=== PATIENT | female | born 1945 | race Caucasian/White ===

== ENCOUNTER 2016-04-06 03:31 | Inpatient (IN) | payer MEDICARE ==
[~2016-04-06] VITALS: Ht 170.2 cm; Wt 69.7 kg
[2016-04-06] VITALS (11 sets, daily range): BP systolic 132–190; BP diastolic 74–106; PULSE 73–101; RESP 16–20; TEMP 97.4–98.2; O2SAT 96–98
[~2016-04-06 03:31] MED LIST: ASPI325T PO; CELE200 PO; COUM5TAB PO; FAMO1TAB36 PO; FEXO180 PO; NEUR600T PO; ROSU20 PO; SYNT112T PO; TAB-TAB PO; TOPR100T15 PO
[2016-04-06] MEDS ORDERED: FAMO20TA2 PO (03:52)
[2016-04-06] MEDS ORDERED: GABA600T PO (03:53)
[2016-04-06] MEDS ORDERED: LEVO112T2 PO (03:53)
[2016-04-06] MEDS ORDERED: COUM6TAB PO (03:54)
[2016-04-06] MEDS ORDERED: COUM5TAB PO (03:54)
[2016-04-06] MEDS ORDERED: METO50TA PO (03:55)
[2016-04-06] MEDS ORDERED: MULTTAB67 PO (03:55)
[2016-04-06] MEDS ORDERED: ACET1CAP18 PO (03:56)
[2016-04-06] MEDS ORDERED: ROSU20 PO (03:56)
[2016-04-06] MEDS ORDERED: CRANCAP2 PO (03:57)
[2016-04-06] MEDS ORDERED: MELO7.5T4 PO (03:57)
[2016-04-06] MEDS ORDERED: CALC1TAB12 PO (03:57)
--- NOTE | 2016-04-06 05:09 | PD ---
HPI Chief Complaint: Abdominal Pain Time Seen by Provider: 04:11 Travel History International Travel<30 days: No Contact w/Intl Traveler<30days: No Traveled to known affect area: No History of Present Illness HPI Patient is a 70-year-old female who presents to emergency room with complaints of abdominal pain. Patient reports that for the past few weeks, she has been having increased abdominal pain after she eats food. Patient reports that she has had overall decreased oral intake for the past few weeks, reports that she has been trying to eat clear foods including soups. Patient reports that pain today was more severe, reports that she is feeling nauseous at this time. Reports increased pain to her upper abdomen. Reports that she has not seen GI in the past, patient has not had EGD or colonoscopy in the past. Patient reports that nothing she eats makes her pain better or worse. Patient denies chest pain or shortness of breath. Patient denies fevers or chills. Patient denies constipation diarrhea. Patient with no recent travels. Patient also reports that she has noticed increased all lymph nodes in her neck for the past few weeks, reports that she did have a CAT scan performed as an outpatient, was concern for possible metastatic disease. Patient does have an appointment with Dr. Alexander in the following week for further evaluation including biopsy of these lymph nodes. Patient with no fevers or chills at this time. 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) Psychiatric: No Reproductive: No Respiratory: No Radiation Therapy: No Sleep Apnea: No Thyroid Disease: Yes Tetanus Vaccination: Unknown Influenza Vaccination: No Menopausal: Yes Past Surgical History Abdominal Surgery: Yes (APPY) Appendectomy: Yes Cardiac Surgery: Yes (CARDIAC ABLATION) Oral Surgery: Yes (TONSILLECTOMY) Pacemaker: No Other Surgery: Yes Family History Family History: Negative Social History Alcohol Use: Yes (RARE) Tobacco Use: No Substance Use: No Allergies-Medications (Allergen,Severity, Reaction): Coded Allergies: Hepatitis B Vaccine (Verified Allergy, Severe, 04/06/16) Penicillin (Unverified Allergy, Severe, SWELLING,HIVES, 04/06/16) Reported Meds & Prescriptions Reported Meds & Active Scripts Active Reported Calcium 500 +D (Calcium Carbonate-Cholecalciferol) 500-400 Mg-Unit Tab 1 Tab PO DAILY Cranberry Urinary Comfort (Vitamins C & E) 1 Cap 1 Cap PO DAILY Meloxicam 7.5 Mg Tab 7.5 Mg PO DAILY Tylenol (Acetaminophen) 325 Mg Cap 500 Mg PO Q6H PRN Crestor (Rosuvastatin Calcium) 20 Mg Tab 20 Mg PO DAILY Multiple Vitamin 1 Tab 1 Tab PO DAILY Metoprolol Tartrate 50 Mg Tab 50 Mg PO DAILY Coumadin (Warfarin) 6 Mg Tab 6 Mg PO EVERY OTHER DAY Coumadin (Warfarin) 5 Mg Tab 5 Mg PO DAILY Levothyroxine (Levothyroxine Sodium) 112 Mcg Tab 112 Mcg PO DAILY Gabapentin 600 Mg Tab 600 Mg PO HS Famotidine 20 Mg Tab 20 Mg PO DAILY Review of Systems General / Constitutional: No: Fever Eyes: No: Visual changes HENT: No: Headaches Cardiovascular: No: Chest Pain or Discomfort Respiratory: No: Shortness of Breath Gastrointestinal: Positive: Nausea, Vomiting, Abdominal Pain Genitourinary: No: Dysuria Musculoskeletal: No: Pain Skin: No Rash Neurologic: No: Weakness Psychiatric: No: Depression Endocrine: No: Polydipsia Hematologic/Lymphatic: No: Easy Bruising Physical Exam Narrative GENERAL: Mild distress SKIN: Warm and dry. HEAD: Atraumatic. Normocephalic. EYES: Pupils equal and round. No scleral icterus. No injection or drainage. ENT: No nasal bleeding or discharge. Mucous membranes pink and moist. NECK: Trachea midline. No JVD. CARDIOVASCULAR: Regular rate and rhythm. No murmur appreciated. RESPIRATORY: No accessory muscle use. Clear to auscultation. Breath sounds equal bilaterally. GASTROINTESTINAL: Abdomen soft, increased tenderness to the upper abdomen with no rebound or guarding on exam. Hepatic and splenic margins not palpable. MUSCULOSKELETAL: No obvious deformities. No clubbing. No cyanosis. No edema. NEUROLOGICAL: Awake and alert. No obvious cranial nerve deficits. Motor grossly within normal limits. Normal speech. PSYCHIATRIC: Appropriate mood and affect; insight and judgment normal. Data Data Last Documented VS Vital Signs Date Time Temp Pulse Resp B/P Pulse Ox O2 Delivery O2 Flow Rate FiO2 04/06/16 05:29 98 Room Air 04/06/16 05:29 77 18 185/85 04/06/16 03:34 97.7 Orders Complete Blood Count With Diff (04/06/16 05:14) Comprehensive Metabolic Panel (04/06/16 05:14) Lipase (04/06/16 05:14) Prothrombin Time / Inr (Pt) (04/06/16 05:14) Act Partial Throm Time (Ptt) (04/06/16 05:14) Urinalysis - C+S If Indicated (04/06/16 05:14) Ct Abd/Pel W Iv Contrast(Rout) (04/06/16 05:14) Iv Access Insert/Monitor (04/06/16 05:14) Ecg Monitoring (04/06/16 05:14) Oximetry (04/06/16 05:14) Morphine Inj (Morphine Inj) (04/06/16 05:15) Sodium Chlor 0.9% 1000 Ml Inj (Ns 1000 M (04/06/16 05:14) Sodium Chloride 0.9% Flush (Ns Flush) (04/06/16 05:15) Chest, Single Ap (04/06/16 05:14) Famotidine Inj (Pepcid Inj) (04/06/16 05:15) Morphine Inj (Morphine Inj) (04/06/16 05:19) Urine Culture (04/06/16 05:20) Iohexol 350 Inj (Omnipaque 350 Inj) (04/06/16 06:22) Labs Laboratory Tests Test 04/06/16 05:20 White Blood Count 7.3 TH/MM3 Red Blood Count 4.52 MIL/MM3 Hemoglobin 13.7 GM/DL Hematocrit 40.5 % Mean Corpuscular Volume 89.4 FL Mean Corpuscular Hemoglobin 30.4 PG Mean Corpuscular Hemoglobin 34.0 % Concent Red Cell Distribution Width 12.6 % Platelet Count 290 TH/MM3 Mean Platelet Volume 8.9 FL Neutrophils (%) (Auto) 68.3 % Lymphocytes (%) (Auto) 20.4 % Monocytes (%) (Auto) 7.7 % Eosinophils (%) (Auto) 2.8 % Basophils (%) (Auto) 0.8 % Neutrophils # (Auto) 5.0 TH/MM3 Lymphocytes # (Auto) 1.5 TH/MM3 Monocytes # (Auto) 0.6 TH/MM3 Eosinophils # (Auto) 0.2 TH/MM3 Basophils # (Auto) 0.1 TH/MM3 CBC Comment DIFF FINAL Differential Comment Prothrombin Time 22.8 SEC Prothromb Time International 2.0 RATIO Ratio Activated Partial 35.2 SEC Thromboplast Time Urine Color YELLOW Urine Turbidity CLEAR Urine pH 5.5 Urine Specific [place] 1.014 Urine Protein TRACE mg/dL Urine Glucose (UA) NEG mg/dL Urine Ketones 10 mg/dL Urine Occult Blood LARGE Urine Nitrite NEG Urine Bilirubin NEG Urine Urobilinogen LESS THAN 2.0 MG/DL Urine Leukocyte Esterase SMALL Urine RBC 21 /hpf Urine WBC 10 /hpf Urine Squamous Epithelial <1 /hpf Cells Urine Bacteria RARE /hpf Urine Mucus FEW /lpf Microscopic Urinalysis Comment CULTURE INDICATED Sodium Level 140 MEQ/L Potassium Level 3.4 MEQ/L Chloride Level 102 MEQ/L Carbon Dioxide Level 29.0 MEQ/L Anion Gap 9 MEQ/L Blood Urea Nitrogen 13 MG/DL Creatinine 0.74 MG/DL Random Glucose 121 MG/DL Calcium Level 9.6 MG/DL Total Bilirubin 0.5 MG/DL Aspartate Amino Transf 33 U/L (AST/SGOT) Alanine Aminotransferase 35 U/L (ALT/SGPT) Alkaline Phosphatase 94 U/L Total Protein 8.8 GM/DL Albumin 4.5 GM/DL Lipase 4287 U/L MDM Medical Decision Making Medical Screen Exam Complete: Yes Emergency Medical Condition: Yes Interpretation(s) Vital Signs Date Time Temp Pulse Resp B/P Pulse Ox O2 Delivery O2 Flow Rate FiO2 04/06/16 04:32 185/102 04/06/16 04:01 190/95 04/06/16 03:50 101 18 154/100 98 Room Air 04/06/16 03:34 97.7 97 16 189/106 98 EKG at 0415: Normal sinus rhythm at 80 bpm, QT/QTC 363/408, no acute ST or T- wave changes Differential Diagnosis Acute cholecystitis, gastritis, gastroenteritis, gastric ulcer, ACS, electrolyte abnormality Narrative Course Patient is a 62-year-old female who presents to emergency room with complaints of abdominal pain for the past few weeks. Patient with pain worse after eating meals. EKG ordered as well as CBC, BMP and x-ray chest to evaluate for possible free air. CT abdomen and pelvis ordered for further evaluation of abdominal pain. Upon presentation to emergency room, IV please, patient given IV fluids as well as IV Pepcid and GI cocktail. All labs and all studies reviewed with patient in detail CT of abdomen and pelvis reviewed patient in detail, copies of her studies were given to her plan to admit for obs Diagnosis Primary Impression: Pancreatitis, acute Qualified Code: K85.80 - Other acute pancreatitis, unspecified complication status Admitting Information Admitting Physician Requests: Lacey Harrington DO Apr 06, 2016 05:09
[2016-04-06] MEDS ORDERED: SODIUM CHLOR 0.9% 1000 ML INJ 1,000 ML IV SCH (05:14)
[2016-04-06] MEDS ORDERED: FAMOTIDINE 20 MG/2 ML VIAL IV PUSH ONE (05:15)
[2016-04-06] MEDS ORDERED: MORPHINE SULFATE 4 MG/ML INJ IV PUSH ONE (05:15)
[2016-04-06] MEDS ORDERED: MORPHINE SULFATE 8 MG/ML INJ ONE (05:19)
[2016-04-06 05:48] LABS: BASOPHIL # 0.1 TH/MM3 (0-0.2); BASOPHIL % 0.8 % (0.0-2.0); EOSINOPHIL # 0.2 TH/MM3 (0-0.4); EOSINOPHIL % 2.8 % (0.0-4.0); HEMATOCRIT 40.5 % (35.0-46.0); HEMO FLAGS DIFF FINAL; LYMPH % 20.4 % (9.0-44.0); LYMPHOCYTE # 1.5 TH/MM3 (1.0-4.8); MEAN CELL VOLUME 89.4 FL (80.0-100.0); MEAN CORPUSCULAR HEMOGLOBIN 30.4 PG (27.0-34.0); MONO % 7.7 % (0.0-8.0); NEUT % 68.3 % (16.0-70.0); PLATELET COUNT 290 TH/MM3 (150-450); RED BLOOD COUNT 4.52 MIL/MM3 (4.00-5.30); RED CELL DISTRIBUTION WIDTH 12.6 % (11.6-17.2); WHITE BLOOD COUNT 7.3 TH/MM3 (4.0-11.0)
[2016-04-06 06:01] LABS: ALT (GPT) 35 U/L (10-53); ANION GAP 9 MEQ/L (5-15); AST (GOT) 33 U/L (15-37); BLOOD UREA NITROGEN 13 MG/DL (7-18); CHLORIDE 102 MEQ/L (98-107); POTASSIUM 3.4 MEQ/L (3.5-5.1); SODIUM (NA) 140 MEQ/L (136-145)
[2016-04-06 06:03] LABS: BACTERIA, URINE RARE /hpf; BLOOD, URINE LARGE (NEG); COMMENT (UR) CULTURE INDICATED; CULTURE IF INDICATED CULTURE INDICATED; GLUCOSE,URINE NEG (NEG); KETONE, URINE 10 mg/dL (NEG); MUCUS URINE FEW /lpf (OCC); NITRITE,URINE NEG (NEG); PH, URINE 5.5 (5.0-8.5); SQUAMOUS EPITHELIAL CELL URINE <1 /hpf (0-5); URINE COLOR YELLOW (YELLW/STRAW)
[2016-04-06 06:04] LABS: ALKALINE PHOSPHATASE 94 U/L (45-117); TOTAL BILIRUBIN ADULT 0.5 MG/DL (0.2-1.0)
[2016-04-06 06:21] LABS: APTT (PATIENT) 35.2 SEC (24.3-30.1); PROTHROMBIN TIME - PATIENT 22.8 SEC (9.8-11.6)
[2016-04-06] MEDS ORDERED: IOHEXOL 350 MG/ML 10 ML VIAL (for RAD DIAG) IV ONE (06:22)
--- NOTE | 2016-04-06 06:33 | RADRPT ---
EXAM DATE/TIME: 04/06/2016 06:01 [facility] COMPARISON: No previous studies available for comparison. INDICATIONS : Abdominal pain. MEDICAL HISTORY : None. SURGICAL HISTORY : None. ENCOUNTER: Initial ACUITY: 1 day PAIN SCORE: 3/10 LOCATION: Bilateral Abdomen FINDINGS: A single view of the chest demonstrates the lungs to be symmetrically aerated without evidence of mas s, infiltrate or effusion. The cardiomediastinal contours are unremarkable. Osseous structures are intact. CONCLUSION: The lungs are clear. Jesus Alberto Madden MD on April 06, 2016 at 6:30 Board Certified Radiologist. This report was verified electronically.
--- NOTE | 2016-04-06 06:44 | RADRPT ---
EXAM DATE/TIME: 04/06/2016 06:20 [facility] COMPARISON: No previous studies available for comparison. INDICATIONS : Diffuse abdominal pain. IV CONTRAST: 97 cc Omnipaque 350 (iohexol) IV ORAL CONTRAST: No oral contrast ingested. RADIATION DOSE: 6.88 CTDIvol (mGy) MEDICAL HISTORY : Cerebrovascular disease. Cardiovascular disease SURGICAL HISTORY : Appendectomy. Tonsillectomy. ENCOUNTER: Initial ACUITY: 1 day PAIN SCALE: 4/10 LOCATION: abdomen TECHNIQUE: Volumetric scanning of the abdomen and pelvis was performed. Using automated exposure control and ad justment of the mA and/or kV according to patient size, radiation dose was kept as low as reasonably achievable to obtain optimal diagnostic quality images. FINDINGS: The examination is abnormal. In the liver, there are numerous varying sized hypodense lesions involv ing all segments; the largest lesion is in the posterior dome measures 2.4 cm. There is an abnormal appearance to the pancreas with a 2.5 cm hypodense lesion with ill-defined margins located in the mid body. There is soft tissue thickening anterior and to the left of the mid and distal abdominal aort a measuring up to 2.3 cm in width suggesting confluent adenopathy. No enlarged nodes in the deep pel vis or inguinal region. Loops of small large bowel are normal in diameter. The kidneys are symmetric in size with persistent lobation. There is a nonobstructing 4 mm stone midpole left kidney. Moderate curvature of th e lumbar spine convex towards the right. Urinary bladder margins are smooth. The inguinal region is unremarkable. The visualized lower lungs are clear. Wide windows for bony detail demonstrate the osseous structure s to be intact. Moderate hypertrophic degenerative changes in the posterior elements of the lower daylni mbar spine.. CONCLUSION: Multiple low density lesions in the liver and a dominant low density lesion in the pancreas are nonsp ecific in appearance. However, there is also prominent soft tissue in the retroperitoneum to the lef t of the aorta suggesting adenopathy. Metastatic malignancy needs to be excluded. The preferable wa y to evaluate this would be with a FDG PET/CT scan to evaluate for metabolically active areas and to help make decisions regarding possible biopsy. Jesus Alberto Madden MD on April 06, 2016 at 6:35 Board Certified Radiologist. This report was verified electronically.
[2016-04-06] MEDS: LEVOTHYROXINE SODIUM 112 MCG TAB PO SCH (09:00)
--- NOTE | 2016-04-06 09:00 | HHI.HP ---
[facility] Sly Lr MD Admission Diagnosis pancreatitis Diagnoses: (1) Pancreatitis, acute Diagnosis: Principal (2) Left cervical lymphadenopathy Diagnosis: Principal (3) history of atrial fibrillation Diagnosis: Secondary (4) Hypokalemia Diagnosis: Secondary Chief Complaint: Epigastric pain Travel History International Travel<30 Days: No Contact w/Intl Traveler <30 Da: No Traveled to Known Affected Are: No History of Present Illness Patient is a very pleasant 70-year-old female presented to the ER complaining of epigastric discomfort started about the day after [place] radiating to the back and occasionally both upper quadrants. This pain is occasionally relieved by Tums associated with some nausea or vomiting. Last evening very severe pain that patient came here to the emergency room. On evaluation noted to have an elevated lipase. CT also showed mesenteric adenopathy - nonspecific. States lost 5 pounds in the past 3 weeks now . her bowel movement is usually "sluggish ". She had a colonoscopy done which was unremarkable in February 2015. She is admitted for further evaluation and management. Patient denies any chronic alcohol use. In addition to above patient also noted about 2 weeks ago left supraclavicular masses. Workup was done as an outpatient with CBC and chest x-ray which was unremarkable. She was empirically treated with antibiotics with no change in lymphadenopathy. She had a CT done then at [facility] (formerly [facility]) which shows left-sided supraclavicular lymphadenopathy without adenopathy elsewhere. Differential diagnosis considers include myeloproliferative disorder versus metastatic disease. She was referred to general surgery as an outpatient and was set up to see Dr. Alexander for evaluation this week as an outpatient Had Mammogram May 2015 - normal. colonoscopy done in [address] Stewart which was reportedly normal Review of Systems Constitutional: DENIES: Diaphoretic episodes, Fatigue, Fever, Weight gain, Weight loss, Chills, Dizziness, Change in appetite, Night Sweats Endocrine: DENIES: Abnorml menstrual pattern, Heat/cold intolerance, Polydipsia , Polyuria, Polyphagia Eyes: DENIES: Blurred vision, Diplopia, Eye inflammation, Eye pain, Vision loss , Photosensitivity, Double Vision Ears, nose, mouth, throat: DENIES: Tinnitus, Hearing loss, Vertigo, Nasal discharge, Oral lesions, Throat pain, Hoarseness, Ear Pain, Running Nose, Epistaxis, Sinus Pain, Toothache, Odynophagia Respiratory: DENIES: Apneas, Cough, Snoring, Wheezing, Hemoptysis, Sputum production, Shortness of breath Cardiovascular: DENIES: Chest pain, Palpitations, Syncope, Dyspnea on Exertion , PND, Lower Extremity Edema, Orthopnea, Claudication Gastrointestinal: COMPLAINS OF: Abdominal pain Genitourinary: DENIES: Abnormal vaginal bleeding, Dysmenorrhea, Dyspareunia, Sexual dysfunction, Urinary frequency, Urinary incontinence, Urgency, Hematuria , Dysuria, Nocturia, Vaginal discharge Musculoskeletal: DENIES: Joint pain, Muscle aches, Stiffness, Joint Swelling, Back pain, Neck pain Integumentary: DENIES: Abnormal pigmentation, Pruritus, Rash, Nail changes, Breast masses, Breast skin changes, Nipple discharge Hematologic/lymphatic: DENIES: Bruising, Lymphadenopathy Immunologic/allergic: DENIES: Eczema, Urticaria Neurologic: DENIES: Abnormal gait, Headache, Localized weakness, Paresthesias, Seizures, Speech Problems, Tremor, Poor Balance Psychiatric: DENIES: Anxiety, Confusion, Mood changes, Depression, Hallucinations, Agitation, Suicidal Ideation, Homicidal Ideation, Delusions Past Family Social History Past Medical History She has history of atrial fibrillation status post cryoablation 2012. She is on metoprolol and Coumadin for this since 2012 Acid peptic disease Chronic heel pain Hypothyroidism Hyper lipidemia Past Surgical History Appendectomy at 10 years old Tonsillectomy at 14 years old He'll surgery with 3 plates in 2002 Sinus surgery in 2011 and cryoablation for atrial fibrillation 2012 Reported Medications Warfarin 5 mg Thursday 6 mg Thursday Metoprolol 50 mg daily Neurontin 600 mg at bedtime for chronic pain Meloxicam at bedtime when necessary Famotidine 20 mg daily Synthroid 112 g daily Crestor 20 mg at bedtime Allergies: Coded Allergies: Hepatitis B Vaccine (Verified Allergy, Severe, 04/06/16) Penicillin (Unverified Allergy, Severe, SWELLING,HIVES, 04/06/16) Physical Exam Vital Signs Vital Signs Date Time Temp Pulse Resp B/P Pulse Ox O2 Delivery O2 Flow Rate FiO2 04/06/16 08:02 84 18 158/84 97 Room Air 04/06/16 05:29 98 Room Air 04/06/16 05:29 77 18 185/85 98 Room Air 04/06/16 04:32 185/102 04/06/16 04:01 190/95 04/06/16 03:50 101 18 154/100 98 Room Air 04/06/16 03:34 97.7 97 16 189/106 98 Physical Exam GENERAL: This is a well-nourished, well-developed patient, in no apparent distress. SKIN: No rashes, ecchymoses or lesions. Cool and dry. HEAD: Atraumatic. Normocephalic. No temporal or scalp tenderness. EYES: Pupils equal round and reactive. Extraocular motions intact. No scleral icterus. No injection or drainage. ENT: Nose without bleeding, purulent drainage or septal hematoma. Throat without erythema, tonsillar hypertrophy or exudate. Uvula midline. Airway patent. NECK: Trachea midline. No JVD or are 3 discrete firm lymph nodes in the left supraclavicular area nontender. I didn't feel any lymphadenopathy in bilateral axillary or bilateral inguinal areas on the right supraclavicular area CARDIOVASCULAR: Regular rate and rhythm without murmurs, gallops, or rubs. RESPIRATORY: Clear to auscultation. Breath sounds equal bilaterally. No wheezes , rales, or rhonchi. GASTROINTESTINAL: Abdomen= benign exam soft, non-tender, nondistended. No hepato -splenomegaly, or palpable masses. No guarding. MUSCULOSKELETAL: Extremities without clubbing, cyanosis, or edema. No joint tenderness, effusion, or edema noted. No calf tenderness. Negative Homans sign bilaterally. NEUROLOGICAL: Awake and alert. Cranial nerves II through XII intact. Motor and sensory grossly within normal limits. Five out of 5 muscle strength in all muscle groups. Normal speech. Laboratory Laboratory Tests Test 04/06/16 05:20 White Blood Count 7.3 Red Blood Count 4.52 Hemoglobin 13.7 Hematocrit 40.5 Mean Corpuscular Volume 89.4 Mean Corpuscular Hemoglobin 30.4 Mean Corpuscular Hemoglobin 34.0 Concent Red Cell Distribution Width 12.6 Platelet Count 290 Mean Platelet Volume 8.9 Neutrophils (%) (Auto) 68.3 Lymphocytes (%) (Auto) 20.4 Monocytes (%) (Auto) 7.7 Eosinophils (%) (Auto) 2.8 Basophils (%) (Auto) 0.8 Neutrophils # (Auto) 5.0 Lymphocytes # (Auto) 1.5 Monocytes # (Auto) 0.6 Eosinophils # (Auto) 0.2 Basophils # (Auto) 0.1 CBC Comment DIFF FINAL Differential Comment Prothrombin Time 22.8 Prothromb Time International 2.0 Ratio Activated Partial 35.2 Thromboplast Time Urine Color YELLOW Urine Turbidity CLEAR Urine pH 5.5 Urine Specific [place] 1.014 Urine Protein TRACE Urine Glucose (UA) NEG Urine Ketones 10 Urine Occult Blood LARGE Urine Nitrite NEG Urine Bilirubin NEG Urine Urobilinogen LESS THAN 2.0 Urine Leukocyte Esterase SMALL Urine RBC 21 Urine WBC 10 Urine Squamous Epithelial <1 Cells Urine Bacteria RARE Urine Mucus FEW Microscopic Urinalysis Comment CULTURE INDICATED Sodium Level 140 Potassium Level 3.4 Chloride Level 102 Carbon Dioxide Level 29.0 Anion Gap 9 Blood Urea Nitrogen 13 Creatinine 0.74 Random Glucose 121 Calcium Level 9.6 Total Bilirubin 0.5 Aspartate Amino Transf 33 (AST/SGOT) Alanine Aminotransferase 35 (ALT/SGPT) Alkaline Phosphatase 94 Total Protein 8.8 Albumin 4.5 Lipase 4287 Date/Time Procedure Status Source Growth 04/06/16 05:20 Urine Culture Received Urine Clean Catch Pending Result Diagram: 04/06/1651904/06/16519 Imaging Last Impressions Chest X-Ray 04/06/16513 Signed Impressions: Service Date/Time: Wednesday, April 06, 2016 06:01 - CONCLUSION: The lungs are clear. Jesus Alberto Madden MD Abdomen/Pelvis CT 04/06/16513 Signed Impressions: Service Date/Time: Wednesday, April 06, 2016 06:20 - CONCLUSION: Multiple low density lesions in the liver and a dominant low density lesion in the pancreas are nonspecific in appearance. However, there is also prominent soft tissue in the retroperitoneum to the left of the aorta suggesting adenopathy. Metastatic malignancy needs to be excluded. The preferable way to evaluate this would be with a FDG PET/CT scan to evaluate for metabolically active areas and to help make decisions regarding possible biopsy. Jesus Alberto Madden MD Assessment and Plan Assessment and Plan 70-year-old female admitted for epigastric pain radiating to the back Acute pancreatitis Imaging study shows low density lesions in the liver and the pancreas which are nonspecific- no biliary duct obstruction Liver function tests are unremarkable Will consult and defer to GI for further evaluation -on proceeding with any further workup - ERCP or MRCP, tumor markers etc Keep patient nothing by mouth continue IV fluids IV Dilaudid when necessary IV for pain Left supraclavicular multiple lymphadenopathies very suspicious for malignancy we will proceed with consulting general surgery as this is the most accessible/least invasive area for biopsy - We'll consult Dr. Alexander since patient was set up to see him tomorrow. Hold Coumadin URinary tract infection start Levaquin ff c and s History of atrial fibrillation status post cryoablation. Continue on metoprolol. Hold coumadin for possible procedure HYpokalemia replace IV and recheck in am History of acid peptic disease. Continue on her PPI- route IV History of hypothyroidism. Continue Synthroid History of hyperlipidemia on statins. History of chronic heel pain. Continue Neurontin 600 mg at bedtime discussed with patient and at bedside Physician Certification 2 Midnight Certification Type: Admission for Inpatient Services Order for Inpatient Services The services are ordered in accordance with Medicare regulations or non- Medicare payer requirements, as applicable. In the case of services not specified as inpatient-only, they are appropriately provided as inpatient services in accordance with the 2-midnight benchmark. Estimated LOS (days): 3 days is the estimated time the patient will need to remain in the hospital, assuming treatment plan goals are met and no additional complications. Post-Hospital Plan: Not yet determined Problem Qualifiers (1) Pancreatitis, acute: Qualified Code: K85.80 - Other acute pancreatitis, unspecified complication status Nirali Tate MD Apr 06, 2016 09:00 Nirali Tate MD Apr 06, 2016 09:00
[2016-04-06] MEDS: POTASSIUM CHLORIDE INJ 10 MEQ in DEXT 5%-NACL 0.9% 1000 ML INJ 1,000 ML IV SCH ×2 (09:27→22:06)
[2016-04-06] MEDS: PANTOPRAZOLE SODIUM 40 MG VIAL IV PUSH SCH (09:27)
[2016-04-06] MEDS: HYDROmorphone HCL PF 1 MG/ML VIAL IV PUSH PRN ×3 (09:28→22:06)
[2016-04-06] MEDS: LEVOFLOXACIN 500 MG PREMIX INJ 100 ML IV SCH (10:21)
[2016-04-06] MEDS: METOPROLOL TARTRATE 50 MG TAB PO SCH (10:21)
[2016-04-06] MEDS: POTASSIUM CHLOR 10 MEQ PREMIX 100 ML IV SCH ×2 (12:22→16:42)
--- NOTE | 2016-04-06 14:48 | EKG ---
Date Performed: 04/06/2016 Time Performed: 04:15:08 PTAGE: 70 years EKG: Sinus rhythm MARKED LEFT AXIS DEVIATION Nonspecific ST and T wave abnormalities ABNORMAL ECG PREVIOUS TRACING : 07/14/2012 03.18 Compared to the previous tracing, nonspecific ST/T wave jacinda nges now noted DOCTOR: Philip Edmondson Interpretating Date/Time 04/06/2016 14:48:27
--- NOTE | 2016-04-06 17:35 | MB ---
cc: REECE AMADOR M.D. DATE OF CONSULTATION: 04/06/2016. REASON FOR CONSULTATION: Left supraclavicular adenopathy. HISTORY OF PRESENT ILLNESS: The patient is a 70-year-old female who developed epigastric discomfort with severe pain. The patient was noted have an elevated lipase and mesenteric adenopathy that was nonspecific. The patient had a colonoscopy in February of 2015 which was unremarkable. She denies any chronic alcohol use. The patient had CT in [place] which demonstrated supraclavicular lymphadenopathy. The differential diagnosis included mild proliferative disorder versus metastatic disease. The patient was set up to see the undersigned this week as an outpatient. Mammogram in May of 2015 was reported as normal. REVIEW OF SYSTEMS: CONSITUTIONAL: The patient denies any problems constitutionally with fatigue, fever, weight loss and dizziness, change in appetite or night sweats. ENDOCRINE: Denies heat and cold intolerance, polydipsia, polyuria. EYES: Denies blurred vision, diplopia, or double vision. EARS, NOSE AND THROAT: Denies hearing loss, throat pain, hoarseness, ear pain or epistaxis. CARDIOVASCULAR: Denies chest pain, palpitations, syncope or dyspnea on exertion. GI: Significant for the abdominal pain. : Negative for urinary frequency, incontinence, urgency or hematuria or dysuria. MUSCULOSKELETAL: Denies joint pain, muscle aches, joint swelling. INTEGUMENTARY: Denies pruritus, rash or skin changes. HEMATOLOGIC: Denies bruising or lymphadenopathy except as indicated above. IMMUNOLOGIC: Denies urticaria. NEUROLOGIC: Denies abnormal gait, headache, weakness, dizziness, seizures or speech problems. PSYCHIATRIC: Denies anxiety, confusion, depression, hallucinations or agitation. FAMILY HISTORY AND SOCIAL HISTORY: The patient has a history of atrial fibrillation with cryoablation in 2012. She is on metoprolol and coumadin for this since 2012. PAST MEDICAL HISTORY: 1. History of acid peptic disease. 2. Hypothyroidism. 3. Hyperlipidemia. PAST SURGICAL HISTORY: 1. Appendectomy age 10. 2. Tonsillectomy age 14. 3. Heel surgery 2002. 4. Sinus surgery 2011. 5. Cryoablation 2012. MEDICATIONS: 1. Coumadin 5 milligrams on Thursday, Thursday, Thursday, ; 6 milligrams Thursday, Thursday, Thursday. 2. Metoprolol 50 milligrams daily. 3. Neurontin 600 milligrams at bedtime for chronic pain. 4. Meloxicam at bedtime PRN. 5. Famotidine 20 milligrams daily. 6. Synthroid 112 micrograms daily. 7. Crestor 20 milligrams at bedtime. ALLERGIES: 1. THE PATIENT HAS ALLERGY TO PENICILLIN WHICH CAUSES HIVES. 2. HEPATITIS B VACCINE. PHYSICAL EXAMINATION: GENERAL: The physical exam reveals a female in no acute distress. VITAL SIGNS: Blood pressure 150/92, pulse 78, respirations 20, temperature 98.2. HEAD, EYES, EARS, NOSE, THROAT: The sclerae are anicteric. Pupils are reactive. Throat is clear. NECK: The neck is supple. Trachea is midline. CHEST: Clear to auscultation. LYMPHATIC: There are three lymph nodes in the left supraclavicular area. There is no adenopathy in the axilla or groin areas or in the right supraclavicular area. ABDOMEN: Abdomen soft and nontender and nondistended. MUSCULOSKELETAL: No edema or joint tenderness. NEUROLOGIC: Awake and alert. Cranial nerves II through XII are grossly intact. Sensory and motor exams are grossly intact. Muscle strength 5/5 throughout. LABORATORY VALUES: WBCs of 7.3, hemoglobin 13.7, platelet count 290,000. BUN and creatinine are 13 and 0.7, potassium is 3.4. Liver function tests are essentially within normal limits. Lipase is elevated at 4287. IMAGING STUDIES: CT scan on April 06 demonstrates multiple low density lesions in the liver and a dominant low density lesion in the pancreas, which is nonspecific. There is also prominent tissue in the retroperitoneum left of the aorta suggesting adenopathy. PET scan was suggested as an outpatient. ASSESSMENT: Acute pancreatitis with question of pancreatic and/or liver lesions. RECOMMENDATIONS/PLAN: Will arrange for operative intervention. I have discussed risks of surgery, including but not limited to: bleeding risk increased due to anticoagulation, infection, seroma formation, and spinal accessory nerve injury. I have discussed remedies, consequences, alternatives and convalescence associated with surgery; she vocalizes understanding and agrees to proceed with surgery. Will need to reverse anticoagulation as INR is 2.0 prior to surgery. Will give vitamin K today. Thank you Dr. Tate for asking me to see this individual. MD JODI Peguero/JCJcarlos /4:36 PM /5:19 PM THANIA
[2016-04-06] MEDS ORDERED: PHYTONADIONE 10 MG/ML VIAL SQ ONE (17:45)
[2016-04-06] MEDS: GABAPENTIN 300 MG CAP PO SCH (21:00)
[2016-04-07] VITALS: BP 137/78; PULSE 90; RESP 18; TEMP 97.8; O2SAT 97
[2016-04-07 04:00] VITALS: BP 164/83; PULSE 88; RESP 18; TEMP 97.6; O2SAT 97
[2016-04-07] MEDS: PANTOPRAZOLE SODIUM 40 MG VIAL IV PUSH SCH (04:04)
[2016-04-07] MEDS: METOPROLOL TARTRATE 50 MG TAB PO SCH (04:04)
[2016-04-07] MEDS: POTASSIUM CHLORIDE INJ 10 MEQ in DEXT 5%-NACL 0.9% 1000 ML INJ 1,000 ML IV SCH ×3 (04:11→21:02)
[2016-04-07] MEDS: ONDANSETRON HCL 4 MG/2 ML VIAL IV PUSH PRN ×3 (06:44→20:53)
[2016-04-07] MEDS: HYDROmorphone HCL PF 1 MG/ML VIAL IV PUSH PRN ×4 (06:45→20:53)
[2016-04-07 07:16] LABS: INTERNATIONAL NORMALIZED RATIO 1.7 RATIO; PROTHROMBIN TIME - PATIENT 18.7 SEC (9.8-11.6)
--- NOTE | 2016-04-07 07:21 | MB ---
cc: LA FUNES M.D. DATE OF CONSULTATION: 04/06/2015 DATE OF : 1945 REASON FOR CONSULTATION Abnormal CT scan, possible pancreatitis or malignancy. Thank you for the consultation. 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 The patient came in complaining of epigastric pain. She had this pain for a few weeks. Apparently she had an cat scratch a few months ago and developed lymph node enlargement in the neck. She was worried about malignancy and is supposed to have a biopsy done by Dr. Alexander. The patient had some nausea and vomiting in the last few days and abdominal pain, came for evaluation. She was found to have elevated lipase and CT scan showed mesenteric adenopathy, questionable malignancy versus pancreatitis. The patient had a colonoscopy about a year ago which was unremarkable and did not have prior endoscopy. Mammogram was done in May 2015 which was normal. REVIEW OF SYSTEMS All 12-point negative except HPI. ALLERGIES 1. HEPATITIS B VACCINE. 2. PENICILLIN. MEDICATIONS Reviewed in the chart. PAST SURGICAL HISTORY 1. Appendectomy. 2. Tonsillectomy. 3. Sinus surgery. PAST MEDICAL HISTORY 1. Hypothyroidism. 2. Hyperlipidemia. 3. Atrial fibrillation. PHYSICAL EXAMINATION GENERAL: Alert, oriented, in no acute distress at this time. VITAL SIGNS: Stable. HEENT: Pupils round and reactive to light. NECK: Supple. The patient has lymph nodes in her neck. CARDIAC: Regular rate and rhythm. ABDOMEN: Soft, nondistended. Mild discomfort in the midepigastric area. EXTREMITIES: No edema, clubbing or cyanosis. NEUROLOGIC: Neurologically intact. PSYCHIATRIC: Psychologically appropriate but stressed out at the CT findings. LABORATORY DATA Normal CBC, white count 7.3, hemoglobin 13.7, platelet 12.6. INR 2.0. Liver function tests are normal. Lipase 4287. IMAGING DATA CT of the abdomen showed multiple low density lesions in the liver, nonspecific appearance of the pancreas. There is also retroperitoneum soft tissue suggesting adenopathy, malignancy to be excluded. ASSESSMENT AND PLAN 1. A 70-year-old lady with pancreatitis. We will manage the patient conservatively. Will keep her n.p.o., treat with pain medication and hydration. 2. The patient has questionable malignancy. We are going to do tumor markers and will ask Dr. Alexander to see her, who was supposed to see for biopsy of the lymph node in her neck. 3. The patient will need PET scan as an outpatient. 4. Will ask oncology to see her. 5. Further plan to follow based on the above. MD JADE Alexander/SHONDA /12:03 AM /7:03 AM
[2016-04-07 08:00] VITALS: BP 139/86; PULSE 71; RESP 16; TEMP 97.8; O2SAT 96
[2016-04-07] MEDS: LEVOTHYROXINE SODIUM 112 MCG TAB PO SCH (08:43)
[2016-04-07] MEDS: SODIUM CHLORIDE 0.9% FLUSH 5 ML FLUSH IVF PRN (08:44)
[2016-04-07] MEDS: LEVOFLOXACIN 500 MG PREMIX INJ 100 ML IV SCH (08:44)
[2016-04-07 12:00] VITALS: BP 143/94; PULSE 79; RESP 16; TEMP 97.2; O2SAT 98
[2016-04-07] MEDS ORDERED: LACTATED RINGER'S 1000 ML INJ 1,000 ML IV ONE (12:00)
[2016-04-07] MEDS ORDERED: PROPOFOL 200 MG/20 ML AMP IV ONE (12:00)
--- NOTE | 2016-04-07 12:14 | HHI.GIFU ---
Subjective Remarks Resting in bed. Mild LUQ discomfort. Going for lymph node biopsy today. ( VelasquezNoelle Kalaterrance NARVAEZ) Objective Vitals I&O Vital Signs Date Time Temp Pulse Resp B/P Pulse Ox O2 Delivery O2 Flow Rate FiO2 04/07/16 08:00 97.8 71 16 139/86 96 04/07/16 04:00 97.6 88 18 164/83 97 04/07/16 00:00 97.8 90 18 137/78 97 04/06/16 20:00 97.7 99 18 164/106 96 04/06/16 15:00 97.4 73 20 162/88 96 I/O 04/06/16 04/06/16 04/06/16 04/07/16 04/07/16 04/07/16 07:00 15:00 23:00 07:00 15:00 23:00 Intake Total 1037 ml 0 ml 0 ml Output Total 400 ml 1100 ml 600 ml Balance 637 ml -1100 ml -600 ml Intake Oral 0 ml 0 ml 0 ml IV Total 1037 ml Output Urine Total 400 ml 1100 ml 600 ml Stool Total 0 ml # Bowel Movements 0 0 Laboratory Laboratory Tests Test 04/07/16 06:02 Prothrombin Time 18.7 Prothromb Time International 1.7 Ratio Lipase 2217 Tumor Marker Alpha Fetoprotein 3.6 Carcinoembryonic Antigen 60.7 CA 19-9 Antigen 2964.5 Date/Time Procedure Status Source Growth 04/06/16 05:20 Urine Culture - Final Complete Urine Clean Catch 10-50,000 CFU/ML MIXED GRAM POSITIVE ... Imaging Last Impressions Chest X-Ray 04/06/16513 Signed Impressions: Service Date/Time: Wednesday, April 06, 2016 06:01 - CONCLUSION: The lungs are clear. Jesus Alberto Madden MD Abdomen/Pelvis CT 04/06/16513 Signed Impressions: Service Date/Time: Wednesday, April 06, 2016 06:20 - CONCLUSION: Multiple low density lesions in the liver and a dominant low density lesion in the pancreas are nonspecific in appearance. However, there is also prominent soft tissue in the retroperitoneum to the left of the aorta suggesting adenopathy. Metastatic malignancy needs to be excluded. The preferable way to evaluate this would be with a FDG PET/CT scan to evaluate for metabolically active areas and to help make decisions regarding possible biopsy. Jesus Alberto Madden MD Physical Exam HEENT: Normocephalic; atraumatic; no jaundice. Throat is clear. NECK: Left supraclavicular lymphadenopathy. CHEST: CTA. CARDIAC: RRR. ABDOMEN: Soft, nondistended, nontender; no hepatosplenomegaly; bowel sounds are present in all four quadrants. EXTREMITIES: No clubbing, cyanosis, or edema. SKIN: Normal; no rash; no jaundice. FINANCIAL SERVICE PROFESSIONAL: No focal deficits; alert and oriented times three. (Noelle Velasquez) Assessment and Plan Plan ASSESSMENT: - Pancreatitis with dominant low density lesion in the pancreas. Abdomen/ Pelvis CT (04/06/16)-------> Multiple low density lesions in the liver and a dominant low density lesion in the pancreas are nonspecific in appearance. However, there is also prominent soft tissue in the retroperitoneum to the left of the aorta suggesting adenopathy. Metastatic malignancy needs to be excluded. The preferable way to evaluate this would be with a FDG PET/CT scan to evaluate for metabolically active areas and to help make decisions regarding possible biopsy. Lipase 4287------> 2217. AFP 3.6, CEA 60.7, Ca19-9 2964.5. Mild LUQ tenderness. Concerning for possible pancreatic malignancy. Will need PET scan and likely EUS as outpatient. Oncology consulted. - Multiple low densities in the liver. AFP 3.6, CEA 60.7 (Had a normal colonoscopy 1 year ago per patient), Ca19-9 2964.5. Pt has supraclavicular adenopathy on the left and is going for a lymph node biopsy today. - Supraclavicular adenopathy. GS following, going for lymph node biopsy today. PLAN: - NPO for procedure today - Monitor labs - Oncology consulted - Supportive care - PET Scan/EUS as outpatient - Further recommendations to follow based on results of above - Pt seen and examined by Dr. Jean and myself and this note is written on his behalf (Noelle Velasquez) Physician Comments Patient was seen and examined Agree with above Continue with current supportive care Monitor labs Probable outpatient endoscopic ultrasound (Juan Jean MD) Noelle Velasquez Apr 07, 2016 12:14 Juan Jean MD Apr 07, 2016 14:46
--- NOTE | 2016-04-07 12:57 | HHI.PR ---
Subjective Remarks discussed about plan no conplains of nausea vomiting or abdominal pain Objective Vitals Vital Signs Date Time Temp Pulse Resp B/P Pulse Ox O2 Delivery O2 Flow Rate FiO2 04/07/16 08:00 97.8 71 16 139/86 96 04/07/16 04:00 97.6 88 18 164/83 97 04/07/16 00:00 97.8 90 18 137/78 97 04/06/16 20:00 97.7 99 18 164/106 96 04/06/16 15:00 97.4 73 20 162/88 96 I/O 04/06/16 04/06/16 04/06/16 04/07/16 04/07/16 04/07/16 07:00 15:00 23:00 07:00 15:00 23:00 Intake Total 1037 ml 0 ml 0 ml Output Total 400 ml 1100 ml 600 ml Balance 637 ml -1100 ml -600 ml Intake Oral 0 ml 0 ml 0 ml IV Total 1037 ml Output Urine Total 400 ml 1100 ml 600 ml Stool Total 0 ml # Bowel Movements 0 0 Result Diagram: 04/06/1651904/06/16519 Imaging Last Impressions Chest X-Ray 04/06/16513 Signed Impressions: Service Date/Time: Wednesday, April 06, 2016 06:01 - CONCLUSION: The lungs are clear. Jesus Alberto Madden MD Abdomen/Pelvis CT 04/06/16513 Signed Impressions: Service Date/Time: Wednesday, April 06, 2016 06:20 - CONCLUSION: Multiple low density lesions in the liver and a dominant low density lesion in the pancreas are nonspecific in appearance. However, there is also prominent soft tissue in the retroperitoneum to the left of the aorta suggesting adenopathy. Metastatic malignancy needs to be excluded. The preferable way to evaluate this would be with a FDG PET/CT scan to evaluate for metabolically active areas and to help make decisions regarding possible biopsy. Jesus Alberto Madden MD Objective Remarks awake and alert, speech clear left supraclavicular adnopathy lungs clear regular rhythm abdomen soft, nontender, good bowel sounds extremities no edema neuro exam non focal A/P Problem List: (1) Pancreatitis, acute ICD Code: K85.90 Status: Acute (2) Left cervical lymphadenopathy ICD Code: R59.0 Status: Acute (3) history of atrial fibrillation Status: Acute (4) Hypokalemia ICD Code: E87.6 Status: Acute Assessment and Plan 70-year-old female admitted for epigastric pain radiating to the back Acute pancreatitis Abdominal lymphadenopathy with liver lesions- worrisome for malignancy elevated tumor markers lipase trending down continue IVF, NPO GI ff Left supraclavicular multiple lymphadenopathies very suspicious for malignancy GS consulted- for biopsy Hold Coumadin URinary tract infection on Levaquin ff c and s History of atrial fibrillation status post cryoablation. Continue on metoprolol. Hold coumadin for possible procedure HYpokalemia IVF with K. recheck in am History of acid peptic disease. Continue on her PPI- route IV History of hypothyroidism. Continue Synthroid History of hyperlipidemia on statins. History of chronic heel pain. Continue Neurontin 600 mg at bedtime d/w with patient and Problem Qualifiers (1) Pancreatitis, acute: Qualified Code: K85.80 - Other acute pancreatitis, unspecified complication status Nirali Tate MD Apr 07, 2016 12:57 Nirali Tate MD Apr 07, 2016 12:57
[2016-04-07 16:00] VITALS: BP 136/87; PULSE 73; RESP 16; TEMP 97.6; O2SAT 98
[2016-04-07] MEDS ORDERED: LIDOCAINE HCL 1% 50 ML VIAL ONE (17:46)
[2016-04-07] MEDS ORDERED: LIDOCAINE HCL 1% 50 ML VIAL INFIL ONE (18:33)
[2016-04-07] MEDS ORDERED: MIDAZOLAM HCL 2 MG/2 ML VIAL ONE (19:38)
[2016-04-07 20:00] VITALS: BP 176/97; PULSE 79; RESP 16; TEMP 97.3; O2SAT 97
--- NOTE | 2016-04-07 20:13 | HHI.PR ---
cc: Jesse Alexander MD Immediate Post Op Note Procedure Date: Apr 07, 2016 Pre Op Diagnosis: Left supraclavicular adenopathy Post Op Diagnosis: Same Surgeon: Jesse Alexander Dressmaker Garment Fitter(s): None Procedure: Left supraclavicular lymph node biopsy x 3 Complications: None Specimen(s) removed: Left supraclavicular lymph nodes to pathology Estimated blood loss: <10 ml Anesthesia: TIVA Drains: None IVF (600 ml) Patient to: Other (Room) Patient Condition: Good Date/Time of Procedure: SEE SURGICAL CARE RECORD Jesse Alexander MD Apr 07, 2016 20:13
[2016-04-07] MEDS: GABAPENTIN 300 MG CAP PO SCH (21:00)
[2016-04-08] VITALS: BP 147/78; PULSE 86; RESP 16; TEMP 98.2; O2SAT 98
[2016-04-08] MEDS: ACETAMINOPHEN/HYDROcodone 325 MG/7.5 MG TAB PO PRN ×3 (02:59→14:12)
[2016-04-08] MEDS: ONDANSETRON HCL 4 MG/2 ML VIAL IV PUSH PRN ×3 (03:01→21:06)
[2016-04-08 04:20] VITALS: BP 134/82; PULSE 83; RESP 18; TEMP 97.7; O2SAT 95
[2016-04-08 07:58] LABS: BICARBONATE 26.9 MEQ/L (21.0-32.0); POTASSIUM 3.2 MEQ/L (3.5-5.1)
[2016-04-08] MEDS: LEVOTHYROXINE SODIUM 112 MCG TAB PO SCH (08:12)
[2016-04-08] MEDS: METOPROLOL TARTRATE 50 MG TAB PO SCH (08:13)
[2016-04-08] MEDS: LEVOFLOXACIN 500 MG PREMIX INJ 100 ML IV SCH (08:14)
[2016-04-08] MEDS: PANTOPRAZOLE SODIUM 40 MG VIAL IV PUSH SCH (08:14)
[2016-04-08] MEDS: POTASSIUM CHLORIDE INJ 10 MEQ in DEXT 5%-NACL 0.9% 1000 ML INJ 1,000 ML IV SCH (08:25)
[2016-04-08] MEDS ORDERED: POTASSIUM CHLOR 10 MEQ PREMIX 100 ML IV SCH (08:30)
[2016-04-08 08:35] VITALS: BP 133/84; PULSE 93; RESP 16; TEMP 97.3; O2SAT 97
--- NOTE | 2016-04-08 08:38 | HHI.PR ---
Subjective Remarks tolerating clears + flatus minimla abdominal pain up and ambulating Objective Vitals Vital Signs Date Time Temp Pulse Resp B/P Pulse Ox O2 Delivery O2 Flow Rate FiO2 04/08/16 04:20 97.7 83 18 134/82 95 04/08/16 00:00 98.2 86 16 147/78 98 04/07/16 20:00 97.3 79 16 176/97 97 04/07/16 16:00 97.6 73 16 136/87 98 04/07/16 12:00 97.2 79 16 143/94 98 I/O 04/07/16 04/07/16 04/07/16 04/08/16 04/08/16 04/08/16 07:00 15:00 23:00 07:00 15:00 23:00 Intake Total 0 ml 240 ml 847 ml Output Total 600 ml 400 ml 600 ml Balance -600 ml -400 ml -600 ml 240 ml 847 ml Intake Oral 0 ml 240 ml IV Total 847 ml Output Urine Total 600 ml 400 ml 600 ml # Bowel Movements 0 0 Result Diagram: 04/06/1651904/08/16605 Imaging Last Impressions Chest X-Ray 04/06/16513 Signed Impressions: Service Date/Time: Wednesday, April 06, 2016 06:01 - CONCLUSION: The lungs are clear. Jesus Alberto Madden MD Abdomen/Pelvis CT 04/06/16513 Signed Impressions: Service Date/Time: Wednesday, April 06, 2016 06:20 - CONCLUSION: Multiple low density lesions in the liver and a dominant low density lesion in the pancreas are nonspecific in appearance. However, there is also prominent soft tissue in the retroperitoneum to the left of the aorta suggesting adenopathy. Metastatic malignancy needs to be excluded. The preferable way to evaluate this would be with a FDG PET/CT scan to evaluate for metabolically active areas and to help make decisions regarding possible biopsy. Jesus Alberto Madden MD Objective Remarks awake and alert, speech clear left supraclavicular biopsy site- no bleedings lungs clear regular rhythm abdomen soft, nontender, good bowel sounds extremities no edema neuro exam non focal Procedures 04/07- biopsy of left supraclavicular lymph node A/P Problem List: (1) Pancreatitis, acute ICD Code: K85.90 Status: Acute (2) Left cervical lymphadenopathy ICD Code: R59.0 Status: Acute (3) history of atrial fibrillation Status: Acute (4) Hypokalemia ICD Code: E87.6 Status: Acute Assessment and Plan 70-year-old female admitted for epigastric pain radiating to the back Acute pancreatitis with pancreatic mass with metastasis + Abdominal lymphadenopathy with liver lesions-+ left supraclavicular Lymphadenopathy elevated tumor markers lipase trending down continue IVF,- clears. advance diet as tolerated will get Medical Oncology involve early to get set up early for OP ff up Left supraclavicular multiple S/P biopsy 04/07 ff pathology report Pyuria- no growth- likely contaminant on Levaquin- will DC History of atrial fibrillation status post cryoablation. Continue on metoprolol. restart coumadin HYpokalemia increase K in IVF. give x 1 po KCL History of acid peptic disease. Continue PPI History of hypothyroidism. Continue Synthroid History of hyperlipidemia on statins. History of chronic heel pain. Continue Neurontin 600 mg at bedtime Problem Qualifiers (1) Pancreatitis, acute: Qualified Code: K85.80 - Other acute pancreatitis, unspecified complication status Nirali Tate MD Apr 08, 2016 08:38 Nirali Tate MD Apr 08, 2016 08:38
[2016-04-08] MEDS ORDERED: POTASSIUM CHLORIDE 10 MEQ CONTROLLED RELEASE TAB PO ONE (08:45)
[2016-04-08] MEDS: WARFARIN SOD 5 MG TAB PO SCH ×2 (09:00→10:56)
--- NOTE | 2016-04-08 10:27 | MP ---
cc: REECE AMADOR M.D. DATE OF SURGERY 04/07/2016 PROCEDURE Biopsy left supraclavicular lymph nodes x 3. PREOPERATIVE DIAGNOSIS Left supraclavicular lymphadenopathy with intraabdominal adenopathy. POSTOPERATIVE DIAGNOSIS Left supraclavicular lymphadenopathy with intraabdominal adenopathy. ANESTHESIA TIVA. SURGEON MD Benjamin ESTIMATED BLOOD LOSS Less than 10 mL. FLUIDS 600 mL crystalloid. COMPLICATIONS None. DRAINS None. SPECIMEN Supraclavicular lymph nodes to pathology. PROCEDURE IN DETAIL The patient was seen in the preop area outside of the operating room and the left side marked by the undersigned and confirmed by the patient. She was taken back to the operating room and placed on the operating table in the supine position. After an adequate level of IV sedation was begun, the left neck was prepped and draped in the field. Time-out was taken confirming the correct patient, site and procedure to be performed. The skin and subcutaneous tissue was infiltrated with local anesthetic and an incision made directly over the masses. Dissection was carried down to two of the lymph nodes which were excised directly on the nodes themselves. The internal jugular vein was identified and pulled medially and kept out of the field of dissection. When these had been removed, a third lymph node was excised as well with care taken to dissected directly around the node and stay away from the surrounding tissues as much as possible. Dissection was carried out with successive clamping and ligation with silk suture as well as electrocautery. The specimens were then passed off the table. The wound was examined and made absolutely hemostatic. When this had been completed, the wound was closed in two layers with interrupted 3-0 Vicryl suture and 5-0 PDS in a running subcuticular fashion. The wound was dressed with Steri-Strips and the patient was taken directly back to her room. Sponge, needle and instrument counts were reported be correct. The patient tolerated the procedure well. MD JODI Peguero/ESTRELLA /8:16 PM /10:22 AM
[2016-04-08 12:00] VITALS: BP 134/86; PULSE 78; RESP 16; TEMP 97.8; O2SAT 98
[2016-04-08] MEDS: POTASSIUM CHLORIDE INJ 30 MEQ in DEXT 5%-NACL 0.9% 1000 ML INJ 1,000 ML IV SCH ×3 (12:38→23:30)
--- NOTE | 2016-04-08 14:20 | HHI.GIFU ---
Subjective Remarks Up in chair. Tolerating clears- pain controlled with norco. States she had her lymph node removal/biopsy last night. (Noelle Velasquez) Objective Vitals I&O Vital Signs Date Time Temp Pulse Resp B/P Pulse Ox O2 Delivery O2 Flow Rate FiO2 04/08/16 12:00 97.8 78 16 134/86 98 04/08/16 08:35 97.3 93 16 133/84 97 04/08/16 04:20 97.7 83 18 134/82 95 04/08/16 00:00 98.2 86 16 147/78 98 04/07/16 20:00 97.3 79 16 176/97 97 04/07/16 16:00 97.6 73 16 136/87 98 I/O 04/07/16 04/07/16 04/07/16 04/08/16 04/08/16 04/08/16 07:00 15:00 23:00 07:00 15:00 23:00 Intake Total 0 ml 240 ml 847 ml Output Total 600 ml 400 ml 600 ml 400 ml Balance -600 ml -400 ml -600 ml -160 ml 847 ml Intake Oral 0 ml 240 ml IV Total 847 ml Output Urine Total 600 ml 400 ml 600 ml 400 ml # Bowel Movements 0 0 Laboratory Laboratory Tests Test 04/08/16 06:06 Sodium Level 140 Potassium Level 3.2 Chloride Level 106 Carbon Dioxide Level 26.9 Anion Gap 7 Blood Urea Nitrogen 6 Creatinine 0.60 Estimat Glomerular Filtration 99 Rate Random Glucose 127 Calcium Level 8.5 Lipase 1586 Date/Time Procedure Status Source Growth 04/06/16 05:20 Urine Culture - Final Complete Urine Clean Catch 10-50,000 CFU/ML MIXED GRAM POSITIVE ... Imaging Last Impressions Chest X-Ray 04/06/16513 Signed Impressions: Service Date/Time: Wednesday, April 06, 2016 06:01 - CONCLUSION: The lungs are clear. Jesus Alberto Madden MD Abdomen/Pelvis CT 04/06/16513 Signed Impressions: Service Date/Time: Wednesday, April 06, 2016 06:20 - CONCLUSION: Multiple low density lesions in the liver and a dominant low density lesion in the pancreas are nonspecific in appearance. However, there is also prominent soft tissue in the retroperitoneum to the left of the aorta suggesting adenopathy. Metastatic malignancy needs to be excluded. The preferable way to evaluate this would be with a FDG PET/CT scan to evaluate for metabolically active areas and to help make decisions regarding possible biopsy. Jesus Alberto Madden MD Physical Exam HEENT: Normocephalic; atraumatic; no jaundice. Throat is clear. NECK: Incision line left supraclavicular area CHEST: CTA. CARDIAC: RRR. ABDOMEN: Soft, nondistended, nontender; no hepatosplenomegaly; bowel sounds are present in all four quadrants. EXTREMITIES: No clubbing, cyanosis, or edema. SKIN: Normal; no rash; no jaundice. SKIVER BOX TOE: No focal deficits; alert and oriented times three. (Noelle Velasquez) Assessment and Plan Plan ASSESSMENT: - Pancreatitis with dominant low density lesion in the pancreas. Abdomen/ Pelvis CT (04/06/16)-------> Multiple low density lesions in the liver and a dominant low density lesion in the pancreas are nonspecific in appearance. However, there is also prominent soft tissue in the retroperitoneum to the left of the aorta suggesting adenopathy. Metastatic malignancy needs to be excluded. The preferable way to evaluate this would be with a FDG PET/CT scan to evaluate for metabolically active areas and to help make decisions regarding possible biopsy. Lipase 4287------> 2217----> 1586. AFP 3.6, CEA 60.7, Ca19-9 2964.5. Mild LUQ tenderness. Concerning for possible pancreatic malignancy. Will need PET scan and likely EUS as outpatient. Oncology consulted- requesting Dr. Umana. - Multiple low densities in the liver. AFP 3.6, CEA 60.7 (Had a normal colonoscopy 1 year ago per patient), Ca19-9 2964.5. Pt has supraclavicular adenopathy on the left, s/p lymph node removal and biopsy. Oncology consulted. - Supraclavicular adenopathy. S/P lymph node removal/biopsy today. Pathology pending. PLAN: - Clear liquids - Lipase in am - Oncology consulted - Supportive care - PET Scan/Likely EUS as outpatient - Further recommendations to follow based on results of above - Pt seen and examined by Dr. Jean and myself and this note is written on his behalf (Noelle Velasquez) Physician Comments Patient seen and examined Agree with above Continue with current supportive care Monitor labs Await pathology from lymph node dissection Consider EUS as outpatient (Juan Jean MD) Noelle Velasquez Apr 08, 2016 14:20 Juan Jean MD Apr 08, 2016 20:39
[2016-04-08 16:00] VITALS: BP 144/85; PULSE 73; RESP 16; TEMP 98.3; O2SAT 97
[2016-04-08] MEDS ORDERED: WARFARIN SOD 5 MG TAB PO SCH (19:30)
[2016-04-08 20:00] VITALS: BP 152/89; PULSE 81; RESP 16; TEMP 98.2; O2SAT 99
--- NOTE | 2016-04-08 20:10 | HHI.PR ---
Subjective Subjective Notes Neck is sore Objective Vitals/I&O Vital Signs Date Time Temp Pulse Resp B/P Pulse Ox O2 Delivery O2 Flow Rate FiO2 04/08/16 16:00 98.3 73 16 144/85 97 04/06/16 09:50 Room Air Labs Laboratory Tests Test 04/08/16 06:06 Sodium Level 140 Potassium Level 3.2 Chloride Level 106 Carbon Dioxide Level 26.9 Anion Gap 7 Blood Urea Nitrogen 6 Creatinine 0.60 Estimat Glomerular Filtration 99 Rate Random Glucose 127 Calcium Level 8.5 Lipase 1586 Date/Time Procedure Status Source Growth 04/06/16 05:20 Urine Culture - Final Complete Urine Clean Catch 10-50,000 CFU/ML MIXED GRAM POSITIVE ... Narrative Exam wound with intact steristrips A/P Assessment and Plan Stable after biopsy left supraclavicular LN biopsy Will sign off; will see as needed Jesse Alexander MD Apr 08, 2016 20:10
[2016-04-08] MEDS ORDERED: PHYTONADIONE 5 MG TAB PO STA (20:46)
[2016-04-08] MEDS: GABAPENTIN 300 MG CAP PO SCH (21:05)
[2016-04-08] MEDS: HYDROmorphone HCL PF 1 MG/ML VIAL IV PUSH PRN (21:06)
--- NOTE | 2016-04-08 21:47 | MB ---
cc: VIDA LOMAX,REECE LADD,ISABELLA Stone MD DATE OF CONSULTATION 04/08/16 REASON FOR CONSULTATION Picture consistent with metastatic pancreatic cancer. PATIENT PROFILE The patient is a 70-year white female. She has been to the same partner for 48 years. She has two children, both sons. She was born in [place], [place]. 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 She does not smoke. Alcohol intake is rare. HISTORY OF PRESENT ILLNESS The patient is a 70-year-old female who was well until January 2016 when she developed left supraclavicular adenopathy. At that time, she had no symptoms. The nodes were initially felt to be benign and then subsequently she developed additional nodes in the neck. She had a CT scan done confirming the presence of adenopathy in the neck. During the past two weeks, she developed upper abdominal pain radiating to the back. She was in the process of being referred for surgical biopsy of the left supraclavicular adenopathy. The pain became so severe that she went to the emergency room. She was admitted to the hospital from the emergency room due to the abdominal pain, tenderness and an elevated lipase of 4287 on 04/06/2016. The patient had imaging studies subsequent to this on 04/06/2016 consisting of a CAT scan of the abdomen and pelvis with IV contrast. She was found to have multiple low-density lesions in the liver and a dominant low-density lesion in the pancreas. There was prominent soft tissue in the retroperitoneum to the left of the aorta suggesting adenopathy. Marker studies were done on 04/07/2016. An alpha-fetoprotein was 3.6, a CEA was 60 and a CA 19-9 was 2964. The patient underwent a biopsy of the left supraclavicular nodes today, 04/08/2016, with results pending. A chest x-ray on 04/06/2016 was unremarkable. The patient's current symptoms are upper abdominal pain radiating to the back and diminished appetite. She requires Lortab and even this does not fully control her pain. PAST SURGICAL HISTORY 1. Appendectomy 2. Tonsillectomy 3. In 2002, she had an ORIF for a fracture of the left heel 4. July 2012 cryoablation for atrial fibrillation. The patient indicates that she has been in sinus rhythm since this time, although continues to take Coumadin. 5. Sinus surgery. PAST MEDICAL HISTORY 1. Atrial fibrillation with cryoablation performed July 2012. 2. 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 3. 2000 subarachnoid hemorrhage. No surgery done and the etiology not determined. 4. Subacute thyroiditis 1998 5. In 1991, the patient received hepatitis B vaccine and developed a bilateral optic neuritis 6. Osteoarthritis. MEDICATIONS Prior to admission 1. Coumadin 5 mg for 4 days and 6 mg for 3 days. 2. Synthroid 0.112 mg a day. 3. Metoprolol 50 b.i.d. 4. Neurontin 60 kg p.o. at bedtime 5. Tylenol in the evening 6. Mobic 7.5 mg a night 7. Multivitamin. 8. Calcium 9. Pepcid. ALLERGIES PENICILLIN FAMILY HISTORY Mother of emphysema and had a history of bladder and colon cancer. Father at age 71 of colon cancer. The patient had a brother who at the age of 39 of colon cancer. REVIEW OF SYSTEMS CONSTITUTIONAL: The patient feels ill with upper abdominal pain and back pain VISION: Decreased vision left eye due to previous retinal artery occlusion. The patient has glasses. HEARING: Fine. CARDIOVASCULAR: No chest pain, palpitations, orthopnea or PND. RESPIRATORY: No fever, night sweats, chills, cough. GI: Upper abdominal pain radiating to the back : No dysuria, frequency, hematuria or vaginal bleeding. MUSCULOSKELETAL: Back pain. NEUROLOGIC: Normal. LABORATORY DATA Lytes, BUN, creatinine and liver function tests are unremarkable except for a minimal elevation of glucose 121. Lipase is presently 1586. As previously mentioned, CA 19-9 is 2964 and CEA is 60. Hemoglobin 13.7, white count 7000, platelets of 290,000. PHYSICAL EXAMINATION GENERAL: A well-appearing female. VITAL SIGNS: Blood pressure 140/85, respiratory rate 16, pulse 70, afebrile 97% saturation. HEENT: Head is normocephalic. Sclerae and conjunctivae are normal. Oropharynx unremarkable. LYMPH NODES: There is evidence of a recent biopsy of the left supraclavicular area and there are small left supraclavicular and lower cervical lymph nodes. BREASTS: Without masses. HEART: Regular rhythm. LUNGS: Clear without rales, wheezes or rhonchi. ABDOMEN: Soft and no hepatosplenomegaly or masses. There is slight epigastric tenderness. EXTREMITIES: No edema. MUSCULOSKELETAL: No bone pain. NEUROLOGIC: No focal weakness. Cognition, affect normal. SKIN: Normal. ASSESSMENT The patient is a 70-year-old female presenting with a 2.5 cm hypodense lesion in the mid body of the pancreas with evidence of metastatic disease to the liver and retroperitoneal adenopathy and supraclavicular adenopathy. Her CEA is 60, CA19-9 is 2964. Given the current presentation and marker studies, the diagnosis is almost certainly pancreatic cancer metastatic to lymph nodes and liver. She has had other problems which are delineated above. She has been on Coumadin for a number of years. She has not had recurrent atrial fibrillation since her cardiac ablation in July of 2012. It would be extremely difficult to give her chemotherapy, especially with a 5-FU based regimen and continue Coumadin. Assuming the biopsy of the lymph nodes is consistent with pancreatic cancer, the following will be done: 1. I have made arrangements for a port which will be placed tomorrow. I have spoken with Dr. Alexander 2. If the pathology is consistent with metastatic pancreatic cancer, I will treat her with folfirinox. 3. Will discontinue Coumadin, due to the interactions with chemotherapy. there has been no evidence of atrial fibrillation dating back to July of 2012. I will give her a single aspirin tablet a day. 4. She will need pain medications on discharge. I have spoken with Dr. Alexander this evening and the port will be placed tomorrow. The patient can be discharged the following day and chemotherapy can be started early next week. On discharge, I would recommend one aspirin tablet a day and adequate amounts of Lortab or Percocet for control of pain. The Coumadin has been discontinued. She will be given a small amount of vitamin K tonight. Her PT and INR will be checked tomorrow in anticipation of placement of the port. MD AI Viera/ /8:52 PM /9:17 PM [facility]ITALCon[facility]
[2016-04-09] VITALS: BP 153/85; PULSE 73; RESP 16; TEMP 97.9; O2SAT 97
[2016-04-09] MEDS: HYDROmorphone HCL PF 1 MG/ML VIAL IV PUSH PRN ×4 (03:48→20:38)
[2016-04-09] MEDS: ONDANSETRON HCL 4 MG/2 ML VIAL IV PUSH PRN ×3 (03:48→20:37)
[2016-04-09 04:07] VITALS: BP 133/88; PULSE 111; RESP 16; TEMP 98; O2SAT 98
[2016-04-09 05:12] LABS: INTERNATIONAL NORMALIZED RATIO 1.1 RATIO; PROTHROMBIN TIME - PATIENT 12.4 SEC (9.8-11.6)
[2016-04-09 08:00] VITALS: BP 118/78; PULSE 95; RESP 16; TEMP 97.8; O2SAT 100
[2016-04-09] MEDS: LEVOTHYROXINE SODIUM 112 MCG TAB PO SCH (08:54)
[2016-04-09] MEDS: PANTOPRAZOLE SODIUM 40 MG VIAL IV PUSH SCH (08:55)
[2016-04-09] MEDS: METOPROLOL TARTRATE 50 MG TAB PO SCH (08:57)
--- NOTE | 2016-04-09 09:32 | PD.ONC.PN ---
Subjective Subjective Remarks pain mostly controlled and has nausea with food Objective Data Date Time Temp Pulse Resp B/P Pulse Ox O2 Delivery O2 Flow Rate FiO2 04/09/16 08:00 97.8 95 16 118/78 100 04/09/16 04:49 16 04/09/16 04:07 98.0 111 16 133/88 98 04/09/16 00:00 97.9 73 16 153/85 97 04/08/16 20:00 98.2 81 16 152/89 99 04/08/16 16:00 98.3 73 16 144/85 97 04/08/16 12:00 97.8 78 16 134/86 98 04/09/16 04/09/16 04/09/16 07:00 15:00 23:00 Intake Total 0 ml Output Total 500 ml Balance -500 ml Result Diagram: 04/06/16 0520 04/08/16 0606 Laboratory Results Laboratory Tests Test 04/09/16 03:51 Prothrombin Time 12.4 SEC Prothromb Time International 1.1 RATIO Ratio Lipase 1201 U/L Administered Medications Medications (Trade) Dose Ordered Sig/Kristie Route PRN Reason Start Time Stop Time Status Last Admin Dose Admin IV Flush (NS Flush) 2 ml UNSCH PRN IVF FLUSH AFTER USING IV ACCESS 04/06/16 05:15 04/07/16 08:44 Pantoprazole Sodium (Protonix Inj) 40 mg Q24H IV PUSH 04/06/16 08:00 04/09/16 08:55 Hydromorphone HCl (Dilaudid Pf Inj) 1 mg Q3HR PRN IV PUSH EPISGASTRIC PAIN 04/06/16 08:30 04/09/16 08:56 Gabapentin (Neurontin) 600 mg HS PO 04/06/16 21:00 04/08/16 21:05 Levothyroxine Sodium (Synthroid) 112 mcg DAILY PO 04/06/16 09:00 04/09/16 08:54 Metoprolol Tartrate (Lopressor) 50 mg DAILY PO 04/06/16 09:00 04/09/16 08:57 Ondansetron HCl (Zofran Inj) 4 mg Q6HR PRN IV PUSH nausea 04/07/16 05:15 04/09/16 08:55 Acetaminophen/ Hydrocodone Bitart 1 tab 1 tab Q4H PRN PO pain 1-5 04/07/16 21:00 04/08/16 14:12 Potassium Chloride/Dextrose/ Sodium Chloride (KCl Inj/D5W-NS 1000 ml Inj) 1,015 ml @ 100 mls/hr Q10H9M IV 04/08/16 11:00 04/08/16 23:30 Objective Remarks GENERAL: Well-nourished, well-developed patient. SKIN: Warm and dry. HEAD: Normocephalic. EYES: No scleral icterus. No injection or drainage. NECK: Supple, trachea midline. No JVD or lymphadenopathy. LYMPHATIC: left supraclavicular adenopathy. CARDIOVASCULAR: Regular rate and rhythm without murmurs. RESPIRATORY: Breath sounds equal bilaterally. No accessory muscle use. GASTROINTESTINAL: minimal epigastric pain EXTREMITIES: No cyanosis, or edema. MUSCULOSKELETAL: Adequate muscle tone. NEUROLOGICAL: No obvious focal deficit. Awake, alert, and oriented x3. PSYCHIATRIC: Appropriate mood and affect; insight and judgment normal. Assessment/Plan Assessment 1: probable pancreatic cancer Port today discharge tomorrow discharge meds: please give zofran 8 mg po every 8 hours prn, lortab 7.5/325 1 -2 po q4 hours prn. dispense at least 70 pills, please. aspirin 325 mg po daily. I will see at the beginning of next week as outpatient and arrange for chemotherapy. Janet Scott who is a nurse navigator will see today and help with discharge planning and insurance authorization for treatment I do not see any need for further test as long as pathology is consistent with diagnosis of pancreatic cancer. Chiki Umana MD Apr 09, 2016 09:32
[2016-04-09] MEDS: POTASSIUM CHLORIDE INJ 30 MEQ in DEXT 5%-NACL 0.9% 1000 ML INJ 1,000 ML IV SCH ×3 (10:11→21:44)
--- NOTE | 2016-04-09 10:30 | HHI.PR ---
Subjective Remarks complains of pain and increase swelling left SC area- no chest pains or shortness of breath Objective Vitals Vital Signs Date Time Temp Pulse Resp B/P Pulse Ox O2 Delivery O2 Flow Rate FiO2 04/09/16 08:00 97.8 95 16 118/78 100 04/09/16 04:49 16 04/09/16 04:07 98.0 111 16 133/88 98 04/09/16 00:00 97.9 73 16 153/85 97 04/08/16 20:00 98.2 81 16 152/89 99 04/08/16 16:00 98.3 73 16 144/85 97 04/08/16 12:00 97.8 78 16 134/86 98 I/O 04/08/16 04/08/16 04/08/16 04/09/16 04/09/16 04/09/16 07:00 15:00 23:00 07:00 15:00 23:00 Intake Total 240 ml 1747 ml 400 ml 0 ml Output Total 400 ml 1200 ml 1200 ml 500 ml Balance -160 ml 547 ml -800 ml -500 ml Intake Oral 240 ml 900 ml 400 ml 0 ml IV Total 847 ml Output Urine Total 400 ml 1200 ml 1200 ml 500 ml # Bowel Movements 0 0 Result Diagram: 04/06/1620 04/08/16605 Imaging Last Impressions Chest X-Ray 04/06/16513 Signed Impressions: Service Date/Time: Wednesday, April 06, 2016 06:01 - CONCLUSION: The lungs are clear. Jesus Alberto Madden MD Abdomen/Pelvis CT 04/06/16513 Signed Impressions: Service Date/Time: Wednesday, April 06, 2016 06:20 - CONCLUSION: Multiple low density lesions in the liver and a dominant low density lesion in the pancreas are nonspecific in appearance. However, there is also prominent soft tissue in the retroperitoneum to the left of the aorta suggesting adenopathy. Metastatic malignancy needs to be excluded. The preferable way to evaluate this would be with a FDG PET/CT scan to evaluate for metabolically active areas and to help make decisions regarding possible biopsy. Jesus Alberto Madden MD Objective Remarks awake and alert, speech clear left supraclavicular area- increase swelling and pain and induration, tender lungs clear regular rhythm abdomen soft, nontender, good bowel sounds extremities no edema neuro exam non focal Procedures 1/9- biopsy of left supraclavicular lymph node A/P Problem List: (1) Pancreatitis, acute ICD Code: K85.90 Status: Acute (2) Left cervical lymphadenopathy ICD Code: R59.0 Status: Acute (3) history of atrial fibrillation Status: Acute (4) Hypokalemia ICD Code: E87.6 Status: Acute Assessment and Plan 70-year-old female admitted for epigastric pain radiating to the back Metastatic supraclavicular multiple lymphadenopathy S/P biopsy 04/07 likely pancreatic primary Swelling and pain Left SC biopsy site- ff pathology report- pending plan [place] port placement bu Dr. Hand.-will check on biopsy site plan chemotherapy Acute pancreatitis with pancreatic mass with metastasis + Abdominal lymphadenopathy with liver lesions-+ left supraclavicular Lymphadenopathy elevated tumor markers continue IVF,- clears. ff lipase will get Medical Oncology involve early to get set up early for OP ff up Pyuria- no growth- likely contaminant. antibiotics DC History of atrial fibrillation status post cryoablation. Continue on metoprolol. coumadin DC. started on ASA HYpokalemia- IVF + KCL recheck electrolytes today History of acid peptic disease. Continue PPI History of hypothyroidism. Continue Synthroid History of hyperlipidemia on statins. History of chronic heel pain. Continue Neurontin 600 mg at bedtime UP and ambulating Problem Qualifiers (1) Pancreatitis, acute: Qualified Code: K85.80 - Other acute pancreatitis, unspecified complication status Nirali Tate MD Apr 09, 2016 10:30
[2016-04-09] MEDS ORDERED: PROPOFOL 200 MG/20 ML AMP IV ONE (10:33)
[2016-04-09 12:00] VITALS: BP 126/75; PULSE 79; RESP 16; TEMP 98.2; O2SAT 99
[2016-04-09 12:37] LABS: BICARBONATE 29.5 MEQ/L (21.0-32.0)
--- NOTE | 2016-04-09 15:55 | HHI.GIFU ---
Subjective Remarks Resting in bed. Going for port placement today. States that Dr. Umana was in, does not think she will need an EUS at this time. Planning on starting chemotherapy once official pathology is back. (Noelle Velasquez) Objective Vitals I&O Vital Signs Date Time Temp Pulse Resp B/P Pulse Ox O2 Delivery O2 Flow Rate FiO2 04/09/16 12:00 98.2 79 16 126/75 99 04/09/16 08:00 97.8 95 16 118/78 100 04/09/16 04:49 16 04/09/16 04:07 98.0 111 16 133/88 98 04/09/16 00:00 97.9 73 16 153/85 97 04/08/16 20:00 98.2 81 16 152/89 99 04/08/16 16:00 98.3 73 16 144/85 97 I/O 04/08/16 04/08/16 04/08/16 04/09/16 04/09/16 04/09/16 07:00 15:00 23:00 07:00 15:00 23:00 Intake Total 240 ml 1747 ml 400 ml 0 ml Output Total 400 ml 1200 ml 1200 ml 500 ml Balance -160 ml 547 ml -800 ml -500 ml Intake Oral 240 ml 900 ml 400 ml 0 ml IV Total 847 ml Output Urine Total 400 ml 1200 ml 1200 ml 500 ml # Bowel Movements 0 0 Laboratory Laboratory Tests Test 04/09/16 04/09/16 03:51 11:53 Prothrombin Time 12.4 Prothromb Time International 1.1 Ratio Lipase 1201 Sodium Level 142 Potassium Level 4.0 Chloride Level 106 Carbon Dioxide Level 29.5 Anion Gap 7 Blood Urea Nitrogen 5 Creatinine 0.65 Estimat Glomerular Filtration 91 Rate Random Glucose 96 Calcium Level 8.7 Date/Time Procedure Status Source Growth 04/06/16 05:20 Urine Culture - Final Complete Urine Clean Catch 10-50,000 CFU/ML MIXED GRAM POSITIVE ... Imaging Last Impressions Chest X-Ray 04/06/16513 Signed Impressions: Service Date/Time: Wednesday, April 06, 2016 06:01 - CONCLUSION: The lungs are clear. Jesus Alberto Madden MD Abdomen/Pelvis CT 04/06/16513 Signed Impressions: Service Date/Time: Wednesday, April 06, 2016 06:20 - CONCLUSION: Multiple low density lesions in the liver and a dominant low density lesion in the pancreas are nonspecific in appearance. However, there is also prominent soft tissue in the retroperitoneum to the left of the aorta suggesting adenopathy. Metastatic malignancy needs to be excluded. The preferable way to evaluate this would be with a FDG PET/CT scan to evaluate for metabolically active areas and to help make decisions regarding possible biopsy. Jesus Alberto Madden MD Physical Exam HEENT: Normocephalic; atraumatic; no jaundice. Throat is clear. NECK: Incision line left supraclavicular area CHEST: CTA. CARDIAC: RRR. ABDOMEN: Soft, nondistended, nontender; no hepatosplenomegaly; bowel sounds are present in all four quadrants. EXTREMITIES: No clubbing, cyanosis, or edema. SKIN: Normal; no rash; no jaundice. CNC TECHNICIAN: No focal deficits; alert and oriented times three. (Noelle Velasquez) Assessment and Plan Plan ASSESSMENT: - Pancreatitis with dominant low density lesion in the pancreas. Abdomen/ Pelvis CT (04/06/16)-------> Multiple low density lesions in the liver and a dominant low density lesion in the pancreas are nonspecific in appearance. However, there is also prominent soft tissue in the retroperitoneum to the left of the aorta suggesting adenopathy. Metastatic malignancy needs to be excluded. The preferable way to evaluate this would be with a FDG PET/CT scan to evaluate for metabolically active areas and to help make decisions regarding possible biopsy. Lipase 4287------> 2217----> 1586--->1201. AFP 3.6, CEA 60.7, Ca19- 9 2964.5. Mild LUQ tenderness. Concerning for possible pancreatic malignancy. Pathology from lymph node pending. S/P evaluation by Dr. Umana , suspects metastatic pancreatic cancer, planning on starting chemotherapy once official diagnosis back, Going to have port placed today. Pt states that Dr. Umana does not feel that an EUS is necessary at this time. - Multiple low densities in the liver. AFP 3.6, CEA 60.7 (Had a normal colonoscopy 1 year ago per patient), Ca19-9 2964.5. Pt has supraclavicular adenopathy on the left, s/p lymph node removal and biopsy. Oncology consulted. - Supraclavicular adenopathy. S/P lymph node removal/biopsy today. Pathology pending. PLAN: - Clear liquids - Going for port placement - Oncology following - Pt reports that Dr. Umana does not feel that EUS is needed at this time. - GI will sign sign off, please reconsult as needed - Pt seen and examined by Dr. Jean and myself and this note is written on his behalf (Noelle Velasquez) Physician Comments Patient seen and examined Agree with above Continue with current supportive care Monitor labs We will sign off (Juan Jean MD) Noelle Velasquez Apr 09, 2016 15:55 Juan Jean MD Apr 09, 2016 20:54
[2016-04-09] MEDS ORDERED: FAMOTIDINE 20 MG/2 ML VIAL ONE (16:32)
[2016-04-09] MEDS ORDERED: LEVOFLOXACIN 500 MG PREMIX INJ 100 ML IV ONE (16:39)
[2016-04-09] MEDS ORDERED: DEXAMETHASONE SOD PHOS 4 MG/ML VIAL ONE (16:40)
[2016-04-09] MEDS ORDERED: MIDAZOLAM HCL 2 MG/2 ML VIAL ONE ×2 (16:40→17:51)
[2016-04-09] MEDS ORDERED: LIDOCAINE 1%/EPINEPHrine 1:100,000 SOLN 20 ML VIAL ONE (17:05)
[2016-04-09] MEDS ORDERED: SODIUM CHLORIDE 0.9% 20 ML VIAL ONE ×2 (17:06→17:57)
[2016-04-09] MEDS ORDERED: HEPARIN SODIUM - IV 10,000 UNITS/10 ML VIAL OTHER ONE (17:06)
--- NOTE | 2016-04-09 17:52 | HHI.PR ---
cc: Jesse Alexander MD Immediate Post Op Note Procedure Date: Apr 09, 2016 Pre Op Diagnosis: Metastatic carcinoma Post Op Diagnosis: Same Surgeon: Jesse Alexander Candy Dipper(s): None Procedure: [id number] placement with intraoperative use of fluoroscopy Incision and drainage seroma left supraclavicular surgical site Findings: Clear Seroma LEFT supraclavicular area; no hematoma Complications: None Specimen(s) removed: None Estimated blood loss: 10 ml Anesthesia: TIVA Drains: None IVF (700 ml) Patient to: PACU Patient Condition: Good Date/Time of Procedure: SEE SURGICAL CARE RECORD Jesse Alexander MD Apr 09, 2016 17:51
[2016-04-09] MEDS ORDERED: HEPARIN SODIUM - IV 10,000 UNITS/10 ML VIAL ONE (17:57)
[2016-04-09] MEDS ORDERED: DO NOT ADM ANY ANTICOAGULANT DRUGS XX PRN (18:15)
--- NOTE | 2016-04-09 18:18 | RADRPT ---
EXAM DATE/TIME: 04/09/2016 17:58 [facility] COMPARISON: CHEST SINGLE AP, April 06, 2016, 6:01. INDICATIONS : Status post infusaport placement. MEDICAL HISTORY : None. SURGICAL HISTORY : None. ENCOUNTER: Initial ACUITY: 1 day PAIN SCORE: Non-responsive. LOCATION: chest FINDINGS: A single frontal expiratory view of the chest was performed. The lungs are symmetrically aerated and clear. No evidence of pneumothorax. Mediastinal structures are in the midline. A right-sided kath catheter with tip in the cavoatrial junction. Linear density in the left upper lobe and right midlung . The cardio-mediastinal contours and bronchopulmonary markings are unremarkable for an expiratory exam . Osseous structures are intact. CONCLUSION: 1. No pneumothorax status post [id number] placement. 2. Linear densities right midlung and left upper lobe likely subsegmental atelectasis. Alfred Marks MD on April 09, 2016 at 18:15 Board Certified Radiologist. This report was verified electronically.
[2016-04-09 20:00] VITALS: BP 146/90; PULSE 94; RESP 16; TEMP 98.1; O2SAT 93
[2016-04-09] MEDS: GABAPENTIN 300 MG CAP PO SCH (20:36)
[2016-04-09] MEDS: SODIUM CHLORIDE 0.9% FLUSH 5 ML FLUSH IVF PRN (20:38)
[2016-04-09 21:55] VITALS: O2SAT 93
[2016-04-10] VITALS: BP 136/76; PULSE 88; RESP 16; TEMP 98.3; O2SAT 95
[2016-04-10] MEDS: ACETAMINOPHEN/HYDROcodone 325 MG/7.5 MG TAB PO PRN ×5 (02:52→12:07)
[2016-04-10 04:00] VITALS: BP 146/89; PULSE 93; RESP 16; TEMP 97.7; O2SAT 98
[2016-04-10 08:00] VITALS: BP 143/79; PULSE 66; RESP 15; TEMP 97.9; O2SAT 100
[2016-04-10] MEDS: LEVOTHYROXINE SODIUM 112 MCG TAB PO SCH (08:05)
[2016-04-10] MEDS: PANTOPRAZOLE SODIUM 40 MG VIAL IV PUSH SCH (08:06)
[2016-04-10] MEDS: METOPROLOL TARTRATE 50 MG TAB PO SCH (08:06)
[2016-04-10 12:00] VITALS: BP 112/87; PULSE 87; RESP 16; TEMP 97.6; O2SAT 97
[2016-04-10 12:56] VITALS: O2SAT 97
--- NOTE | 2016-04-10 13:36 | HHI.PR ---
Subjective Remarks f/u LN biopsy status post port placement yesterday. No complaints today. No nausea or vomiting. Pain is controlled. Left neck swelling is a bit worse but pain is controlled. No fever. Objective Vitals Vital Signs Date Time Temp Pulse Resp B/P Pulse Ox O2 Delivery O2 Flow Rate FiO2 04/10/16 12:56 97 21 04/10/16 12:00 97.6 87 16 112/87 97 04/10/16 08:00 97.9 66 15 143/79 100 04/10/16 04:00 97.7 93 16 146/89 98 04/10/16 00:00 98.3 88 16 136/76 95 04/09/16 21:55 93 21 04/09/16 20:00 98.1 94 16 146/90 93 04/09/16 18:30 98.2 85 14 143/79 95 Room Air 04/09/16 18:15 87 14 144/79 95 Room Air 04/09/16 18:00 86 14 147/82 96 Room Air 04/09/16 17:44 98.3 92 14 149/75 97 Room Air I/O 04/09/16 04/09/16 04/09/16 04/10/16 04/10/16 04/10/16 07:00 15:00 23:00 07:00 15:00 23:00 Intake Total 0 ml 0 ml 1060 ml 686 ml Output Total 500 ml 800 ml 510 ml 400 ml Balance -500 ml -800 ml 550 ml 286 ml Intake Oral 0 ml 0 ml 360 ml 300 ml IV Total 386 ml Other 700 ml Output Urine Total 500 ml 800 ml 500 ml 400 ml Estimated Blood Loss 10 ml # Voids 3 # Bowel Movements 0 0 0 Result Diagram: 04/06/16 0520 04/09/16 1153 Objective Remarks awake and alert, speech clear left supraclavicular area- increase swelling and pain and induration, tender lungs clear regular rhythm abdomen soft, nontender, good bowel sounds extremities no edema neuro exam non focal Procedures 04/07- biopsy of left supraclavicular lymph node Status post port placement on 04/09/16 A/P Problem List: (1) Pancreatitis, acute ICD Code: K85.90 Status: Acute (2) Left cervical lymphadenopathy ICD Code: R59.0 Status: Acute (3) history of atrial fibrillation Status: Acute (4) Hypokalemia ICD Code: E87.6 Status: Acute Assessment and Plan 70-year-old female admitted for epigastric pain radiating to the back Metastatic supraclavicular multiple lymphadenopathy S/P biopsy 04/07 likely pancreatic primary Swelling and pain Left SC biopsy site-pathology pending, cleared by surgery. Plans for chemotherapy in one week. Acute pancreatitis with pancreatic mass with metastasis + Abdominal lymphadenopathy with liver lesions-+ left supraclavicular Lymphadenopathy elevated tumor markers affected by medical oncology. Pyuria- no growth- likely contaminant. antibiotics DC History of atrial fibrillation status post cryoablation. Continue on metoprolol. Restart Coumadin, continue aspirin. HYpokalemia- IVF + KCL History of acid peptic disease. Continue PPI History of hypothyroidism. Continue Synthroid History of hyperlipidemia on statins. History of chronic heel pain. Continue Neurontin 600 mg at bedtime Problem Qualifiers (1) Pancreatitis, acute: Qualified Code: K85.80 - Other acute pancreatitis, unspecified complication status Adebayo Causey MD Apr 10, 2016 13:36
[2016-04-10] MEDS ORDERED: ZOFR8TAB4 SL (13:53)
[2016-04-10] MEDS ORDERED: HYDR-3534 PO (13:53)
--- NOTE | 2016-04-10 15:44 | HHI.DS ---
cc: Sly Lr MD Discharge Summary Admission Date Apr 06, 2016 at 07:48 Discharge Date: Apr 10, 2016 Admitting Diagnosis pancreatitis (1) Pancreatitis, acute ICD Code: K85.90 Diagnosis: Principal (2) Left cervical lymphadenopathy ICD Code: R59.0 Diagnosis: Principal (3) history of atrial fibrillation Diagnosis: Secondary (4) Hypokalemia ICD Code: E87.6 Diagnosis: Secondary Procedures 04/07- biopsy of left supraclavicular lymph node Status post port placement on 04/09/16 Brief History - From Admission Patient is a very pleasant 70-year-old female presented to the ER complaining of epigastric discomfort started about the day after [place] radiating to the back and occasionally both upper quadrants. This pain is occasionally relieved by Tums associated with some nausea or vomiting. Last evening very severe pain that patient came here to the emergency room. On evaluation noted to have an elevated lipase. CT also showed mesenteric adenopathy - nonspecific. States lost 5 pounds in the past 3 weeks now . her bowel movement is usually "sluggish ". She had a colonoscopy done which was unremarkable in February 2015. She is admitted for further evaluation and management. Patient denies any chronic alcohol use. In addition to above patient also noted about 2 weeks ago left supraclavicular masses. Workup was done as an outpatient with CBC and chest x-ray which was unremarkable. She was empirically treated with antibiotics with no change in lymphadenopathy. She had a CT done then at [facility] which shows left-sided supraclavicular lymphadenopathy without adenopathy elsewhere. Differential diagnosis considers include myeloproliferative disorder versus metastatic disease. She was referred to general surgery as an outpatient and was set up to see Dr. Alexander for evaluation this week as an outpatient Had Mammogram May 2015 - normal. colonoscopy done in February [address] Stewart which was reportedly normal CBC/BMP: 04/06/16 0520 04/09/16 1153 Significant Findings Laboratory Tests Test 04/08/16 04/09/16 04/09/16 06:06 03:51 11:53 Potassium Level 3.2 MEQ/L (3.5-5.1) Blood Urea Nitrogen 6 MG/DL (7-18) 5 MG/DL (7-18) Random Glucose 127 MG/DL (74-106) Lipase 1586 U/L 1201 U/L (73-393) (73-393) Prothrombin Time 12.4 SEC (9.8-11.6) Imaging Last Impressions Chest X-Ray 04/09/16 0000 Signed Impressions: Service Date/Time: Saturday, April 09, 2016 17:58 - CONCLUSION: 1. No pneumothorax status post [id number] placement. 2. Linear densities right midlung and left upper lobe likely subsegmental atelectasis. Alfred Marks MD Abdomen/Pelvis CT 04/06/16 0514 Signed Impressions: Service Date/Time: Wednesday, April 06, 2016 06:20 - CONCLUSION: Multiple low density lesions in the liver and a dominant low density lesion in the pancreas are nonspecific in appearance. However, there is also prominent soft tissue in the retroperitoneum to the left of the aorta suggesting adenopathy. Metastatic malignancy needs to be excluded. The preferable way to evaluate this would be with a FDG PET/CT scan to evaluate for metabolically active areas and to help make decisions regarding possible biopsy. Jesus Alberto Madden MD PE at Discharge awake and alert, speech clear left supraclavicular area- increase swelling and pain and induration, tender lungs clear regular rhythm abdomen soft, nontender, good bowel sounds extremities no edema neuro exam non focal Hospital Course This is a 70-year-old female admitted for epigastric pain radiating to the back , patient was found to have acute pancreatitis empyema imaging showed pancreatic mass with metastatic disease including lymphadenopathy. Patient found to have a supraclavicular lymph node, Gen. surgery was consulted and a lymph node biopsy and Mediport placement was done. Hematology/medical oncology was consulted, plan is to start chemotherapy on discharge as outpatient. Patient was discharged 1 day after biopsy. Acute pancreatitis resolved with bowel rest. Patient will follow-up with medical oncology in a few days. Pt Condition on Discharge: Good Discharge Disposition: Discharge Home Discharge Time: > 30 minutes Discharge Instructions DIET: Follow Instructions for: As Tolerated, No Restrictions Activities you can perform: Regular-No Restrictions Follow up Referrals: Oncology - 3-5 Days Surgical - 1 Week New Medications: Hydrocodone-Acetaminophen (Lortab) 7.5-325 Mg Tab 1 TAB PO Q6H PRN PAIN #70 Ref 0 TAB Ondansetron Odt (Zofran Odt) 8 Mg Tab 8 MG SL Q8H PRN NAUSEA OR VOMITING #60 Ref 0 TAB Continued Medications: Calcium Carbonate-Cholecalciferol (Calcium 500 +D) 500-400 Mg-Unit Tab 1 TAB PO DAILY Calcium Supplement Ref 0 TAB Famotidine (Famotidine) 20 Mg Tab 20 MG PO DAILY #60 Ref 0 TAB Gabapentin (Gabapentin) 600 Mg Tab 600 MG PO HS #30 Ref 0 TAB Levothyroxine (Levothyroxine) 112 Mcg Tab 112 MCG PO DAILY Thyroid #30 Ref 0 TAB Meloxicam (Meloxicam) 7.5 Mg Tab 7.5 MG PO DAILY Arthritis Pain Ref 0 TAB Metoprolol Tartrate (Metoprolol Tartrate) 50 Mg Tab 50 MG PO DAILY #30 Ref 0 TAB Multiple Vitamin (Multiple Vitamin) 1 Tab 1 TAB PO DAILY Nutritional Supplement Ref 0 TAB Rosuvastatin (Crestor) 20 Mg Tab 20 MG PO DAILY Cholesterol Management #30 Ref 0 TAB Vitamins C & E (Cranberry Urinary Comfort) 1 Cap 1 CAP PO DAILY Urinary Symptom Managemen Ref 0 CAP Warfarin (Coumadin) 5 Mg Tab 5 MG PO DAILY Blood Clot Prevention #30 Ref 0 TAB Warfarin (Coumadin) 6 Mg Tab 6 MG PO EVERY OTHER DAY Prevent Blood Clot #30 Ref 0 TAB Adebayo Causey MD Apr 10, 2016 15:44 50 MG PO DAILY #30 Ref 0 TAB Multiple Vitamin (Multiple Vitamin) 1 Tab 1 TAB PO DAILY Nutritional Supplement Ref 0 TAB Rosuvastatin (Crestor) 20 Mg Tab 20 MG PO DAILY Cholesterol Management #30 Ref 0 TAB Vitamins C & E (Cranberry Urinary Comfort) 1 Cap 1 CAP PO DAILY Urinary Symptom Managemen Ref 0 CAP Warfarin (Coumadin) 5 Mg Tab 5 MG PO DAILY Blood Clot Prevention #30 Ref 0 TAB Warfarin (Coumadin) 6 Mg Tab 6 MG PO EVERY OTHER DAY Prevent Blood Clot #30 Ref 0 TAB Adebayo Causey MD Apr 10, 2016 15:44
--- NOTE | 2016-04-28 08:02 | MP ---
cc: REECE AMADOR M.D. DATE OF SURGERY: 04/09/2016 PROCEDURE 1. Sfllxq-O-[id number] placement with intraoperative use of fluoroscopy. 2. Removal of seroma left supraclavicular region. PREOPERATIVE DIAGNOSIS 1. Adenocarcinoma of the pancreas with need for IV chemotherapy. 2. Seroma after supraclavicular lymph node biopsy. POSTOPERATIVE DIAGNOSIS 1. Adenocarcinoma of the pancreas with need for IV chemotherapy. 2. Seroma after supraclavicular lymph node biopsy. ANESTHESIA TIVA. SURGEON Benjamin ESTIMATED BLOOD LOSS 10 mL. FLUIDS 700 mL crystalloid. COMPLICATIONS None. DRAINS None. SPECIMEN None. PROCEDURE IN DETAIL The patient was taken to the operating room and placed on the operating table in the supine position. After IV sedation was begun a roll was placed between the shoulder blades. The neck and chest were prepped and draped bilaterally. A timeout was taken confirming the correct patient, site and procedures to be performed. The right subclavian region was infiltrated with local anesthetic. With the patient in Trendelenburg position an 18-gauge needle was passed into the subclavian vein on the first attempt. A guidewire was passed and seen to course into the superior vena cava smoothly. The needle was withdrawn and a port pocket created inferior to the exit site of the wire. The pocket was infiltrated with local anesthetic first and then an incision was made in the skin and the pocket created with electrocautery. When the pocket was large enough, a catheter was brought through a short tunnel from the exit site of the wire to the port pocket. An introducer and sheath were then passed over the wire and seen under fluoroscopy to smoothly course into the superior vena cava. The guidewire and introducer were removed and the catheter passed down the sheath. The sheath was peeled away and the catheter withdrawn so that the tip was just in the distal superior vena cava. The catheter was then trimmed to length, connected to the port and the hub snapped over the port connector site. The port was placed into the pocket and fixed to the chest wall at two points with 2-0 Prolene suture. The port was accessed with a Gr needle and good blood return was achieved. The port was re-flushed with one 5 mL of 100 units per mL heparinized saline. With hemostasis assured in the port and with smooth course to the catheter itself with no kinks, the percutaneous puncture site was closed with interrupted 3-0 Vicryl suture as was the port pocket. The port pocket skin was closed with 5-0 PDS in a running subcuticular fashion. The puncture site and the port pocket incision were dressed with Steri-Strips. Attention was then turned to the seroma. The previously placed sutures were removed and the seroma site was irrigated and aspirated. No bleeding whatsoever was noted at the site. There was no active extravasation of lymph material and at this point the wound was re-closed with 3-0 Vicryl suture and 5-0 PDS in a running subcuticular fashion. The wound was dressed with Steri-Strips. No suture ligation or cautery was accomplished as there was no bleeding and there was no active lymphatic leak. So as not to injure nerves, no further action was taken. The patient was taken back to her room in stable condition. Sponge, needle and instrument counts were reported to be correct. A stat. chest x-ray demonstrated no evidence of pneumothorax. MD JODI Peguero/SHONDA /10:03 PM /7:55 AM
== END 2016-04-10 16:03 | disposition home or self-care (01) | DRG 987 ==
LOC: NEPE 03:31 → NEDA 07:48 → HOCA 10:40
PROVIDERS: ADMIT Hospitalist; ATTEND Hospitalist
PROC: 07B20ZX Excision of Left Neck Lymphatic, Open Approach, Diagnostic (ICD-10-PCS; principal; 2016-04-07 18:09)
PROC: 02HV33Z Insertion of Infusion Device into Superior Vena Cava, Percutaneous Approach (ICD-10-PCS; 2016-04-09)
PROC: 0JH60XZ Insertion of Tunneled Vascular Access Device into Chest Subcutaneous Tissue and Fascia, Open Approach (ICD-10-PCS; 2016-04-09)
PROC: 0H94XZZ Drainage of Neck Skin, External Approach (ICD-10-PCS; 2016-04-09 16:44)
DX: C25.1 Malignant neoplasm of body of pancreas (principal); K85.90 Acute pancreatitis without necrosis or infection, unspecified; C77.0 Secondary and unspecified malignant neoplasm of lymph nodes of head, face and neck; C78.7 Secondary malignant neoplasm of liver and intrahepatic bile duct; I48.91 Unspecified atrial fibrillation; L76.34 Postprocedural seroma of skin and subcutaneous tissue following other procedure; E87.6 Hypokalemia; E03.9 Hypothyroidism, unspecified; E78.5 Hyperlipidemia, unspecified; M79.673 Pain in unspecified foot; G89.29 Other chronic pain; R82.99 Other abnormal findings in urine; M19.90 Unspecified osteoarthritis, unspecified site; R59.0 Localized enlarged lymph nodes; Y84.8 Other medical procedures as the cause of abnormal reaction of the patient, or of later complication, without mention of misadventure at the time of the procedure; Z79.01 Long term (current) use of anticoagulants; Z87.11 Personal history of peptic ulcer disease; Z86.73 Personal history of transient ischemic attack (TIA), and cerebral infarction without residual deficits
CPT/HCPCS: 71010; 74177; 77001; 80048; 80053; 81001; 82105; 82378; 83690; 85025; 85610; 85730; 86301; 87086; 88305; 88307; 88341; 88342; 93005; 96361; 96374; 96375; C1788; C9113; J1100; J1170; J1644; J1956; J2250; J2270; J2405; J3010; J3430; J3480; J7030; J7042; J7120; Q9967

== ENCOUNTER 2016-05-24 06:45 | Inpatient (IN) | payer MEDICARE ==
[2016-05-24] VITALS (11 sets, daily range): BP systolic 122–164; BP diastolic 77–99; PULSE 93–104; RESP 12–20; TEMP 97.8–101.6; O2SAT 95–99
[~2016-05-24] VITALS: Ht 167.6 cm; Wt 71.0 kg
[~2016-05-24 06:45] MED LIST changes: -ASPI325T PO; +CALC1TAB12 PO; -CELE200 PO; +COUM6TAB PO; +CRANCAP2 PO; -FAMO1TAB36 PO; +FAMO20TA2 PO; -FEXO180 PO; +GABA600T PO; +HYDR-3534 PO; +LEVO112T2 PO; +MELO7.5T4 PO; +METO50TA PO; +MULTTAB67 PO; -NEUR600T PO; -SYNT112T PO; -TAB-TAB PO; -TOPR100T15 PO; +ZOFR8TAB4 SL
[2016-05-24] MEDS ORDERED: SODIUM CHLOR 0.9% 1000 ML INJ 1,000 ML IV SCH ×2 (07:14→10:00)
[2016-05-24] MEDS ORDERED: MORPHINE SULFATE 8 MG/ML INJ IV PUSH ONE (07:15)
[2016-05-24] MEDS ORDERED: ONDANSETRON HCL 4 MG/2 ML VIAL IVP ONE (07:15)
--- NOTE | 2016-05-24 07:17 | PD ---
HPI Chief Complaint: Abdominal Pain Time Seen by Provider: 07:14 Travel History International Travel<30 days: No Contact w/Intl Traveler<30days: No Traveled to known affect area: No History of Present Illness HPI Is a 70-year-old female with a recent diagnosis of pancreatic cancer presents emergency department for evaluation of nausea vomiting abdominal pain since last night. Patient states her last chemotherapy dose was 2 days ago and she does sign a few infusions at home after that. Patient states that she's been vomiting green bile since last night and unable tolerate her Zofran or Percocet at home. She is followed by Chiki Umana. Patient denies any fever diarrhea blood in emesis blood in stool. 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) Psychiatric: No Reproductive: No Respiratory: No Radiation Therapy: No Sleep Apnea: No Thyroid Disease: Yes Menopausal: Yes Past Surgical History Abdominal Surgery: Yes (APPY) Appendectomy: Yes Cardiac Surgery: Yes (CARDIAC ABLATION) Oral Surgery: Yes (TONSILLECTOMY) Pacemaker: No Other Surgery: Yes Social History Alcohol Use: Yes (RARE) Tobacco Use: No Substance Use: No Allergies-Medications (Allergen,Severity, Reaction): Coded Allergies: Hepatitis B Vaccine (Verified Allergy, Severe, 05/24/16) Penicillin (Unverified Allergy, Severe, SWELLING,HIVES, 05/24/16) Reported Meds & Prescriptions Reported Meds & Active Scripts Active Zofran Odt (Ondansetron Odt) 8 Mg Tab 8 Mg SL Q8H PRN Reported [Alonzapine] Unknown Dose DIRECTED Emend (Aprepitant) 125 Mg Cap 125 Mg PO DIRECTED Take on day 1. Fluticasone Nasal [place] 50 Mcg/Act Naspr 50 Mcg EACH NARE BID PRN 50 mcg/spray Tussin (Guaifenesin) 100 Mg/5 Ml Syp Unknown Dose PO DIRECTED PRN Imodium A-D (Loperamide HCl) 2 Mg Cap 2 Mg PO Q6HR PRN One capsule after each loose stool. Not to exceed 8 tablets per day. Percocet (Oxycodone-Acetaminophen) 10-325 mg Tab 1-2 Tab PO Q4H PRN Vitamin B12 (Cyanocobalamin) 100 Mcg Tab Unknown Dose PO DAILY Vitamin C (Ascorbic Acid) 1,000 Mg Tab 1,000 Mg PO DAILY Cranberry (Cranberry (Vaccinium Macrocarpon)) 400 Mg Cap Unknown Dose PO DAILY Melatonin 5 Mg Cap 5 Mg PO HS Metoprolol Succinate ER 24 HR (Metoprolol Succinate) 50 Mg Tab 50 Mg PO HS Pantoprazole (Pantoprazole Sodium) 40 Mg Tab 40 Mg PO DAILY Aspirin EC (Aspirin) 325 Mg Tabdr 325 Mg PO DAILY Calcium 500 +D (Calcium Carbonate-Cholecalciferol) 500-400 Mg-Unit Tab 1 Tab PO DAILY Multiple Vitamin 1 Tab 1 Tab PO DAILY Levothyroxine (Levothyroxine Sodium) 112 Mcg Tab 112 Mcg PO DAILY Gabapentin 600 Mg Tab 600 Mg PO HS Review of Systems Except as stated in HPI: all other systems reviewed are Neg Physical Exam Narrative GENERAL: Well-developed well-nourished no apparent distress. SKIN: Warm and dry. HEAD: Atraumatic. Normocephalic. EYES: Pupils equal and round. No scleral icterus. No injection or drainage. ENT: No nasal bleeding or discharge. Mucous membranes pink and moist. NECK: Trachea midline. No JVD. CARDIOVASCULAR: Regular rate and rhythm. No murmur appreciated. RESPIRATORY: No accessory muscle use. Clear to auscultation. Breath sounds equal bilaterally. GASTROINTESTINAL: Abdomen soft, non-tender, moderately distended. Hepatic and splenic margins not palpable. Tympanic to percussion, no peritoneal signs. MUSCULOSKELETAL: No obvious deformities. No clubbing. No cyanosis. No edema. NEUROLOGICAL: Awake and alert. No obvious cranial nerve deficits. Motor grossly within normal limits. Normal speech. PSYCHIATRIC: Appropriate mood and affect; insight and judgment normal. Data Data Last Documented VS Vital Signs Date Time Temp Pulse Resp B/P Pulse Ox O2 Delivery O2 Flow Rate FiO2 05/24/16 09:00 154/84 05/24/16 08:40 14 05/24/16 07:39 93 99 Room Air 05/24/16 06:47 98.0 Orders Complete Blood Count With Diff (05/24/16 07:14) Comprehensive Metabolic Panel (05/24/16 07:14) Lipase (05/24/16 07:14) Lactic Acid (05/24/16 07:14) Prothrombin Time / Inr (Pt) (05/24/16 07:14) Act Partial Throm Time (Ptt) (05/24/16 07:14) Urinalysis - C+S If Indicated (05/24/16 07:14) Iv Access Insert/Monitor (05/24/16 07:14) Ecg Monitoring (05/24/16 07:14) Oximetry (05/24/16 07:14) Ondansetron Inj (Zofran Inj) (05/24/16 07:15) Sodium Chlor 0.9% 1000 Ml Inj (Ns 1000 M (05/24/16 07:14) Sodium Chloride 0.9% Flush (Ns Flush) (05/24/16 07:15) Electrocardiogram (05/24/16 07:14) Morphine Inj (Morphine Inj) (05/24/16 07:15) Ct Abd/Pel W Iv Contrast(Rout) (05/24/16 ) Promethazine Inj (Phenergan Inj) (05/24/16 08:15) Promethazine Supp (Phenergan Supp) (05/24/16 09:00) Iohexol 350 Inj (Omnipaque 350 Inj) (05/24/16 09:14) Urine Culture (05/24/16 08:40) Hydromorphone Pf Inj (Dilaudid Pf Inj) (05/24/16 09:45) Insert Ng Tube (05/24/16 09:58) Lidocaine 2% Jelly (Xylocaine 2% Jelly) (05/24/16 10:00) Potassium Chlor 20 Meq Premix (Kcl 20 Me (05/24/16 10:00) Sodium Chlor 0.9% 1000 Ml Inj (Ns 1000 M (05/24/16 10:00) Admit Order (Ed Use Only) (05/24/16 ) Admit To Inpatient (05/24/16 ) Vital Signs (Adult) Q4H (05/24/16 10:14) Activity Oob With Assistance (05/24/16 10:14) Diet Npo (05/24/16 Lunch) Sodium Chlor 0.9% 1000 Ml Inj (Ns 1000 M (05/24/16 10:14) Sodium Chloride 0.9% Flush (Ns Flush) (05/24/16 10:15) Sodium Chloride 0.9% Flush (Ns Flush) (05/24/16 21:00) Acetaminophen (Tylenol) (05/24/16 10:15) Ondansetron Inj (Zofran Inj) (05/24/16 10:15) Bisacodyl Supp (Dulcolax Supp) (05/24/16 10:15) Magnesium Hydroxide Liq (Milk Of Magnesi (05/24/16 10:15) Basic Metabolic Panel (Bmp) (05/25/16 06:00) Complete Blood Count With Diff (05/25/16 06:00) Resp Oxygen Jered C Titrat 1-4 L (05/24/16 ) Enoxaparin Inj (Lovenox Inj) (05/24/16 10:15) Naloxone Inj (Narcan Inj) (05/24/16 10:15) Inpatient Certification (05/24/16 ) Prochlorperazine Inj (Compazine Inj) (05/24/16 10:15) Labs Laboratory Tests Test 05/24/16 05/24/16 07:20 08:40 White Blood Count 5.0 TH/MM3 Red Blood Count 4.04 MIL/MM3 Hemoglobin 11.9 GM/DL Hematocrit 34.4 % Mean Corpuscular Volume 85.1 FL Mean Corpuscular Hemoglobin 29.4 PG Mean Corpuscular Hemoglobin 34.6 % Concent Red Cell Distribution Width 13.1 % Platelet Count 278 TH/MM3 Mean Platelet Volume 7.4 FL Neutrophils (%) (Auto) 77.5 % Lymphocytes (%) (Auto) 13.1 % Monocytes (%) (Auto) 7.0 % Eosinophils (%) (Auto) 1.9 % Basophils (%) (Auto) 0.5 % Neutrophils # (Auto) 3.8 TH/MM3 Lymphocytes # (Auto) 0.7 TH/MM3 Monocytes # (Auto) 0.3 TH/MM3 Eosinophils # (Auto) 0.1 TH/MM3 Basophils # (Auto) 0.0 TH/MM3 CBC Comment DIFF FINAL Differential Comment Prothrombin Time 11.4 SEC Prothromb Time International 1.0 RATIO Ratio Activated Partial 26.0 SEC Thromboplast Time Sodium Level 138 MEQ/L Potassium Level 3.0 MEQ/L Chloride Level 98 MEQ/L Carbon Dioxide Level 29.3 MEQ/L Anion Gap 11 MEQ/L Blood Urea Nitrogen 12 MG/DL Creatinine 0.63 MG/DL Estimat Glomerular Filtration 94 ML/MIN Rate Random Glucose 118 MG/DL Lactic Acid Level 1.1 mmol/L Calcium Level 9.0 MG/DL Total Bilirubin 0.5 MG/DL Aspartate Amino Transf 63 U/L (AST/SGOT) Alanine Aminotransferase 63 U/L (ALT/SGPT) Alkaline Phosphatase 95 U/L Total Protein 7.7 GM/DL Albumin 3.8 GM/DL Lipase 252 U/L Urine Color LIGHT-YELLOW Urine Turbidity HAZY Urine pH 8.0 Urine Specific [place] 1.009 Urine Protein TRACE mg/dL Urine Glucose (UA) NEG mg/dL Urine Ketones 40 mg/dL Urine Occult Blood NEG Urine Nitrite NEG Urine Bilirubin NEG Urine Urobilinogen LESS THAN 2.0 MG/DL Urine Leukocyte Esterase NEG Urine RBC 6 /hpf Urine WBC LESS THAN 1 /hpf Urine Amorphous Sediment RARE Urine Bacteria MOD /hpf Urine Yeast (Budding) FEW Microscopic Urinalysis Comment CULTURE INDICATED MDM Medical Decision Making Medical Screen Exam Complete: Yes Emergency Medical Condition: Yes Interpretation(s) EKG shows normal sinus rhythm left axis deviation. Normal R-wave progression intervals within normal limits. No concerning ST T changes. This borderline EKG. Differential Diagnosis SBO, electrolyte abnormalities, abdominal pain, pancreatic cancer, biliary obstruction, pancreatitis Narrative Course Patient was roomed emergency department, hypokalemia being replaced IV, patient' s CT scan performed and shows Last 24 hours Impressions Abdomen/Pelvis CT 05/24/16 0000 Signed Impressions: Service Date/Time: Tuesday, May 24, 2016 08:51 - CONCLUSION: 1. Pancreatic mass again identified, measuring larger than on the comparison study.. 2. New gastric distention and diffuse dilatation of the duodenum with apparent transition point in the distal third portion of the duodenum. The transition point is in the region of soft tissue mass extending from the pancreas to the retroperitoneal region. More distally the small bowel is normal diameter. Finding suggest at least partial obstruction of the duodenum. 3. New diffuse intrahepatic and extra hepatic biliary ductal dilatation. No discrete mass is identified in the region of the distal common duct. The pancreatic duct is also now mildly prominent diffusely measuring approximately 4 mm. 4. Small pleural effusions. Hunter Pagan MD NG tube was passed and yielded approximately 800 cc of abdominal contents. Patient was discussed with Dr. Reji Williamson of that the service for admission. Diagnosis Primary Impression: Small bowel obstruction Admitting Information Admitting Physician Requests: Admit Condition: Stable Antony Lew MD May 24, 2016 07:17
[2016-05-24] MEDS: SODIUM CHLORIDE 0.9% FLUSH 5 ML FLUSH IVF PRN ×2 (07:28→09:56)
[2016-05-24] MEDS ORDERED: LOPE7.5C PO (07:47)
[2016-05-24] MEDS ORDERED: PERC10TA27 PO (07:47)
[2016-05-24] MEDS ORDERED: CRAN400C PO (07:47)
[2016-05-24] MEDS ORDERED: PANT40TA3 PO (07:47)
[2016-05-24] MEDS ORDERED: MELA5CAP2 PO (07:47)
[2016-05-24] MEDS ORDERED: VITA100T15 PO (07:47)
[2016-05-24] MEDS ORDERED: [UNRECOGNIZED DRUG - CODE] PO (07:47)
[2016-05-24] MEDS ORDERED: METO50TA11 PO (07:47)
[2016-05-24] MEDS ORDERED: VITA10007 PO (07:47)
[2016-05-24] MEDS ORDERED: ASPI325T33 PO (07:47)
[2016-05-24] MEDS ORDERED: FLUT50SP EACH NARE (07:47)
[2016-05-24 07:50] LABS: AUTOMATED NEUTROPHIL # 3.8 TH/MM3 (1.8-7.7); BASOPHIL % 0.5 % (0.0-2.0); EOSINOPHIL # 0.1 TH/MM3 (0-0.4); EOSINOPHIL % 1.9 % (0.0-4.0); HEMATOCRIT 34.4 % (35.0-46.0); HEMO FLAGS DIFF FINAL; LYMPH % 13.1 % (9.0-44.0); LYMPHOCYTE # 0.7 TH/MM3 (1.0-4.8); MEAN CELL VOLUME 85.1 FL (80.0-100.0); MEAN CORPUSCULAR HEMOGLOBIN 29.4 PG (27.0-34.0); MEAN CORPUSCULAR HGB CONC 34.6 % (32.0-36.0); NEUT % 77.5 % (16.0-70.0); PLATELET COUNT 278 TH/MM3 (150-450); RED BLOOD COUNT 4.04 MIL/MM3 (4.00-5.30); RED CELL DISTRIBUTION WIDTH 13.1 % (11.6-17.2)
[2016-05-24] MEDS ORDERED: [UNRECOGNIZED DRUG - OTHER] (07:50)
[2016-05-24] MEDS ORDERED: [UNRECOGNIZED DRUG - CODE] PO (07:50)
[2016-05-24 07:57] LABS: PROTHROMBIN TIME - PATIENT 11.4 SEC (9.8-11.6)
[2016-05-24 08:07] LABS: ANION GAP 11 MEQ/L (5-15); AST (GOT) 63 U/L (15-37); BICARBONATE 29.3 MEQ/L (21.0-32.0); BLOOD UREA NITROGEN 12 MG/DL (7-18); CHLORIDE 98 MEQ/L (98-107); GLOMERULAR FILTRATION RATE 94 ML/MIN (>89); SODIUM (NA) 138 MEQ/L (136-145)
[2016-05-24 08:10] LABS: ALKALINE PHOSPHATASE 95 U/L (45-117); ALT (GPT) 63 U/L (10-53); TOTAL BILIRUBIN ADULT 0.5 MG/DL (0.2-1.0)
[2016-05-24] MEDS ORDERED: PROMETHAZINE INJ 25 MG/ML VIAL IM ONE (08:15)
[2016-05-24] MEDS ORDERED: PROMETHAZINE HCL 25 MG SUPP RECTAL ONE (09:00)
[2016-05-24] MEDS ORDERED: IOHEXOL 350 MG/ML 10 ML VIAL (for RAD DIAG) IV ONE (09:14)
[2016-05-24 09:30] LABS: BACTERIA, URINE MOD /hpf; BLOOD, URINE NEG (NEG); COMMENT (UR) CULTURE INDICATED; CULTURE IF INDICATED CULTURE INDICATED; GLUCOSE,URINE NEG (NEG); KETONE, URINE 40 mg/dL (NEG); NITRITE,URINE NEG (NEG); URINE COLOR LIGHT-YELLOW (YELLW/STRAW)
[2016-05-24] MEDS ORDERED: HYDROmorphone HCL PF 1 MG/ML VIAL IV PUSH ONE ×2 (09:45→13:00)
--- NOTE | 2016-05-24 09:53 | RADRPT ---
EXAM DATE/TIME: 05/24/2016 08:51 [facility] COMPARISON: CT ABDOMEN & PELVIS W CONTRAST, April 06, 2016, 6:20. INDICATIONS : Abdomen pain, pancreatic cancer. IV CONTRAST: 96 cc Omnipaque 350 (iohexol) IV ORAL CONTRAST: No oral contrast ingested. RADIATION DOSE: 9.96 CTDIvol (mGy) MEDICAL HISTORY : Cardiovascular disease. Gastroesophageal reflux disease. Carcinoma, pancreas. SURGICAL HISTORY : None. ENCOUNTER: Initial ACUITY: 1 day PAIN SCALE: 5/10 LOCATION: abdomen TECHNIQUE: Volumetric scanning of the abdomen and pelvis was performed. Using automated exposure control and ad justment of the mA and/or kV according to patient size, radiation dose was kept as low as reasonably achievable to obtain optimal diagnostic quality images. FINDINGS: LOWER LUNGS: Small bilateral pleural effusions. LIVER: Multiple rounded hypodensities in the liver are grossly unchanged. There is new intrahepatic and extr a hepatic biliary ductal dilatation. Common duct measures 10 mm proximally and 9 mm distally. It kaci ured 4 mm on the prior study. No mass is identified in the region of the distal common duct. SPLEEN: Normal size without lesion. PANCREAS: Hypodense mass is again identified in the pancreatic body. The mass measures 3.5 x 2.7 cm. Retrospect susan measurement of the mass on the prior study demonstrates measurements of 3.1 x 2.2 cm. Contiguous soft tissue density is seen extending from the mass to the area of retroperitoneal left periaortic ly mphadenopathy in the region of the third portion of the duodenum. KIDNEYS: Within normal limits ADRENAL GLANDS: Within normal limits. VASCULAR: There is no aortic aneurysm. BOWEL/MESENTERY: There is moderate distention of the stomach and dilatation of the duodenum diffusely. Duodenum measur es 4 cm in diameter. Transition point is seen in the distal third portion of the duodenum in the quinten on of soft tissue mass extending from the area of the pancreatic mass to the retroperitoneal lymphade nopathy. Small bowel is otherwise decompressed. Colon is normal diameter. Small amount of free fluid is seen in all 4 quadrants of the abdomen. No free air. ABDOMINAL WALL: Within normal limits. RETROPERITONEUM: Enlarged retroperitoneal lymph nodes again seen, particularly in the left para-aortic region at the l evel of the kidneys. The para-aortic component is grossly unchanged. There is contiguous soft tissue density and wall thickening in the region of the third portion of the duodenum now seen. BLADDER: No wall thickening or mass. REPRODUCTIVE: Within normal limits. INGUINAL: There is no lymphadenopathy or hernia. MUSCULOSKELETAL: Prominent degenerative findings in the lower lumbar spine facet joints. CONCLUSION: 1. Pancreatic mass again identified, measuring larger than on the comparison study.. 2. New gastric distention and diffuse dilatation of the duodenum with apparent transition point in th e distal third portion of the duodenum. The transition point is in the region of soft tissue mass ext ending from the pancreas to the retroperitoneal region. More distally the small bowel is normal diame ter. Finding suggest at least partial obstruction of the duodenum. 3. New diffuse intrahepatic and extra hepatic biliary ductal dilatation. No discrete mass is identifi ed in the region of the distal common duct. The pancreatic duct is also now mildly prominent diffusel y measuring approximately 4 mm. 4. Small pleural effusions. Hunter Pagan MD on May 24, 2016 at 9:43 Board Certified Radiologist. This report was verified electronically.
[2016-05-24] MEDS ORDERED: POTASSIUM CHLOR 20 MEQ PREMIX 100 ML IV ONE (10:00)
[2016-05-24] MEDS ORDERED: LIDOCAINE HCL 2% JELLY 5 ML SYRINGE TOPICAL ONE (10:00)
[2016-05-24] MEDS: SODIUM CHLOR 0.9% 1000 ML INJ 1,000 ML IV SCH ×2 (10:14→20:17)
[2016-05-24] MEDS ORDERED: ONDANSETRON HCL 4 MG/2 ML VIAL IVP PRN (10:15)
[2016-05-24] MEDS ORDERED: ACETAMINOPHEN 325 MG TAB PO PRN (10:15)
[2016-05-24] MEDS ORDERED: MAGNESIUM HYDROXIDE SUSP 30 ML CUP PO PRN (10:15)
[2016-05-24] MEDS ORDERED: PROCHLORPERAZINE INJ 10 MG/2 ML VIAL IM PRN (10:15)
[2016-05-24] MEDS ORDERED: NALOXONE HCL 0.4 MG/ML AMP IV PRN (10:15)
[2016-05-24] MEDS ORDERED: ENOXAPARIN SODIUM 40 MG/0.4 ML SYRINGE SQ SCH (10:15)
--- NOTE | 2016-05-24 11:55 | RADRPT ---
EXAM DATE/TIME: 05/24/2016 11:13 [facility] COMPARISON: CHEST EXPIRATION ONLY, April 09, 2016, 17:58. CHEST SINGLE AP, April 06, 2016, 6:01. INDICATIONS : Nasogastric tube placement MEDICAL HISTORY : Cardiovascular disease. Gastroesophageal reflux disease. Carcinoma, pancreas. SURGICAL HISTORY : None. ENCOUNTER: Initial ACUITY: 1 day PAIN SCORE: 7/10 LOCATION: Bilateral abdomen FINDINGS: Single AP view of the chest. Nasogastric tube is in place with the tip at the gastroesophageal juncti on and the side-port in the distal esophagus. Right-sided [id number] remains in place. Left lower lung atelectasis. Lungs otherwise clear. CONCLUSION: Nasogastric tube tip at the gastroesophageal junction. Side port in the distal esophagus. Hunter Pagan MD on May 24, 2016 at 11:52 Board Certified Radiologist. This report was verified electronically.
--- NOTE | 2016-05-24 12:00 | HHI.HP ---
[facility] Sly Lr MD Admission Diagnosis SBO, Abdominal pain. Diagnoses: Chief Complaint: Nausea vomiting abdominal pain. Travel History International Travel<30 Days: No Contact w/Intl Traveler <30 Da: No Traveled to Known Affected Are: No History of Present Illness Ms. Campbell is a pleasant 70-year-old female with a recent diagnosis of pancreatic cancer who presents to the emergency department on 05/24/2016 due to intractable nausea and vomiting as well as abdominal pain that started last night. She underwent therapy 2 days ago and subsequently she went home. Her nausea medication at home did not help which prompted her to seek medical attention today. Patient denies any fever or chills. Denies any chest pain, shortness of breath. Denies any changes in bowel or bladder habits. On arrival pressure 146/84, pulse 104, respirations 16, temperature 90.8F, pulse ox 97% on room air. CT abdomen pelvis showed pancreatic mass which appeared to be larger than the comparison study. CT abdomen pelvis also shows likely partial small bowel obstruction. An NG tube was placed in the emergency department. Review of Systems ROS Limitations: Other (negative except as noted in the history of present illness) Past Family Social History Past Medical History Atrial fibrillation, subdural hematoma, hypothyroidism Past Surgical History Appendectomy, cardiac ablation, tonsillectomy. Reported Medications [Alonzapine] Unknown Dose DIRECTED Emend (Aprepitant) 125 Mg Cap 125 Mg PO DIRECTED Take on day 1. Fluticasone Nasal Diana 50 Mcg/Act Naspr 50 Mcg EACH NARE BID PRN 50 mcg/spray Tussin (Guaifenesin) 100 Mg/5 Ml Syp Unknown Dose PO DIRECTED PRN Imodium A-D (Loperamide HCl) 2 Mg Cap 2 Mg PO Q6HR PRN One capsule after each loose stool. Not to exceed 8 tablets per day. Percocet (Oxycodone-Acetaminophen) 10-325 mg Tab 1-2 Tab PO Q4H PRN Vitamin B12 (Cyanocobalamin) 100 Mcg Tab Unknown Dose PO DAILY Vitamin C (Ascorbic Acid) 1,000 Mg Tab 1,000 Mg PO DAILY Cranberry (Cranberry (Vaccinium Macrocarpon)) 400 Mg Cap Unknown Dose PO DAILY Melatonin 5 Mg Cap 5 Mg PO HS Metoprolol Succinate ER 24 HR (Metoprolol Succinate) 50 Mg Tab 50 Mg PO HS Pantoprazole (Pantoprazole Sodium) 40 Mg Tab 40 Mg PO DAILY Aspirin EC (Aspirin) 325 Mg Tabdr 325 Mg PO DAILY Calcium 500 +D (Calcium Carbonate-Cholecalciferol) 500-400 Mg-Unit Tab 1 Tab PO DAILY Multiple Vitamin 1 Tab 1 Tab PO DAILY Levothyroxine (Levothyroxine Sodium) 112 Mcg Tab 112 Mcg PO DAILY Gabapentin 600 Mg Tab 600 Mg PO HS Allergies: Coded Allergies: Hepatitis B Vaccine (Verified Allergy, Severe, 05/24/16) Penicillin (Unverified Allergy, Severe, SWELLING,HIVES, 05/24/16) Family History Family history significant for colon cancer. Grandfather from esophageal cancer, brother from colon cancer at age 39. No family history of pancreatic cancer. Social History Drinks alcohol socially. Denies using tobacco or illicit drugs. Physical Exam Vital Signs Vital Signs Date Time Temp Pulse Resp B/P Pulse Ox O2 Delivery O2 Flow Rate FiO2 05/24/16 08:40 14 05/24/16 07:39 93 12 164/91 99 Room Air 05/24/16 07:23 97 Room Air 05/24/16 06:47 98.0 104 16 146/84 97 Physical Exam GENERAL: This is a well-nourished, well-developed patient, in no apparent distress. NG tube in place. Speaks in full sentences. SKIN: No rashes, ecchymoses or lesions. Warm and dry. HEAD: Atraumatic. Normocephalic. No temporal or scalp tenderness. EYES: Pupils equal round and reactive. No injection or drainage. ENT: Nose without bleeding, purulent drainage or septal hematoma. Airway patent. NECK: Trachea midline. No lymphadenopathy. Supple, nontender, no meningeal signs. CARDIOVASCULAR: Regular rate and rhythm without murmurs, gallops, or rubs. No JVD. RESPIRATORY: Clear to auscultation. Breath sounds equal bilaterally. No wheezes , rales, or rhonchi. GASTROINTESTINAL: Abdomen soft, non-tender, nondistended. No guarding. MUSCULOSKELETAL: Extremities without clubbing, cyanosis, or edema. NEUROLOGICAL: Awake and alert. Cranial nerves II through XII intact. No focal neurological deficits. Normal speech. Laboratory Laboratory Tests Test 05/24/16 05/24/16 07:20 08:40 White Blood Count 5.0 Red Blood Count 4.04 Hemoglobin 11.9 Hematocrit 34.4 Mean Corpuscular Volume 85.1 Mean Corpuscular Hemoglobin 29.4 Mean Corpuscular Hemoglobin 34.6 Concent Red Cell Distribution Width 13.1 Platelet Count 278 Mean Platelet Volume 7.4 Neutrophils (%) (Auto) 77.5 Lymphocytes (%) (Auto) 13.1 Monocytes (%) (Auto) 7.0 Eosinophils (%) (Auto) 1.9 Basophils (%) (Auto) 0.5 Neutrophils # (Auto) 3.8 Lymphocytes # (Auto) 0.7 Monocytes # (Auto) 0.3 Eosinophils # (Auto) 0.1 Basophils # (Auto) 0.0 CBC Comment DIFF FINAL Differential Comment Prothrombin Time 11.4 Prothromb Time International 1.0 Ratio Activated Partial 26.0 Thromboplast Time Sodium Level 138 Potassium Level 3.0 Chloride Level 98 Carbon Dioxide Level 29.3 Anion Gap 11 Blood Urea Nitrogen 12 Creatinine 0.63 Estimat Glomerular Filtration 94 Rate Random Glucose 118 Lactic Acid Level 1.1 Calcium Level 9.0 Total Bilirubin 0.5 Aspartate Amino Transf 63 (AST/SGOT) Alanine Aminotransferase 63 (ALT/SGPT) Alkaline Phosphatase 95 Total Protein 7.7 Albumin 3.8 Lipase 252 Urine Color LIGHT-YELLOW Urine Turbidity HAZY Urine pH 8.0 Urine Specific [place] 1.009 Urine Protein TRACE Urine Glucose (UA) NEG Urine Ketones 40 Urine Occult Blood NEG Urine Nitrite NEG Urine Bilirubin NEG Urine Urobilinogen LESS THAN 2.0 Urine Leukocyte Esterase NEG Urine RBC 6 Urine WBC LESS THAN 1 Urine Amorphous Sediment RARE Urine Bacteria MOD Urine Yeast (Budding) FEW Microscopic Urinalysis Comment CULTURE INDICATED Date/Time Procedure Status Source Growth 05/24/16 08:40 Urine Culture Received Urine Random Urine Pending Result Diagram: 05/24/16 0720 05/24/16 0720 Imaging Last Impressions Chest X-Ray 05/24/16 0000 Signed Impressions: Service Date/Time: Tuesday, May 24, 2016 11:13 - CONCLUSION: Nasogastric tube tip at the gastroesophageal junction. Side port in the distal esophagus. Hunter Pagan MD Abdomen/Pelvis CT 05/24/16 0000 Signed Impressions: Service Date/Time: Tuesday, May 24, 2016 08:51 - CONCLUSION: 1. Pancreatic mass again identified, measuring larger than on the comparison study.. 2. New gastric distention and diffuse dilatation of the duodenum with apparent transition point in the distal third portion of the duodenum. The transition point is in the region of soft tissue mass extending from the pancreas to the retroperitoneal region. More distally the small bowel is normal diameter. Finding suggest at least partial obstruction of the duodenum. 3. New diffuse intrahepatic and extra hepatic biliary ductal dilatation. No discrete mass is identified in the region of the distal common duct. The pancreatic duct is also now mildly prominent diffusely measuring approximately 4 mm. 4. Small pleural effusions. Hunter Pagan MD Assessment and Plan Problem List: (1) Small bowel obstruction, partial ICD Code: K56.69 Status: Acute (2) Pancreatic cancer ICD Code: C25.9 Status: Acute (3) Hypothyroidism ICD Code: E03.9 Status: Acute (4) history of atrial fibrillation Status: Acute Assessment and Plan Ms. Campbell is a pleasant 70-year-old female with a history of pancreatic cancer undergoing chemotherapy who presents to the emergency department due to intractable nausea and vomiting as well as abdominal pain. Patient denies any chest pain, fever or chills. CT abdomen pelvis in the emergency department shows at least partial small bowel obstruction. Pancreatic mass is also increased compared to previous studies. - Pancreatic cancer - Partial small bowel obstruction - Likely due to pancreatic mass. - NG tube in place, keep it on suction. - Nothing by mouth for now, continue IV fluid. Okay to give some ice chips. - Discussed with oncologist, Dr. Velázquez and will place a consult for Oncology. Patient may need a surgical evaluation. - Dilaudid 0.5mg Q4hrs PRN for pain. - Hypothyroidism - patient takes levothyroxine 112 g daily. If unable to take medications by mouth, we'll initiate levothyroxine 62 g intravenously. - History of atrial fibrillation - status post ablation. We'll continue metoprolol succinate 50 mg by mouth daily at bedtime when able to tolerate PO meds. - Patient used to be on anti-coagulation. However, she has had subdural hematoma. Currently only takes Aspirin 325mg. Will resume when tolerates PO better. - Neuropathic pain - Continue Gabapentin when able to take PO. - GERD - Continue PPI IV for now. When able to tolerate PO, we will switch to PO meds. Full code. Lovenox. Update 10:29PM Ms. Campbell later developed fever of 101.6F. I discussed with Oncologist Dr. Velázquez. We will start patient on Levaquin and Flagyl IV. Patient has had anaphylactic type of reaction to penicillin. We will avoid cephalosporins especially earlier generations. I evaluated patient again around 7PM - patient is doing well. NG tube in place, she is tolerating some ice chips. Friend/ family member at bedside. No further fever. We will continue to observe patient on the medical floor. If there is any worsening of her symptoms, we will keep a low threshold for ICU transfer. Later in the evening, I also discussed at length with psychiatric nurse practitioner surgeon who happens to be a surgical oncologist, Dr. Zavala who will evaluate patient likely on 05/25/2016. Patient may need surgical intervention with regards to partial bowel obstruction. Physician Certification 2 Midnight Certification Type: Admission for Inpatient Services Order for Inpatient Services The services are ordered in accordance with Medicare regulations or non- Medicare payer requirements, as applicable. In the case of services not specified as inpatient-only, they are appropriately provided as inpatient services in accordance with the 2-midnight benchmark. Estimated LOS (days): 3 days is the estimated time the patient will need to remain in the hospital, assuming treatment plan goals are met and no additional complications. Post-Hospital Plan: Home Jeronimo Williamson DO May 24, 2016 11:59
--- NOTE | 2016-05-24 14:31 | EKG ---
Date Performed: 05/24/2016 Time Performed: 07:23:20 PTAGE: 70 years EKG: Sinus rhythm BORDERLINE LEFT AXIS DEVIATION BORDERLINE ECG PREVIOUS TRACING : 04/06/2016 04.15 No significant change from previous tracing noted. DOCTOR: Gene Simms Interpretating Date/Time 05/24/2016 14:30:47
[2016-05-24] MEDS ORDERED: fentaNYL 25 MCG/HR PATCH TD ONE (16:00)
[2016-05-24] MEDS: ONDANSETRON HCL 4 MG/2 ML VIAL IVP SCH ×2 (16:30→21:17)
[2016-05-24] MEDS: HYDROmorphone HCL PF 1 MG/ML VIAL IV PUSH PRN ×2 (17:14→21:17)
--- NOTE | 2016-05-24 17:35 | MB ---
cc: MARIE WILLIAMSON RUBY ANNE E. M.D. DATE OF CONSULTATION: 05/24/2016 REASON FOR CONSULTATION / CHIEF COMPLAINT: Dr. Williamson requested consultation for Mrs. Campbell regarding progression of pancreatic cancer. REFERRING PHYSICIAN: Dr. Marie Williamson. HISTORY OF PRESENT ILLNESS: Mrs. Campbell is a 70-year-old woman well-known patient to Dr. Chiki Umana. She presented with a left supraclavicular adenopathy in January of 2016. She had elevated lipase. Her CA 19-9 was 2064. She had positive clavicular lymph node biopsy that was consistent with metastatic pancreatic cancer. She is receiving palliative chemotherapy with FOLFIRINOX. Her first course was complicated by significant nausea and vomiting. She had some diarrheal symptoms. Her last treatment she reports increased abdominal distension. She did not have any diarrhea except for a good bowel movement the day of presentation. She denies any fevers. She started with nausea and vomiting which prompted her to come into the hospital. She was seen by Dr. Antony Lew. Imaging studies, CT scan of the abdomen and pelvis showed a hyperdense mass noted in the body of the pancreas measuring 3.5 x 2.7 cm. The mass previously measured 3.1 x 2.2 cm. There is a soft tissue density contiguous with retroperitoneal left periaortic lymphadenopathy in the region of the third portion of the duodenum. There is moderate distension of the stomach, dilatation of the duodenum diffusely. The transition point is the distal third portion of duodenum in the region of the soft tissue mass extending from the area of the pancreatic mass to the retroperitoneal adenopathy. Also noted small pleural effusion. An NG tube was placed. She is being decompressed. She has had no more vomiting. Laboratory evaluation shows decrease in potassium. Her renal function is normal but AST and ALT are elevated. Her bilirubin is normal. Lipase is normal. Repeat CA 19-9 was pending for her after her next cycle of chemotherapy. She is not anemic. Other toxicity from the chemotherapy includes peripheral neuropathy which only lasted for 96 hours. She denies any headaches. No vision changes. She denies any lasting neuropathy. She did not have a lot of diarrhea despite the irinotecan part of her chemotherapy. She denies any urinary complaints. She feels better. Her pain is intermittent. She was taking Percocet six tablets per day at least. She has intermittent spastic pain, which is alleviated by Dilaudid on a PRN basis. She is not taking any long-acting pain medication although her pain is quite chronic. She repeatedly asked for a [employer] pump. PAST MEDICAL HISTORY: 1. Atrial fibrillation status post cryoablation now in normal sinus rhythm. 2. 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 3. Subarachnoid hemorrhage. 4. Subacute thyroiditis. 5. Optic neuritis. 6. Osteoarthritis. 7. Metastatic pancreatic cancer. ALLERGIES: PENICILLIN. FAMILY HISTORY: Mother of emphysema. Mother had bladder and colon cancer. Father of colon cancer age 71. A brother of colon cancer age 39. CURRENT MEDICATIONS: 1. Ondansetron 2. Hydromorphone. 3. Tylenol. PHYSICAL EXAMINATION: VITAL SIGNS: Temperature 97.8, heart rate 96, respiratory rate 18, blood pressure 150/85, saturation 99%. GENERAL: Mrs. Campbell is a well-developed, well-nourished woman in no acute distress. NG tube is in place. She has natalie cheeks. She is more comfortable after the NG tube placement. Her oropharynx is clear. NECK: Supple. LUNGS: Lungs are clear anteriorly. CARDIOVASCULAR: Exam reveals normal rate, rhythm. ABDOMEN: Abdomen is distended. Bowel sounds are sparse, occasional bowel sounds present. LOWER EXTREMITIES: No edema. Good pulses. NEUROLOGIC: Exam is nonfocal. LABORATORY DATA: Normal hemoglobin. Potassium 3.0, AST 63, ALT 63. ASSESSMENT AND PLAN: Mrs. Campbell is a 70-year-old woman with multiple medical problems described above. She was recently diagnosed with metastatic pancreatic cancer from left supraclavicular lymph node biopsy. I had a lengthy discussion about the body of the pancreas tumor. She is status post three doses of FOLFIRINOX. She seems to have tolerated the FOLFIRINOX well; However, there is concern for progression despite it. She has a presentation of bowel obstruction. The mass in the pancreas appears larger. The soft tissue adenopathy is obstructing the duodenum. We will check CA 19-9. We discussed the difficulty in interpreting this if it is worse combined with the CT scan findings, the presentation of small bowel obstruction, and elevated CA 19-9 would suggest that she has progressed on FOLFIRINOX her first-line chemotherapy for metastatic pancreatic cancer. I defer to Dr. Umana ultimately for treatment decisions regarding her pancreas cancer. They have discussed previously second line chemotherapy with gemcitabine and Abraxane. This is something that the patient brought up and it has been discussed before. Acutely I plan to treat her conservatively and see if her bowel structure would resolve. She has an nasogastric tube in place. A bowel movements has not occurred. We will continue her p.r.n. pain medication. She may benefit from long-acting pain medicine. Fentanyl 12 mcg is not available and the lowest dose patch is 25 mcg. We will order one patch to see if this alleviates her symptoms of pain. She has been taking Percocet regularly over the past month to manage her pain symptoms. Supportive treatment of TPN can be initiated tomorrow if no significant improvement. GI consultation will be necessary to evaluate the duodenal obstruction. I defer to GI if this site may be amenable to stenting. Her questions were answered to her satisfaction. MD KUSHAL Mcnair/DIANA /3:42 PM /5:17 PM THANIA
[2016-05-24 17:38] LABS: MAGNESIUM 2.4 MG/DL (1.5-2.5)
[2016-05-24] MEDS ORDERED: ceFAZolin 2 GM PREMIX 50 ML IV SCH (17:45)
[2016-05-24] MEDS: metroNIDAZOLE 500 MG INJ 100 ML IV SCH (20:16)
[2016-05-24] MEDS: ENOXAPARIN SODIUM 40 MG/0.4 ML SYRINGE SQ SCH (20:16)
[2016-05-24] MEDS: SODIUM CHLORIDE 0.9% FLUSH 5 ML FLUSH FLUSH SCH (21:00)
[2016-05-24] MEDS: LEVOFLOXACIN 750 MG PREMIX INJ 150 ML IV SCH (21:17)
[2016-05-25] VITALS (7 sets, daily range): BP systolic 114–160; BP diastolic 75–82; PULSE 85–105; RESP 16–18; TEMP 97.9–99.7; O2SAT 95–98
[2016-05-25] MEDS: ONDANSETRON HCL 4 MG/2 ML VIAL IVP SCH ×4 (03:14→19:55)
[2016-05-25] MEDS: HYDROmorphone HCL PF 1 MG/ML VIAL IV PUSH PRN ×5 (03:14→22:28)
[2016-05-25] MEDS: metroNIDAZOLE 500 MG INJ 100 ML IV SCH ×3 (03:14→19:54)
[2016-05-25] MEDS: SODIUM CHLORIDE 0.9% FLUSH 5 ML FLUSH FLUSH SCH ×2 (09:21→21:00)
[2016-05-25] MEDS: SODIUM CHLOR 0.9% 1000 ML INJ 1,000 ML IV SCH ×2 (09:24→19:54)
[2016-05-25 10:38] LABS: AUTOMATED NEUTROPHIL # 3.3 TH/MM3 (1.8-7.7); BASOPHIL % 0.5 % (0.0-2.0); EOSINOPHIL # 0.2 TH/MM3 (0-0.4); EOSINOPHIL % 3.8 % (0.0-4.0); HEMATOCRIT 31.7 % (35.0-46.0); HEMO FLAGS DIFF FINAL; LYMPH % 17.6 % (9.0-44.0); LYMPHOCYTE # 0.8 TH/MM3 (1.0-4.8); MEAN CELL VOLUME 86.4 FL (80.0-100.0); MEAN CORPUSCULAR HEMOGLOBIN 28.4 PG (27.0-34.0); MEAN CORPUSCULAR HGB CONC 32.9 % (32.0-36.0); MONO % 6.4 % (0.0-8.0); NEUT % 71.7 % (16.0-70.0); PLATELET COUNT 247 TH/MM3 (150-450); RED BLOOD COUNT 3.67 MIL/MM3 (4.00-5.30); RED CELL DISTRIBUTION WIDTH 13.3 % (11.6-17.2); WHITE BLOOD COUNT 4.6 TH/MM3 (4.0-11.0)
--- NOTE | 2016-05-25 10:51 | PD.ONC.PN ---
Subjective Subjective Remarks Tmax 99.7 overnight. Pt resting in bed talking with Dr. Lam. She states she has some mid abdominal pain. She is looking forward to having the NGT removed. Objective Data Date Time Temp Pulse Resp B/P Pulse Ox O2 Delivery O2 Flow Rate FiO2 05/25/16 08:00 98.2 86 16 131/82 95 05/25/16 04:00 98.6 88 18 139/77 95 05/25/16 00:12 99.7 101 18 114/76 95 05/24/16 20:26 99.0 05/24/16 20:00 97.8 104 18 122/77 95 05/24/16 16:50 95 21 05/24/16 16:00 101.6 103 20 132/78 98 05/24/16 13:30 97.8 96 18 150/85 99 05/24/16 12:51 102 16 155/84 97 Room Air 05/24/16 12:00 98 15 161/99 97 Room Air 05/24/16 12:00 14 05/25/16 05/25/16 05/25/16 07:00 15:00 23:00 Intake Total 1666 ml Output Total 800 ml Balance 866 ml Result Diagram: 05/25/16 0917 05/24/16 0720 Laboratory Results Laboratory Tests Test 05/24/16 05/24/16 05/25/16 17:30 18:39 09:17 CA 19-9 Antigen 4033.5 U/ML Lactic Acid Level 0.5 mmol/L Procalcitonin LESS THAN 0.05 mg/mL White Blood Count 4.6 TH/MM3 Red Blood Count 3.67 MIL/MM3 Hemoglobin 10.4 GM/DL Hematocrit 31.7 % Mean Corpuscular Volume 86.4 FL Mean Corpuscular Hemoglobin 28.4 PG Mean Corpuscular Hemoglobin 32.9 % Concent Red Cell Distribution Width 13.3 % Platelet Count 247 TH/MM3 Mean Platelet Volume 7.3 FL Neutrophils (%) (Auto) 71.7 % Lymphocytes (%) (Auto) 17.6 % Monocytes (%) (Auto) 6.4 % Eosinophils (%) (Auto) 3.8 % Basophils (%) (Auto) 0.5 % Neutrophils # (Auto) 3.3 TH/MM3 Lymphocytes # (Auto) 0.8 TH/MM3 Monocytes # (Auto) 0.3 TH/MM3 Eosinophils # (Auto) 0.2 TH/MM3 Basophils # (Auto) 0.0 TH/MM3 CBC Comment DIFF FINAL Differential Comment Culture Results Microbiology Date/Time Procedure Status Source Growth 05/24/16 08:40 Urine Culture Worksheet Urine Random Urine Pending 05/24/16 17:30 Aerobic Blood Culture Received Blood Peripheral Pending 05/24/16 17:30 Anaerobic Blood Culture Received Blood Peripheral Pending 05/25/16 09:17 Aerobic Blood Culture Received Blood Peripheral Pending 05/25/16 09:17 Anaerobic Blood Culture Received Blood Peripheral Pending Imaging Studies Last Impressions Chest X-Ray 05/24/16 0000 Signed Impressions: Service Date/Time: Tuesday, May 24, 2016 11:13 - CONCLUSION: Nasogastric tube tip at the gastroesophageal junction. Side port in the distal esophagus. Hunter Pagan MD Abdomen/Pelvis CT 05/24/16 0000 Signed Impressions: Service Date/Time: Tuesday, May 24, 2016 08:51 - CONCLUSION: 1. Pancreatic mass again identified, measuring larger than on the comparison study.. 2. New gastric distention and diffuse dilatation of the duodenum with apparent transition point in the distal third portion of the duodenum. The transition point is in the region of soft tissue mass extending from the pancreas to the retroperitoneal region. More distally the small bowel is normal diameter. Finding suggest at least partial obstruction of the duodenum. 3. New diffuse intrahepatic and extra hepatic biliary ductal dilatation. No discrete mass is identified in the region of the distal common duct. The pancreatic duct is also now mildly prominent diffusely measuring approximately 4 mm. 4. Small pleural effusions. Hunter Pagan MD Administered Medications Medications (Trade) Dose Ordered Sig/Kristie Route PRN Reason Start Time Stop Time Status Last Admin Dose Admin Sodium Chloride (NS 1000 ml Inj) 1,000 ml @ 100 mls/hr Q10H IV 05/24/16 10:14 05/25/16 09:24 IV Flush (NS Flush) 2 ml BID FLUSH 05/24/16 21:00 05/24/16 21:00 Hydromorphone HCl (Dilaudid Pf Inj) 0.5 mg Q4H PRN IV PUSH PAIN SCALE 5 TO 10 05/24/16 13:00 05/25/16 10:31 Ondansetron HCl 4 mg 4 mg Q6H IVP 05/24/16 16:00 05/25/16 15:59 05/25/16 09:18 Levofloxacin/ Dextrose 150 ml @ 100 mls/hr Q24H IV 05/24/16 20:00 05/24/16 21:17 Metronidazole (Flagyl 500 Mg Inj) 100 ml @ 100 mls/hr Q8H IV 05/24/16 20:00 05/25/16 03:14 Enoxaparin Sodium (Lovenox Inj) 40 mg Q24H SQ 05/24/16 20:00 05/24/16 20:16 Objective Remarks GENERAL: Older female, sitting up in bed in no distress. SKIN: Warm and dry. HEAD: Normocephalic. EYES: No scleral icterus. No injection or drainage. NECK: Supple, trachea midline. No JVD or lymphadenopathy. CARDIOVASCULAR: Regular rate and rhythm without murmurs. RESPIRATORY: Breath sounds equal bilaterally. Faint crackles to bilateral bases. GASTROINTESTINAL: Abdomen is mildly tender. NG tube in place to wall suction. EXTREMITIES: No edema. NEUROLOGICAL: No obvious focal deficit. Awake, alert, and oriented x3. Assessment/Plan Problem List: (1) Pancreatic cancer Status: Acute Plan: -- Her last chemotherapy was 05/22/16. -- CA 19-9 has increased to 4033 from 2964 in March. -- This alone is difficult to interpret given the obstruction. Hx/Workup: She presented with a left supraclavicular adenopathy in January of 2016. She had elevated lipase. Her CA 19-9 was 2064. She had positive clavicular lymph node biopsy that was consistent with metastatic pancreatic cancer. She has been receiving palliative intent Folfirinox with her last dose finishing on 05/22/16. She has completed three doses. (2) Small bowel obstruction, partial Status: Acute Plan: -- CT scan on 05/24/16 suggests at least a partial obstruction of the duodenum with diffuse intrahepatic and extra hepatic biliary ductal dilatation. -- Pt given options by Dr. Lam -- Best choice in the interim is to start PPN. -- She will likely get a PEG tube placed to allow for further decompression of the stomach while allowing better comfort of removing the NGT. -- Once she is past her jason period we can discuss doing an anastomoses to bypass the blockage. Assessment 70 y/o female with a history of stage 4 pancreatic cancer admitted with abdominal pain, nausea and a SBO. Plan 1. Start PPN today 2. Await micro results prior to transition to TPN. 3. Difficult to interpret increase in CA 19-9 as this is likely due to SBO. 4. Continue nausea meds, pain medication. 5. Pt to make a decision and discuss with Dr Alexander in the am. Attending Statement The exam, history, and the medical decision-making described in the above note were completed with the assistance of the mid-level provider. I reviewed and agree with the findings presented. I attest that I had a [id number] encounter with the patient on the same day, and personally performed and documented my assessment and findings in the medical record. Pt seen and examined. Had a lengthy discussion with Dr. Lam, plan to place PEG for decompression, wait 10 days after jason and have bypassing palliative surgery. Discussed w/ GI feasibility of duodenal stent, optimistic since compression seems to be external, although they can't tell until they try. If the obstructive lesion is short, a stent could be placed, avoiding PEG tube for decompression and palliative surgery. The case discussed with family and Dr. Jennings. Pt decided to continue to PEG tube by interventional radiology. Wants to think about the duodenal stent, and possibly decide later. Discussed support with abx, pain patch Fentanyl 25mcg tolerating well, wants spasm of abdomen to decrease, try optimizing nausea meds. Cont prn Dilaudid. Dr. Umana to return tomorrow. Flower Giraldo May 25, 2016 10:51 Elsa Velázquez MD May 25, 2016 13:36
[2016-05-25 11:02] LABS: BICARBONATE 27.3 MEQ/L (21.0-32.0)
--- NOTE | 2016-05-25 12:11 | MB ---
cc: CORDELIA MEYER DATE OF CONSULTATION: 05/25/2016 REASON FOR CONSULTATION: Gastric outlet obstruction. REFERRING PHYSICIAN: Dr. Williamson. HISTORY OF PRESENT ILLNESS The patient is a 70-year-old female with history of stage IV pancreatic cancer known to my partner Dr. Alexander. The patient is getting chemotherapy by Dr. Umana and last dose was approximately five days ago. The patient developed rather sudden onset of bilious vomiting in the last 24 hours. The patient underwent evaluation with a CT scan which showed dilated stomach and duodenum up to the fourth portion where it narrows at the area of the patient's known pancreatic malignancy and pancreatic body. The patient is stable and NG tube is placed for decompression. General surgery is asked to evaluate the patient. REVIEW OF SYSTEMS: 12-point review of systems is conducted with the patient and is negative except for the pertinent positives mentioned above in the history of present illness. PAST MEDICAL HISTORY 1. Atrial fibrillation. 2. Subdural hematoma 3. Hypothyroidism. PAST SURGICAL HISTORY: 1. Lymph node biopsy of the left supraclavicular area. 2. Appendectomy. 3. Cardiac ablation. 4. Tonsillectomy. ALLERGIES Hepatitis B vaccine. Penicillin MEDICATIONS: 1. Olanzapine 2. Emend 3. Fluticasone 4. Guaifenesin 5. Imodium A-D 6. Percocet. 7. Levothyroxine 8. Gabapentin 9. Aspirin 325 milligrams 10. Protonix 11. Metoprolol 12. Melatonin. FAMILY HISTORY: Colon cancer. No family history of pancreatic cancer. SOCIAL HISTORY: The patient occasionally uses alcohol. Denies tobacco or illicit drug use. PHYSICAL EXAMINATION: VITAL SIGNS: Temperature 98.3 degrees, heart rate 86, blood pressure 131/82. O2 saturation 95%. GENERAL: The patient is a thin female in no acute distress, does not appear acute or chronically ill. HEAD: Atraumatic, normocephalic. Pupils equal, round and reactive to light. Sclera is anicteric. Moist mucous membranes. NG tube is in place in the nares. NECK: Supple. No JVD. LUNGS: Clear to auscultation bilaterally. HEART: Regular rate and rhythm. ABDOMEN: Soft, nondistended. Nontender to palpation. No organomegaly, no ascites, no rebound tenderness. EXTREMITIES: No clubbing, cyanosis or edema. BACK: No CVA tenderness. NEUROLOGIC: The patient is alert and oriented x 4. Moves all extremities equally. Cranial nerves II-XII grossly intact. LABORATORY VALUES: Hemoglobin 11.9, white blood cell 5.0, INR is 1.0. CA19-[address] scan of the abdomen and pelvis shows gastric outlet obstruction of the fourth portion of duodenum of the patient's pancreatic mass. No other acute findings. 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 The patient has increased CA19-9 of 2964 to 4033. This can be falsely elevated due to the patient's outlet obstruction, however, this is concerning for progression as well as the clinical situation with outlet obstruction. I will defer to Dr. Alexander evaluation tomorrow for final decision, however, I did discuss possible options with the patient at this time. I have answered all of her questions. The options include palliative bypass versus PEG tube. I do not think a stent is feasible but this would potentially be an option if this was feasible per GI. Also discussed pancreatic resection which was not contraindicated in the situation of stage IV cancer. I also discussed Hospice and palliative measures such as palliative G-tube. All questions answered to her satisfaction. I also discussed the options with the patient's at the bedside. Thank you very much for this consultation. Will follow along with Dr. Alexander, who will evaluate the patient tomorrow and delineate any further plan of care for this patient. MD JAMA El/TRISTEN /10:32 AM /11:55 AM
--- NOTE | 2016-05-25 12:36 | HHI.PR ---
Subjective Remarks Follow up for gastric outlet obstruction by pancreatic mass. Ms. Campbell is sitting in her chair. NG tube is draining a lot of fluid. No fever, chills. Objective Vitals Vital Signs Date Time Temp Pulse Resp B/P Pulse Ox O2 Delivery O2 Flow Rate FiO2 05/25/16 08:00 98.2 86 16 131/82 95 05/25/16 04:00 98.6 88 18 139/77 95 05/25/16 00:12 99.7 101 18 114/76 95 05/24/16 20:26 99.0 05/24/16 20:00 97.8 104 18 122/77 95 05/24/16 16:50 95 21 05/24/16 16:00 101.6 103 20 132/78 98 05/24/16 13:30 97.8 96 18 150/85 99 05/24/16 12:51 102 16 155/84 97 Room Air I/O 05/24/16 05/24/16 05/24/16 05/25/16 05/25/16 05/25/16 07:00 15:00 23:00 07:00 15:00 23:00 Intake Total 152 ml 1666 ml Output Total 1550 ml 800 ml Balance 152 ml -1550 ml 866 ml Intake IV Total 152 ml 1666 ml Output Urine Total 500 ml Gastric Drainage Total 1050 ml 800 ml # Voids 3 # Bowel Movements 0 Result Diagram: 05/25/1691605/25/1617 Imaging Last Impressions Chest X-Ray 05/24/16 0000 Signed Impressions: Service Date/Time: Tuesday, May 24, 2016 11:13 - CONCLUSION: Nasogastric tube tip at the gastroesophageal junction. Side port in the distal esophagus. Hunter Pagan MD Abdomen/Pelvis CT 05/24/16 0000 Signed Impressions: Service Date/Time: Tuesday, May 24, 2016 08:51 - CONCLUSION: 1. Pancreatic mass again identified, measuring larger than on the comparison study.. 2. New gastric distention and diffuse dilatation of the duodenum with apparent transition point in the distal third portion of the duodenum. The transition point is in the region of soft tissue mass extending from the pancreas to the retroperitoneal region. More distally the small bowel is normal diameter. Finding suggest at least partial obstruction of the duodenum. 3. New diffuse intrahepatic and extra hepatic biliary ductal dilatation. No discrete mass is identified in the region of the distal common duct. The pancreatic duct is also now mildly prominent diffusely measuring approximately 4 mm. 4. Small pleural effusions. Hunter Pagan MD Objective Remarks GENERAL: Alert, Oriented x 3, NAD, NG tube in place. SKIN: Warm and dry. HEAD: Normocephalic. EYES: No scleral icterus. No injection or drainage. NECK: Supple, trachea midline. No JVD or lymphadenopathy. CARDIOVASCULAR: Regular rate and rhythm without murmurs, gallops, or rubs. RESPIRATORY: Breath sounds equal bilaterally. No accessory muscle use. GASTROINTESTINAL: Abdomen distended, hypoactive bowel sounds. MUSCULOSKELETAL: No cyanosis, or edema. BACK: Nontender without obvious deformity. No CVA tenderness. Procedures None. A/P Problem List: (1) Small bowel obstruction, partial ICD Code: K56.69 Status: Acute (2) Pancreatic cancer ICD Code: C25.9 Status: Acute (3) Hypothyroidism ICD Code: E03.9 Status: Acute (4) history of atrial fibrillation Status: Acute Assessment and Plan Ms. Campbell is a pleasant 70-year-old female with a history of pancreatic cancer undergoing chemotherapy who presents to the emergency department due to intractable nausea and vomiting as well as abdominal pain. Patient denies any chest pain, fever or chills. CT abdomen pelvis in the emergency department shows at least partial small bowel obstruction. Pancreatic mass is also increased compared to previous studies. - Pancreatic cancer Stage IV. - Gastric outlet obstruction due to pancreatic mass. - Continue NG tube. Surgery discussed with patient at length regarding various options. - Dr. Alexander will return on 05/26/2016 and will likely decide next course of action. - Nothing by mouth for now, continue IV fluid. Okay to give some ice chips. - Medical oncology following. Plans to start PPN. - Dilaudid 0.5mg Q4hrs PRN for pain. - Hypothyroidism - patient takes levothyroxine 112 g daily. We will start IV levothyroxine 62microgram Qday. - History of atrial fibrillation - status post ablation. We'll continue metoprolol succinate 50 mg by mouth daily at bedtime when able to tolerate PO meds. - Patient used to be on anti-coagulation. However, she has had subdural hematoma. Currently only takes Aspirin 325mg. Will resume when tolerates PO better. - Neuropathic pain - Continue Gabapentin when able to take PO. - GERD - Continue PPI IV for now. When able to tolerate PO, we will switch to PO meds. Full code. Lovenox. Jeronimo Williamson DO May 25, 2016 12:36
[2016-05-25] MEDS: ENOXAPARIN SODIUM 40 MG/0.4 ML SYRINGE SQ SCH (19:55)
[2016-05-25] MEDS: FAT EMULSION 20% INJ 250 ML (@10 mls/hr) IV SCH (19:55)
[2016-05-25] MEDS: CLINIMIX E 4.25/5 1000 mL- </= 42 mls/hr IV SCH ×3 (19:55)
[2016-05-25] MEDS: LEVOFLOXACIN 750 MG PREMIX INJ 150 ML IV SCH (22:31)
[2016-05-26] VITALS (7 sets, daily range): BP systolic 134–161; BP diastolic 79–92; PULSE 88–100; RESP 18–20; TEMP 97.1–99.5; O2SAT 94–100
[2016-05-26] MEDS: ONDANSETRON HCL 4 MG/2 ML VIAL IVP SCH ×2 (01:24→08:13)
[2016-05-26] MEDS: metroNIDAZOLE 500 MG INJ 100 ML IV SCH ×4 (03:51→20:00)
[2016-05-26] MEDS: HYDROmorphone HCL PF 1 MG/ML VIAL IV PUSH PRN ×2 (03:54→08:14)
[2016-05-26] MEDS: SODIUM CHLOR 0.9% 1000 ML INJ 1,000 ML IV SCH ×3 (06:08→22:14)
[2016-05-26] MEDS: LEVOTHYROXINE SODIUM 100 MCG VIAL IV PUSH SCH (06:08)
[2016-05-26 07:42] LABS: BICARBONATE 24.8 MEQ/L (21.0-32.0); MAGNESIUM 2.1 MG/DL (1.5-2.5)
[2016-05-26 07:47] LABS: POTASSIUM 2.9 MEQ/L (3.5-5.1)
[2016-05-26] MEDS: POTASSIUM CHLOR 20 MEQ PREMIX 100 ML IV SCH ×4 (08:16→15:16)
[2016-05-26] MEDS: SODIUM CHLORIDE 0.9% FLUSH 5 ML FLUSH FLUSH SCH ×2 (08:16→21:00)
[2016-05-26] MEDS ORDERED: HYDROmorphone HCL PF 1 MG/ML VIAL IV PUSH PRN (11:30)
[2016-05-26] MEDS: PROMETHAZINE HCL 12.5 MG SUPP RECTAL ONE ×2 (11:45→11:57)
--- NOTE | 2016-05-26 11:48 | PD.ONC.PN ---
Subjective Subjective Remarks Afebrile overnight. Patient feeling irritable and overwhelmed. She continues to have pain in abdomen. The dilaudid helps but only for about three hours and then the pain returns. She continues to have persistent nausea. Objective Data Date Time Temp Pulse Resp B/P Pulse Ox O2 Delivery O2 Flow Rate FiO2 05/26/16 09:02 96 21 05/26/16 07:49 97.1 88 20 157/82 97 05/26/16 04:00 99.5 100 18 161/82 94 05/26/16 00:00 99.0 99 18 160/79 95 05/25/16 20:00 98.5 85 17 149/80 95 05/25/16 16:00 98.1 105 16 159/75 96 05/25/16 14:50 95 05/25/16 12:00 97.9 94 16 149/80 98 05/26/16 05/26/16 05/26/16 07:00 15:00 23:00 Intake Total 240 ml 1519 ml Output Total 350 ml 700 ml Balance -110 ml 819 ml Result Diagram: 05/25/16 0917 05/26/16 0530 Laboratory Results Laboratory Tests Test 05/26/16 05:30 Sodium Level 139 MEQ/L Potassium Level 2.9 MEQ/L Chloride Level 104 MEQ/L Carbon Dioxide Level 24.8 MEQ/L Anion Gap 10 MEQ/L Blood Urea Nitrogen 15 MG/DL Creatinine 0.41 MG/DL Estimat Glomerular Filtration 154 ML/MIN Rate Random Glucose 109 MG/DL Calcium Level 8.1 MG/DL Magnesium Level 2.1 MG/DL Culture Results Microbiology Date/Time Procedure Status Source Growth 05/24/16 08:40 Urine Culture - Final Complete Urine Random Urine NO GROWTH IN 48 HOURS. 05/24/16 17:30 Aerobic Blood Culture - Preliminary Resulted Blood Peripheral NO GROWTH IN 2 DAYS 05/24/16 17:30 Anaerobic Blood Culture - Preliminary Resulted Blood Peripheral NO GROWTH IN 2 DAYS 05/25/16 09:17 Aerobic Blood Culture - Preliminary Resulted Blood Peripheral NO GROWTH IN 1 DAY 05/25/16 09:17 Anaerobic Blood Culture - Preliminary Resulted Blood Peripheral NO GROWTH IN 1 DAY Administered Medications Medications (Trade) Dose Ordered Sig/Kristie Route PRN Reason Start Time Stop Time Status Last Admin Dose Admin Sodium Chloride (NS 1000 ml Inj) 1,000 ml @ 100 mls/hr Q10H IV 05/24/16 10:14 05/26/16 06:08 IV Flush 2 ml 2 ml BID FLUSH 05/24/16 21:00 05/26/16 08:16 Levofloxacin/ Dextrose 150 ml @ 100 mls/hr Q24H IV 05/24/16 20:00 05/25/16 22:31 Metronidazole (Flagyl 500 Mg Inj) 100 ml @ 100 mls/hr Q8H IV 05/24/16 20:00 05/26/16 03:51 Enoxaparin Sodium (Lovenox Inj) 40 mg Q24H SQ 05/24/16 20:00 05/25/16 19:55 Ondansetron HCl 6 mg 6 mg Q6H IVP 05/25/16 14:00 05/26/16 13:59 05/26/16 08:13 Multivitamins 10 ml/Folic Acid 1 mg/Amino Acids/ Electrolytes/ Dextrose 1,010.2 ml @ 42 mls/hr Q24H IV 05/25/16 20:00 05/25/16 19:55 Fat Emulsion Intravenous 250 ml @ 10 mls/hr Q24H IV 05/25/16 20:00 05/25/16 19:55 Potassium Chloride (KCl 20 Meq Premix Inj) 100 ml @ 50 mls/hr Q2H IV 05/26/16 08:00 05/26/16 11:59 05/26/16 08:16 Levothyroxine Sodium (Synthroid Inj) 62 mcg DAILY@06 IV PUSH 05/26/16 06:00 05/26/16 06:08 Objective Remarks GENERAL: Middle aged female, sitting up in bed in [facility]. SKIN: Warm and dry. HEAD: Normocephalic. NG tube in place with biliary drainage. EYES: No injection or drainage. NECK: Supple, trachea midline. CARDIOVASCULAR: Regular rate and rhythm RESPIRATORY: Breath sounds equal bilaterally. No accessory muscle use. GASTROINTESTINAL: Abdomen soft, + TTP in epigastrium nondistended. EXTREMITIES: No cyanosis. bilateral SCD's in place. MUSCULOSKELETAL: Adequate muscle tone. NEUROLOGICAL: awake and alert, normal speech Assessment/Plan Assessment 70 y/o female with metastatic pancreatic cancer admitted with abdominal pain, nausea and a SBO. Plan 1. continue PPN 2. will increase to Fentanyl 50mcg + dilaudid 0.5mg or 1mg IV q 3 hours for breakthrough. 3. dr. Umana d/w Dr. Alexander and Fina, plan is to d/c PEG tube placement today and attempt stent placement in GI lab. If unable to place stent, or stent is ineffective GS to perform bypass. 4. nausea: she is on scheduled Zofran. will attempt Phenergan suppository, not optimistic that this will work. She will not allow us to access her port and does not want an IM shot, so I have limited optinons. d/w Dr. Lyndsay Estrella,Ashlee FERNANDEZ May 26, 2016 11:48
[2016-05-26] MEDS: fentaNYL 50 MCG/HR PATCH TD SCH (11:56)
[2016-05-26] MEDS ORDERED: LACTATED RINGER'S 1000 ML INJ 2,000 ML IV ONE (12:00)
[2016-05-26] MEDS ORDERED: ONDANSETRON HCL 4 MG/2 ML VIAL IV PUSH ONE (12:00)
[2016-05-26] MEDS ORDERED: PROPOFOL 200 MG/20 ML AMP IV ONE ×2 (12:00→18:00)
[2016-05-26] MEDS ORDERED: SODIUM CHLORID 0.9% 500 ML INJ 500 ML IV ONE (12:00)
--- NOTE | 2016-05-26 12:40 | HHI.PR ---
Subjective Remarks Follow up for gastric outlet obstruction by pancreatic mass. Ms. Campbell continues to have a lot of nausea, vomiting. NG tube continues to drain as well. No flatus or BM. Denies any fever, chills. Objective Vitals Vital Signs Date Time Temp Pulse Resp B/P Pulse Ox O2 Delivery O2 Flow Rate FiO2 05/26/16 09:02 96 21 05/26/16 07:49 97.1 88 20 157/82 97 05/26/16 04:00 99.5 100 18 161/82 94 05/26/16 00:00 99.0 99 18 160/79 95 05/25/16 20:00 98.5 85 17 149/80 95 05/25/16 16:00 98.1 105 16 159/75 96 05/25/16 14:50 95 I/O 05/25/16 05/25/16 05/25/16 05/26/16 05/26/16 05/26/16 07:00 15:00 23:00 07:00 15:00 23:00 Intake Total 2523 ml 240 ml 240 ml 1519 ml Output Total 2100 ml 1150 ml 350 ml 1000 ml Balance 423 ml -910 ml -110 ml 519 ml Intake Oral 240 ml 240 ml 0 ml IV Total 2523 ml 968 ml TPN/PPN 448 ml Lipid 103 ml Output Urine Total 550 ml 350 ml 350 ml 1000 ml Gastric Drainage Total 1550 ml 800 ml # Voids 3 # Bowel Movements 0 Result Diagram: 05/25/16 0917 05/26/16 0530 Imaging Last Impressions Chest X-Ray 05/24/16 0000 Signed Impressions: Service Date/Time: Tuesday, May 24, 2016 11:13 - CONCLUSION: Nasogastric tube tip at the gastroesophageal junction. Side port in the distal esophagus. Hunter Pagan MD Abdomen/Pelvis CT 05/24/16 0000 Signed Impressions: Service Date/Time: Tuesday, May 24, 2016 08:51 - CONCLUSION: 1. Pancreatic mass again identified, measuring larger than on the comparison study.. 2. New gastric distention and diffuse dilatation of the duodenum with apparent transition point in the distal third portion of the duodenum. The transition point is in the region of soft tissue mass extending from the pancreas to the retroperitoneal region. More distally the small bowel is normal diameter. Finding suggest at least partial obstruction of the duodenum. 3. New diffuse intrahepatic and extra hepatic biliary ductal dilatation. No discrete mass is identified in the region of the distal common duct. The pancreatic duct is also now mildly prominent diffusely measuring approximately 4 mm. 4. Small pleural effusions. Hunter Pagan MD Objective Remarks GENERAL: Alert, Oriented x 3, NAD, NG tube in place. SKIN: Warm and dry. HEAD: Normocephalic. EYES: No scleral icterus. No injection or drainage. NECK: Supple, trachea midline. No JVD or lymphadenopathy. CARDIOVASCULAR: Regular rate and rhythm without murmurs, gallops, or rubs. RESPIRATORY: Breath sounds equal bilaterally. No accessory muscle use. GASTROINTESTINAL: Abdomen distended, No appreciable bowel sounds. MUSCULOSKELETAL: No cyanosis, or edema. BACK: Nontender without obvious deformity. No CVA tenderness. Procedures None. A/P Problem List: (1) Small bowel obstruction, partial ICD Code: K56.69 Status: Acute (2) Pancreatic cancer ICD Code: C25.9 Status: Acute (3) Hypothyroidism ICD Code: E03.9 Status: Acute (4) history of atrial fibrillation Status: Acute Assessment and Plan Ms. Campbell is a pleasant 70-year-old female with a history of pancreatic cancer undergoing chemotherapy who presents to the emergency department due to intractable nausea and vomiting as well as abdominal pain. Patient denies any chest pain, fever or chills. CT abdomen pelvis in the emergency department shows at least partial small bowel obstruction. Pancreatic mass is also increased compared to previous studies. - Pancreatic cancer Stage IV. - Gastric outlet obstruction due to pancreatic mass. - Continue NG tube. Surgery discussed with patient at length regarding various options. - Nothing by mouth for now, continue IV fluid. Okay to give some ice chips. - Medical oncology following. Continue PPN. - Dilaudid 0.5 and 1mg Q4hrs PRN, Fentanyl patch - Continue Zofran. Will switch Compazine from IM to IV. - Hypothyroidism - patient takes levothyroxine 112 g daily. Continue IV levothyroxine 62microgram Qday. - History of atrial fibrillation - status post ablation. We'll continue metoprolol succinate 50 mg by mouth daily at bedtime when able to tolerate PO meds. - Patient used to be on anti-coagulation. However, she has had subdural hematoma. Currently only takes Aspirin 325mg. Will resume when tolerates PO better. - Neuropathic pain - Continue Gabapentin when able to take PO. - Mild hypertension - likely due to pain, anxiety. Will monitor. Current BP 157/ 82. - GERD - Continue PPI IV for now. When able to tolerate PO, we will switch to PO meds. Full code. Lovenox. Jeronimo Williamson DO May 26, 2016 12:40 pm
--- NOTE | 2016-05-26 14:15 | PD.CONS ---
HPI History of Present Illness This is a 70 year old female patient with metastatic pancreatic cancer who came to the emergency room with nausea, vomiting, and abdominal pain. She was diagnosed in March 2015 after she was found to have a left supraclavicular adenopathy and a elevated CA-19-9 of 2063. She underwent a biopsy of this lymph node and it revealed poorly differentiated adenocarcinoma consistent with metastatic adenocarcinoma and suggested neoplasm of the pancreaticobiliary or esophageal origin. She is followed by Dr. Umana and has had 3 rounds of FOLFIRINOX. Her last dose was this past Thursday. She reports that she did have some nausea and vomiting after her first dose of chemotherapy. However, this improved with Emend and she was fine with her second dose. She had her third dose on Thursday and reports that shortly after she started having nausea and abdominal distention. She initially thought this was related to her chemotherapy. This gradually got worse and she woke up there is a very distended with more pain in her upper abdomen. She had a small bowel movement and felt better on Thursday. She then woke up around 1 AM on Thursday with severe epigastric pain and nausea and vomiting. She describes the epigastric pain is a constant sharp pain that radiates to her back. She took her pain medicine but did not have any improvement. She did have another bowel movement at that time. She reports that she had a fever 101.4 on Thursday. She has lost about 12 pounds since her first chemotherapy but states that over the past few weeks she has only lost 5 pounds. She came to the emergency room and CT scan of the abdomen and pelvis (05/24/16)-----> 1. Pancreatic mass again identified, measuring larger than on the comparison study. 2. New gastric distention and diffuse dilatation of the duodenum with apparent transition point in the distal third portion of the duodenum. The transition point is in the region of soft tissue mass extending from the pancreas to the retroperitoneal region. More distally the small bowel is normal diameter. Finding suggest at least partial obstruction of the duodenum. 3. New diffuse intrahepatic and extra hepatobiliary ductal dilatation. No discrete mass is identified in the region of the distal common duct. The pancreatic duct is also now mildly prominent diffusely measuring approximately 4 mm. 4. Small pleural effusions. GI has been consulted for further evaluation and treatment. 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 Subarachnoid hemorrhage Subacute thyroiditis Optic neuritis Osteoarthritis Metastatic pancreatic cancer Past Surgical History Appendectomy Cardiac ablation Tonsillectomy Lymph node biopsy (Noelle Velasquez) Coded Allergies: Hepatitis B Vaccine (Verified Allergy, Severe, 05/24/16) Penicillin (Unverified Allergy, Severe, SWELLING,HIVES, 05/24/16) Medications Allergies Coded Allergies Type Severity Reaction Last Updated Verified Hepatitis B Vaccine Allergy Severe 05/24/16 Yes Penicillin Allergy Severe SWELLING,HIVES 05/24/16 No Active Scripts Medications Dose Route/Sig Days Date Category Dose Instructions [Alonzapine] Unknown Dose DIRECTED 05/24/16 Reported Emend (Aprepitant) 125 Mg Cap 125 Mg PO DIRECTED 05/24/16 Reported Take on day 1. Fluticasone Nasal [place] 50 Mcg/Act Naspr 50 Mcg EACH NARE BID PRN 05/24/16 Reported 50 mcg/spray Tussin (Guaifenesin) 100 Mg/5 Ml Syp Unknown Dose PO DIRECTED PRN 05/24/16 Reported Imodium A-D (Loperamide HCl) 2 Mg Cap 2 Mg PO Q6HR PRN 05/24/16 Reported One capsule after each loose stool. Not to exceed 8 tablets per day. Percocet (Oxycodone-Acetaminophen) 10-325 mg Tab 1-2 Tab PO Q4H PRN 05/24/16 Reported Vitamin B12 (Cyanocobalamin) 100 Mcg Tab Unknown Dose PO DAILY 05/24/16 Reported Vitamin C (Ascorbic Acid) 1,000 Mg Tab 1,000 Mg PO DAILY 05/24/16 Reported Cranberry (Cranberry (Vaccinium Macrocarpon)) 400 Mg Cap Unknown Dose PO DAILY 05/24/16 Reported Melatonin 5 Mg Cap 5 Mg PO HS 05/24/16 Reported Metoprolol Succinate ER 24 HR (Metoprolol Succinate) 50 Mg Tab 50 Mg PO HS 05/24/16 Reported Pantoprazole (Pantoprazole Sodium) 40 Mg Tab 40 Mg PO DAILY 05/24/16 Reported Aspirin EC (Aspirin) 325 Mg Tabdr 325 Mg PO DAILY 05/24/16 Reported Zofran Odt (Ondansetron Odt) 8 Mg Tab 8 Mg SL Q8H PRN 04/10/16 Rx Calcium 500 +D (Calcium Carbonate-Cholecalciferol) 500-400 Mg-Unit Tab 1 Tab PO DAILY 04/06/16 Reported Multiple Vitamin 1 Tab 1 Tab PO DAILY 04/06/16 Reported Levothyroxine (Levothyroxine Sodium) 112 Mcg Tab 112 Mcg PO DAILY 04/06/16 Reported Gabapentin 600 Mg Tab 600 Mg PO HS 04/06/16 Reported Family History Grandfather from esophageal cancer, brother from colon cancer at age 39. No family history of pancreatic cancer. Social History Drinks alcohol socially. Denies using tobacco or illicit drugs. (Noelle Velasquez) Review of Systems Constitutional: COMPLAINS OF: Fatigue, Weight loss, Change in appetite Respiratory: DENIES: Cough Cardiovascular: DENIES: Chest pain Gastrointestinal: COMPLAINS OF: Abdominal pain, Nausea, Vomiting, Swelling of Abdomen, DENIES: Black stools, Bloody stools, Constipation, Diarrhea Musculoskeletal: COMPLAINS OF: Back pain Hematologic/lymphatic: DENIES: Bruising Neurologic: DENIES: Headache Psychiatric: DENIES: Confusion (Noelle Velasquez) GI Exam Vitals I&O Vital Signs Date Time Temp Pulse Resp B/P Pulse Ox O2 Delivery O2 Flow Rate FiO2 05/26/16 09:02 96 21 05/26/16 07:49 97.1 88 20 157/82 97 05/26/16 04:00 99.5 100 18 161/82 94 05/26/16 00:00 99.0 99 18 160/79 95 05/25/16 20:00 98.5 85 17 149/80 95 05/25/16 16:00 98.1 105 16 159/75 96 05/25/16 14:50 95 I/O 05/25/16 05/25/16 05/25/16 05/26/16 05/26/16 05/26/16 07:00 15:00 23:00 07:00 15:00 23:00 Intake Total 2523 ml 240 ml 240 ml 1519 ml Output Total 2100 ml 1150 ml 350 ml 1000 ml Balance 423 ml -910 ml -110 ml 519 ml Intake Oral 240 ml 240 ml 0 ml IV Total 2523 ml 968 ml TPN/PPN 448 ml Lipid 103 ml Output Urine Total 550 ml 350 ml 350 ml 1000 ml Gastric Drainage Total 1550 ml 800 ml # Voids 3 # Bowel Movements 0 Imaging Last Impressions Chest X-Ray 05/24/16 0000 Signed Impressions: Service Date/Time: Tuesday, May 24, 2016 11:13 - CONCLUSION: Nasogastric tube tip at the gastroesophageal junction. Side port in the distal esophagus. Hunter Pagan MD Abdomen/Pelvis CT 05/24/16 0000 Signed Impressions: Service Date/Time: Tuesday, May 24, 2016 08:51 - CONCLUSION: 1. Pancreatic mass again identified, measuring larger than on the comparison study.. 2. New gastric distention and diffuse dilatation of the duodenum with apparent transition point in the distal third portion of the duodenum. The transition point is in the region of soft tissue mass extending from the pancreas to the retroperitoneal region. More distally the small bowel is normal diameter. Finding suggest at least partial obstruction of the duodenum. 3. New diffuse intrahepatic and extra hepatic biliary ductal dilatation. No discrete mass is identified in the region of the distal common duct. The pancreatic duct is also now mildly prominent diffusely measuring approximately 4 mm. 4. Small pleural effusions. Hunter Pagan MD Laboratory Test 05/26/16 05:30 Sodium Level 139 MEQ/L Potassium Level 2.9 MEQ/L Chloride Level 104 MEQ/L Carbon Dioxide Level 24.8 MEQ/L Anion Gap 10 MEQ/L Blood Urea Nitrogen 15 MG/DL Creatinine 0.41 MG/DL Estimat Glomerular Filtration 154 ML/MIN Rate Random Glucose 109 MG/DL Calcium Level 8.1 MG/DL Magnesium Level 2.1 MG/DL Date/Time Procedure Status Source Growth 05/25/16 09:17 Aerobic Blood Culture - Preliminary Resulted Blood Peripheral NO GROWTH IN 1 DAY 05/25/16 09:17 Anaerobic Blood Culture - Preliminary Resulted Blood Peripheral NO GROWTH IN 1 DAY 05/24/16 08:40 Urine Culture - Final Complete Urine Random Urine NO GROWTH IN 48 HOURS. Physical Examination HEENT: Normocephalic; atraumatic; no jaundice. CHEST: CTA, diminished basis CARDIAC: RRR ABDOMEN: Soft, mildly distended, mild diffuse tenderness; no hepatosplenomegaly ; bowel sounds are hypoactive. NGT to LIWS with dark green bilious material EXTREMITIES: No clubbing, cyanosis, or edema. SKIN: Normal; no rash; no jaundice. COMPONENT ASSEMBLER SUPERVISOR: No focal deficits; alert and oriented times three. (Noelle Velasquez) Assessment and Plan Plan ASSESSMENT: - Duodenal obstruction, likely external compression from pancreatic mass. Pt with metastatic pancreatic cancer (increased in size) with dilated duodenum and transition point in distal 1/[address] scan of the abdomen and pelvis (05/24/16)-----> 1. Pancreatic mass again identified, measuring larger than on the comparison study. 2. New gastric distention and diffuse dilatation of the duodenum with apparent transition point in the distal third portion of the duodenum. The transition point is in the region of soft tissue mass extending from the pancreas to the retroperitoneal region. More distally the small bowel is normal diameter. Finding suggest at least partial obstruction of the duodenum. 3. New diffuse intrahepatic and extra hepatobiliary ductal dilatation. No discrete mass is identified in the region of the distal common duct. The pancreatic duct is also now mildly prominent diffusely measuring approximately 4 mm. 4. Small pleural effusions. NPO. NGT to LIWS. GS following. Plan is for EGD with possible duodenal stent placement. If unable, will likely need bypass procedure by GS. - Metastatic pancreatic cancer. Dx March 2015. Followed by Dr. Umnaa and has had 3 rounds of FOLFIRINOX. Her last dose was this past Thursday. CT revealed that her mass has increased in size. Per primary. - FEN. TPN. - Anemia. .7. - Hypokalemia per primary PLAN: - Plan for egd with possible duodenal stent placement - Obtain consents - NPO - NGT to LIWS - Monitor labs - GS following - Supportive care - Further recommendations to follow based on results of above - Pt seen and examined by Dr. Jean and myself and this note is written on his behalf (Noelle Velasquez) Physician Comments Patient seen and examined Agree with above Continue with current supportive care Monitor labs EGD with duodenal stent placement risks benefits and alternatives were discussed with both the patient and her and her sons and she is agreeable (Juan Jean MD) Noelle Velasquez May 26, 2016 14:15 Juan Jean MD May 27, 2016 00:02
[2016-05-26] MEDS: ONDANSETRON HCL 4 MG/2 ML VIAL IV PUSH PRN (15:29)
--- NOTE | 2016-05-26 15:44 | HHI.PR ---
Subjective Subjective Notes Getting ready to go to GI lab Does not want NGT tube clamped during transport Objective Vitals/I&O Vital Signs Date Time Temp Pulse Resp B/P Pulse Ox O2 Delivery O2 Flow Rate FiO2 05/26/16 12:00 97.4 88 18 134/92 99 05/26/16 09:02 21 05/24/16 12:51 Room Air Labs Laboratory Tests Test 05/26/16 05:30 Sodium Level 139 Potassium Level 2.9 Chloride Level 104 Carbon Dioxide Level 24.8 Anion Gap 10 Blood Urea Nitrogen 15 Creatinine 0.41 Estimat Glomerular Filtration 154 Rate Random Glucose 109 Calcium Level 8.1 Magnesium Level 2.1 Date/Time Procedure Status Source Growth 05/25/16 09:17 Aerobic Blood Culture - Preliminary Resulted Blood Peripheral NO GROWTH IN 1 DAY 05/25/16 09:17 Anaerobic Blood Culture - Preliminary Resulted Blood Peripheral NO GROWTH IN 1 DAY 05/24/16 08:40 Urine Culture - Final Complete Urine Random Urine NO GROWTH IN 48 HOURS. Cardiovascular: Regular Lungs: Clear Abdomen: Other (soft; tender ) Extremities: No edema Narrative Exam NGT to LIWS A/P Assessment and Plan 70 year old female with stage IV pancreatic cancer with malignant gastric outlet obstruction -GI attempted to place duodenal stent placement today -If unsuccessful ---tentatively plan for OR this week -Further plans to be discussed with patient after procedure today -NPO Attending Note - Dr. Alexander Patient developed free air after EGD and stent placement; taken to OR for repair. The exam, history, and the medical decision-making described in the above note were completed with the assistance of the mid-level provider. I reviewed and agree with the findings presented. I attest that I had a [id number] encounter with the patient on the same day, and personally performed and documented my assessment and findings in the medical record. Abiola Zhong May 26, 2016 15:44 Jesse Alexander MD May 28, 2016 18:20
[2016-05-26] MEDS ORDERED: DO NOT ADM ANY ANTICOAGULANT DRUGS XX PRN (17:58)
[2016-05-26] MEDS ORDERED: POTASSIUM CHLOR 20 MEQ PREMIX 100 ML IV SCH (18:00)
--- NOTE | 2016-05-26 18:17 | RADRPT ---
EXAM DATE/TIME: 05/26/2016 17:29 [facility] COMPARISON: CT ABDOMEN & PELVIS W CONTRAST, May 24, 2016, 8:51. INDICATIONS : Stricture. Stent placement. FLUORO TIME: 5.39 minutes IMAGE COUNT: 1 CONTRAST: Instilled by Ordering Physician MEDICAL HISTORY : Cardiovascular disease. Gastroesophageal reflux disease. Carcinoma, pancreas SURGICAL HISTORY : None. ENCOUNTER: Initial ACUITY: 1 day PAIN SCORE: Non-responsive. LOCATION: abdomen. FINDINGS: A metallic stent is identified in the mid abdomen. Based on recent CT findings the stent appears to b e placed across the transverse portion of the duodenum into the jejunum. CONCLUSION: Intestinal stent placement as described above. Blaine Kowalski MD on May 26, 2016 at 18:12 Board Certified Radiologist. This report was verified electronically.
[2016-05-26] MEDS: LEVOFLOXACIN 750 MG PREMIX INJ 150 ML IV SCH ×2 (19:27→20:00)
[2016-05-26] MEDS ORDERED: FLUCONAZOLE/NACL 400 MG/200 ML IV ONE ×2 (19:30→20:00)
[2016-05-26] MEDS: ENOXAPARIN SODIUM 40 MG/0.4 ML SYRINGE SQ SCH (20:00)
[2016-05-26] MEDS: FAT EMULSION 20% INJ 250 ML (@10 mls/hr) IV SCH (20:00)
[2016-05-26] MEDS: CLINIMIX E 4.25/5 1000 mL- </= 42 mls/hr IV SCH ×3 (20:00)
[2016-05-26 20:10] LABS: BLOOD GAS BASE EXCESS -3.7 mmol/L (-2-2); BLOOD GAS CARBOXYHEMOGLOBIN 1.6 % (0-4); BLOOD GAS HCO3 20 mmol/L (22-26); BLOOD GAS METHEMOGLOBIN 1.4 % (0-2); BLOOD GAS O2 HGB SATURATION 96 % (90-100); BLOOD GAS OXYGEN CONTENT 11.9 Vol % (12.0-20.0); BLOOD GAS PCO2 33 mmHg (38-42); BLOOD GAS PO2 165 mmHg (61-120); BLOOD GAS TOTAL HGB 8.6 G/DL (12.0-16.0); CRITICAL VALUE NO; FIO2 50 %; OXYGEN DEVICE OR; STAT YES; TEMP CORR TO 98.6; VENT SETTINGS OR
[2016-05-26 20:23] LABS: BICARBONATE 22.4 MEQ/L (21.0-32.0); POTASSIUM 3.5 MEQ/L (3.5-5.1)
[2016-05-26 20:42] LABS: CALCIUM-PROTEIN CORRECTED 7.7 MG/DL (8.5-10.1)
[2016-05-26] MEDS ORDERED: PROPOFOL 1000 MG/100 ML INJ 100 ML ONE (21:10)
--- NOTE | 2016-05-26 21:12 | HHI.PR ---
cc: Jesse Alexander MD Immediate Post Op Note Procedure Date: May 26, 2016 Pre Op Diagnosis: Pneumoperitoneum Post Op Diagnosis: Same, secondary to gastric perforation Surgeon: Jesse Alexander Marketing Communications Associate(s): Chris Dee CFA Procedure: Ex laparotomy, oversew gastric perforation lesser curve of stomach Gastrostomy tube placement Jejunostomy feeding tube placement Findings: Gastric perforation lesser curve of stomach Stent intact without evidence perforation Complications: None Specimen(s) removed: Gram stain, C&S abdominal fluid Estimated blood loss: 100 ml Anesthesia: General Drains: AUTUMN IVF (1350 ml) Patient to: PACU Patient Condition: Fair Date/Time of Procedure: SEE SURGICAL CARE RECORD Jesse Alexander MD May 26, 2016 21:12
[2016-05-26] MEDS ORDERED: SODIUM CHLORIDE 23.4% INJ 154 MEQ in DEXTROSE 10% INJ 1,000 ML IV SCH (21:30)
[2016-05-26] MEDS ORDERED: fentaNYL CITRATE 250 MCG/5 ML AMP ONE ×2 (21:30)
[2016-05-26] MEDS ORDERED: *morphine SULFATE 8 MG/ML PERIprocedure ONLY ONE ×2 (21:38→22:39)
[2016-05-26] MEDS ORDERED: *ENALAPRILAT 1.25 MG/ML VIAL PERIprocedural Use ONLY ONE (21:38)
[2016-05-26] MEDS ORDERED: *LABETALOL HCL 100 MG/20 ML VIAL PERIprocedural Use ONLY ONE (21:38)
[2016-05-26] MEDS ORDERED: MORPHINE SULFATE 8 MG/ML INJ IV PUSH ONE ×2 (21:40→22:40)
[2016-05-26] MEDS ORDERED: LABETALOL HCL 100 MG/20 ML VIAL IVP ONE (21:41)
[2016-05-26] MEDS ORDERED: ENALAPRILAT 1.25 MG/ML VIAL IV PUSH ONE (21:55)
[2016-05-26 22:19] LABS: BASOPHIL % 0.4 % (0.0-2.0); EOSINOPHIL % 0.4 % (0.0-4.0); HEMATOCRIT 32.2 % (35.0-46.0); LYMPH % 5.5 % (9.0-44.0); LYMPHOCYTE # 0.3 TH/MM3 (1.0-4.8); MEAN CELL VOLUME 84.9 FL (80.0-100.0); MEAN CORPUSCULAR HEMOGLOBIN 29.1 PG (27.0-34.0); MEAN CORPUSCULAR HGB CONC 34.2 % (32.0-36.0); MONO % 4.3 % (0.0-8.0); NEUT % 89.4 % (16.0-70.0); PLATELET COUNT 219 TH/MM3 (150-450); RED BLOOD COUNT 3.79 MIL/MM3 (4.00-5.30); RED CELL DISTRIBUTION WIDTH 13.2 % (11.6-17.2); WHITE BLOOD COUNT 5.5 TH/MM3 (4.0-11.0)
[2016-05-26 22:26] LABS: HEMO FLAGS AUTO DIFF
[2016-05-26 22:44] LABS: BICARBONATE 23.8 MEQ/L (21.0-32.0)
--- NOTE | 2016-05-26 22:51 | RADRPT ---
EXAM DATE/TIME: 05/26/2016 21:29 [facility] COMPARISON: CHEST SINGLE AP, May 24, 2016, 11:13. INDICATIONS : Post intubation. MEDICAL HISTORY : Cardiovascular disease. Gastroesophageal reflux disease. Carcinoma, pancreas. SURGICAL HISTORY : None. ENCOUNTER: Initial ACUITY: 1 day PAIN SCORE: Non-responsive. LOCATION: Bilateral chest FINDINGS: An endotracheal tube has been inserted and is in good position above the nikunj. Extensive subcutaneous emphysema has developed throughout the base of the neck and chest wall. There is no evidence of pneumothorax. Patchy airspace disease is seen throughout both lungs. There is partial consolidation left lower lobe . Heart and mediastinal structures are stable. CONCLUSION: Status post intubation with endotracheal tube in appropriate position. Acute extensive subcutaneous emphysema. No evidence of pneumothorax. Bilateral airspace disease as described. Blaine Kowalski MD on May 26, 2016 at 22:47 Board Certified Radiologist. This report was verified electronically.
[2016-05-26 23:04] LABS: CALCIUM-PROTEIN CORRECTED 7.6 MG/DL (8.5-10.1)
[2016-05-26 23:08] LABS: BANDS 12 % (0-6); METAMYELOCYTES 2 % (0-1); MYELOCYTES 1 % (0-0); NEUTROPHIL # MANUAL DIFF 4.7 TH/MM3 (1.8-7.7); POLYS (SEG NEUTROPHILS) 70 % (16-70); SCAN/DIFF FINAL DIFF MANUAL; WBC DIFF SAMPLE 100
[2016-05-26 23:09] LABS: PLATELET ESTIMATE SMEAR NORMAL (NORMAL); PLATELET MORPHOLOGY NORMAL (NORMAL)
[2016-05-27] VITALS (13 sets, daily range): BP systolic 120–164; BP diastolic 78–96; PULSE 90–110; RESP 14–22; TEMP 97.5–99.1; O2SAT 98–100
--- NOTE | 2016-05-27 00:05 | PD.PROCEDR ---
GI Procedure REFERRING PHYSICIAN Dr. Williamson PROCEDURE PERFORMED EGD with duodenal stent placement INDICATION FOR PROCEDURE Duodenal obstruction PROCEDURE: The procedure, risks and benefits were discussed with Ms. Campbell and informed consent was obtained. Anesthesia sedated her with Diprivan. She was placed in the left lateral decubitus position. EGD: The Pentax videoscope was introduced through the oropharynx and advanced to the second portion of the duodenum under direct visualization. Retroflexion was performed in the stomach. FINDINGS: The esophagus there was some distal esophageal mucosal erythema from the nausea and vomiting and the NG tube otherwise unremarkable Gastric mucosa was unremarkable within normal limits there was some residual gastric juices and small amount of food The duodenum this was somewhat dilated and there was a point of constriction in the fourth portion of the duodenum I was still able to traverse this once I traversed it I was able to place the wire and then over the wire we were able to advance the duodenal stent and deployed under fluoroscopic guidance positioning was good Following the procedure was noted that the patient's abdomen was distended and we were unable to suction it out an NG tube was placed and still the abdomen was distended and then it was noted that the patient had subcutaneous air in her face and neck suggesting retroperitoneal perforation ESTIMATED BLOOD LOSS: None SPECIMENS REMOVED: None COMPLICATIONS: Perforation case discussed with Dr. Alexander who will take the patient to surgery IMPRESSION: Duodenal obstruction with no obvious invasion of the malignancy status post duodenal stent placement Gastrointestinal perforation PLAN: Patient to go to the OR with Dr. Alexander Patient appears to be stable hemodynamically at this point in time Juan Jean MD May 27, 2016 00:05
[2016-05-27] MEDS: PROPOFOL 1000 MG/100 ML IV SCH ×2 (01:26→06:15)
[2016-05-27] MEDS: HYDROmorphone HCL PF 1 MG/ML VIAL IV PUSH PRN ×3 (01:30→20:52)
[2016-05-27] MEDS: POTASSIUM CHLOR 20 MEQ PREMIX 100 ML IV SCH ×2 (01:45→03:45)
[2016-05-27] MEDS: metroNIDAZOLE 500 MG INJ 100 ML IV SCH ×3 (04:00→20:00)
--- NOTE | 2016-05-27 04:29 | PD.CONS ---
HPI Service Critical Care Medicine Consult Requested By Primary Care Physician Sly Lr MD History of Present Illness 70-year-old female with a recent diagnosis of pancreatic cancer who presented on 05/24/2016 due to intractable nausea and vomiting as well as abdominal pain. CT abdomen pelvis showed partial small bowel obstruction. She underwent duodenal stent placement however procedure was complicated with small perforation. He was taking emergently to operating room by Dr. Alexander for exploratory laparotomy, oversew gastric perforation, Gastrostomy tube placement , and Jejunostomy feeding tube placement. Postoperatively she is transferred to ICU sedated and intubated. Critical care medicine was consulted for ventilatory management. Review of Systems ROS Unable to obtain patient is sedated and intubated Past Family Social History Allergies: Coded Allergies: Hepatitis B Vaccine (Verified Allergy, Severe, 05/24/16) Penicillin (Unverified Allergy, Severe, SWELLING,HIVES, 05/24/16) Past Medical History Atrial fibrillation, subdural hematoma, hypothyroidism Pancreatic cancer Past Surgical History Appendectomy, cardiac ablation, tonsillectomy Reported Medications Reported Meds & Active Scripts Active Zofran Odt (Ondansetron Odt) 8 Mg Tab 8 Mg SL Q8H PRN Reported [Alonzapine] Unknown Dose DIRECTED Emend (Aprepitant) 125 Mg Cap 125 Mg PO DIRECTED Take on day 1. Fluticasone Nasal [place] 50 Mcg/Act Naspr 50 Mcg EACH NARE BID PRN 50 mcg/spray Tussin (Guaifenesin) 100 Mg/5 Ml Syp Unknown Dose PO DIRECTED PRN Imodium A-D (Loperamide HCl) 2 Mg Cap 2 Mg PO Q6HR PRN One capsule after each loose stool. Not to exceed 8 tablets per day. Percocet (Oxycodone-Acetaminophen) 10-325 mg Tab 1-2 Tab PO Q4H PRN Vitamin B12 (Cyanocobalamin) 100 Mcg Tab Unknown Dose PO DAILY Vitamin C (Ascorbic Acid) 1,000 Mg Tab 1,000 Mg PO DAILY Cranberry (Cranberry (Vaccinium Macrocarpon)) 400 Mg Cap Unknown Dose PO DAILY Melatonin 5 Mg Cap 5 Mg PO HS Metoprolol Succinate ER 24 HR (Metoprolol Succinate) 50 Mg Tab 50 Mg PO HS Pantoprazole (Pantoprazole Sodium) 40 Mg Tab 40 Mg PO DAILY Aspirin EC (Aspirin) 325 Mg Tabdr 325 Mg PO DAILY Calcium 500 +D (Calcium Carbonate-Cholecalciferol) 500-400 Mg-Unit Tab 1 Tab PO DAILY Multiple Vitamin 1 Tab 1 Tab PO DAILY Levothyroxine (Levothyroxine Sodium) 112 Mcg Tab 112 Mcg PO DAILY Gabapentin 600 Mg Tab 600 Mg PO HS Active Ordered Medications Current Medications Medications (Trade) Dose Ordered Sig/Kristie Route PRN Reason Start Time Stop Time Status Last Admin Dose Admin Sodium Chloride (NS 1000 ml Inj) 1,000 ml @ 100 mls/hr Q10H IV 05/24/16 10:14 05/26/16 06:08 IV Flush (NS Flush) 2 ml UNSCH PRN FLUSH FLUSH AFTER USING IV ACCESS 05/24/16 10:15 IV Flush (NS Flush) 2 ml BID FLUSH 05/24/16 21:00 05/26/16 21:00 Acetaminophen (Tylenol) 650 mg Q4H PRN PO fever, headache, pain 1-4 05/24/16 10:15 Bisacodyl (Dulcolax Supp) 10 mg DAILY PRN [place] CONSTIPATION 05/24/16 10:15 Magnesium Hydroxide (Milk Of Magnesia Liq) 30 ml Q12H PRN PO CONSTIPATION 05/24/16 10:15 Naloxone HCl 0.4 mg 0.4 mg UNSCH PRN IV SEE LABEL COMMENTS 05/24/16 10:15 Levofloxacin/ Dextrose 150 ml @ 100 mls/hr Q24H IV 05/24/16 20:00 05/26/16 19:27 Metronidazole (Flagyl 500 Mg Inj) 100 ml @ 100 mls/hr Q8H IV 05/24/16 20:00 05/26/16 19:27 Enoxaparin Sodium 40 mg 40 mg Q24H SQ 05/24/16 20:00 Hold 05/25/16 19:55 Multivitamins 10 ml/Folic Acid 1 mg/Amino Acids/ Electrolytes/ Dextrose 1,010.2 ml @ 42 mls/hr Q24H IV 05/25/16 20:00 05/26/16 20:00 Fat Emulsion Intravenous (Liposyn Iii 20% Inj) 250 ml @ 10 mls/hr Q24H IV 05/25/16 20:00 05/26/16 20:00 Levothyroxine Sodium (Synthroid Inj) 62 mcg DAILY@06 IV PUSH 05/26/16 06:00 05/26/16 06:08 Fentanyl (Duragesic 50 Mcg Patch.72 Hr) 1 patch Q3D TD 05/26/16 12:00 05/26/16 11:56 Miscellaneous Information 1 Q3D T-DERMAL 05/29/16 12:00 Hydromorphone HCl (Dilaudid Pf Inj) 0.5 mg Q3HR PRN IV PUSH pain1-5 05/26/16 11:30 Hydromorphone HCl (Dilaudid Pf Inj) 1 mg Q3HR PRN IV PUSH pain6-10 05/26/16 11:30 Prochlorperazine Edisylate (Compazine Inj) 10 mg Q6H PRN IVS NAUSEA OR VOMITING 05/26/16 12:45 Ondansetron HCl (Zofran Inj) 4 mg Q6HR PRN IV PUSH NAUSEA OR VOMITING 05/26/16 15:30 05/26/16 15:29 Miscellaneous Information ALL NURSING DEPARTME... UNSCH PRN XX SEE LABEL COMMENTS 05/26/16 17:58 05/27/16 17:57 Sodium Chloride 154 meq/Dextrose 1,038.5 ml @ 30 mls/hr Q24H IV 05/26/16 21:30 Propofol 100 ml @ 0 mls/hr TITRATE IV 05/26/16 22:00 05/27/16 01:26 Potassium Chloride (KCl 20 Meq Premix Inj) 100 ml @ 50 mls/hr Q2H IV 05/27/16 01:45 05/27/16 05:44 Family History Noncontributory Social History Negative 3 Physical Exam Vital Signs Vital Signs Date Time Temp Pulse Resp B/P Pulse Ox O2 Delivery O2 Flow Rate FiO2 05/27/16 04:21 100 40 05/27/16 00:59 100 40 05/27/16 00:00 97.5 94 14 154/84 100 Arterial Line 05/26/16 23:30 100 45 05/26/16 22:30 92 20 157/96 99 Mechanical Ventilator 45 164/87 05/26/16 22:15 98.5 90 16 155/91 99 154/86 05/26/16 22:00 88 12 156/100 99 159/87 05/26/16 21:45 83 12 161/100 99 167/89 05/26/16 21:30 117 22 174/111 99 Mechanical Ventilator 45 182/98 05/26/16 21:29 100 45 05/26/16 21:15 123 24 174/116 99 Mechanical Ventilator 45 05/26/16 21:05 98.8 92 12 150/98 99 Mechanical Ventilator 45 05/26/16 21:05 45 05/26/16 18:30 107 18 152/89 99 05/26/16 18:15 107 20 159/93 99 05/26/16 18:00 110 20 149/87 98 Simple Mask 6 05/26/16 17:54 98.1 122 12 148/94 94 Simple Mask 6 05/26/16 12:00 97.4 88 18 134/92 99 05/26/16 09:02 96 21 05/26/16 07:49 97.1 88 20 157/82 97 Physical Exam GENERAL: Elderly woman sedated and intubated. SKIN: Warm and dry. HEAD: Normocephalic. EYES: No scleral icterus. No injection or drainage. NECK: Supple, trachea midline. No JVD or lymphadenopathy. CARDIOVASCULAR: Regular rate and rhythm without murmurs, gallops, or rubs. RESPIRATORY: Breath sounds equal bilaterally. No accessory muscle use. GASTROINTESTINAL: Abdomen soft, non-tender, nondistended. MUSCULOSKELETAL: No cyanosis, or edema. BACK: Nontender without obvious deformity. No CVA tenderness. Laboratory Laboratory Tests Test 05/26/16 05/26/16 05/26/16 05/26/16 05:30 19:54 19:58 20:12 Sodium Level 139 135 Potassium Level 2.9 3.5 Chloride Level 104 103 Carbon Dioxide Level 24.8 22.4 Anion Gap 10 10 Blood Urea Nitrogen 15 12 Creatinine 0.41 0.49 Estimat Glomerular Filtration 154 126 Rate Random Glucose 109 209 Calcium Level 8.1 6.9 Magnesium Level 2.1 Protein Corrected Calcium 7.7 Total Protein 5.5 Blood Gas Puncture Site DRAWN IN OR Blood Gas Patient Temperature 98.6 Blood Gas HCO3 20 Blood Gas Base Excess -3.7 Blood Gas Oxygen Saturation 96 Arterial Blood pH 7.41 Arterial Blood Partial 33 Pressure CO2 Arterial Blood Partial 165 Pressure O2 Arterial Blood Oxygen Content 11.9 Arterial Blood 1.6 Carboxyhemoglobin Arterial Blood Methemoglobin 1.4 Blood Gas Hemoglobin 8.6 Oxygen Delivery Device OR Blood Gas Ventilator Setting OR Blood Gas Inspired Oxygen 50 Blood Type B POSITIVE Antibody Screen NEGATIVE Crossmatch Leukocyte-Reduced Red Blood Cells Blood Bank Comment Test 05/26/16 22:08 White Blood Count 5.5 Red Blood Count 3.79 Hemoglobin 11.0 Hematocrit 32.2 Mean Corpuscular Volume 84.9 Mean Corpuscular Hemoglobin 29.1 Mean Corpuscular Hemoglobin 34.2 Concent Red Cell Distribution Width 13.2 Platelet Count 219 Mean Platelet Volume 7.2 Neutrophils (%) (Auto) 89.4 Lymphocytes (%) (Auto) 5.5 Monocytes (%) (Auto) 4.3 Eosinophils (%) (Auto) 0.4 Basophils (%) (Auto) 0.4 Neutrophils # (Auto) 5.0 Lymphocytes # (Auto) 0.3 Monocytes # (Auto) 0.2 Eosinophils # (Auto) 0.0 Basophils # (Auto) 0.0 CBC Comment AUTO DIFF Differential Total Cells 100 Counted Neutrophils % (Manual) 70 Band Neutrophils % 12 Lymphocytes % 8 Monocytes % 7 Neutrophils # (Manual) 4.7 Metamyelocytes 2 Myelocytes 1 Differential Comment FINAL DIFF MANUAL Platelet Estimate NORMAL Platelet Morphology Comment NORMAL Red Cell Morphology Comment NORMAL Sodium Level 133 Potassium Level 3.0 Chloride Level 99 Carbon Dioxide Level 23.8 Anion Gap 10 Blood Urea Nitrogen 10 Creatinine 0.41 Estimat Glomerular Filtration 154 Rate Random Glucose 176 Calcium Level 7.1 Protein Corrected Calcium 7.6 Total Protein 6.2 Date/Time Procedure Status Source Growth 05/26/16 20:47 Gram Stain Received Fluid Peritoneal Fluid Pending 05/26/16 20:47 Body Fluid Culture Received Fluid Peritoneal Fluid Pending 05/26/16 20:47 Fungal Smear Received Fluid Peritoneal Fluid Pending 05/26/16 20:47 Fungal Culture Received Fluid Peritoneal Fluid Pending 05/26/16 20:47 Acid Fast Stain Received Fluid Peritoneal Fluid Pending 05/26/16 20:47 Mycobacterial Culture Received Fluid Peritoneal Fluid Pending 05/25/16 09:17 Aerobic Blood Culture - Preliminary Resulted Blood Peripheral NO GROWTH IN 1 DAY 05/25/16 09:17 Anaerobic Blood Culture - Preliminary Resulted Blood Peripheral NO GROWTH IN 1 DAY 05/24/16 08:40 Urine Culture - Final Complete Urine Random Urine NO GROWTH IN 48 HOURS. Result Diagram: 05/26/16220705/26/162207 Assessment and Plan Assessment and Plan Respiratory failure - Postop - Spontaneous breathing trial in the morning - Attempt wean and extubate - Until then vent bundle Small bowel obstruction - Status post palliative stent placement - Management per GI Gastric perforation - Status post surgical repair - Levaquin and Flagyl - Per Dr. Alexander Atrial fibrillation - Status post ablation - Rate controlled Pancreatic cancer - Patient's oncologist management Hypothyroidism - Synthroid DVT GI prophylaxis - Teds SCDs - Chemical prophylaxis per surgeon - Protonix Critical Care: The total critical care time was 35 minutes. Time to perform other separately billable procedures was not included in the critical care time. Adria Escoto MD May 27, 2016 04:29
[2016-05-27 04:43] LABS: AUTOMATED NEUTROPHIL # 5.9 TH/MM3 (1.8-7.7); BASOPHIL % 0.1 % (0.0-2.0); HEMATOCRIT 30.5 % (35.0-46.0); HEMO FLAGS DIFF FINAL; LYMPH % 7.2 % (9.0-44.0); LYMPHOCYTE # 0.5 TH/MM3 (1.0-4.8); MEAN CELL VOLUME 86.3 FL (80.0-100.0); MEAN CORPUSCULAR HEMOGLOBIN 29.6 PG (27.0-34.0); MEAN CORPUSCULAR HGB CONC 34.3 % (32.0-36.0); MONO % 6.9 % (0.0-8.0); NEUT % 85.8 % (16.0-70.0); PLATELET COUNT 254 TH/MM3 (150-450); RED BLOOD COUNT 3.53 MIL/MM3 (4.00-5.30); RED CELL DISTRIBUTION WIDTH 13.2 % (11.6-17.2); WHITE BLOOD COUNT 6.8 TH/MM3 (4.0-11.0)
[2016-05-27 05:12] LABS: BICARBONATE 25.8 MEQ/L (21.0-32.0); CALCIUM-PROTEIN CORRECTED 7.9 MG/DL (8.5-10.1); POTASSIUM 3.8 MEQ/L (3.5-5.1); TOTAL BILIRUBIN ADULT 0.3 MG/DL (0.2-1.0)
[2016-05-27] MEDS ORDERED: MAGNESIUM SULFATE INJ 4 GM in SODIUM CHLORIDE 0.9% INJ 92 ML IV PRN (05:15)
[2016-05-27] MEDS ORDERED: POTASSIUM CL 40 MEQ/30 ML LIQ UDC PO/TUBE PRN ×2 (05:15)
[2016-05-27] MEDS ORDERED: MAGNESIUM SULFATE INJ 2 GM in SODIUM CHLORIDE 0.9% INJ 96 ML IV PRN (05:15)
[2016-05-27] MEDS ORDERED: POTASSIUM PHOSPHATE MONOBASIC 500 MG TAB PO PRN (05:15)
[2016-05-27] MEDS ORDERED: POTASSIUM PHOSPHATE MONOBASIC 500 MG TAB PO/TUBE PRN (05:15)
[2016-05-27] MEDS ORDERED: SODIUM PHOSPHATE INJ 30 MMOL in SODIUM CHLOR 0.9% 250 ML INJ 240 ML IV PRN (05:15)
[2016-05-27] MEDS ORDERED: POTASSIUM CHLOR 40 MEQ PREMIX 100 ML IV PRN ×2 (05:15)
[2016-05-27] MEDS ORDERED: MAGNESIUM OXIDE 400 MG TAB PO PRN (05:15)
[2016-05-27] MEDS ORDERED: POTASSIUM CHLOR 20 MEQ PREMIX 100 ML IV PRN ×2 (05:15)
[2016-05-27] MEDS ORDERED: POTASSIUM PHOSPHATE INJ 30 MMOL in SODIUM CHLOR 0.9% 250 ML INJ 250 ML IV PRN (05:15)
[2016-05-27] MEDS: LEVOTHYROXINE SODIUM 100 MCG VIAL IV PUSH SCH (05:48)
[2016-05-27] MEDS: SODIUM CHLORIDE 0.9% FLUSH 5 ML FLUSH FLUSH SCH ×2 (09:00→20:01)
[2016-05-27] MEDS ORDERED: REMOVE OLD PATCH TD SCH (09:00)
[2016-05-27] MEDS: SODIUM CHLOR 0.9% 1000 ML INJ 1,000 ML IV SCH ×2 (09:25→18:06)
[2016-05-27] MEDS: PANTOPRAZOLE SODIUM 40 MG VIAL IV PUSH SCH (09:28)
--- NOTE | 2016-05-27 10:19 | HHI.CCPN ---
Subjective Remarks/Hospital Course 05/26: 70-year-old female with a recent diagnosis of pancreatic cancer who presented on 05/24/2016 due to intractable nausea and vomiting as well as abdominal pain. CT abdomen pelvis showed partial small bowel obstruction. She underwent duodenal stent placement however procedure was complicated with perforation of stomach at lesser curvature. He was taken emergently to operating room by Dr. Alexander for exploratory laparotomy, oversew gastric perforation, Gastrostomy tube placement, and Jejunostomy feeding tube placement. Postoperatively she is transferred to ICU sedated and intubated. Critical care medicine was consulted for ventilatory management. 05/27: Remains sedated, arousable, orally intubated on mechanical ventilation. On PPN. Objective Vital Signs Date Time Temp Pulse Resp B/P Pulse Ox O2 Delivery O2 Flow Rate FiO2 05/27/16 08:26 100 40 05/27/16 08:00 98.4 91 14 120/79 05/27/16 07:00 Mechanical Ventilator 05/26/16 18:00 6 Intake and Output 05/26/16 05/26/16 05/27/16 08:00 16:00 00:00 Intake Total 1759 ml 0 ml 2150 ml Output Total 1050 ml 600 ml 2250 ml Balance 709 ml -600 ml -100 ml Result Diagram: 05/27/16 0405 05/27/16 0405 Other Results Laboratory Tests Test 05/26/16 05/26/16 05/26/16 05/26/16 19:54 19:58 20:12 22:08 Sodium Level 135 MEQ/L 133 MEQ/L Potassium Level 3.5 MEQ/L 3.0 MEQ/L Chloride Level 103 MEQ/L 99 MEQ/L Carbon Dioxide Level 22.4 MEQ/L 23.8 MEQ/L Anion Gap 10 MEQ/L 10 MEQ/L Blood Urea Nitrogen 12 MG/DL 10 MG/DL Creatinine 0.49 MG/DL 0.41 MG/DL Estimat Glomerular Filtration 126 ML/MIN 154 ML/MIN Rate Random Glucose 209 MG/DL 176 MG/DL Calcium Level 6.9 MG/DL 7.1 MG/DL Protein Corrected Calcium 7.7 MG/DL 7.6 MG/DL Total Protein 5.5 GM/DL 6.2 GM/DL Blood Gas Puncture Site DRAWN IN OR Blood Gas Patient Temperature 98.6 Blood Gas HCO3 20 mmol/L Blood Gas Base Excess -3.7 mmol/L Blood Gas Oxygen Saturation 96 % Arterial Blood pH 7.41 Arterial Blood Partial 33 mmHg Pressure CO2 Arterial Blood Partial 165 mmHg Pressure O2 Arterial Blood Oxygen Content 11.9 Vol % Arterial Blood 1.6 % Carboxyhemoglobin Arterial Blood Methemoglobin 1.4 % Blood Gas Hemoglobin 8.6 G/DL Oxygen Delivery Device OR Blood Gas Ventilator Setting OR Blood Gas Inspired Oxygen 50 % Blood Type B POSITIVE Antibody Screen NEGATIVE Crossmatch Leukocyte-Reduced Red Blood Cells Blood Bank Comment White Blood Count 5.5 TH/MM3 Red Blood Count 3.79 MIL/MM3 Hemoglobin 11.0 GM/DL Hematocrit 32.2 % Mean Corpuscular Volume 84.9 FL Mean Corpuscular Hemoglobin 29.1 PG Mean Corpuscular Hemoglobin 34.2 % Concent Red Cell Distribution Width 13.2 % Platelet Count 219 TH/MM3 Mean Platelet Volume 7.2 FL Neutrophils (%) (Auto) 89.4 % Lymphocytes (%) (Auto) 5.5 % Monocytes (%) (Auto) 4.3 % Eosinophils (%) (Auto) 0.4 % Basophils (%) (Auto) 0.4 % Neutrophils # (Auto) 5.0 TH/MM3 Lymphocytes # (Auto) 0.3 TH/MM3 Monocytes # (Auto) 0.2 TH/MM3 Eosinophils # (Auto) 0.0 TH/MM3 Basophils # (Auto) 0.0 TH/MM3 CBC Comment AUTO DIFF Differential Total Cells 100 Counted Neutrophils % (Manual) 70 % Band Neutrophils % 12 % Lymphocytes % 8 % Monocytes % 7 % Neutrophils # (Manual) 4.7 TH/MM3 Metamyelocytes 2 % Myelocytes 1 % Differential Comment FINAL DIFF MANUAL Platelet Estimate NORMAL Platelet Morphology Comment NORMAL Red Cell Morphology Comment NORMAL Test 05/27/16 05/27/16 04:05 08:40 White Blood Count 6.8 TH/MM3 Red Blood Count 3.53 MIL/MM3 Hemoglobin 10.5 GM/DL Hematocrit 30.5 % Mean Corpuscular Volume 86.3 FL Mean Corpuscular Hemoglobin 29.6 PG Mean Corpuscular Hemoglobin 34.3 % Concent Red Cell Distribution Width 13.2 % Platelet Count 254 TH/MM3 Mean Platelet Volume 7.6 FL Neutrophils (%) (Auto) 85.8 % Lymphocytes (%) (Auto) 7.2 % Monocytes (%) (Auto) 6.9 % Eosinophils (%) (Auto) 0.0 % Basophils (%) (Auto) 0.1 % Neutrophils # (Auto) 5.9 TH/MM3 Lymphocytes # (Auto) 0.5 TH/MM3 Monocytes # (Auto) 0.5 TH/MM3 Eosinophils # (Auto) 0.0 TH/MM3 Basophils # (Auto) 0.0 TH/MM3 CBC Comment DIFF FINAL Differential Comment Sodium Level 135 MEQ/L Potassium Level 3.8 MEQ/L Chloride Level 102 MEQ/L Carbon Dioxide Level 25.8 MEQ/L Anion Gap 7 MEQ/L Blood Urea Nitrogen 8 MG/DL Creatinine 0.42 MG/DL Estimat Glomerular Filtration 150 ML/MIN Rate Random Glucose 160 MG/DL Calcium Level 7.3 MG/DL Protein Corrected Calcium 7.9 MG/DL Phosphorus Level 2.7 MG/DL 2.7 MG/DL Magnesium Level 2.0 MG/DL Total Bilirubin 0.3 MG/DL Aspartate Amino Transf 44 U/L (AST/SGOT) Alanine Aminotransferase 37 U/L (ALT/SGPT) Alkaline Phosphatase 74 U/L Total Protein 5.9 GM/DL Albumin 2.7 GM/DL Imaging Last 48 hours Impressions GI Procedure 05/26/16 0000 Signed Impressions: Service Date/Time: Thursday, May 26, 2016 17:29 - CONCLUSION: Intestinal stent placement as described above. Blaine Kowalski MD Chest X-Ray 05/26/16 0000 Signed Impressions: Service Date/Time: Thursday, May 26, 2016 21:29 - CONCLUSION: Status post intubation with endotracheal tube in appropriate position. Acute extensive subcutaneous emphysema. No evidence of pneumothorax. Bilateral airspace disease as described. Blaine Kowalski MD Objective Remarks GENERAL: Elderly woman sedated and intubated. SKIN: Warm and dry. HEAD: Normocephalic. EYES: No scleral icterus. No injection or drainage. NECK: Supple, trachea midline. No JVD or lymphadenopathy. CARDIOVASCULAR: Regular rate and rhythm without murmurs, gallops, or rubs. RESPIRATORY: Orally intubated on mechanical ventilation, good air entry bilaterally, scattered rhonchi, no wheezing GASTROINTESTINAL: Abdomen soft, non-tender, nondistended. Dressing over surgical site clean dry and intact MUSCULOSKELETAL: No cyanosis, or edema. Procedures None. A/P Assessment and Plan Respiratory failure - Postop - Spontaneous breathing trial to decide extubation -Vent bundle, bronchodilators as needed Small bowel obstruction - Status post palliative stent placement - Management per GI Gastric perforation - Status post surgical repair - Levaquin and Flagyl - Per Dr. Alexander Atrial fibrillation - Status post ablation - Rate controlled Pancreatic cancer - Patient's oncologist management Hypothyroidism - Synthroid DVT GI prophylaxis - Teds SCDs - Chemical prophylaxis per surgeon - Protonix Critical Care: The total critical care time was 30 minutes. Time to perform other separately billable procedures was not included in the critical care time. Abbe Gupta MD May 27, 2016 10:19
--- NOTE | 2016-05-27 11:22 | HHI.PR ---
Subjective Subjective Notes Intubated/Sedated NADER Raphael at bedside Objective Vitals/I&O Vital Signs Date Time Temp Pulse Resp B/P Pulse Ox O2 Delivery O2 Flow Rate FiO2 05/27/16 08:26 100 40 05/27/16 08:00 98.4 91 14 120/79 05/27/16 07:00 Mechanical Ventilator 05/26/16 18:00 6 Labs Laboratory Tests Test 05/26/16 05/26/16 05/26/16 05/26/16 19:54 19:58 20:12 22:08 Sodium Level 135 133 Potassium Level 3.5 3.0 Chloride Level 103 99 Carbon Dioxide Level 22.4 23.8 Anion Gap 10 10 Blood Urea Nitrogen 12 10 Creatinine 0.49 0.41 Estimat Glomerular Filtration 126 154 Rate Random Glucose 209 176 Calcium Level 6.9 7.1 Protein Corrected Calcium 7.7 7.6 Total Protein 5.5 6.2 Blood Gas Puncture Site DRAWN IN OR Blood Gas Patient Temperature 98.6 Blood Gas HCO3 20 Blood Gas Base Excess -3.7 Blood Gas Oxygen Saturation 96 Arterial Blood pH 7.41 Arterial Blood Partial 33 Pressure CO2 Arterial Blood Partial 165 Pressure O2 Arterial Blood Oxygen Content 11.9 Arterial Blood 1.6 Carboxyhemoglobin Arterial Blood Methemoglobin 1.4 Blood Gas Hemoglobin 8.6 Oxygen Delivery Device OR Blood Gas Ventilator Setting OR Blood Gas Inspired Oxygen 50 Blood Type B POSITIVE Antibody Screen NEGATIVE Crossmatch Leukocyte-Reduced Red Blood Cells Blood Bank Comment White Blood Count 5.5 Red Blood Count 3.79 Hemoglobin 11.0 Hematocrit 32.2 Mean Corpuscular Volume 84.9 Mean Corpuscular Hemoglobin 29.1 Mean Corpuscular Hemoglobin 34.2 Concent Red Cell Distribution Width 13.2 Platelet Count 219 Mean Platelet Volume 7.2 Neutrophils (%) (Auto) 89.4 Lymphocytes (%) (Auto) 5.5 Monocytes (%) (Auto) 4.3 Eosinophils (%) (Auto) 0.4 Basophils (%) (Auto) 0.4 Neutrophils # (Auto) 5.0 Lymphocytes # (Auto) 0.3 Monocytes # (Auto) 0.2 Eosinophils # (Auto) 0.0 Basophils # (Auto) 0.0 CBC Comment AUTO DIFF Differential Total Cells 100 Counted Neutrophils % (Manual) 70 Band Neutrophils % 12 Lymphocytes % 8 Monocytes % 7 Neutrophils # (Manual) 4.7 Metamyelocytes 2 Myelocytes 1 Differential Comment FINAL DIFF MANUAL Platelet Estimate NORMAL Platelet Morphology Comment NORMAL Red Cell Morphology Comment NORMAL Test 05/27/16 05/27/16 04:05 08:40 White Blood Count 6.8 Red Blood Count 3.53 Hemoglobin 10.5 Hematocrit 30.5 Mean Corpuscular Volume 86.3 Mean Corpuscular Hemoglobin 29.6 Mean Corpuscular Hemoglobin 34.3 Concent Red Cell Distribution Width 13.2 Platelet Count 254 Mean Platelet Volume 7.6 Neutrophils (%) (Auto) 85.8 Lymphocytes (%) (Auto) 7.2 Monocytes (%) (Auto) 6.9 Eosinophils (%) (Auto) 0.0 Basophils (%) (Auto) 0.1 Neutrophils # (Auto) 5.9 Lymphocytes # (Auto) 0.5 Monocytes # (Auto) 0.5 Eosinophils # (Auto) 0.0 Basophils # (Auto) 0.0 CBC Comment DIFF FINAL Differential Comment Sodium Level 135 Potassium Level 3.8 Chloride Level 102 Carbon Dioxide Level 25.8 Anion Gap 7 Blood Urea Nitrogen 8 Creatinine 0.42 Estimat Glomerular Filtration 150 Rate Random Glucose 160 Calcium Level 7.3 Protein Corrected Calcium 7.9 Phosphorus Level 2.7 2.7 Magnesium Level 2.0 Total Bilirubin 0.3 Aspartate Amino Transf 44 (AST/SGOT) Alanine Aminotransferase 37 (ALT/SGPT) Alkaline Phosphatase 74 Total Protein 5.9 Albumin 2.7 Date/Time Procedure Status Source Growth 05/26/16 20:47 Gram Stain - Final Resulted Fluid Peritoneal Fluid 05/26/16 20:47 Body Fluid Culture Resulted Fluid Peritoneal Fluid Pending 05/26/16 20:47 Fungal Smear Received Fluid Peritoneal Fluid Pending 05/26/16 20:47 Fungal Culture Received Fluid Peritoneal Fluid Pending 05/26/16 20:47 Acid Fast Stain Received Fluid Peritoneal Fluid Pending 05/26/16 20:47 Mycobacterial Culture Received Fluid Peritoneal Fluid Pending 05/25/16 09:17 Aerobic Blood Culture - Preliminary Resulted Blood Peripheral NO GROWTH IN 2 DAYS 05/25/16 09:17 Anaerobic Blood Culture - Preliminary Resulted Blood Peripheral NO GROWTH IN 2 DAYS 05/24/16 08:40 Urine Culture - Final Complete Urine Random Urine NO GROWTH IN 48 HOURS. Cardiovascular: Regular Lungs: Clear Abdomen: Other (midline incision (stapled) c/d/i; AUTUMN x2 serous drainage; J tube to drainage bag; G tube to LIWS ) Extremities: No edema A/P Assessment and Plan 70 year old female with stage IV pancreatic cancer with malignant gastric outlet obstruction -POD1 Ex laparotomy, oversew gastric perforation lesser curve of stomach; Gastrostomy tube placement; Jejunostomy feeding tube placement -s/p place duodenal stent placement -NPO -CCM following--- wean to extubate -Dr. Umana following and discussed with family code status -NADER Raphael at bedside; also seen with Satish MS3 Attending Note - Dr. Alexander Dressing dry AUTUMN drains with serosanguinous drainage J-tube to gravity; will cap this G-tube to LIWS - keep this to suction to keep stomach decompressed. Discussed situation with Dr. Umana and Dr. Gupta. The exam, history, and the medical decision-making described in the above note were completed with the assistance of the mid-level provider. I reviewed and agree with the findings presented. I attest that I had a [id number] encounter with the patient on the same day, and personally performed and documented my assessment and findings in the medical record. Abiola Zhong May 27, 2016 11:22 Jesse Alexander MD May 28, 2016 18:19
[2016-05-27] MEDS: ONDANSETRON HCL 4 MG/2 ML VIAL IV PUSH PRN ×2 (15:42→22:09)
[2016-05-27] MEDS ORDERED: LABETALOL HCL 100 MG/20 ML VIAL ONE (17:51)
[2016-05-27] MEDS ORDERED: LABETALOL HCL 100 MG/20 ML VIAL IV PRN (18:30)
[2016-05-27] MEDS: FAT EMULSION 20% INJ 250 ML (@10 mls/hr) IV SCH (20:00)
[2016-05-27] MEDS: LEVOFLOXACIN 750 MG PREMIX INJ 150 ML IV SCH (20:01)
[2016-05-27] MEDS: CLINIMIX E 4.25/5 1000 mL- </= 42 mls/hr IV SCH ×3 (20:01)
--- NOTE | 2016-05-27 20:42 | PD.ONC.PN ---
Subjective Subjective Remarks sedated on ventilator Objective Data Date Time Temp Pulse Resp B/P Pulse Ox O2 Delivery O2 Flow Rate FiO2 05/27/16 16:00 99.1 98 16 150/86 100 05/27/16 12:05 99 Nasal Cannula 3 05/27/16 12:00 98.4 110 22 149/78 98 05/27/16 11:56 100 30 05/27/16 08:26 100 40 05/27/16 08:00 98.4 91 14 120/79 100 05/27/16 07:00 Mechanical Ventilator 45 05/27/16 06:00 90 05/27/16 04:21 100 40 05/27/16 04:00 90 05/27/16 04:00 97.5 90 14 144/96 100 05/27/16 00:59 100 40 05/27/16 00:00 97.5 94 14 154/84 100 Arterial Line 05/26/16 23:30 100 45 05/26/16 22:30 92 20 157/96 99 Mechanical Ventilator 45 164/87 05/26/16 22:15 98.5 90 16 155/91 99 154/86 05/26/16 22:00 88 12 156/100 99 159/87 05/26/16 21:45 83 12 161/100 99 167/89 05/26/16 21:30 117 22 174/111 99 Mechanical Ventilator 45 182/98 05/26/16 21:29 100 45 05/26/16 21:15 123 24 174/116 99 Mechanical Ventilator 45 05/26/16 21:05 98.8 92 12 150/98 99 Mechanical Ventilator 45 05/26/16 21:05 45 05/27/16 05/27/16 05/27/16 07:00 15:00 23:00 Intake Total 3046 ml 1556 ml Output Total 1620 ml 875 ml Balance 1426 ml 681 ml Result Diagram: 05/27/16 0405 05/27/16 0405 Laboratory Results Laboratory Tests Test 05/26/16 05/27/16 05/27/16 22:08 04:05 08:40 White Blood Count 5.5 TH/MM3 6.8 TH/MM3 Red Blood Count 3.79 MIL/MM3 3.53 MIL/MM3 Hemoglobin 11.0 GM/DL 10.5 GM/DL Hematocrit 32.2 % 30.5 % Mean Corpuscular Volume 84.9 FL 86.3 FL Mean Corpuscular Hemoglobin 29.1 PG 29.6 PG Mean Corpuscular Hemoglobin 34.2 % 34.3 % Concent Red Cell Distribution Width 13.2 % 13.2 % Platelet Count 219 TH/MM3 254 TH/MM3 Mean Platelet Volume 7.2 FL 7.6 FL Neutrophils (%) (Auto) 89.4 % 85.8 % Lymphocytes (%) (Auto) 5.5 % 7.2 % Monocytes (%) (Auto) 4.3 % 6.9 % Eosinophils (%) (Auto) 0.4 % 0.0 % Basophils (%) (Auto) 0.4 % 0.1 % Neutrophils # (Auto) 5.0 TH/MM3 5.9 TH/MM3 Lymphocytes # (Auto) 0.3 TH/MM3 0.5 TH/MM3 Monocytes # (Auto) 0.2 TH/MM3 0.5 TH/MM3 Eosinophils # (Auto) 0.0 TH/MM3 0.0 TH/MM3 Basophils # (Auto) 0.0 TH/MM3 0.0 TH/MM3 CBC Comment AUTO DIFF DIFF FINAL Differential Total Cells 100 Counted Neutrophils % (Manual) 70 % Band Neutrophils % 12 % Lymphocytes % 8 % Monocytes % 7 % Neutrophils # (Manual) 4.7 TH/MM3 Metamyelocytes 2 % Myelocytes 1 % Differential Comment FINAL DIFF MANUAL Platelet Estimate NORMAL Platelet Morphology Comment NORMAL Red Cell Morphology Comment NORMAL Sodium Level 133 MEQ/L 135 MEQ/L Potassium Level 3.0 MEQ/L 3.8 MEQ/L Chloride Level 99 MEQ/L 102 MEQ/L Carbon Dioxide Level 23.8 MEQ/L 25.8 MEQ/L Anion Gap 10 MEQ/L 7 MEQ/L Blood Urea Nitrogen 10 MG/DL 8 MG/DL Creatinine 0.41 MG/DL 0.42 MG/DL Estimat Glomerular Filtration 154 ML/MIN 150 ML/MIN Rate Random Glucose 176 MG/DL 160 MG/DL Calcium Level 7.1 MG/DL 7.3 MG/DL Protein Corrected Calcium 7.6 MG/DL 7.9 MG/DL Total Protein 6.2 GM/DL 5.9 GM/DL Phosphorus Level 2.7 MG/DL 2.7 MG/DL Magnesium Level 2.0 MG/DL Total Bilirubin 0.3 MG/DL Aspartate Amino Transf 44 U/L (AST/SGOT) Alanine Aminotransferase 37 U/L (ALT/SGPT) Alkaline Phosphatase 74 U/L Albumin 2.7 GM/DL Culture Results Microbiology Date/Time Procedure Status Source Growth 05/25/16 09:17 Aerobic Blood Culture - Preliminary Resulted Blood Peripheral NO GROWTH IN 2 DAYS 05/25/16 09:17 Anaerobic Blood Culture - Preliminary Resulted Blood Peripheral NO GROWTH IN 2 DAYS 05/26/16 20:47 Gram Stain - Final Resulted Fluid Peritoneal Fluid 05/26/16 20:47 Body Fluid Culture - Preliminary Resulted Fluid Peritoneal Fluid NO GROWTH IN 24 HOURS. 05/26/16 20:47 Acid Fast Stain Received Fluid Peritoneal Fluid Pending 05/26/16 20:47 Mycobacterial Culture Received Fluid Peritoneal Fluid Pending 05/26/16 20:47 Fungal Smear - Final Resulted Fluid Peritoneal Fluid NO FUNGAL ELEMENTS SEEN. 05/26/16 20:47 Fungal Culture Resulted Fluid Peritoneal Fluid Pending Administered Medications Medications (Trade) Dose Ordered Sig/Kristie Route PRN Reason Start Time Stop Time Status Last Admin Dose Admin Sodium Chloride (NS 1000 ml Inj) 1,000 ml @ 100 mls/hr Q10H IV 05/24/16 10:14 05/27/16 18:06 IV Flush 2 ml 2 ml BID FLUSH 05/24/16 21:00 05/27/16 20:01 Levofloxacin/ Dextrose 150 ml @ 100 mls/hr Q24H IV 05/24/16 20:00 05/27/16 20:01 Metronidazole (Flagyl 500 Mg Inj) 100 ml @ 100 mls/hr Q8H IV 05/24/16 20:00 05/27/16 20:00 Enoxaparin Sodium 40 mg 40 mg Q24H SQ 05/24/16 20:00 Hold 05/25/16 19:55 Multivitamins 10 ml/Folic Acid 1 mg/Amino Acids/ Electrolytes/ Dextrose 1,010.2 ml @ 42 mls/hr Q24H IV 05/25/16 20:00 05/27/16 20:01 Fat Emulsion Intravenous (Liposyn Iii 20% Inj) 250 ml @ 10 mls/hr Q24H IV 05/25/16 20:00 05/27/16 20:00 Levothyroxine Sodium (Synthroid Inj) 62 mcg DAILY@06 IV PUSH 05/26/16 06:00 05/27/16 05:48 Fentanyl (Duragesic 50 Mcg Patch.72 Hr) 1 patch Q3D TD 05/26/16 12:00 05/26/16 11:56 Hydromorphone HCl (Dilaudid Pf Inj) 0.5 mg Q3HR PRN IV PUSH pain1-5 05/26/16 11:30 05/27/16 15:11 Hydromorphone HCl (Dilaudid Pf Inj) 1 mg Q3HR PRN IV PUSH pain6-10 05/26/16 11:30 05/27/16 09:19 Ondansetron HCl 4 mg 4 mg Q6HR PRN IV PUSH NAUSEA OR VOMITING 05/26/16 15:30 05/27/16 15:42 Propofol (Diprivan 1000 Mg/100ml Inj) 100 ml @ 0 mls/hr TITRATE IV 05/26/16 22:00 05/27/16 06:15 Pantoprazole Sodium (Protonix Inj) 40 mg Q24H IV PUSH 05/27/16 09:00 05/27/16 09:28 Objective Remarks GENERAL: ill and sedated SKIN: Warm and dry. HEAD: Normocephalic. EYES: No scleral icterus. No injection or drainage. NECK: Supple, trachea midline. No JVD or lymphadenopathy. LYMPHATIC: nodes in left supraclavicular area. CARDIOVASCULAR: Regular rate and rhythm without murmurs. RESPIRATORY: Breath sounds decreased at bases. GASTROINTESTINAL: Abdomen mild distention with G tube, J tube and drains. EXTREMITIES: trace edema MUSCULOSKELETAL: Adequate muscle tone. NEUROLOGICAL: No obvious focal deficit. sedated. Assessment/Plan Assessment 1: Spoke with Dr Alexander this am and he is optimistic that patient will recover from acute events and hopefully the stent which remains in place will function allowing her to eat shortly after extubation. I spoke with and communicated this to him. 2: patient was refractory to first line chemotherapy with progressive disease after three treatments. Suspect the chance of a meaningful response to a second line regimen- (Abraxane and Gemcitabine) will be small. I spoke to about code status and he does not want to make any decisions until she is extubated and can participate in the process. 3: Risk of DVT significant. lovenex started. Chiki Hidalgo MD May 27, 2016 20:41
--- NOTE | 2016-05-27 22:27 | HHI.GIFU ---
Subjective Remarks Comfortable in bed no nausea or vomiting still having some pain Objective Vitals I&O Vital Signs Date Time Temp Pulse Resp B/P Pulse Ox O2 Delivery O2 Flow Rate FiO2 05/27/16 21:30 98 Nasal Cannula 2.00 05/27/16 19:00 99 Nasal Cannula 2.00 05/27/16 16:00 99.1 98 16 150/86 100 05/27/16 12:05 99 Nasal Cannula 3 05/27/16 12:00 98.4 110 22 149/78 98 05/27/16 11:56 100 30 05/27/16 08:26 100 40 05/27/16 08:00 98.4 91 14 120/79 100 05/27/16 07:00 Mechanical Ventilator 45 05/27/16 06:00 90 05/27/16 04:21 100 40 05/27/16 04:00 90 05/27/16 04:00 97.5 90 14 144/96 100 05/27/16 00:59 100 40 05/27/16 00:00 97.5 94 14 154/84 100 Arterial Line 05/26/16 23:30 100 45 05/26/16 22:30 92 20 157/96 99 Mechanical Ventilator 45 164/87 I/O 05/26/16 05/26/16 05/26/16 05/27/16 05/27/16 05/27/16 07:00 15:00 23:00 07:00 15:00 23:00 Intake Total 240 ml 1519 ml 2150 ml 3046 ml 1556 ml Output Total 350 ml 1300 ml 2250 ml 1620 ml 875 ml Balance -110 ml 219 ml -100 ml 1426 ml 681 ml Intake Oral 240 ml 0 ml IV Total 968 ml 300 ml 2278 ml 1556 ml TPN/PPN 448 ml 390 ml Lipid 103 ml 378 ml Other 1850 ml Output Urine Total 350 ml 1300 ml 1200 ml 1500 ml 700 ml Stool Total 0 ml Gastric Drainage Total 0 ml Drainage Total 100 ml 120 ml 175 ml Estimated Blood Loss 100 ml Other 850 ml Laboratory Laboratory Tests Test 05/27/16 05/27/16 04:05 08:40 White Blood Count 6.8 Red Blood Count 3.53 Hemoglobin 10.5 Hematocrit 30.5 Mean Corpuscular Volume 86.3 Mean Corpuscular Hemoglobin 29.6 Mean Corpuscular Hemoglobin 34.3 Concent Red Cell Distribution Width 13.2 Platelet Count 254 Mean Platelet Volume 7.6 Neutrophils (%) (Auto) 85.8 Lymphocytes (%) (Auto) 7.2 Monocytes (%) (Auto) 6.9 Eosinophils (%) (Auto) 0.0 Basophils (%) (Auto) 0.1 Neutrophils # (Auto) 5.9 Lymphocytes # (Auto) 0.5 Monocytes # (Auto) 0.5 Eosinophils # (Auto) 0.0 Basophils # (Auto) 0.0 CBC Comment DIFF FINAL Differential Comment Sodium Level 135 Potassium Level 3.8 Chloride Level 102 Carbon Dioxide Level 25.8 Anion Gap 7 Blood Urea Nitrogen 8 Creatinine 0.42 Estimat Glomerular Filtration 150 Rate Random Glucose 160 Calcium Level 7.3 Protein Corrected Calcium 7.9 Phosphorus Level 2.7 2.7 Magnesium Level 2.0 Total Bilirubin 0.3 Aspartate Amino Transf 44 (AST/SGOT) Alanine Aminotransferase 37 (ALT/SGPT) Alkaline Phosphatase 74 Total Protein 5.9 Albumin 2.7 Date/Time Procedure Status Source Growth 05/26/16 20:47 Gram Stain - Final Resulted Fluid Peritoneal Fluid 05/26/16 20:47 Body Fluid Culture - Preliminary Resulted Fluid Peritoneal Fluid NO GROWTH IN 24 HOURS. 05/26/16 20:47 Fungal Smear - Final Resulted Fluid Peritoneal Fluid NO FUNGAL ELEMENTS SEEN. 05/26/16 20:47 Fungal Culture Resulted Fluid Peritoneal Fluid Pending 05/26/16 20:47 Acid Fast Stain Received Fluid Peritoneal Fluid Pending 05/26/16 20:47 Mycobacterial Culture Received Fluid Peritoneal Fluid Pending 05/25/16 09:17 Aerobic Blood Culture - Preliminary Resulted Blood Peripheral NO GROWTH IN 2 DAYS 05/25/16 09:17 Anaerobic Blood Culture - Preliminary Resulted Blood Peripheral NO GROWTH IN 2 DAYS 05/24/16 08:40 Urine Culture - Final Complete Urine Random Urine NO GROWTH IN 48 HOURS. Imaging Last Impressions GI Procedure 05/26/16 0000 Signed Impressions: Service Date/Time: Thursday, May 26, 2016 17:29 - CONCLUSION: Intestinal stent placement as described above. Blaine Kowalski MD Chest X-Ray 05/26/16 0000 Signed Impressions: Service Date/Time: Thursday, May 26, 2016 21:29 - CONCLUSION: Status post intubation with endotracheal tube in appropriate position. Acute extensive subcutaneous emphysema. No evidence of pneumothorax. Bilateral airspace disease as described. Blaine Kowalski MD Abdomen/Pelvis CT 05/24/16 0000 Signed Impressions: Service Date/Time: Tuesday, May 24, 2016 08:51 - CONCLUSION: 1. Pancreatic mass again identified, measuring larger than on the comparison study.. 2. New gastric distention and diffuse dilatation of the duodenum with apparent transition point in the distal third portion of the duodenum. The transition point is in the region of soft tissue mass extending from the pancreas to the retroperitoneal region. More distally the small bowel is normal diameter. Finding suggest at least partial obstruction of the duodenum. 3. New diffuse intrahepatic and extra hepatic biliary ductal dilatation. No discrete mass is identified in the region of the distal common duct. The pancreatic duct is also now mildly prominent diffusely measuring approximately 4 mm. 4. Small pleural effusions. Hunter Pagan MD Physical Exam HEENT: normocephalic; atraumatic; no jaundice. Throat is clear. NECK: Neck is supple still some subcutaneous crepitus CHEST: Chest is clear to auscultation and percussion. CARDIAC: Regular rate and rhythm with no murmur gallop or rubs. ABDOMEN: Soft, nondistended, nontender; no hepatosplenomegaly; bowel sounds are present in all four quadrants. EXTREMITIES: No clubbing, cyanosis, or edema. SKIN: Normal; no rash; no jaundice. 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 Assessment and Plan Plan ASSESSMENT: - Duodenal obstruction, likely external compression from pancreatic mass. Pt with metastatic pancreatic cancer (increased in size) with dilated duodenum and transition point in distal 1/[address] scan of the abdomen and pelvis (05/24/16)-----> 1. Pancreatic mass again identified, measuring larger than on the comparison study. 2. New gastric distention and diffuse dilatation of the duodenum with apparent transition point in the distal third portion of the duodenum. The transition point is in the region of soft tissue mass extending from the pancreas to the retroperitoneal region. More distally the small bowel is normal diameter. Finding suggest at least partial obstruction of the duodenum. 3. New diffuse intrahepatic and extra hepatobiliary ductal dilatation. No discrete mass is identified in the region of the distal common duct. The pancreatic duct is also now mildly prominent diffusely measuring approximately 4 mm. 4. Small pleural effusions. NPO. NGT to LIWS. GS following. Plan is for EGD with possible duodenal stent placement. If unable, will likely need bypass procedure by GS. - Metastatic pancreatic cancer. Dx March 2015. Followed by Dr. Umana and has had 3 rounds of FOLFIRINOX. Her last dose was this past Thursday. CT revealed that her mass has increased in size. Per primary. - FEN. TPN. - Anemia. 10.4/31.7. - Hypokalemia per primary -Gastric perforation PLAN: -Minimal drainage from her G and J-tubes possibly the duodenal stent is working -Further plans as per surgical service - Supportive care -We'll sign off Juan Jean MD May 27, 2016 22:27
[2016-05-28] VITALS (11 sets, daily range): BP systolic 138–159; BP diastolic 75–97; PULSE 90–109; RESP 16–20; TEMP 97.8–98.5; O2SAT 95–100
[2016-05-28] MEDS: HYDROmorphone HCL PF 1 MG/ML VIAL IV PUSH PRN ×6 (01:26→22:05)
[2016-05-28] MEDS: metroNIDAZOLE 500 MG INJ 100 ML IV SCH (03:39)
[2016-05-28] MEDS: SODIUM CHLOR 0.9% 1000 ML INJ 1,000 ML IV SCH ×2 (03:47→17:15)
[2016-05-28 04:49] LABS: AUTOMATED NEUTROPHIL # 5.5 TH/MM3 (1.8-7.7); BASOPHIL % 0.3 % (0.0-2.0); EOSINOPHIL # 0.1 TH/MM3 (0-0.4); EOSINOPHIL % 1.5 % (0.0-4.0); HEMATOCRIT 33.2 % (35.0-46.0); HEMO FLAGS DIFF FINAL; LYMPH % 11.5 % (9.0-44.0); LYMPHOCYTE # 0.8 TH/MM3 (1.0-4.8); MEAN CELL VOLUME 86.2 FL (80.0-100.0); MEAN CORPUSCULAR HEMOGLOBIN 28.3 PG (27.0-34.0); MEAN CORPUSCULAR HGB CONC 32.8 % (32.0-36.0); MONO % 8.3 % (0.0-8.0); NEUT % 78.4 % (16.0-70.0); PLATELET COUNT 232 TH/MM3 (150-450); RED BLOOD COUNT 3.85 MIL/MM3 (4.00-5.30); RED CELL DISTRIBUTION WIDTH 13.1 % (11.6-17.2)
[2016-05-28 05:15] LABS: BICARBONATE 27.2 MEQ/L (21.0-32.0); CALCIUM-PROTEIN CORRECTED 8.2 MG/DL (8.5-10.1); POTASSIUM 3.1 MEQ/L (3.5-5.1); TOTAL BILIRUBIN ADULT 0.2 MG/DL (0.2-1.0)
[2016-05-28] MEDS: LEVOTHYROXINE SODIUM 100 MCG VIAL IV PUSH SCH (06:06)
[2016-05-28] MEDS ORDERED: POTASSIUM CL 40 MEQ/30 ML LIQ UDC PO ONE (07:30)
[2016-05-28] MEDS: SODIUM CHLORIDE 0.9% FLUSH 5 ML FLUSH FLUSH SCH ×2 (07:54→21:00)
[2016-05-28] MEDS: PANTOPRAZOLE SODIUM 40 MG VIAL IV PUSH SCH (07:54)
--- NOTE | 2016-05-28 09:13 | PD.ONC.PN ---
Subjective Subjective Remarks Afebrile overnight. Patient having pain in abdomen, especially with cough. She is requesting breathing treatment for cough. Objective Data Date Time Temp Pulse Resp B/P Pulse Ox O2 Delivery O2 Flow Rate FiO2 05/28/16 08:00 100 Nasal Cannula 2.00 05/28/16 04:00 98.5 96 18 143/77 99 05/28/16 00:00 97.8 98 20 139/83 100 05/27/16 21:30 98 Nasal Cannula 2.00 05/27/16 20:00 98.4 92 21 164/86 100 05/27/16 19:00 99 Nasal Cannula 2.00 05/27/16 16:00 99.1 98 16 150/86 100 05/27/16 12:05 99 Nasal Cannula 3 05/27/16 12:00 98.4 110 22 149/78 98 05/27/16 11:56 100 30 05/28/16 05/28/16 05/28/16 07:00 15:00 23:00 Intake Total 1037 ml Output Total 1610 ml Balance -573 ml Result Diagram: 05/28/16 0405 05/28/16 0405 Laboratory Results Laboratory Tests Test 05/28/16 04:05 White Blood Count 7.0 TH/MM3 Red Blood Count 3.85 MIL/MM3 Hemoglobin 10.9 GM/DL Hematocrit 33.2 % Mean Corpuscular Volume 86.2 FL Mean Corpuscular Hemoglobin 28.3 PG Mean Corpuscular Hemoglobin 32.8 % Concent Red Cell Distribution Width 13.1 % Platelet Count 232 TH/MM3 Mean Platelet Volume 7.5 FL Neutrophils (%) (Auto) 78.4 % Lymphocytes (%) (Auto) 11.5 % Monocytes (%) (Auto) 8.3 % Eosinophils (%) (Auto) 1.5 % Basophils (%) (Auto) 0.3 % Neutrophils # (Auto) 5.5 TH/MM3 Lymphocytes # (Auto) 0.8 TH/MM3 Monocytes # (Auto) 0.6 TH/MM3 Eosinophils # (Auto) 0.1 TH/MM3 Basophils # (Auto) 0.0 TH/MM3 CBC Comment DIFF FINAL Differential Comment Sodium Level 139 MEQ/L Potassium Level 3.1 MEQ/L Chloride Level 103 MEQ/L Carbon Dioxide Level 27.2 MEQ/L Anion Gap 9 MEQ/L Blood Urea Nitrogen 7 MG/DL Creatinine 0.50 MG/DL Estimat Glomerular Filtration 123 ML/MIN Rate Random Glucose 136 MG/DL Calcium Level 7.4 MG/DL Protein Corrected Calcium 8.2 MG/DL Phosphorus Level 1.9 MG/DL Magnesium Level 2.0 MG/DL Total Bilirubin 0.2 MG/DL Aspartate Amino Transf 29 U/L (AST/SGOT) Alanine Aminotransferase 29 U/L (ALT/SGPT) Alkaline Phosphatase 70 U/L Total Protein 5.6 GM/DL Albumin 2.6 GM/DL Culture Results Microbiology Date/Time Procedure Status Source Growth 05/25/16 09:17 Aerobic Blood Culture - Preliminary Resulted Blood Peripheral NO GROWTH IN 2 DAYS 05/25/16 09:17 Anaerobic Blood Culture - Preliminary Resulted Blood Peripheral NO GROWTH IN 2 DAYS 05/26/16 20:47 Gram Stain - Final Resulted Fluid Peritoneal Fluid 05/26/16 20:47 Body Fluid Culture - Preliminary Resulted Fluid Peritoneal Fluid NO GROWTH IN 24 HOURS. 05/26/16 20:47 Acid Fast Stain Received Fluid Peritoneal Fluid Pending 05/26/16 20:47 Mycobacterial Culture Received Fluid Peritoneal Fluid Pending 05/26/16 20:47 Fungal Smear - Final Resulted Fluid Peritoneal Fluid NO FUNGAL ELEMENTS SEEN. 05/26/16 20:47 Fungal Culture Resulted Fluid Peritoneal Fluid Pending Administered Medications Medications (Trade) Dose Ordered Sig/Kristie Route PRN Reason Start Time Stop Time Status Last Admin Dose Admin Sodium Chloride (NS 1000 ml Inj) 1,000 ml @ 100 mls/hr Q10H IV 05/24/16 10:14 05/27/16 18:06 IV Flush 2 ml 2 ml BID FLUSH 05/24/16 21:00 05/28/16 07:54 Levofloxacin/ Dextrose 150 ml @ 100 mls/hr Q24H IV 05/24/16 20:00 05/27/16 20:01 Metronidazole (Flagyl 500 Mg Inj) 100 ml @ 100 mls/hr Q8H IV 05/24/16 20:00 05/28/16 03:39 Enoxaparin Sodium 40 mg 40 mg Q24H SQ 05/24/16 20:00 05/25/16 19:55 Multivitamins 10 ml/Folic Acid 1 mg/Amino Acids/ Electrolytes/ Dextrose 1,010.2 ml @ 42 mls/hr Q24H IV 05/25/16 20:00 05/27/16 20:01 Fat Emulsion Intravenous (Liposyn Iii 20% Inj) 250 ml @ 10 mls/hr Q24H IV 05/25/16 20:00 05/27/16 20:00 Levothyroxine Sodium (Synthroid Inj) 62 mcg DAILY@06 IV PUSH 05/26/16 06:00 05/28/16 06:06 Fentanyl (Duragesic 50 Mcg Patch.72 Hr) 1 patch Q3D TD 05/26/16 12:00 05/26/16 11:56 Hydromorphone HCl (Dilaudid Pf Inj) 0.5 mg Q3HR PRN IV PUSH pain1-5 05/26/16 11:30 05/27/16 15:11 Hydromorphone HCl (Dilaudid Pf Inj) 1 mg Q3HR PRN IV PUSH pain6-10 05/26/16 11:30 05/28/16 08:04 Ondansetron HCl 4 mg 4 mg Q6HR PRN IV PUSH NAUSEA OR VOMITING 05/26/16 15:30 05/27/16 22:09 Propofol 100 ml @ 0 mls/hr TITRATE IV 05/26/16 22:00 05/27/16 06:15 Potassium Chloride (KCl 20 Meq Premix Inj) 100 ml @ 50 mls/hr Q2H PRN IV For Potassium 2.8 - 3.2 mEq/L 05/27/16 05:15 05/28/16 06:16 Pantoprazole Sodium (Protonix Inj) 40 mg Q24H IV PUSH 05/27/16 09:00 05/28/16 07:54 Objective Remarks GENERAL: Weak appearing female, lying supine in bed. SKIN: Warm and dry. HEAD: Normocephalic. EYES: No scleral icterus. No injection or drainage. NECK: Supple, trachea midline. CARDIOVASCULAR: +S1/S2, tachy RESPIRATORY: anterior frey clear, on 2L O2 via NC GASTROINTESTINAL: Abdomen mildly tender around incision sites. G tube to LIWS, J tube clamped. incision sites clean without bleeding. EXTREMITIES: No cyanosis MUSCULOSKELETAL: Adequate muscle tone. NEUROLOGICAL: No obvious focal deficit. Awake, alert, and oriented x3. Assessment/Plan Assessment 70y/o female with pancreatic cancer Plan 1. long family conference held with Dr. Umana, patient, patient's son and another female family member (?sister). Discussed plan for recovering from surgery, and reevaluation in about two weeks. If patient sufficiently recovered from surgery, then in about two weeks would have another discussion about potentially starting treatment with Gemcitabine and Abraxane. This was discussed at length with patient and family. Opportunity to ask questions provided. multiple questions asked and answered pertaining to potential treatment, possibility of adverse outcomes, risk and benefits of various treatments. Discussed code status and encouraged patient and family to have discussions about code status for the future. patient and family were receptive to discussion. 2. will continue Lovenox prophylaxis 3. will defer to surgery for management of G and J tubes, tube feedings Attending Statement The exam, history, and the medical decision-making described in the above note were completed with the assistance of the mid-level provider. I reviewed and agree with the findings presented. I attest that I had a [id number] encounter with the patient on the same day, and personally performed and documented my assessment and findings in the medical record. remarkably better and extubated and conversant. Hopefully will be able to start J tube feedings soon and transition to oral if duodenal stent working. Will defer to Dr. Alexander. Ashlee Estrella May 28, 2016 09:13 Chiki Umana MD May 28, 2016 09:56
[2016-05-28] MEDS: RESP: ALBUTEROL 2.5 MG/IPRATROPIUM 0.5 MG NEB (SCH) NEB ×3 (10:00→21:21)
[2016-05-28] MEDS: FLUCONAZOLE 200 MG PREMIX BAG 100 ML IV SCH (11:47)
[2016-05-28] MEDS ORDERED: POTASSIUM CL 40 MEQ/30 ML LIQ UDC PO SCH (12:00)
--- NOTE | 2016-05-28 13:13 | HHI.PR ---
Subjective Subjective Notes Sitting up in bed Having trouble coughing due to abdominal pain Requesting breathing treatment Objective Vitals/I&O Vital Signs Date Time Temp Pulse Resp B/P Pulse Ox O2 Delivery O2 Flow Rate FiO2 05/28/16 10:00 100 Nasal Cannula 2.00 05/28/16 04:00 98.5 96 18 143/77 05/27/16 11:56 30 Labs Laboratory Tests Test 05/28/16 04:05 White Blood Count 7.0 Red Blood Count 3.85 Hemoglobin 10.9 Hematocrit 33.2 Mean Corpuscular Volume 86.2 Mean Corpuscular Hemoglobin 28.3 Mean Corpuscular Hemoglobin 32.8 Concent Red Cell Distribution Width 13.1 Platelet Count 232 Mean Platelet Volume 7.5 Neutrophils (%) (Auto) 78.4 Lymphocytes (%) (Auto) 11.5 Monocytes (%) (Auto) 8.3 Eosinophils (%) (Auto) 1.5 Basophils (%) (Auto) 0.3 Neutrophils # (Auto) 5.5 Lymphocytes # (Auto) 0.8 Monocytes # (Auto) 0.6 Eosinophils # (Auto) 0.1 Basophils # (Auto) 0.0 CBC Comment DIFF FINAL Differential Comment Sodium Level 139 Potassium Level 3.1 Chloride Level 103 Carbon Dioxide Level 27.2 Anion Gap 9 Blood Urea Nitrogen 7 Creatinine 0.50 Estimat Glomerular Filtration 123 Rate Random Glucose 136 Calcium Level 7.4 Protein Corrected Calcium 8.2 Phosphorus Level 1.9 Magnesium Level 2.0 Total Bilirubin 0.2 Aspartate Amino Transf 29 (AST/SGOT) Alanine Aminotransferase 29 (ALT/SGPT) Alkaline Phosphatase 70 Total Protein 5.6 Albumin 2.6 Date/Time Procedure Status Source Growth 05/26/16 20:47 Gram Stain - Final Resulted Fluid Peritoneal Fluid 05/26/16 20:47 Body Fluid Culture - Preliminary Resulted Maricruz Albicans 05/26/16 20:47 Fungal Smear - Final Resulted Fluid Peritoneal Fluid NO FUNGAL ELEMENTS SEEN. 05/26/16 20:47 Fungal Culture Resulted Fluid Peritoneal Fluid Pending 05/26/16 20:47 Acid Fast Stain - Final Resulted Fluid Peritoneal Fluid NO ACID FAST BACILLI SEEN 05/26/16 20:47 Mycobacterial Culture Resulted Fluid Peritoneal Fluid Pending 05/25/16 09:17 Aerobic Blood Culture - Preliminary Resulted Blood Peripheral NO GROWTH IN 3 DAYS 05/25/16 09:17 Anaerobic Blood Culture - Preliminary Resulted Blood Peripheral NO GROWTH IN 3 DAYS 05/24/16 08:40 Urine Culture - Final Complete Urine Random Urine NO GROWTH IN 48 HOURS. Cardiovascular: Regular Lungs: Clear Abdomen: Other (midline incision--nik (C/D/I); J tube capped; G tube to LIWS; AUTUMN x2 with SS drainage ) Extremities: Other (generalized edema) Narrative Exam Subq air around neck and face greatly improved from yesterday A/P Assessment and Plan 70 year old female with stage IV pancreatic cancer with malignant gastric outlet obstruction -POD2 Ex laparotomy, oversew gastric perforation lesser curve of stomach; Gastrostomy tube placement; Jejunostomy feeding tube placement -s/p place duodenal stent placement -Start trickle feed in J tube -Replace K -DuoNebs ordered -[facility] following -Dr. Umana following and discussed with family code status -RN Sita Attending Note - Dr. Alexander Incision clean and dry; nik intact AUTUMN drains left output > right output; both serosanguinous Start trickle feeds today via j-tube Keep G-tube to LIWS until POD #3 Supplement K+ Likely transfer to floor tomorrow if uneventful night. The exam, history, and the medical decision-making described in the above note were completed with the assistance of the mid-level provider. I reviewed and agree with the findings presented. I attest that I had a [id number] encounter with the patient on the same day, and personally performed and documented my assessment and findings in the medical record. Abiola Zhong May 28, 2016 13:13 Jesse Alexander MD May 28, 2016 18:16
--- NOTE | 2016-05-28 13:13 | HHI.CCPN ---
Subjective Remarks/Hospital Course 05/26: 70-year-old female with a recent diagnosis of pancreatic cancer who presented on 05/24/2016 due to intractable nausea and vomiting as well as abdominal pain. CT abdomen pelvis showed partial small bowel obstruction. She underwent duodenal stent placement however procedure was complicated with perforation of stomach at lesser curvature. He was taken emergently to operating room by Dr. Alexander for exploratory laparotomy, oversew gastric perforation, Gastrostomy tube placement, and Jejunostomy feeding tube placement. Postoperatively she is transferred to ICU sedated and intubated. Critical care medicine was consulted for ventilatory management. 05/27: Remains sedated, arousable, orally intubated on mechanical ventilation. On PPN. 05/28: Extubated yesterday. Tolerating well on nasal cannula. Complaining of abdominal pain. Objective Vital Signs Date Time Temp Pulse Resp B/P Pulse Ox O2 Delivery O2 Flow Rate FiO2 05/28/16 10:00 100 Nasal Cannula 2.00 05/28/16 04:00 98.5 96 18 143/77 05/27/16 11:56 30 Intake and Output 05/27/16 05/27/16 05/28/16 08:00 16:00 00:00 Intake Total 3046 ml 1556 ml 1380 ml Output Total 1620 ml 875 ml 670 ml Balance 1426 ml 681 ml 710 ml Result Diagram: 05/28/16 0405 05/28/16 0405 Imaging Last 48 hours Impressions GI Procedure 05/26/16 0000 Signed Impressions: Service Date/Time: Thursday, May 26, 2016 17:29 - CONCLUSION: Intestinal stent placement as described above. Blaine Kowalski MD Chest X-Ray 05/26/16 0000 Signed Impressions: Service Date/Time: Thursday, May 26, 2016 21:29 - CONCLUSION: Status post intubation with endotracheal tube in appropriate position. Acute extensive subcutaneous emphysema. No evidence of pneumothorax. Bilateral airspace disease as described. Blaine Kowalski MD Objective Remarks GENERAL: Elderly woman sitting up in bed in minimal distress from abdominal discomfort. SKIN: Warm and dry. HEAD: Normocephalic. EYES: No scleral icterus. No injection or drainage. NECK: Supple, trachea midline. No JVD or lymphadenopathy. CARDIOVASCULAR: Regular rate and rhythm without murmurs, gallops, or rubs. RESPIRATORY: Air entry decreased bilaterally at bases, scattered rhonchi, no wheezing GASTROINTESTINAL: Abdomen soft, non-tender, nondistended. Dressing over surgical site clean dry and intact. G-tube/J-tube in place. MUSCULOSKELETAL: No cyanosis, or edema. Procedures None. A/P Assessment and Plan Respiratory failure - Postop - Extubated on 05/27, on nasal cannula tolerating well., bronchodilators as needed Small bowel obstruction - Status post palliative stent placement - Management per GI. Gastric perforation - Status post surgical repair with G-tube/J-tube placement. - Levaquin and Flagyl - Start J-tube feeds if okay with Dr. Alexander and wean off PPN Atrial fibrillation - Status post ablation - Rate controlled Pancreatic cancer - Patient's oncologist management Hypothyroidism - Synthroid DVT GI prophylaxis - Teds SCDs - Chemical prophylaxis per surgeon - Protonix Patient will be transferred to hospitalist service for further medical management. Transfer out of ICU and okay with Dr. Alexander. Further recommendations per oncology/ GI. Abbe Gupta MD May 28, 2016 13:13
[2016-05-28] MEDS: ACETAMINOPHEN 1000 MG/100 ML VIAL IV SCH ×2 (14:29→19:41)
[2016-05-28] MEDS: oxyCODONE HCL ORAL CONC 20 MG/ML SYRINGE PO PRN (14:36)
[2016-05-28] MEDS: ENOXAPARIN SODIUM 40 MG/0.4 ML SYRINGE SQ SCH (20:00)
[2016-05-28] MEDS: FAT EMULSION 20% INJ 250 ML (@10 mls/hr) IV SCH (20:34)
[2016-05-28] MEDS: CLINIMIX E 4.25/5 1000 mL- </= 42 mls/hr IV SCH ×3 (20:35)
[2016-05-29] VITALS (11 sets, daily range): BP systolic 103–146; BP diastolic 56–92; PULSE 92–104; RESP 14–26; TEMP 98.2–99.2; O2SAT 95–99
[2016-05-29] MEDS: HYDROmorphone HCL PF 1 MG/ML VIAL IV PUSH PRN ×5 (01:15→22:41)
[2016-05-29] MEDS: ACETAMINOPHEN 1000 MG/100 ML VIAL IV SCH ×4 (01:27→18:23)
[2016-05-29] MEDS: RESP: ALBUTEROL 2.5 MG/IPRATROPIUM 0.5 MG NEB (SCH) NEB ×4 (03:31→22:44)
[2016-05-29 04:52] LABS: AUTOMATED NEUTROPHIL # 4.3 TH/MM3 (1.8-7.7); BASOPHIL % 0.4 % (0.0-2.0); EOSINOPHIL # 0.2 TH/MM3 (0-0.4); HEMATOCRIT 29.1 % (35.0-46.0); HEMO FLAGS DIFF FINAL; LYMPH % 11.3 % (9.0-44.0); LYMPHOCYTE # 0.6 TH/MM3 (1.0-4.8); MEAN CELL VOLUME 85.5 FL (80.0-100.0); MEAN CORPUSCULAR HGB CONC 33.9 % (32.0-36.0); MONO % 9.7 % (0.0-8.0); NEUT % 75.6 % (16.0-70.0); PLATELET COUNT 228 TH/MM3 (150-450); RED CELL DISTRIBUTION WIDTH 13.2 % (11.6-17.2); WHITE BLOOD COUNT 5.7 TH/MM3 (4.0-11.0)
[2016-05-29 05:14] LABS: ALKALINE PHOSPHATASE 63 U/L (45-117); ALT (GPT) 25 U/L (10-53); ANION GAP 8 MEQ/L (5-15); AST (GOT) 22 U/L (15-37); BICARBONATE 26.8 MEQ/L (21.0-32.0); BLOOD UREA NITROGEN 10 MG/DL (7-18); CHLORIDE 105 MEQ/L (98-107); GLOMERULAR FILTRATION RATE 154 ML/MIN (>89); MAGNESIUM 2.1 MG/DL (1.5-2.5); POTASSIUM 3.5 MEQ/L (3.5-5.1); SODIUM (NA) 140 MEQ/L (136-145); TOTAL BILIRUBIN ADULT 0.2 MG/DL (0.2-1.0)
[2016-05-29] MEDS: LEVOTHYROXINE SODIUM 100 MCG VIAL IV PUSH SCH (06:00)
[2016-05-29] MEDS: SODIUM CHLORIDE 0.9% FLUSH 5 ML FLUSH FLUSH SCH ×2 (09:38→21:16)
[2016-05-29] MEDS: PANTOPRAZOLE SODIUM 40 MG VIAL IV PUSH SCH (09:38)
[2016-05-29] MEDS: REMOVE OLD PATCH T-DERMAL SCH (12:00)
[2016-05-29] MEDS: FLUCONAZOLE 200 MG PREMIX BAG 100 ML IV SCH (12:35)
[2016-05-29] MEDS: fentaNYL 50 MCG/HR PATCH TD SCH (12:35)
--- NOTE | 2016-05-29 12:43 | HHI.PR ---
Subjective Remarks Follow-up small bowel obstruction/gastric perforation 05/29/16-patient seen and examined, no significant abdominal pain. Currently nothing by mouth and on tube feed. Afebrile Objective Vitals Vital Signs Date Time Temp Pulse Resp B/P Pulse Ox O2 Delivery O2 Flow Rate FiO2 05/29/16 09:40 96 21 05/29/16 06:00 104 05/29/16 04:00 98.6 92 14 124/75 97 05/29/16 04:00 92 05/29/16 02:00 98 05/29/16 00:00 96 05/29/16 00:00 98.5 96 16 103/56 99 05/28/16 22:00 104 05/28/16 21:18 97 05/28/16 20:00 91 05/28/16 20:00 98.5 91 18 138/75 99 05/28/16 19:00 Nasal Cannula 2.00 05/28/16 18:00 90 05/28/16 16:00 97.9 98 18 140/97 99 05/28/16 16:00 98 05/28/16 14:00 109 I/O 05/28/16 05/28/16 05/28/16 05/29/16 05/29/16 05/29/16 07:00 15:00 23:00 07:00 15:00 23:00 Intake Total 1037 ml 926 ml 1011 ml 929 ml Output Total 1610 ml 700 ml 1030 ml 530 ml Balance -573 ml 226 ml -19 ml 399 ml IV Total 653 ml 567 ml 584 ml 494 ml TPN/PPN 311 ml 290 ml 344 ml 352 ml Lipid 73 ml 69 ml 83 ml 83 ml Output Urine Total 1350 ml 600 ml 900 ml 450 ml Stool Total 0 ml Gastric Drainage Total 0 ml 25 ml 0 ml 0 ml Drainage Total 260 ml 75 ml 130 ml 80 ml # Bowel Movements 0 0 0 Result Diagram: 05/29/16 0347 05/29/16 0347 Imaging Last Impressions GI Procedure 05/26/16 0000 Signed Impressions: Service Date/Time: Thursday, May 26, 2016 17:29 - CONCLUSION: Intestinal stent placement as described above. Blaine Kowalski MD Chest X-Ray 05/26/16 0000 Signed Impressions: Service Date/Time: Thursday, May 26, 2016 21:29 - CONCLUSION: Status post intubation with endotracheal tube in appropriate position. Acute extensive subcutaneous emphysema. No evidence of pneumothorax. Bilateral airspace disease as described. Blaine Kowalski MD Abdomen/Pelvis CT 05/24/16 0000 Signed Impressions: Service Date/Time: Tuesday, May 24, 2016 08:51 - CONCLUSION: 1. Pancreatic mass again identified, measuring larger than on the comparison study.. 2. New gastric distention and diffuse dilatation of the duodenum with apparent transition point in the distal third portion of the duodenum. The transition point is in the region of soft tissue mass extending from the pancreas to the retroperitoneal region. More distally the small bowel is normal diameter. Finding suggest at least partial obstruction of the duodenum. 3. New diffuse intrahepatic and extra hepatic biliary ductal dilatation. No discrete mass is identified in the region of the distal common duct. The pancreatic duct is also now mildly prominent diffusely measuring approximately 4 mm. 4. Small pleural effusions. Hunter Pagan MD Objective Remarks GENERAL: NAD SKIN: Warm and dry. HEAD: Normocephalic. EYES: No scleral icterus. No injection or drainage. NECK: Supple, trachea midline. No JVD or lymphadenopathy. CARDIOVASCULAR: Regular rate and rhythm without murmurs, gallops, or rubs. RESPIRATORY: Breath sounds equal bilaterally. No accessory muscle use. GASTROINTESTINAL: Abdomen soft, non-tender, nondistended. MUSCULOSKELETAL: No cyanosis, or edema. BACK: Nontender without obvious deformity. No CVA tenderness. Procedures None. A/P Problem List: (1) Small bowel obstruction, partial ICD Code: K56.69 Status: Acute (2) Pancreatic cancer ICD Code: C25.9 Status: Acute (3) Hypothyroidism ICD Code: E03.9 Status: Acute (4) history of atrial fibrillation Status: Acute Assessment and Plan 70-year-old female with Respiratory failure: Extubated febrile 20 11/16/16. Stable and continue bronchodilator when necessary Small bowel obstruction - Status post palliative stent placement - Management per GI. Gastric perforation - Status post surgical repair with G-tube/J-tube placement. - Continue with Levaquin and Flagyl - On J-tube feeding Atrial fibrillation - Status post ablation - Rate controlled Pancreatic cancer - Patient's oncologist management - When medically stable may consider treatment with Gemcitabine and Abraxane Hypothyroidism - Synthroid DVT GI prophylaxis - Teds SCDs - Lovenox - Protonix Transfer to 7 Alfred Oh MD May 29, 2016 12:43
[2016-05-29] MEDS: SODIUM CHLOR 0.9% 1000 ML INJ 1,000 ML IV SCH (13:15)
--- NOTE | 2016-05-29 16:25 | HHI.PR ---
Subjective Subjective Notes Resting in bed Feels very rested after a good night's rest Breathing better Got out of bed to the chair and did some marching in place yesterday Objective Vitals/I&O Vital Signs Date Time Temp Pulse Resp B/P Pulse Ox O2 Delivery O2 Flow Rate FiO2 05/29/16 09:40 96 21 05/29/16 08:00 102 05/29/16 08:00 Nasal Cannula 2.00 05/29/16 08:00 98.2 26 146/87 Labs Laboratory Tests Test 05/28/16 05/29/16 21:55 03:47 Potassium Level 3.3 3.5 White Blood Count 5.7 Red Blood Count 3.40 Hemoglobin 9.9 Hematocrit 29.1 Mean Corpuscular Volume 85.5 Mean Corpuscular Hemoglobin 29.0 Mean Corpuscular Hemoglobin 33.9 Concent Red Cell Distribution Width 13.2 Platelet Count 228 Mean Platelet Volume 7.7 Neutrophils (%) (Auto) 75.6 Lymphocytes (%) (Auto) 11.3 Monocytes (%) (Auto) 9.7 Eosinophils (%) (Auto) 3.0 Basophils (%) (Auto) 0.4 Neutrophils # (Auto) 4.3 Lymphocytes # (Auto) 0.6 Monocytes # (Auto) 0.6 Eosinophils # (Auto) 0.2 Basophils # (Auto) 0.0 CBC Comment DIFF FINAL Differential Comment Sodium Level 140 Chloride Level 105 Carbon Dioxide Level 26.8 Anion Gap 8 Blood Urea Nitrogen 10 Creatinine 0.41 Estimat Glomerular Filtration 154 Rate Random Glucose 129 Calcium Level 7.5 Phosphorus Level 2.4 Magnesium Level 2.1 Total Bilirubin 0.2 Aspartate Amino Transf 22 (AST/SGOT) Alanine Aminotransferase 25 (ALT/SGPT) Alkaline Phosphatase 63 Total Protein 5.2 Albumin 2.3 Date/Time Procedure Status Source Growth 05/26/16 20:47 Gram Stain - Final Complete Fluid Peritoneal Fluid 05/26/16 20:47 Body Fluid Culture - Final Complete Maricruz Albicans 05/26/16 20:47 Fungal Smear - Final Resulted Fluid Peritoneal Fluid NO FUNGAL ELEMENTS SEEN. 05/26/16 20:47 Fungal Culture Resulted Fluid Peritoneal Fluid Pending 05/26/16 20:47 Acid Fast Stain - Final Resulted Fluid Peritoneal Fluid NO ACID FAST BACILLI SEEN 05/26/16 20:47 Mycobacterial Culture Resulted Fluid Peritoneal Fluid Pending 2/26/17 09:17 Aerobic Blood Culture - Preliminary Resulted Blood Peripheral NO GROWTH IN 4 DAYS 05/25/16 09:17 Anaerobic Blood Culture - Preliminary Resulted Blood Peripheral NO GROWTH IN 4 DAYS 05/24/16 17:30 Aerobic Blood Culture - Final Complete Blood Peripheral NO GROWTH IN 5 DAYS 05/24/16 17:30 Anaerobic Blood Culture - Final Complete Blood Peripheral NO GROWTH IN 5 DAYS Cardiovascular: Regular Lungs: Clear Abdomen: Other (midline incision c/d/i; stapled; J tube with TF; G tube to LIWS ; AUTUMN x2 with SS drainage ) Narrative Exam Subq air essential gone A/P Assessment and Plan 70 year old female with stage IV pancreatic cancer with malignant gastric outlet obstruction -POD3 Ex laparotomy, oversew gastric perforation lesser curve of stomach; Gastrostomy tube placement; Jejunostomy feeding tube placement -s/p place duodenal stent placement -Increase TF to 30 cc/hr at lunch and 50 cc/hr this evening -Flush J tube with NS 30 ml Q8 -Continue DuoNebs -DC Villagomez -Dr. Umana following and discussed with family code status -NADER Cintron at bedside -Transfer to the floor Attending Note - Dr. Alexander Not tolerating TF at increased rate; back down to 20 ml/hr for tonight Incision clean and dry; nik intact Stable AUTUMN drains still with high serosanguinous output. The exam, history, and the medical decision-making described in the above note were completed with the assistance of the mid-level provider. I reviewed and agree with the findings presented. I attest that I had a [id number] encounter with the patient on the same day, and personally performed and documented my assessment and findings in the medical record. Abiola Zhong May 29, 2016 16:25 Jesse Alexander MD May 31, 2016 20:22
[2016-05-29] MEDS: BISACODYL 10 MG SUPP PR PRN (21:15)
[2016-05-29] MEDS: ENOXAPARIN SODIUM 40 MG/0.4 ML SYRINGE SQ SCH (21:15)
[2016-05-29] MEDS: CLINIMIX E 4.25/5 1000 mL- </= 42 mls/hr IV SCH ×3 (21:15)
[2016-05-29] MEDS: FAT EMULSION 20% INJ 250 ML (@10 mls/hr) IV SCH (21:24)
[2016-05-30] VITALS (7 sets, daily range): BP systolic 116–137; BP diastolic 70–80; PULSE 90–124; RESP 17–20; TEMP 97.2–98.9; O2SAT 94–98
[2016-05-30] MEDS: ACETAMINOPHEN 1000 MG/100 ML VIAL IV SCH ×4 (01:33→18:10)
[2016-05-30] MEDS: HYDROmorphone HCL PF 1 MG/ML VIAL IV PUSH PRN ×2 (03:31→10:57)
[2016-05-30] MEDS: RESP: ALBUTEROL 2.5 MG/IPRATROPIUM 0.5 MG NEB (SCH) NEB ×5 (04:00→21:32)
[2016-05-30] MEDS: LEVOTHYROXINE SODIUM 100 MCG VIAL IV PUSH SCH (06:15)
[2016-05-30] MEDS: PANTOPRAZOLE SODIUM 40 MG VIAL IV PUSH SCH (08:02)
[2016-05-30] MEDS: SODIUM CHLORIDE 0.9% FLUSH 5 ML FLUSH FLUSH SCH ×2 (08:02→21:59)
[2016-05-30] MEDS: SODIUM CHLOR 0.9% 1000 ML INJ 1,000 ML IV SCH (08:02)
--- NOTE | 2016-05-30 08:49 | HHI.PR ---
Subjective Remarks Follow-up small bowel obstruction/gastric perforation 05/29/16-patient seen and examined, no significant abdominal pain. Currently nothing by mouth and on tube feed. Afebrile 05/30/16-patient seen and examined, stable and afebrile. Reports pain around drain sites otherwise unremarkable. Tolerating tube feed. Objective Vitals Vital Signs Date Time Temp Pulse Resp B/P Pulse Ox O2 Delivery O2 Flow Rate FiO2 05/30/16 06:46 17 05/30/16 04:00 98.2 90 20 134/80 98 05/30/16 00:00 98.4 92 20 130/80 97 05/29/16 21:15 Room Air 05/29/16 20:00 98.9 103 20 137/79 95 05/29/16 17:03 16 05/29/16 16:33 Room Air 05/29/16 16:00 92 05/29/16 16:00 99.2 102 20 122/63 96 05/29/16 14:00 102 05/29/16 12:00 98.2 102 22 126/92 97 05/29/16 12:00 102 05/29/16 10:00 102 05/29/16 09:40 96 21 I/O 05/29/16 05/29/16 05/29/16 05/30/16 05/30/16 05/30/16 07:00 15:00 23:00 07:00 15:00 23:00 Intake Total 929 ml 695 ml 850 ml 828 ml Output Total 530 ml 590 ml 180 ml 800 ml Balance 399 ml 105 ml 670 ml 28 ml Intake Oral 0 ml IV Total 494 ml 400 ml 426 ml 138 ml Tube Feeding 129 ml 272 ml TPN/PPN 352 ml 220 ml 227 ml 332 ml Lipid 83 ml 75 ml 68 ml 86 ml Output Urine Total 450 ml 400 ml 650 ml Gastric Drainage Total 0 ml 0 ml Drainage Total 80 ml 190 ml 180 ml 150 ml # Bowel Movements 0 Result Diagram: 05/29/16 0347 05/29/16346 Objective Remarks GENERAL: NAD SKIN: Warm and dry. HEAD: Normocephalic. EYES: No scleral icterus. No injection or drainage. NECK: Supple, trachea midline. No JVD or lymphadenopathy. CARDIOVASCULAR: Regular rate and rhythm without murmurs, gallops, or rubs. RESPIRATORY: Breath sounds equal bilaterally. No accessory muscle use. GASTROINTESTINAL: Abdomen soft, non-tender, nondistended. MUSCULOSKELETAL: No cyanosis, or edema. BACK: Nontender without obvious deformity. No CVA tenderness. Procedures None. A/P Problem List: (1) Small bowel obstruction, partial ICD Code: K56.69 Status: Acute (2) Pancreatic cancer ICD Code: C25.9 Status: Acute (3) Hypothyroidism ICD Code: E03.9 Status: Acute (4) history of atrial fibrillation Status: Acute Assessment and Plan 70-year-old female with Respiratory failure: Extubated febrile 11/16/16. Stable and continue bronchodilator when necessary Small bowel obstruction - Status post palliative stent placement - Management per GI. Gastric perforation - Status post surgical repair with G-tube/J-tube placement. - Continue with Levaquin and Flagyl - On J-tube feeding and increase rate accordingly Atrial fibrillation - Status post ablation - Rate controlled Pancreatic cancer - Patient's oncologist management - When medically stable may consider treatment with Gemcitabine and Abraxane Hypothyroidism - Synthroid DVT GI prophylaxis - Teds SCDs - Lovenox - Protonix PT to treat and antonioal Alfred Villarreal MD May 30, 2016 08:49
[2016-05-30] MEDS: FLUCONAZOLE 200 MG PREMIX BAG 100 ML IV SCH (10:57)
--- NOTE | 2016-05-30 11:20 | HHI.PR ---
Subjective Subjective Notes Up to chair c/o shortness of breath but thinks its just from moving from bed to chair Otherwise had a good night's rest Objective Vitals/I&O Vital Signs Date Time Temp Pulse Resp B/P Pulse Ox O2 Delivery O2 Flow Rate FiO2 05/30/16 09:22 96 05/30/16 08:00 Room Air 2.00 21 05/30/16 08:00 97.2 101 17 135/74 Labs Date/Time Procedure Status Source Growth 05/26/16 20:47 Gram Stain - Final Complete Fluid Peritoneal Fluid 05/26/16 20:47 Body Fluid Culture - Final Complete Maricruz Albicans 05/26/16 20:47 Fungal Smear - Final Resulted Fluid Peritoneal Fluid NO FUNGAL ELEMENTS SEEN. 05/26/16 20:47 Fungal Culture Resulted Fluid Peritoneal Fluid Pending 05/26/16 20:47 Acid Fast Stain - Final Resulted Fluid Peritoneal Fluid NO ACID FAST BACILLI SEEN 05/26/16 20:47 Mycobacterial Culture Resulted Fluid Peritoneal Fluid Pending Cardiovascular: Regular Lungs: Clear Abdomen: Other (midline incision (stapled) c/d/i; G tube to bill bag; J tube with TF; AUTUMN x2 with SS drainage ) Extremities: No edema A/P Assessment and Plan 70 year old female with stage IV pancreatic cancer with malignant gastric outlet obstruction -POD4 Ex laparotomy, oversew gastric perforation lesser curve of stomach; Gastrostomy tube placement; Jejunostomy feeding tube placement -s/p place duodenal stent placement -Increase TF to 40 at lunchtime and advance to a goal of 50 cc/hr as Mrs. Campbell can tolerate -Flush J tube with NS 30 ml Q8 -Continue DuoNebs -Dr. Umana following and discussed with family code status -NADER Zhao at bedside Attending Note - Dr. Alexander Discussion with family at bedside Wound clean and dry; nik intact Tolerating TF at 30ml/hr today AUTUMN drain outputs decreasing Cap G-tube trials; start sips clears since stent in place Discussed with Dr. Jean; he recommends low residue diet/full liquids with stent in place to avoid obstruction, when diet is advanced. The exam, history, and the medical decision-making described in the above note were completed with the assistance of the mid-level provider. I reviewed and agree with the findings presented. I attest that I had a [id number] encounter with the patient on the same day, and personally performed and documented my assessment and findings in the medical record. Abiola Zhong May 30, 2016 11:20 Jesse Alexander MD May 31, 2016 20:28
[2016-05-30] MEDS: oxyCODONE HCL ORAL CONC 20 MG/ML SYRINGE PO PRN ×2 (16:28→22:21)
[2016-05-30] MEDS: ONDANSETRON HCL 4 MG/2 ML VIAL IV PUSH PRN ×2 (16:28→22:21)
--- NOTE | 2016-05-30 20:13 | PD.ONC.PN ---
Subjective Subjective Remarks tolerating J tube feeding Objective Data Date Time Temp Pulse Resp B/P Pulse Ox O2 Delivery O2 Flow Rate FiO2 05/30/16 18:40 17 05/30/16 17:28 17 05/30/16 16:00 98.9 108 17 137/70 97 05/30/16 12:00 98.1 97 17 127/70 95 05/30/16 11:27 17 05/30/16 09:22 96 05/30/16 08:00 Room Air 2.00 21 05/30/16 08:00 97.2 101 17 135/74 97 05/30/16 04:00 98.2 90 20 134/80 98 05/30/16 00:00 98.4 92 20 130/80 97 05/29/16 21:15 Room Air 05/30/16 05/30/16 05/30/16 07:00 15:00 23:00 Intake Total 828 ml 1171 ml Output Total 800 ml 1030 ml Balance 28 ml 141 ml Result Diagram: 05/29/16 0347 05/29/16 034 Administered Medications Medications (Trade) Dose Ordered Sig/Kristie Route PRN Reason Start Time Stop Time Status Last Admin Dose Admin Sodium Chloride (NS 1000 ml Inj) 1,000 ml @ 50 mls/hr Q20H IV 05/24/16 10:14 05/30/16 08:02 IV Flush (NS Flush) 2 ml BID FLUSH 05/24/16 21:00 05/30/16 08:02 Bisacodyl (Dulcolax Supp) 10 mg DAILY PRN [place] CONSTIPATION 05/24/16 10:15 05/29/16 21:15 Enoxaparin Sodium 40 mg 40 mg Q24H SQ 05/24/16 20:00 05/29/16 21:15 Multivitamins 10 ml/Folic Acid 1 mg/Amino Acids/ Electrolytes/ Dextrose 1,010.2 ml @ 42 mls/hr Q24H IV 05/25/16 20:00 05/29/16 21:15 Fat Emulsion Intravenous (Liposyn Iii 20% Inj) 250 ml @ 10 mls/hr Q24H IV 05/25/16 20:00 05/29/16 21:24 Levothyroxine Sodium (Synthroid Inj) 62 mcg DAILY@06 IV PUSH 05/26/16 06:00 05/30/16 06:15 Fentanyl (Duragesic 50 Mcg Patch.72 Hr) 1 patch Q3D TD 05/26/16 12:00 05/29/16 12:35 Miscellaneous Information 1 Q3D T-DERMAL 05/29/16 12:00 05/29/16 12:00 Hydromorphone HCl (Dilaudid Pf Inj) 0.5 mg Q3HR PRN IV PUSH pain1-5 05/26/16 11:30 05/27/16 15:11 Hydromorphone HCl (Dilaudid Pf Inj) 1 mg Q3HR PRN IV PUSH pain6-10 05/26/16 11:30 05/30/16 10:57 Ondansetron HCl (Zofran Inj) 4 mg Q6HR PRN IV PUSH NAUSEA OR VOMITING 05/26/16 15:30 05/30/16 16:28 Pantoprazole Sodium 40 mg 40 mg Q24H IV PUSH 05/27/16 09:00 05/30/16 08:02 Fluconazole/ Sodium Chloride (Diflucan 200 Mg Premix Bag) 100 ml @ 100 mls/hr Q24H IV 05/28/16 11:15 06/07/16 11:15 05/30/16 10:57 Oxycodone HCl (Roxicodone Intensol Liq) 5 mg Q3H PRN PO PAIN SCALE 1 TO 7 05/28/16 12:00 05/30/16 16:28 Acetaminophen (Ofirmev Inj) 1,000 mg Q6H IV 05/28/16 13:00 05/31/16 07:01 05/30/16 18:10 Objective Remarks GENERAL: comfortable. not acutely ill SKIN: Warm and dry. HEAD: Normocephalic. EYES: No scleral icterus. No injection or drainage. NECK: Supple, trachea midline. No JVD or lymphadenopathy. LYMPHATIC: No adenopathy. CARDIOVASCULAR: Regular rate and rhythm without murmurs. RESPIRATORY: Breath sounds equal bilaterally. No accessory muscle use. GASTROINTESTINAL: Abdomen soft, minimal distention EXTREMITIES: No cyanosis, or edema. MUSCULOSKELETAL: Adequate muscle tone. NEUROLOGICAL: No obvious focal deficit. Awake, alert, and oriented x3. PSYCHIATRIC: Appropriate mood and affect; insight and judgment normal. Assessment/Plan Assessment 1: progressing nicely and hopefully will be able to try PO liquids in future after she demonstrates she can tolerate J tube feedings. IV sites are tender and if further IVs are needed would not hesitate to use port. Situation again discussed with patient and family and no decisions regarding therapy will be made for several weeks. blood counts are not a problem in spite of recent chemotherapy and should be checked again in several days. Nothing further to add and will see next week if still in hospital. Chiki Umana MD May 30, 2016 20:12
[2016-05-30] MEDS: ENOXAPARIN SODIUM 40 MG/0.4 ML SYRINGE SQ SCH (21:58)
[2016-05-30] MEDS: FAT EMULSION 20% INJ 250 ML (@10 mls/hr) IV SCH (21:58)
[2016-05-30] MEDS: CLINIMIX E 4.25/5 1000 mL- </= 42 mls/hr IV SCH ×3 (21:59)
[2016-05-31] VITALS: BP 111/66; PULSE 109; RESP 20; TEMP 98.9; O2SAT 96
[2016-05-31] MEDS: ACETAMINOPHEN 1000 MG/100 ML VIAL IV SCH ×2 (00:53→05:51)
[2016-05-31] MEDS: oxyCODONE HCL ORAL CONC 20 MG/ML SYRINGE PO PRN ×4 (02:07→23:47)
[2016-05-31] MEDS: RESP: ALBUTEROL 2.5 MG/IPRATROPIUM 0.5 MG NEB (SCH) NEB ×4 (03:35→20:54)
[2016-05-31] MEDS: SODIUM CHLOR 0.9% 1000 ML INJ 1,000 ML IV SCH (05:51)
[2016-05-31] MEDS: ONDANSETRON HCL 4 MG/2 ML VIAL IV PUSH PRN ×3 (06:01→21:53)
[2016-05-31] MEDS: LEVOTHYROXINE SODIUM 100 MCG VIAL IV PUSH SCH (06:20)
[2016-05-31 08:00] VITALS: BP 119/61; PULSE 99; RESP 17; TEMP 97.9; O2SAT 95
[2016-05-31] MEDS: SODIUM CHLORIDE 0.9% FLUSH 5 ML FLUSH FLUSH SCH ×2 (09:33→20:35)
[2016-05-31] MEDS: HYDROmorphone HCL PF 1 MG/ML VIAL IV PUSH PRN ×4 (09:33→21:52)
[2016-05-31] MEDS: PANTOPRAZOLE SODIUM 40 MG VIAL IV PUSH SCH (09:33)
--- NOTE | 2016-05-31 10:03 | HHI.PR ---
Subjective Subjective Notes Sitting up in bed, slowly taking in some jello. Had 2 BMs. Had G tube to drainage, not much came out. Had one episode of tachycardia to 124, now in upper 90s. multiple family members visiting. Objective Vitals/I&O Vital Signs Date Time Temp Pulse Resp B/P Pulse Ox O2 Delivery O2 Flow Rate FiO2 05/31/16 08:00 97.9 99 17 119/61 95 05/30/16 08:00 Room Air 2.00 21 Labs Date/Time Procedure Status Source Growth 05/26/16 20:47 Gram Stain - Final Complete Fluid Peritoneal Fluid 05/26/16 20:47 Body Fluid Culture - Final Complete Maricruz Albicans 05/26/16 20:47 Fungal Smear - Final Resulted Fluid Peritoneal Fluid NO FUNGAL ELEMENTS SEEN. 05/26/16 20:47 Fungal Culture Resulted Fluid Peritoneal Fluid Pending 05/26/16 20:47 Acid Fast Stain - Final Resulted Fluid Peritoneal Fluid NO ACID FAST BACILLI SEEN 05/26/16 20:47 Mycobacterial Culture Resulted Fluid Peritoneal Fluid Pending Cardiovascular: Regular Lungs: Clear Abdomen: Non-distended, Non-tender, Other (incision clean and dry, no drainage , no erythema. Drain and G and J tube sites clean and with minimal to no drainage. Drains pink tinged serous fluid.) Extremities: No edema, Perfused, SCD's on A/P Assessment and Plan POD 5 ex lap repair gastric perforation, G and J tubes. H/O stage 4 pancreatic cancer, duodenal stent. Monitor heart rate, return to normal meds Po when she is ready. She declines increase in diet. TF at 50. Bms liquid. On jevity. No changes today. Dneny Johnson MD May 31, 2016 10:03
--- NOTE | 2016-05-31 10:28 | HHI.PR ---
Subjective Remarks Follow-up small bowel obstruction/gastric perforation 05/29/16-patient seen and examined, no significant abdominal pain. Currently nothing by mouth and on tube feed. Afebrile 05/30/16-patient seen and examined, stable and afebrile. Reports pain around drain sites otherwise unremarkable. Tolerating tube feed. 05/31/16-patient seen and examined, had two BMs; currently on Clear liquid which she is tolerating. NO chest pain and afebrile Objective Vitals Vital Signs Date Time Temp Pulse Resp B/P Pulse Ox O2 Delivery O2 Flow Rate FiO2 05/31/16 08:00 97.9 99 17 119/61 95 05/31/16 07:54 16 05/31/16 00:00 98.9 109 20 111/66 96 05/30/16 20:00 98.9 124 20 116/77 94 05/30/16 18:40 17 05/30/16 16:00 98.9 108 17 137/70 97 05/30/16 12:00 98.1 97 17 127/70 95 05/30/16 11:27 17 I/O 05/30/16 05/30/16 05/30/16 05/31/16 05/31/16 05/31/16 07:00 15:00 23:00 07:00 15:00 23:00 Intake Total 828 ml 1171 ml 928 ml 922 ml Output Total 800 ml 1030 ml 1127 ml 835 ml 362 ml Balance 28 ml 141 ml -199 ml 87 ml -362 ml Intake Oral 0 ml 100 ml 0 ml 0 ml IV Total 138 ml 444 ml 492 ml 482 ml Tube Feeding 272 ml 246 ml TPN/PPN 332 ml 285 ml 351 ml 356 ml Lipid 86 ml 96 ml 85 ml 84 ml Output Urine Total 650 ml 700 ml 650 ml 750 ml Gastric Drainage Total 150 ml 367 ml 362 ml Drainage Total 150 ml 180 ml 110 ml 85 ml # Bowel Movements 1 1 Result Diagram: 05/29/16 0347 05/29/16346 Objective Remarks GENERAL: NAD SKIN: Warm and dry. HEAD: Normocephalic. EYES: No scleral icterus. No injection or drainage. NECK: Supple, trachea midline. No JVD or lymphadenopathy. CARDIOVASCULAR: Regular rate and rhythm without murmurs, gallops, or rubs. RESPIRATORY: Breath sounds equal bilaterally. No accessory muscle use. GASTROINTESTINAL: Abdomen soft, non-tender, nondistended. MUSCULOSKELETAL: No cyanosis, or edema. BACK: Nontender without obvious deformity. No CVA tenderness. Procedures None. A/P Problem List: (1) Small bowel obstruction, partial ICD Code: K56.69 Status: Acute (2) Pancreatic cancer ICD Code: C25.9 Status: Acute (3) Hypothyroidism ICD Code: E03.9 Status: Acute (4) history of atrial fibrillation Status: Acute Assessment and Plan 70-year-old female with Respiratory failure: Extubated febrile 20 11/16/16. Stable and continue bronchodilator when necessary Small bowel obstruction - Status post palliative stent placement - Management per GI. Gastric perforation - Status post surgical repair with G-tube/J-tube placement. - Continue with Levaquin and Flagyl - On J-tube feeding @50cc/hr + clear liquid Atrial fibrillation - Status post ablation - Rate controlled Pancreatic cancer - Patient's oncologist management - When medically stable may consider treatment with Gemcitabine and Abraxane Hypothyroidism - Synthroid DVT GI prophylaxis - Teds SCDs - Lovenox - Protonix PT to treat and antonioal Alfred Villarreal MD May 31, 2016 10:28
[2016-05-31 10:46] VITALS: O2SAT 98
[2016-05-31 12:00] VITALS: BP 127/69; PULSE 98; RESP 17; TEMP 98.4; O2SAT 98
[2016-05-31] MEDS: FLUCONAZOLE 200 MG PREMIX BAG 100 ML IV SCH (12:13)
[2016-05-31] MEDS: SODIUM CHLORIDE 0.9% FLUSH 5 ML FLUSH FLUSH PRN ×3 (12:15→18:28)
[2016-05-31 16:00] VITALS: BP 136/72; PULSE 102; RESP 18; TEMP 100; O2SAT 96
[2016-05-31 20:00] VITALS: BP 127/77; PULSE 113; RESP 20; TEMP 99.5; O2SAT 95
[2016-05-31] MEDS: ENOXAPARIN SODIUM 40 MG/0.4 ML SYRINGE SQ SCH (20:35)
[2016-05-31] MEDS: FAT EMULSION 20% INJ 250 ML (@10 mls/hr) IV SCH (20:36)
[2016-05-31] MEDS: CLINIMIX E 4.25/5 1000 mL- </= 42 mls/hr IV SCH ×3 (20:36)
[2016-06-01] VITALS: BP 120/80; PULSE 125; RESP 20; TEMP 99.4; O2SAT 94
[2016-06-01] MEDS: PROCHLORPERAZINE INJ 10 MG/2 ML VIAL IVS PRN (02:39)
[2016-06-01] MEDS: oxyCODONE HCL ORAL CONC 20 MG/ML SYRINGE PO PRN ×6 (02:40→21:32)
[2016-06-01] MEDS: SODIUM CHLOR 0.9% 1000 ML INJ 1,000 ML IV SCH ×2 (02:40→21:15)
[2016-06-01] MEDS: RESP: ALBUTEROL 2.5 MG/IPRATROPIUM 0.5 MG NEB (SCH) NEB (04:00)
[2016-06-01] MEDS: LEVOTHYROXINE SODIUM 100 MCG VIAL IV PUSH SCH (06:17)
[2016-06-01 07:26] LABS: AUTOMATED NEUTROPHIL # 4.4 TH/MM3 (1.8-7.7); BASOPHIL % 0.5 % (0.0-2.0); EOSINOPHIL # 0.1 TH/MM3 (0-0.4); EOSINOPHIL % 2.3 % (0.0-4.0); HEMATOCRIT 28.6 % (35.0-46.0); HEMO FLAGS DIFF FINAL; LYMPHOCYTE # 0.9 TH/MM3 (1.0-4.8); MEAN CELL VOLUME 86.8 FL (80.0-100.0); MEAN CORPUSCULAR HEMOGLOBIN 28.5 PG (27.0-34.0); MEAN CORPUSCULAR HGB CONC 32.8 % (32.0-36.0); MONO % 11.8 % (0.0-8.0); NEUT % 70.4 % (16.0-70.0); PLATELET COUNT 281 TH/MM3 (150-450); RED CELL DISTRIBUTION WIDTH 13.8 % (11.6-17.2); WHITE BLOOD COUNT 6.2 TH/MM3 (4.0-11.0)
[2016-06-01 07:47] LABS: POTASSIUM 3.2 MEQ/L (3.5-5.1)
[2016-06-01 08:00] VITALS: BP 130/72; PULSE 100; RESP 17; TEMP 98.6; O2SAT 97
[2016-06-01] MEDS: ONDANSETRON HCL 4 MG/2 ML VIAL IV PUSH PRN ×3 (08:34→22:36)
[2016-06-01] MEDS: SODIUM CHLORIDE 0.9% FLUSH 5 ML FLUSH FLUSH SCH ×2 (08:35→20:53)
[2016-06-01] MEDS: PANTOPRAZOLE SODIUM 40 MG VIAL IV PUSH SCH (08:35)
[2016-06-01] MEDS: HYDROmorphone HCL PF 1 MG/ML VIAL IV PUSH PRN (08:45)
[2016-06-01] MEDS: SODIUM CHLORIDE 0.9% FLUSH 5 ML FLUSH FLUSH PRN (08:46)
[2016-06-01 08:52] VITALS: PULSE 98
--- NOTE | 2016-06-01 09:43 | HHI.PR ---
Subjective Remarks Follow-up small bowel obstruction/gastric perforation 05/29/16-patient seen and examined, no significant abdominal pain. Currently nothing by mouth and on tube feed. Afebrile 05/30/16-patient seen and examined, stable and afebrile. Reports pain around drain sites otherwise unremarkable. Tolerating tube feed. 05/31/16-patient seen and examined, had two BMs; currently on Clear liquid which she is tolerating. NO chest pain and afebrile 06/01/16-patient seen and examined, complains of inadequate pain control. Reports increase drain outputs. Currently afebrile. States she was up and ambulated yesterday. Objective Vitals Vital Signs Date Time Temp Pulse Resp B/P Pulse Ox O2 Delivery O2 Flow Rate FiO2 06/01/16 08:52 98 06/01/16 08:00 98.6 100 17 130/72 97 06/01/16 00:00 99.4 125 20 120/80 94 05/31/16 20:00 99.5 113 20 127/77 95 05/31/16 16:00 100.0 102 18 136/72 96 05/31/16 14:53 18 05/31/16 13:13 16 05/31/16 12:00 98.4 98 17 127/69 98 05/31/16 10:46 98 21 I/O 05/31/16 05/31/16 05/31/16 06/01/16 06/01/16 06/01/16 07:00 15:00 23:00 07:00 15:00 23:00 Intake Total 922 ml 1284 ml 399 ml 0 ml Output Total 835 ml 687 ml 120 ml 575 ml Balance 87 ml 597 ml 279 ml -575 ml Intake Oral 0 ml 240 ml 0 ml 0 ml IV Total 482 ml 547 ml 176 ml TPN/PPN 356 ml 400 ml 180 ml Lipid 84 ml 97 ml 43 ml Output Urine Total 750 ml 400 ml Gastric Drainage Total 462 ml Drainage Total 85 ml 225 ml 120 ml 175 ml # Voids 1 # Bowel Movements 1 Result Diagram: 06/01/16 0647 06/01/16 0647 Objective Remarks GENERAL: NAD SKIN: Warm and dry. HEAD: Normocephalic. EYES: No scleral icterus. No injection or drainage. NECK: Supple, trachea midline. No JVD or lymphadenopathy. CARDIOVASCULAR: Regular rate and rhythm without murmurs, gallops, or rubs. RESPIRATORY: Breath sounds equal bilaterally. No accessory muscle use. GASTROINTESTINAL: Abdomen soft, non-tender, nondistended. MUSCULOSKELETAL: No cyanosis, or edema. BACK: Nontender without obvious deformity. No CVA tenderness. Procedures None. A/P Problem List: (1) Small bowel obstruction, partial ICD Code: K56.69 Status: Acute (2) Pancreatic cancer ICD Code: C25.9 Status: Acute (3) Hypothyroidism ICD Code: E03.9 Status: Acute (4) history of atrial fibrillation Status: Acute Assessment and Plan 70-year-old female with Respiratory failure: Extubated febrile 11/16/16. Stable and continue bronchodilator when necessary Small bowel obstruction - Status post palliative stent placement - Management per GI. -Adjust pain medication accordingly Gastric perforation - Status post surgical repair with G-tube/J-tube placement. - s/p Levaquin and Flagyl tx - On J-tube feeding @45cc/hr + clear liquid -On Low ISS with FSBG monitoring for Glycemic control Atrial fibrillation - Status post ablation - Rate controlled Pancreatic cancer - Patient's oncologist management - When medically stable may consider treatment with Gemcitabine and Abraxane Hypothyroidism - Synthroid DVT GI prophylaxis - Teds SCDs - Lovenox - Protonix PT to treat and antonioal Alfred Villarreal MD Jun 01, 2016 09:43
[2016-06-01] MEDS ORDERED: GLUCAGON 1 MG/ML VIAL OTHER PRN (09:45)
[2016-06-01] MEDS ORDERED: POTASSIUM CHLORIDE 25 MEQ EFFERVESCENT TAB PO ONE (09:45)
[2016-06-01] MEDS ORDERED: DEXTROSE 50% IN WATER 50 ML VIAL(D50) IV PUSH PRN (09:45)
[2016-06-01] MEDS ORDERED: POTASSIUM CHLOR 40 MEQ PREMIX 100 ML IV ONE (10:00)
[2016-06-01] MEDS ORDERED: METOPROLOL TARTRATE 50 MG TAB PO ONE (10:00)
--- NOTE | 2016-06-01 10:01 | HHI.PR ---
Subjective Subjective Notes nauseated and bloated. does not want to take any po. bowels are very loose. mild pain, drained 400 out of G tube Objective Vitals/I&O Vital Signs Date Time Temp Pulse Resp B/P Pulse Ox O2 Delivery O2 Flow Rate FiO2 06/01/16 08:52 98 06/01/16 08:00 98.6 17 130/72 97 05/31/16 10:46 21 05/30/16 08:00 Room Air 2.00 Labs Laboratory Tests Test 06/01/16 06:47 White Blood Count 6.2 Red Blood Count 3.30 Hemoglobin 9.4 Hematocrit 28.6 Mean Corpuscular Volume 86.8 Mean Corpuscular Hemoglobin 28.5 Mean Corpuscular Hemoglobin 32.8 Concent Red Cell Distribution Width 13.8 Platelet Count 281 Mean Platelet Volume 8.0 Neutrophils (%) (Auto) 70.4 Lymphocytes (%) (Auto) 15.0 Monocytes (%) (Auto) 11.8 Eosinophils (%) (Auto) 2.3 Basophils (%) (Auto) 0.5 Neutrophils # (Auto) 4.4 Lymphocytes # (Auto) 0.9 Monocytes # (Auto) 0.7 Eosinophils # (Auto) 0.1 Basophils # (Auto) 0.0 CBC Comment DIFF FINAL Differential Comment Sodium Level 140 Potassium Level 3.2 Chloride Level 99 Carbon Dioxide Level 31.0 Anion Gap 10 Blood Urea Nitrogen 12 Creatinine 0.46 Estimat Glomerular Filtration 135 Rate Random Glucose 133 Calcium Level 7.6 Cardiovascular: Regular Lungs: Clear Abdomen: Post-op tenderness, BS normal Narrative Exam j tube, G tube, and jps intact - clear yellow fluid. Wound Wound : Wound Location: Abdomen Appearance: Clean & Dry A/P Assessment and Plan s/p exp lap continue TF for now add gas x per pt request wants to resume her metoprolol. pharmacy says it can go down feeding tube Mathew Quigley MD Jun 01, 2016 10:01
[2016-06-01] MEDS: INSULIN ASPART SUPPLEMENTAL SCALE SQ SCH ×3 (11:00→21:00)
[2016-06-01] MEDS: FLUCONAZOLE 200 MG PREMIX BAG 100 ML IV SCH (11:15)
[2016-06-01] MEDS: SIMETHICONE SUSP DROPS 40 MG/0.6 ML 30 ML BTL PO PRN ×2 (11:29→18:45)
[2016-06-01 12:00] VITALS: BP 139/67; PULSE 97; RESP 17; TEMP 96.3; O2SAT 97
[2016-06-01] MEDS: REMOVE OLD PATCH T-DERMAL SCH (12:00)
[2016-06-01] MEDS: fentaNYL 50 MCG/HR PATCH TD SCH (12:00)
[2016-06-01 16:00] VITALS: BP 106/55; PULSE 96; RESP 17; TEMP 98; O2SAT 96
[2016-06-01 18:59] LABS: BICARBONATE 28.7 MEQ/L (21.0-32.0); POTASSIUM 4.3 MEQ/L (3.5-5.1)
[2016-06-01 20:00] VITALS: BP 103/56; PULSE 102; RESP 20; TEMP 98; O2SAT 97
[2016-06-01] MEDS: FAT EMULSION 20% INJ 250 ML (@10 mls/hr) IV SCH (20:52)
[2016-06-01] MEDS: CLINIMIX E 4.25/5 1000 mL- </= 42 mls/hr IV SCH ×3 (20:52)
[2016-06-01] MEDS: ENOXAPARIN SODIUM 40 MG/0.4 ML SYRINGE SQ SCH (21:32)
--- NOTE | 2016-06-01 21:32 | MP ---
cc: REECE AMADOR M.D.,[facility] GIBSON DATE OF SURGERY 05/26/2016 PROCEDURE 1. Exploratory laparotomy with over sew of gastric perforation on the lesser curve of the stomach. 2. Gastrostomy tube placement. 3. Jejunostomy feeding tube placement. FINDINGS A gastric perforation lesser curve of stomach, stent intact across tumor with no perforation. SPECIMEN Gram stain C&S of abdominal fluid. ESTIMATED BLOOD LOSS 100 ml. FLUIDS 1350 ml crystalloid COMPLICATIONS None. DRAINS AUTUMN times two. PROCEDURE IN DETAIL The patient was taken to the operating room and placed on the operating table in the supine position. After adequate level of general endotracheal anesthesia was achieved, the abdomen was prepped and draped in the usual fashion. Time-out was taken confirming the correct patient, site and procedure to be performed. Incision was made in the umbilicus and carried through the fascia sharply. Air was expelled and bloody fluid was encountered. This was cultured and at this point the bloody fluid was aspirated. Careful examination of the abdomen revealed some retroperitoneal bubbles. The duodenum was then mobilized with a Dania maneuver. The stent was palpated and it did not appear that there was any perforation in the duodenum. Careful examination of the stomach revealed a small perforation in the lesser curve of the stomach. At this point it was felt that the patient was best served by over sew of the gastric perforation, placement of a gastrostomy tube and placement of a jejunostomy feeding tube. The stomach was oversewn with 3-0 silk sutures in a longitudinal fashion. Multiple sutures were placed to secure the repair. Following this, a 24-Slovak Malecot tube was brought up and a small gastrotomy was made in the fundus. Two concentric pursestring sutures were placed around this with 2-0 chromic and 2-0 silk suture. The Malecot catheter was placed into the stomach and both sutures cinched down. The gastrostomy tube was brought out via separate stab incision in the left upper quadrant and the stomach was fixed to the peritoneum at five separate points with 3-0 silk suture. The gastrostomy tube was fixed to the skin with 2-0 silk suture. Attention was then turned to the feeding tube and a red rubber feeding tube was placed approximately 40 cm distal to the ligament of Treitz. A small jejunotomy was made and the feeding tube was placed after cutting additional holes. The tube was secured with a 3-0 chromic suture and a Whipple tunnel created with 3-0 silk suture ligature. The jejunostomy feeding tube was brought out via separate stab incision in the right midabdomen and the jejunum fixed to the anterior abdominal wall at two points with 3-0 silk suture so as to prevent torsion. The jejunostomy feeding tube was fixed to the skin with a silk suture and two Uriah-Ramirez drains were then placed with the first in the right upper quadrant near the first portion of the duodenum, and the second placed at the ligament of Treitz coursing up to the stomach near where the perforation had occurred. Both of these were fixed to the skin with 3-0 nylon suture. The abdomen was irrigated and then closed with #1 PDS suture in a running fashion. The skin was closed with nik. The patient was left intubated and taken back to the recovery room hemodynamically stable. She remained intubated due to crepitus in the neck and swelling in the face that was present prior to the surgical procedure. The patient was felt to best be served by remaining intubated to protect her airway. MD JODI Peguero/KK /8:52 PM /9:25 PM MTDD
[2016-06-02] MEDS: HYDROmorphone HCL PF 1 MG/ML VIAL IV PUSH PRN ×2 (00:36→16:27)
[2016-06-02 02:30] VITALS: BP 110/64; PULSE 106; RESP 18; TEMP 99; O2SAT 96
[2016-06-02] MEDS: oxyCODONE HCL ORAL CONC 20 MG/ML SYRINGE PO PRN ×7 (03:06→22:28)
[2016-06-02] MEDS: SIMETHICONE SUSP DROPS 40 MG/0.6 ML 30 ML BTL PO PRN ×2 (03:07→10:51)
[2016-06-02] MEDS: INSULIN ASPART SUPPLEMENTAL SCALE SQ SCH ×4 (06:17→20:14)
[2016-06-02] MEDS: LEVOTHYROXINE SODIUM 100 MCG VIAL IV PUSH SCH (06:23)
[2016-06-02 08:00] VITALS: BP 104/64; PULSE 106; RESP 14; TEMP 97.3; O2SAT 95
[2016-06-02] MEDS: SODIUM CHLORIDE 0.9% FLUSH 5 ML FLUSH FLUSH SCH ×2 (08:45→19:51)
[2016-06-02] MEDS: PANTOPRAZOLE SODIUM 40 MG VIAL IV PUSH SCH (08:45)
[2016-06-02] MEDS: ONDANSETRON HCL 4 MG/2 ML VIAL IV PUSH PRN ×2 (08:47→15:23)
--- NOTE | 2016-06-02 11:11 | HHI.PR ---
Subjective Remarks in no acute distress. however is complaining of abdominal pain. no emesis or fever. d/w the RN. Objective Vitals Vital Signs Date Time Temp Pulse Resp B/P Pulse Ox O2 Delivery O2 Flow Rate FiO2 06/02/16 09:51 20 06/02/16 08:00 97.3 106 14 104/64 95 06/02/16 02:30 99.0 106 18 110/64 96 06/01/16 20:00 98.0 102 20 103/56 97 06/01/16 16:00 98.0 96 17 106/55 96 06/01/16 13:22 16 06/01/16 12:00 96.3 97 17 139/67 97 I/O 06/01/16 06/01/16 06/01/16 06/02/16 06/02/16 06/02/16 07:00 15:00 23:00 07:00 15:00 23:00 Intake Total 0 ml 1336 ml 0 ml 1584 ml Output Total 575 ml 385 ml 250 ml 60 ml Balance -575 ml 951 ml 0 ml 1334 ml -60 ml Intake Oral 0 ml 0 ml 0 ml 0 ml Oral Supplement 368 ml IV Total 530 ml 777 ml TPN/PPN 354 ml 652 ml Lipid 84 ml 155 ml Output Urine Total 400 ml 200 ml Gastric Drainage Total 25 ml 100 ml Drainage Total 175 ml 160 ml 150 ml 60 ml # Voids 1 1 # Bowel Movements 0 Result Diagram: 06/01/16 0647 06/01/16 1700 Imaging Last Impressions GI Procedure 05/26/16 0000 Signed Impressions: Service Date/Time: Thursday, May 26, 2016 17:29 - CONCLUSION: Intestinal stent placement as described above. Blaine Kowalski MD Chest X-Ray 05/26/16 0000 Signed Impressions: Service Date/Time: Thursday, May 26, 2016 21:29 - CONCLUSION: Status post intubation with endotracheal tube in appropriate position. Acute extensive subcutaneous emphysema. No evidence of pneumothorax. Bilateral airspace disease as described. Blaine Kowalski MD Abdomen/Pelvis CT 05/24/16 0000 Signed Impressions: Service Date/Time: Tuesday, May 24, 2016 08:51 - CONCLUSION: 1. Pancreatic mass again identified, measuring larger than on the comparison study.. 2. New gastric distention and diffuse dilatation of the duodenum with apparent transition point in the distal third portion of the duodenum. The transition point is in the region of soft tissue mass extending from the pancreas to the retroperitoneal region. More distally the small bowel is normal diameter. Finding suggest at least partial obstruction of the duodenum. 3. New diffuse intrahepatic and extra hepatic biliary ductal dilatation. No discrete mass is identified in the region of the distal common duct. The pancreatic duct is also now mildly prominent diffusely measuring approximately 4 mm. 4. Small pleural effusions. Hunter Pagan MD Objective Remarks GENERAL: This is a well-nourished, well-developed patient, in no apparent distress. CARDIOVASCULAR: Regular rate and regular rhythm without murmurs, gallops, or rubs. RESPIRATORY: Clear to auscultation. Breath sounds equal bilaterally. No wheezes , rales, or rhonchi. GASTROINTESTINAL: Abdomen soft, non-tender, site of surgery is clean. MUSCULOSKELETAL: Extremities without clubbing, cyanosis, or edema. NEURO: Alert & Oriented x4 to person, place, time, situation. Moves all ext x4 Procedures None. Medications and IVs Current Medications Ondansetron HCl 4 mg 4 mg ONCE ONCE IVP Last administered on 05/24/16 07:28; Start 05/24/16 at 07:15; Stop 05/24/16 at 07:18; Status DC Sodium Chloride (NS 1000 ml Inj) 1,000 ml @ 1,000 mls/hr Q1H IV Last administered on 05/24/16 07:28; Start 05/24/16 at 07:14; Stop 05/24/16 at 08:13 ; Status DC IV Flush (NS Flush) 2 ml UNSCH PRN IVF FLUSH AFTER USING IV ACCESS Last administered on 05/24/16 09:56; Start 05/24/16 at 07:15; Stop 05/24/16 at 17:43 ; Status DC Morphine Sulfate (Morphine Inj) 5 mg ONCE ONCE IV PUSH Last administered on 07:28; Start 05/24/16 at 07:15; Stop 05/24/16 at 07:18; Status DC Promethazine HCl (Phenergan Inj) 25 mg ONCE ONCE IM ; Start 05/24/16 at 08:15; Stop 05/24/16 at 08:57; Status DC Promethazine HCl (Phenergan Supp) 25 mg ONCE ONCE RECTAL Last administered on 05/24/16 09:25; Start 05/24/16 at 09:00; Stop 05/24/16 at 09:01; Status DC Iohexol (Omnipaque 350 Inj) 96 ml STK-MED ONCE IV Last administered on 09:14; Start 05/24/16 at 09:14; Stop 05/24/16 at 09:15; Status DC Hydromorphone HCl (Dilaudid Pf Inj) 0.5 mg ONCE ONCE IV PUSH Last administered on 05/24/16 09:56; Start 05/24/16 at 09:45; Stop 05/24/16 at 09:46 ; Status DC Lidocaine HCl 5 ml 5 ml ONCE ONCE TOPICAL Last administered on 05/24/16 10:32 ; Start 05/24/16 at 10:00; Stop 05/24/16 at 10:20; Status DC Potassium Chloride 100 ml @ 50 mls/hr ONCE ONCE IV Last administered on 11:31; Start 05/24/16 at 10:00; Stop 05/24/16 at 11:59; Status DC Sodium Chloride 1,000 ml @ 100 mls/hr Q10H IV Last administered on 05/24/16 11:31; Start 05/24/16 at 10:00; Stop 05/24/16 at 17:44; Status DC Sodium Chloride (NS 1000 ml Inj) 1,000 ml @ 50 mls/hr Q20H IV Last administered on 06/01/16 21:15; Start 05/24/16 at 10:14 IV Flush (NS Flush) 2 ml UNSCH PRN FLUSH FLUSH AFTER USING IV ACCESS Last administered on 06/01/16 08:46; Start 05/24/16 at 10:15 IV Flush (NS Flush) 2 ml BID FLUSH Last administered on 06/01/16 08:35; Start 05/24/16 at 21:00 Acetaminophen (Tylenol) 650 mg Q4H PRN PO fever, headache, pain 1-4; Start at 10:15; Stop 05/28/16 at 11:13; Status DC Ondansetron HCl (Zofran Inj) 4 mg Q6H PRN IVP NAUSEA OR VOMITING; Start at 10:15; Stop 05/24/16 at 15:39; Status DC Bisacodyl (Dulcolax Supp) 10 mg DAILY PRN ID CONSTIPATION Last administered on 05/29/16 21:15; Start 05/24/16 at 10:15 Magnesium Hydroxide (Milk Of Magnesia Liq) 30 ml Q12H PRN PO CONSTIPATION; Start 05/24/16 at 10:15 Enoxaparin Sodium (Lovenox Inj) 40 mg Q24H SQ ; Start 05/24/16 at 10:15; Stop at 20:02; Status DC Naloxone HCl (Narcan Inj) 0.4 mg UNSCH PRN IV SEE LABEL COMMENTS; Start at 10:15 Prochlorperazine Edisylate (Compazine Inj) 10 mg Q6H PRN IM NAUSEA OR VOMITING ; Start 05/24/16 at 10:15; Stop 05/26/16 at 12:33; Status DC Hydromorphone HCl (Dilaudid Pf Inj) 1 mg ONCE ONCE IV PUSH Last administered on 05/24/16 13:02; Start 05/24/16 at 13:00; Stop 05/24/16 at 13:01; Status DC Hydromorphone HCl (Dilaudid Pf Inj) 0.5 mg Q4H PRN IV PUSH PAIN SCALE 5 TO 10 Last administered on 05/26/16 08:14; Start 05/24/16 at 13:00; Stop 05/26/16 at 11:34; Status DC Ondansetron HCl (Zofran Inj) 4 mg Q6H IVP Last administered on 05/25/16 09:18 ; Start 05/24/16 at 16:00; Stop 05/25/16 at 13:37; Status DC Fentanyl (Duragesic 25 Mcg Patch.72 Hr) 1 patch ONCE ONCE TD Last administered on 05/24/16 16:31; Start 05/24/16 at 16:00; Stop 05/24/16 at 16:01 ; Status DC Miscellaneous Information 1 1 Q3D TD ; Start 05/27/16 at 09:00; Stop 05/27/16 at 09:00; Status DC Cefazolin Sodium/ Dextrose 50 ml @ 100 mls/hr Q8H IV ; Start 05/24/16 at 17:45 ; Stop 05/24/16 at 18:28; Status DC Levofloxacin/ Dextrose 150 ml @ 100 mls/hr Q24H IV Last administered on 20:01; Start 05/24/16 at 20:00; Stop 05/28/16 at 11:13; Status DC Metronidazole (Flagyl 500 Mg Inj) 100 ml @ 100 mls/hr Q8H IV Last administered on 05/28/16 03:39; Start 05/24/16 at 20:00; Stop 05/28/16 at 11:14; Status DC Enoxaparin Sodium (Lovenox Inj) 40 mg Q24H SQ Last administered on 06/01/16 21: 32; Start 05/24/16 at 20:00 Ondansetron HCl 6 mg 6 mg Q6H IVP Last administered on 05/26/16 08:13; Start 05/25/16 at 14:00; Stop 05/26/16 at 13:59; Status DC Multivitamins 10 ml/Folic Acid 1 mg/Amino Acids/ Electrolytes/ Dextrose 1,010.2 ml @ 42 mls/hr Q24H IV Last administered on 06/01/16 20:52; Start 05/25/16 at 20:00 Fat Emulsion Intravenous 250 ml @ 10 mls/hr Q24H IV Last administered on 20:52; Start 05/25/16 at 20:00 Potassium Chloride (KCl 20 Meq Premix Inj) 100 ml @ 50 mls/hr Q2H IV Last administered on 05/26/16 11:57; Start 05/26/16 at 08:00; Stop 05/26/16 at 11:59 ; Status DC Levothyroxine Sodium 62 mcg 62 mcg DAILY@06 IV PUSH Last administered on 06:23; Start 05/26/16 at 06:00 Potassium Chloride 100 ml @ 50 mls/hr Q2H IV Last administered on 05/26/16 15 :16; Start 05/26/16 at 12:00; Stop 05/26/16 at 15:59; Status DC Potassium Chloride (KCl 20 Meq Premix Inj) 100 ml @ 50 mls/hr Q2H IV ; Start at 18:00; Stop 05/26/16 at 21:59; Status DC Fentanyl (Duragesic 50 Mcg Patch.72 Hr) 1 patch Q3D TD Last administered on 12:00; Start 05/26/16 at 12:00 Miscellaneous Information 1 Q3D T-DERMAL Last administered on 06/01/16 12:00; Start 05/29/16 at 12:00 Hydromorphone HCl (Dilaudid Pf Inj) 0.5 mg Q3HR PRN IV PUSH pain1-5 Last administered on 05/27/16 15:11; Start 05/26/16 at 11:30 Hydromorphone HCl (Dilaudid Pf Inj) 1 mg Q3HR PRN IV PUSH pain6-10 Last administered on 06/02/16 00:36; Start 05/26/16 at 11:30 Promethazine HCl (Phenergan Supp) 12.5 mg ONCE ONCE RECTAL ; Start 05/26/16 at 11:45; Stop 05/26/16 at 11:48; Status DC Prochlorperazine Edisylate (Compazine Inj) 10 mg Q6H PRN IVS NAUSEA OR VOMITING Last administered on 06/01/16 02:39; Start 05/26/16 at 12:45 Ondansetron HCl (Zofran Inj) 4 mg Q6HR PRN IV PUSH NAUSEA OR VOMITING Last administered on 06/02/16 08:47; Start 05/26/16 at 15:30 Miscellaneous Information ALL NURSING DEPARTME... UNSCH PRN XX SEE LABEL COMMENTS; Start 05/26/16 at 17:58; Stop 05/27/16 at 17:57; Status DC Fluconazole/ Sodium Chloride 200 ml @ 100 mls/hr NOW ONCE IV ; Start 05/26/16 at 20:00; Stop 05/26/16 at 21:59; Status DC Fluconazole/ Sodium Chloride 200 ml @ 100 mls/hr NOW ONCE IV Last administered on 05/26/16 19:44; Start 05/26/16 at 19:30; Stop 05/26/16 at 21:29 ; Status Cancel Sodium Chloride 154 meq/Dextrose 1,038.5 ml @ 30 mls/hr Q24H IV ; Start at 21:30; Stop 05/27/16 at 08:39; Status DC Propofol (Diprivan 1000 Mg/100ml Inj) 100 ml @ As Directed STK-MED ONCE .ROUTE ; Start 05/26/16 at 21:10; Stop 05/26/16 at 21:11; Status DC Fentanyl Citrate (fentaNYL INJ) 250 mcg STK-MED ONCE .ROUTE ; Start 05/26/16 at 21:30; Stop 05/26/16 at 21:31; Status DC Fentanyl Citrate (fentaNYL INJ) 250 mcg STK-MED ONCE .ROUTE ; Start 05/26/16 at 21:30; Stop 05/26/16 at 21:31; Status DC Morphine Sulfate (*morphine INJ PERIprocedure ONLY) 8 mg STK-MED ONCE .ROUTE ; Start 05/26/16 at 21:38; Stop 05/26/16 at 21:39; Status DC Enalaprilat (*VASOTEC INJ PERIprocedural Use ONLY) 1.25 mg STK-MED ONCE .ROUTE ; Start 05/26/16 at 21:38; Stop 05/26/16 at 21:39; Status DC Labetalol HCl 100 mg 100 mg STK-MED ONCE .ROUTE ; Start 05/26/16 at 21:38; Stop 05/26/16 at 21:39; Status DC Propofol (Diprivan 1000 Mg/100ml Inj) 100 ml @ 0 mls/hr TITRATE IV Last administered on 05/27/16 06:15; Start 05/26/16 at 22:00; Stop 05/30/16 at 16:32 ; Status DC Morphine Sulfate (*morphine INJ PERIprocedure ONLY) 8 mg STK-MED ONCE .ROUTE ; Start 05/26/16 at 22:39; Stop 05/26/16 at 22:40; Status DC Morphine Sulfate (Morphine Inj) 8 mg STK-MED ONCE IV PUSH Last administered on 05/26/16 21:40; Start 05/26/16 at 21:40; Stop 05/27/16 at 01:31; Status DC Labetalol HCl (Trandate Inj) 100 mg STK-MED ONCE IVP Last administered on 21:41; Start 05/26/16 at 21:41; Stop 05/27/16 at 01:31; Status DC Enalaprilat (Vasotec Inj) 1.25 mg STK-MED ONCE IV PUSH Last administered on 21:55; Start 05/26/16 at 21:55; Stop 05/27/16 at 01:31; Status DC Morphine Sulfate 8 mg 8 mg STK-MED ONCE IV PUSH Last administered on 05/26/16 22:40; Start 05/26/16 at 22:40; Stop 05/27/16 at 01:31; Status DC Potassium Chloride 100 ml @ 50 mls/hr Q2H IV Last administered on 05/27/16 03 :45; Start 05/27/16 at 01:45; Stop 05/27/16 at 05:44; Status DC Potassium Chloride 100 ml @ 50 mls/hr Q2H PRN IV For Potassium 2.8 - 3.2 mEq/L ; Start 05/27/16 at 05:15; Stop 05/30/16 at 10:19; Status DC Potassium Chloride (KCl 20 Meq Premix Inj) 100 ml @ 50 mls/hr Q2H PRN IV For Potassium 2.8 - 3.2 mEq/L Last administered on 05/28/16 06:16; Start 05/27/16 at 05:15; Stop 05/30/16 at 10:19; Status DC Potassium Chloride 40 meq 40 meq UNSCH PRN PO/TUBE For Potassium 3.3 - 3.5 mEq/ L; Start 05/27/16 at 05:15; Stop 05/30/16 at 10:19; Status DC Potassium Chloride 100 ml @ 25 mls/hr UNSCH PRN IV For Potassium 3.3 - 3.5 mEq /L; Start 05/27/16 at 05:15; Stop 05/30/16 at 10:19; Status DC Potassium Chloride 100 ml @ 50 mls/hr Q2H PRN IV For Potassium 3.3 - 3.5 mEq/L ; Start 05/27/16 at 05:15; Stop 05/30/16 at 10:19; Status DC Magnesium Sulfate/ Sodium Chloride (Magnesium Sulfate Inj/NS Inj) 100 ml @ 50 mls/hr UNSCH PRN IV For Magnesium 0.9 - 1.1 mg/dL; Start 05/27/16 at 05:15; Stop 05/30/16 at 10:19; Status DC Magnesium Oxide 800 mg 800 mg UNSCH PRN PO For Magnesium 1.2 - 1.6 mg/dL; Start 05/27/16 at 05:15; Stop 05/30/16 at 10:19; Status DC Magnesium Sulfate/ Sodium Chloride (Magnesium Sulfate Inj/NS Inj) 100 ml @ 50 mls/hr UNSCH PRN IV For Magnesium 1.2 - 1.6 mg/dL; Start 05/27/16 at 05:15; Stop 05/30/16 at 10:19; Status DC Potassium Phosphate 2000 mg 2,000 mg Q4H PRN PO For Phosphorus < 2.5 mg/dL; Start 05/27/16 at 05:15; Stop 05/30/16 at 10:19; Status DC Sodium Phosphate/ Sodium Chloride (Sodium Phosphate Inj/NS 250 ml Inj) 250 ml @ 42 mls/hr UNSCH PRN IV For Phosphorus < 2.5 mg/dL; Start 05/27/16 at 05:15; Stop 05/30/16 at 10:19; Status DC Potassium Chloride (KCl 40 Meq/30 ml Liq) 40 meq UNSCH PRN PO/TUBE SEE LABEL COMMENTS; Start 05/27/16 at 05:15; Stop 05/30/16 at 10:19; Status DC Potassium Phosphate 2000 mg 2,000 mg UNSCH PRN PO/TUBE SEE LABEL COMMENTS; Start 05/27/16 at 05:15; Stop 05/30/16 at 10:19; Status DC Potassium Phosphate/Sodium Chloride (Potassium Phosphate Inj/NS 250 ml Inj) 260 ml @ 42 mls/hr UNSCH PRN IV SEE LABEL COMMENTS; Start 05/27/16 at 05:15; Stop 05/30/16 at 10:19; Status DC Pantoprazole Sodium (Protonix Inj) 40 mg Q24H IV PUSH Last administered on t 08:45; Start 05/27/16 at 09:00 Propofol (Diprivan 200 Mg/20 ml Inj) 200 mg STK-MED ONCE IV ; Start 05/26/16 at 12:00; Stop 05/27/16 at 09:06; Status DC Ondansetron HCl 4 mg 4 mg STK-MED ONCE IV PUSH ; Start 05/26/16 at 12:00; Stop 05/27/16 at 09:06; Status DC Lactated Ringer's 2,000 ml @ As Directed STK-MED ONCE IV ; Start 05/26/16 at 12 :00; Stop 05/27/16 at 09:06; Status DC Sodium Chloride (NS 500 ml Inj) 500 ml @ As Directed STK-MED ONCE IV ; Start at 12:00; Stop 05/27/16 at 09:06; Status DC Propofol (Diprivan 200 Mg/20 ml Inj) 200 mg STK-MED ONCE IV ; Start 05/26/16 at 18:00; Stop 05/27/16 at 16:53; Status DC Labetalol HCl (Trandate Inj) 100 mg STK-MED ONCE .ROUTE Last administered on 18:05; Start 05/27/16 at 17:51; Stop 05/27/16 at 17:52; Status DC Labetalol HCl (Trandate Inj) 20 mg Q2H PRN IV SBP > 160 MMHG; Start 05/27/16 at 18:30 Potassium Chloride (KCl 40 Meq/30 ml Liq) 40 meq NOW ONCE PO Last administered on 05/28/16 07:54; Start 05/28/16 at 07:30; Stop 05/28/16 at 07:31; Status DC Potassium Chloride (KCl 40 Meq/30 ml Liq) 40 meq DAILY@12 PO Last administered on 05/28/16 11:32; Start 05/28/16 at 12:00; Stop 05/28/16 at 12:01; Status DC Albuterol/ Ipratropium 1 ampule 1 ampule Q6HR NEB NEB Last administered on 05/29 17:25; Start 05/28/16 at 10:00; Stop 06/01/16 at 09:38; Status DC Fluconazole/ Sodium Chloride (Diflucan 200 Mg Premix Bag) 100 ml @ 100 mls/hr Q24H IV Last administered on 06/01/16 11:15; Start 05/28/16 at 11:15; Stop 06/07 at 11:15 Oxycodone HCl (Roxicodone Intensol Liq) 5 mg Q3H PRN PO PAIN SCALE 1 TO 7 Last administered on 06/01/16 06:39; Start 05/28/16 at 12:00; Stop 06/01/16 at 09:40; Status DC Acetaminophen (Ofirmev Inj) 1,000 mg Q6H IV Last administered on 05/31/16 05:51 ; Start 05/28/16 at 13:00; Stop 05/31/16 at 07:01; Status DC Oxycodone HCl (Roxicodone Intensol Liq) 5 mg Q2H PRN PO PAIN SCALE 1 TO 7 Last administered on 06/02/16 08:45; Start 06/01/16 at 11:00 Dextrose (D50w (Vial) Inj) 25 ml UNSCH PRN IV PUSH HYPOGLYCEMIA-SEE COMMENTS; Start 06/01/16 at 09:45 Glucagon (Glucagon Inj) 1 mg UNSCH PRN OTHER HYPOGLYCEMIA-SEE COMMENTS; Start 06/01/16 at 09:45 Insulin Aspart (NovoLOG SUPPLEMENTAL SCALE) 1 ACHS SLIDING SCALE SQ ; Start 06/01/16 at 11:00 Potassium Bicarb/ Potassium Chloride (K-Lyte Cl Eff) 50 meq ONCE ONCE PO Last administered on 06/01/16 09:45; Start 06/01/16 at 09:45; Stop 06/01/16 at 09: 49; Status DC Simethicone (Simethicone Liq (Drops)) 40 mg QID PRN PO CRAMPS Last administered on 06/02/16 03:07; Start 06/01/16 at 10:00 Metoprolol Tartrate 50 mg 50 mg ONCE ONCE PO Last administered on 06/01/16 10: 00; Start 06/01/16 at 10:00; Stop 06/01/16 at 10:01; Status DC Potassium Chloride (KCl 40 Meq Premix Inj) 100 ml @ 25 mls/hr BOLUS ONCE IV Last administered on 06/01/16 10:00; Start 06/01/16 at 10:00; Stop 06/01/16 at 13: 59; Status DC A/P Assessment and Plan A/P Respiratory failure: Extubated febrile 11/16/16. Stable and continue bronchodilator when necessary Small bowel obstruction - Status post palliative stent placement - Management per GI. -Adjust pain medication accordingly Gastric perforation - Status post surgical repair with G-tube/J-tube placement. - s/p Levaquin and Flagyl tx - On J-tube feeding + clear liquid -continue pain control -management per surgery -On Low ISS with FSBG monitoring for Glycemic control Atrial fibrillation - Status post ablation - Rate controlled Pancreatic cancer - Patient's oncologist management - When medically stable may consider treatment with Gemcitabine and Abraxane Hypothyroidism - Synthroid DVT GI prophylaxis - Teds SCDs - Lovenox - Protonix PT to treat and Jennifer Sanchez MD Jun 02, 2016 11:11
[2016-06-02] MEDS: FLUCONAZOLE 200 MG PREMIX BAG 100 ML IV SCH (11:43)
[2016-06-02 12:00] VITALS: BP 132/63; PULSE 105; RESP 17; TEMP 97.4; O2SAT 98
[2016-06-02] MEDS: BISACODYL 10 MG SUPP PR PRN (13:44)
[2016-06-02] MEDS: METOPROLOL TARTRATE 25 MG TAB PEG SCH (15:17)
[2016-06-02 16:00] VITALS: BP 142/71; PULSE 101; RESP 15; TEMP 98.3; O2SAT 97
[2016-06-02] MEDS: SODIUM CHLOR 0.9% 1000 ML INJ 1,000 ML IV SCH (16:31)
--- NOTE | 2016-06-02 16:40 | HHI.PR ---
Subjective Subjective Notes Ambulating in room with sister Objective Vitals/I&O Vital Signs Date Time Temp Pulse Resp B/P Pulse Ox O2 Delivery O2 Flow Rate FiO2 06/02/16 12:00 97.4 105 17 132/63 98 05/31/16 10:46 21 05/30/16 08:00 Room Air 2.00 Labs Laboratory Tests Test 06/01/16 17:00 Sodium Level 139 Potassium Level 4.3 Chloride Level 102 Carbon Dioxide Level 28.7 Anion Gap 8 Blood Urea Nitrogen 12 Creatinine 0.40 Estimat Glomerular Filtration 159 Rate Random Glucose 124 Calcium Level 7.6 Cardiovascular: Regular Lungs: Clear Abdomen: Other (midline incision; G and J tube without complications ; AUTUMN x2 with SS drainage) Extremities: No edema A/P Assessment and Plan 70 year old female with stage IV pancreatic cancer with malignant obstruction 4th portion of duodenum -POD7 Ex laparotomy, oversew gastric perforation lesser curve of stomach; Gastrostomy tube placement; Jejunostomy feeding tube placement -s/p duodenal stent placement -TF at 45; increase to 50 cc/hr as tolerated -Flush J tube with NS 30 ml Q8 -Continue DuoNebs -Dr. Umana following and discussed with family code status Attending Note - Dr. Alexander Abdomen soft; nik intact AUTUMN outputs serous; >70ml/shift Wean PPN and lipids Probable d/c home on J-tube feeding The exam, history, and the medical decision-making described in the above note were completed with the assistance of the mid-level provider. I reviewed and agree with the findings presented. I attest that I had a [id number] encounter with the patient on the same day, and personally performed and documented my assessment and findings in the medical record. Abiola Zhong Jun 02, 2016 16:40 Jesse Alexander MD Jun 02, 2016 18:45
[2016-06-02] MEDS: FAT EMULSION 20% INJ 250 ML (@10 mls/hr) IV SCH (19:49)
[2016-06-02] MEDS: ENOXAPARIN SODIUM 40 MG/0.4 ML SYRINGE SQ SCH (19:50)
[2016-06-02] MEDS: CLINIMIX E 4.25/5 1000 mL- </= 42 mls/hr IV SCH ×3 (19:50)
[2016-06-02 20:00] VITALS: BP 125/60; PULSE 107; RESP 21; TEMP 99.4; O2SAT 94
[2016-06-03] VITALS: BP 107/61; PULSE 78; RESP 20; TEMP 97.3; O2SAT 97
[2016-06-03] MEDS: HYDROmorphone HCL PF 1 MG/ML VIAL IV PUSH PRN ×4 (02:59→23:12)
[2016-06-03] MEDS: ONDANSETRON HCL 4 MG/2 ML VIAL IV PUSH PRN ×4 (02:59→23:12)
[2016-06-03] MEDS: SODIUM CHLORIDE 0.9% FLUSH 5 ML FLUSH FLUSH PRN (02:59)
[2016-06-03 04:00] VITALS: BP 126/69; PULSE 110; RESP 20; TEMP 96.8; O2SAT 96
[2016-06-03] MEDS: oxyCODONE HCL ORAL CONC 20 MG/ML SYRINGE PO PRN ×5 (05:31→20:58)
[2016-06-03] MEDS: LEVOTHYROXINE SODIUM 100 MCG VIAL IV PUSH SCH (05:31)
[2016-06-03] MEDS: INSULIN ASPART SUPPLEMENTAL SCALE SQ SCH ×4 (06:34→21:00)
[2016-06-03 08:00] VITALS: BP 125/68; PULSE 100; RESP 19; TEMP 98.8; O2SAT 97
[2016-06-03] MEDS: SODIUM CHLORIDE 0.9% FLUSH 5 ML FLUSH FLUSH SCH ×2 (08:17→20:58)
[2016-06-03] MEDS: PANTOPRAZOLE SODIUM 40 MG VIAL IV PUSH SCH (08:17)
[2016-06-03] MEDS: METOPROLOL TARTRATE 25 MG TAB PEG SCH (08:19)
--- NOTE | 2016-06-03 10:27 | HHI.PR ---
Subjective Subjective Notes Kept G tube open all night; no nausea Tolerating TF at 45 ml/hr Objective Vitals/I&O Vital Signs Date Time Temp Pulse Resp B/P Pulse Ox O2 Delivery O2 Flow Rate FiO2 06/03/16 09:16 18 06/03/16 08:00 98.8 100 125/68 97 05/31/16 10:46 21 05/30/16 08:00 Room Air 2.00 Lungs: Clear Abdomen: Other (Mildly distended) A/P Assessment and Plan 70 year old female with stage IV pancreatic cancer with malignant obstruction 4th portion of duodenum -POD8 Ex laparotomy, oversew gastric perforation lesser curve of stomach; Gastrostomy tube placement; Jejunostomy feeding tube placement -s/p duodenal stent placement -TF at 45; increase to 50 cc/hr as tolerated -Flush J tube with NS 30 ml Q8 -Discontinue TPN when present supply exhausted Jesse Alexander MD Jun 03, 2016 10:27
--- NOTE | 2016-06-03 10:58 | HHI.PR ---
Subjective Remarks in no acute distress. pain is better controlled today. afebrile. no other new complaints. Objective Vitals Vital Signs Date Time Temp Pulse Resp B/P Pulse Ox O2 Delivery O2 Flow Rate FiO2 06/03/16 09:16 18 06/03/16 08:00 98.8 100 19 125/68 97 06/03/16 04:00 96.8 110 20 126/69 96 06/03/16 00:00 97.3 78 20 107/61 97 06/02/16 20:00 99.4 107 21 125/60 94 06/02/16 16:57 20 06/02/16 16:00 98.3 101 15 142/71 97 06/02/16 12:00 97.4 105 17 132/63 98 I/O 06/02/16 06/02/16 06/02/16 06/03/16 06/03/16 06/03/16 07:00 15:00 23:00 07:00 15:00 23:00 Intake Total 1584 ml 796 ml 1433 ml 1526 ml Output Total 250 ml 280 ml 1190 ml 2350 ml Balance 1334 ml 516 ml 243 ml -824 ml Intake Oral 0 ml 0 ml 240 ml 240 ml IV Total 777 ml 415 ml 422 ml 358 ml Tube Feeding 324 ml 557 ml TPN/PPN 652 ml 308 ml 361 ml 300 ml Lipid 155 ml 73 ml 86 ml 71 ml Output Urine Total 800 ml 1800 ml Gastric Drainage Total 100 ml 100 ml 250 ml 350 ml Drainage Total 150 ml 180 ml 140 ml 200 ml Bladder Scan Volume Amount 10 ml # Voids 1 2 # Bowel Movements 0 1 0 Result Diagram: 06/01/16 0647 06/01/16 1700 Imaging Last Impressions GI Procedure 05/26/16 0000 Signed Impressions: Service Date/Time: Thursday, May 26, 2016 17:29 - CONCLUSION: Intestinal stent placement as described above. Blaine Kowalski MD Chest X-Ray 05/26/16 0000 Signed Impressions: Service Date/Time: Thursday, May 26, 2016 21:29 - CONCLUSION: Status post intubation with endotracheal tube in appropriate position. Acute extensive subcutaneous emphysema. No evidence of pneumothorax. Bilateral airspace disease as described. Blaine Kowalski MD Abdomen/Pelvis CT 05/24/16 0000 Signed Impressions: Service Date/Time: Tuesday, May 24, 2016 08:51 - CONCLUSION: 1. Pancreatic mass again identified, measuring larger than on the comparison study.. 2. New gastric distention and diffuse dilatation of the duodenum with apparent transition point in the distal third portion of the duodenum. The transition point is in the region of soft tissue mass extending from the pancreas to the retroperitoneal region. More distally the small bowel is normal diameter. Finding suggest at least partial obstruction of the duodenum. 3. New diffuse intrahepatic and extra hepatic biliary ductal dilatation. No discrete mass is identified in the region of the distal common duct. The pancreatic duct is also now mildly prominent diffusely measuring approximately 4 mm. 4. Small pleural effusions. Hunter Pagan MD Objective Remarks GENERAL: This is a well-nourished, well-developed patient, in no apparent distress. CARDIOVASCULAR: Regular rate and regular rhythm without murmurs, gallops, or rubs. RESPIRATORY: Clear to auscultation. Breath sounds equal bilaterally. No wheezes , rales, or rhonchi. GASTROINTESTINAL: Abdomen soft, non-tender, site of surgery is clean. MUSCULOSKELETAL: Extremities without clubbing, cyanosis, or edema. NEURO: Alert & Oriented x4 to person, place, time, situation. Moves all ext x4 Procedures None. Medications and IVs Current Medications Ondansetron HCl 4 mg 4 mg ONCE ONCE IVP Last administered on 05/24/16 07:28; Start 05/24/16 at 07:15; Stop 05/24/16 at 07:18; Status DC Sodium Chloride (NS 1000 ml Inj) 1,000 ml @ 1,000 mls/hr Q1H IV Last administered on 05/24/16 07:28; Start 05/24/16 at 07:14; Stop 05/24/16 at 08:13 ; Status DC IV Flush (NS Flush) 2 ml UNSCH PRN IVF FLUSH AFTER USING IV ACCESS Last administered on 05/24/16 09:56; Start 05/24/16 at 07:15; Stop 05/24/16 at 17:43 ; Status DC Morphine Sulfate (Morphine Inj) 5 mg ONCE ONCE IV PUSH Last administered on 07:28; Start 05/24/16 at 07:15; Stop 05/24/16 at 07:18; Status DC Promethazine HCl (Phenergan Inj) 25 mg ONCE ONCE IM ; Start 05/24/16 at 08:15; Stop 05/24/16 at 08:57; Status DC Promethazine HCl (Phenergan Supp) 25 mg ONCE ONCE RECTAL Last administered on 05/24/16 09:25; Start 05/24/16 at 09:00; Stop 05/24/16 at 09:01; Status DC Iohexol (Omnipaque 350 Inj) 96 ml STK-MED ONCE IV Last administered on 09:14; Start 05/24/16 at 09:14; Stop 05/24/16 at 09:15; Status DC Hydromorphone HCl (Dilaudid Pf Inj) 0.5 mg ONCE ONCE IV PUSH Last administered on 05/24/16 09:56; Start 05/24/16 at 09:45; Stop 05/24/16 at 09:46 ; Status DC Lidocaine HCl 5 ml 5 ml ONCE ONCE TOPICAL Last administered on 05/24/16 10:32 ; Start 05/24/16 at 10:00; Stop 05/24/16 at 10:20; Status DC Potassium Chloride 100 ml @ 50 mls/hr ONCE ONCE IV Last administered on 11:31; Start 05/24/16 at 10:00; Stop 05/24/16 at 11:59; Status DC Sodium Chloride 1,000 ml @ 100 mls/hr Q10H IV Last administered on 05/24/16 11:31; Start 05/24/16 at 10:00; Stop 05/24/16 at 17:44; Status DC Sodium Chloride (NS 1000 ml Inj) 1,000 ml @ 50 mls/hr Q20H IV Last administered on 06/02/16 16:31; Start 05/24/16 at 10:14 IV Flush (NS Flush) 2 ml UNSCH PRN FLUSH FLUSH AFTER USING IV ACCESS Last administered on 06/03/16 02:59; Start 05/24/16 at 10:15 IV Flush (NS Flush) 2 ml BID FLUSH Last administered on 06/01/16 08:35; Start 05/24/16 at 21:00 Acetaminophen (Tylenol) 650 mg Q4H PRN PO fever, headache, pain 1-4; Start at 10:15; Stop 05/28/16 at 11:13; Status DC Ondansetron HCl (Zofran Inj) 4 mg Q6H PRN IVP NAUSEA OR VOMITING; Start at 10:15; Stop 05/24/16 at 15:39; Status DC Bisacodyl (Dulcolax Supp) 10 mg DAILY PRN [place] CONSTIPATION Last administered on 06/02/16 13:44; Start 05/24/16 at 10:15 Magnesium Hydroxide (Milk Of Magnesia Liq) 30 ml Q12H PRN PO CONSTIPATION; Start 05/24/16 at 10:15 Enoxaparin Sodium (Lovenox Inj) 40 mg Q24H SQ ; Start 05/24/16 at 10:15; Stop at 20:02; Status DC Naloxone HCl (Narcan Inj) 0.4 mg UNSCH PRN IV SEE LABEL COMMENTS; Start at 10:15 Prochlorperazine Edisylate (Compazine Inj) 10 mg Q6H PRN IM NAUSEA OR VOMITING ; Start 05/24/16 at 10:15; Stop 05/26/16 at 12:33; Status DC Hydromorphone HCl (Dilaudid Pf Inj) 1 mg ONCE ONCE IV PUSH Last administered on 05/24/16 13:02; Start 05/24/16 at 13:00; Stop 05/24/16 at 13:01; Status DC Hydromorphone HCl (Dilaudid Pf Inj) 0.5 mg Q4H PRN IV PUSH PAIN SCALE 5 TO 10 Last administered on 05/26/16 08:14; Start 05/24/16 at 13:00; Stop 05/26/16 at 11:34; Status DC Ondansetron HCl (Zofran Inj) 4 mg Q6H IVP Last administered on 05/25/16 09:18 ; Start 05/24/16 at 16:00; Stop 05/25/16 at 13:37; Status DC Fentanyl (Duragesic 25 Mcg Patch.72 Hr) 1 patch ONCE ONCE TD Last administered on 05/24/16 16:31; Start 05/24/16 at 16:00; Stop 05/24/16 at 16:01 ; Status DC Miscellaneous Information 1 1 Q3D TD ; Start 05/27/16 at 09:00; Stop 05/27/16 at 09:00; Status DC Cefazolin Sodium/ Dextrose 50 ml @ 100 mls/hr Q8H IV ; Start 05/24/16 at 17:45 ; Stop 05/24/16 at 18:28; Status DC Levofloxacin/ Dextrose 150 ml @ 100 mls/hr Q24H IV Last administered on 20:01; Start 05/24/16 at 20:00; Stop 05/28/16 at 11:13; Status DC Metronidazole (Flagyl 500 Mg Inj) 100 ml @ 100 mls/hr Q8H IV Last administered on 05/28/16 03:39; Start 05/24/16 at 20:00; Stop 05/28/16 at 11:14; Status DC Enoxaparin Sodium (Lovenox Inj) 40 mg Q24H SQ Last administered on 06/02/16 19: 50; Start 05/24/16 at 20:00 Ondansetron HCl 6 mg 6 mg Q6H IVP Last administered on 05/26/16 08:13; Start 05/25/16 at 14:00; Stop 05/26/16 at 13:59; Status DC Multivitamins 10 ml/Folic Acid 1 mg/Amino Acids/ Electrolytes/ Dextrose 1,010.2 ml @ 42 mls/hr Q24H IV Last administered on 06/02/16 19:50; Start 05/25/16 at 20:00; Stop 06/03/16 at 10:20; Status DC Fat Emulsion Intravenous 250 ml @ 10 mls/hr Q24H IV Last administered on 19:49; Start 05/25/16 at 20:00; Stop 06/03/16 at 10:21; Status DC Potassium Chloride (KCl 20 Meq Premix Inj) 100 ml @ 50 mls/hr Q2H IV Last administered on 05/26/16 11:57; Start 05/26/16 at 08:00; Stop 05/26/16 at 11:59 ; Status DC Levothyroxine Sodium 62 mcg 62 mcg DAILY@06 IV PUSH Last administered on 05:31; Start 05/26/16 at 06:00 Potassium Chloride 100 ml @ 50 mls/hr Q2H IV Last administered on 05/26/16 15 :16; Start 05/26/16 at 12:00; Stop 05/26/16 at 15:59; Status DC Potassium Chloride (KCl 20 Meq Premix Inj) 100 ml @ 50 mls/hr Q2H IV ; Start at 18:00; Stop 05/26/16 at 21:59; Status DC Fentanyl (Duragesic 50 Mcg Patch.72 Hr) 1 patch Q3D TD Last administered on 12:00; Start 05/26/16 at 12:00 Miscellaneous Information 1 Q3D T-DERMAL Last administered on 06/01/16 12:00; Start 05/29/16 at 12:00 Hydromorphone HCl (Dilaudid Pf Inj) 0.5 mg Q3HR PRN IV PUSH pain1-5 Last administered on 05/27/16 15:11; Start 05/26/16 at 11:30; Stop 06/02/16 at 11:16 ; Status DC Hydromorphone HCl (Dilaudid Pf Inj) 1 mg Q3HR PRN IV PUSH pain6-10 Last administered on 06/03/16 02:59; Start 05/26/16 at 11:30 Promethazine HCl (Phenergan Supp) 12.5 mg ONCE ONCE RECTAL ; Start 05/26/16 at 11:45; Stop 05/26/16 at 11:48; Status DC Prochlorperazine Edisylate (Compazine Inj) 10 mg Q6H PRN IVS NAUSEA OR VOMITING Last administered on 06/01/16 02:39; Start 05/26/16 at 12:45 Ondansetron HCl (Zofran Inj) 4 mg Q6HR PRN IV PUSH NAUSEA OR VOMITING Last administered on 06/03/16 02:59; Start 05/26/16 at 15:30 Miscellaneous Information ALL NURSING DEPARTME... UNSCH PRN XX SEE LABEL COMMENTS; Start 05/26/16 at 17:58; Stop 05/27/16 at 17:57; Status DC Fluconazole/ Sodium Chloride 200 ml @ 100 mls/hr NOW ONCE IV ; Start 05/26/16 at 20:00; Stop 05/26/16 at 21:59; Status DC Fluconazole/ Sodium Chloride 200 ml @ 100 mls/hr NOW ONCE IV Last administered on 05/26/16 19:44; Start 05/26/16 at 19:30; Stop 05/26/16 at 21:29 ; Status Cancel Sodium Chloride 154 meq/Dextrose 1,038.5 ml @ 30 mls/hr Q24H IV ; Start at 21:30; Stop 05/27/16 at 08:39; Status DC Propofol (Diprivan 1000 Mg/100ml Inj) 100 ml @ As Directed STK-MED ONCE .ROUTE ; Start 05/26/16 at 21:10; Stop 05/26/16 at 21:11; Status DC Fentanyl Citrate (fentaNYL INJ) 250 mcg STK-MED ONCE .ROUTE ; Start 05/26/16 at 21:30; Stop 05/26/16 at 21:31; Status DC Fentanyl Citrate (fentaNYL INJ) 250 mcg STK-MED ONCE .ROUTE ; Start 05/26/16 at 21:30; Stop 05/26/16 at 21:31; Status DC Morphine Sulfate (*morphine INJ PERIprocedure ONLY) 8 mg STK-MED ONCE .ROUTE ; Start 05/26/16 at 21:38; Stop 05/26/16 at 21:39; Status DC Enalaprilat (*VASOTEC INJ PERIprocedural Use ONLY) 1.25 mg STK-MED ONCE .ROUTE ; Start 05/26/16 at 21:38; Stop 05/26/16 at 21:39; Status DC Labetalol HCl 100 mg 100 mg STK-MED ONCE .ROUTE ; Start 05/26/16 at 21:38; Stop 05/26/16 at 21:39; Status DC Propofol (Diprivan 1000 Mg/100ml Inj) 100 ml @ 0 mls/hr TITRATE IV Last administered on 05/27/16 06:15; Start 05/26/16 at 22:00; Stop 05/30/16 at 16:32 ; Status DC Morphine Sulfate (*morphine INJ PERIprocedure ONLY) 8 mg STK-MED ONCE .ROUTE ; Start 05/26/16 at 22:39; Stop 05/26/16 at 22:40; Status DC Morphine Sulfate (Morphine Inj) 8 mg STK-MED ONCE IV PUSH Last administered on 05/26/16 21:40; Start 05/26/16 at 21:40; Stop 05/27/16 at 01:31; Status DC Labetalol HCl (Trandate Inj) 100 mg STK-MED ONCE IVP Last administered on 21:41; Start 05/26/16 at 21:41; Stop 05/27/16 at 01:31; Status DC Enalaprilat (Vasotec Inj) 1.25 mg STK-MED ONCE IV PUSH Last administered on 21:55; Start 05/26/16 at 21:55; Stop 05/27/16 at 01:31; Status DC Morphine Sulfate 8 mg 8 mg STK-MED ONCE IV PUSH Last administered on 05/26/16 22:40; Start 05/26/16 at 22:40; Stop 05/27/16 at 01:31; Status DC Potassium Chloride 100 ml @ 50 mls/hr Q2H IV Last administered on 05/27/16 03 :45; Start 05/27/16 at 01:45; Stop 05/27/16 at 05:44; Status DC Potassium Chloride 100 ml @ 50 mls/hr Q2H PRN IV For Potassium 2.8 - 3.2 mEq/L ; Start 05/27/16 at 05:15; Stop 05/30/16 at 10:19; Status DC Potassium Chloride (KCl 20 Meq Premix Inj) 100 ml @ 50 mls/hr Q2H PRN IV For Potassium 2.8 - 3.2 mEq/L Last administered on 05/28/16 06:16; Start 05/27/16 at 05:15; Stop 05/30/16 at 10:19; Status DC Potassium Chloride 40 meq 40 meq UNSCH PRN PO/TUBE For Potassium 3.3 - 3.5 mEq/ L; Start 05/27/16 at 05:15; Stop 05/30/16 at 10:19; Status DC Potassium Chloride 100 ml @ 25 mls/hr UNSCH PRN IV For Potassium 3.3 - 3.5 mEq /L; Start 05/27/16 at 05:15; Stop 05/30/16 at 10:19; Status DC Potassium Chloride 100 ml @ 50 mls/hr Q2H PRN IV For Potassium 3.3 - 3.5 mEq/L ; Start 05/27/16 at 05:15; Stop 05/30/16 at 10:19; Status DC Magnesium Sulfate/ Sodium Chloride (Magnesium Sulfate Inj/NS Inj) 100 ml @ 50 mls/hr UNSCH PRN IV For Magnesium 0.9 - 1.1 mg/dL; Start 05/27/16 at 05:15; Stop 05/30/16 at 10:19; Status DC Magnesium Oxide 800 mg 800 mg UNSCH PRN PO For Magnesium 1.2 - 1.6 mg/dL; Start 05/27/16 at 05:15; Stop 05/30/16 at 10:19; Status DC Magnesium Sulfate/ Sodium Chloride (Magnesium Sulfate Inj/NS Inj) 100 ml @ 50 mls/hr UNSCH PRN IV For Magnesium 1.2 - 1.6 mg/dL; Start 05/27/16 at 05:15; Stop 05/30/16 at 10:19; Status DC Potassium Phosphate 2000 mg 2,000 mg Q4H PRN PO For Phosphorus < 2.5 mg/dL; Start 05/27/16 at 05:15; Stop 05/30/16 at 10:19; Status DC Sodium Phosphate/ Sodium Chloride (Sodium Phosphate Inj/NS 250 ml Inj) 250 ml @ 42 mls/hr UNSCH PRN IV For Phosphorus < 2.5 mg/dL; Start 05/27/16 at 05:15; Stop 05/30/16 at 10:19; Status DC Potassium Chloride (KCl 40 Meq/30 ml Liq) 40 meq UNSCH PRN PO/TUBE SEE LABEL COMMENTS; Start 05/27/16 at 05:15; Stop 05/30/16 at 10:19; Status DC Potassium Phosphate 2000 mg 2,000 mg UNSCH PRN PO/TUBE SEE LABEL COMMENTS; Start 05/27/16 at 05:15; Stop 05/30/16 at 10:19; Status DC Potassium Phosphate/Sodium Chloride (Potassium Phosphate Inj/NS 250 ml Inj) 260 ml @ 42 mls/hr UNSCH PRN IV SEE LABEL COMMENTS; Start 05/27/16 at 05:15; Stop 05/30/16 at 10:19; Status DC Pantoprazole Sodium (Protonix Inj) 40 mg Q24H IV PUSH Last administered on t 08:17; Start 05/27/16 at 09:00 Propofol (Diprivan 200 Mg/20 ml Inj) 200 mg STK-MED ONCE IV ; Start 05/26/16 at 12:00; Stop 05/27/16 at 09:06; Status DC Ondansetron HCl 4 mg 4 mg STK-MED ONCE IV PUSH ; Start 05/26/16 at 12:00; Stop 05/27/16 at 09:06; Status DC Lactated Ringer's 2,000 ml @ As Directed STK-MED ONCE IV ; Start 05/26/16 at 12 :00; Stop 05/27/16 at 09:06; Status DC Sodium Chloride (NS 500 ml Inj) 500 ml @ As Directed STK-MED ONCE IV ; Start at 12:00; Stop 05/27/16 at 09:06; Status DC Propofol (Diprivan 200 Mg/20 ml Inj) 200 mg STK-MED ONCE IV ; Start 05/26/16 at 18:00; Stop 05/27/16 at 16:53; Status DC Labetalol HCl (Trandate Inj) 100 mg STK-MED ONCE .ROUTE Last administered on 18:05; Start 05/27/16 at 17:51; Stop 05/27/16 at 17:52; Status DC Labetalol HCl (Trandate Inj) 20 mg Q2H PRN IV SBP > 160 MMHG; Start 05/27/16 at 18:30 Potassium Chloride (KCl 40 Meq/30 ml Liq) 40 meq NOW ONCE PO Last administered on 05/28/16 07:54; Start 05/28/16 at 07:30; Stop 05/28/16 at 07:31; Status DC Potassium Chloride (KCl 40 Meq/30 ml Liq) 40 meq DAILY@12 PO Last administered on 05/28/16 11:32; Start 05/28/16 at 12:00; Stop 05/28/16 at 12:01; Status DC Albuterol/ Ipratropium 1 ampule 1 ampule Q6HR NEB NEB Last administered on 05/29 17:25; Start 05/28/16 at 10:00; Stop 06/01/16 at 09:38; Status DC Fluconazole/ Sodium Chloride (Diflucan 200 Mg Premix Bag) 100 ml @ 100 mls/hr Q24H IV Last administered on 06/02/16 11:43; Start 05/28/16 at 11:15; Stop 06/07 at 11:15 Oxycodone HCl (Roxicodone Intensol Liq) 5 mg Q3H PRN PO PAIN SCALE 1 TO 7 Last administered on 06/01/16 06:39; Start 05/28/16 at 12:00; Stop 06/01/16 at 09:40; Status DC Acetaminophen (Ofirmev Inj) 1,000 mg Q6H IV Last administered on 05/31/16 05:51 ; Start 05/28/16 at 13:00; Stop 05/31/16 at 07:01; Status DC Oxycodone HCl (Roxicodone Intensol Liq) 5 mg Q2H PRN PO PAIN SCALE 1 TO 7 Last administered on 06/02/16 11:08; Start 06/01/16 at 11:00; Stop 06/02/16 at 11:16; Status DC Dextrose (D50w (Vial) Inj) 25 ml UNSCH PRN IV PUSH HYPOGLYCEMIA-SEE COMMENTS; Start 06/01/16 at 09:45 Glucagon (Glucagon Inj) 1 mg UNSCH PRN OTHER HYPOGLYCEMIA-SEE COMMENTS; Start 06/01/16 at 09:45 Insulin Aspart (NovoLOG SUPPLEMENTAL SCALE) 1 ACHS SLIDING SCALE SQ ; Start 06/01/16 at 11:00 Potassium Bicarb/ Potassium Chloride (K-Lyte Cl Eff) 50 meq ONCE ONCE PO Last administered on 06/01/16 09:45; Start 06/01/16 at 09:45; Stop 06/01/16 at 09: 49; Status DC Simethicone (Simethicone Liq (Drops)) 40 mg QID PRN PO CRAMPS Last administered on 06/02/16 10:51; Start 06/01/16 at 10:00 Metoprolol Tartrate 50 mg 50 mg ONCE ONCE PO Last administered on 06/01/16 10: 00; Start 06/01/16 at 10:00; Stop 06/01/16 at 10:01; Status DC Potassium Chloride (KCl 40 Meq Premix Inj) 100 ml @ 25 mls/hr BOLUS ONCE IV Last administered on 06/01/16 10:00; Start 06/01/16 at 10:00; Stop 06/01/16 at 13: 59; Status DC Oxycodone HCl (Roxicodone Intensol Liq) 7.5 mg Q2H PRN PO PAIN 1-7 Last administered on 06/03/16 08:16; Start 06/02/16 at 11:00 Metoprolol Tartrate (Lopressor) 12.5 mg DAILY PEG Last administered on 08:19; Start 06/02/16 at 15:00 A/P Assessment and Plan A/P Respiratory failure: Extubated febrile 11/16/16. Stable and continue bronchodilator when necessary Small bowel obstruction - Status post palliative stent placement - Management per GI. -Adjust pain medication accordingly Gastric perforation - Status post surgical repair with G-tube/J-tube placement. - s/p Levaquin and Flagyl tx - On full liquid -continue pain control -management per surgery -On Low ISS with FSBG monitoring for Glycemic control Atrial fibrillation - Status post ablation - Rate controlled -resumed BB Pancreatic cancer - Patient's oncologist management - When medically stable may consider treatment with Gemcitabine and Abraxane Hypothyroidism - Synthroid DVT GI prophylaxis - Teds SCDs - Lovenox - Protonix PT to treat and Jennifer Sanchez MD Jun 03, 2016 10:58
[2016-06-03] MEDS: FLUCONAZOLE 200 MG PREMIX BAG 100 ML IV SCH (11:20)
[2016-06-03] MEDS: SODIUM CHLOR 0.9% 1000 ML INJ 1,000 ML IV SCH (11:22)
[2016-06-03 12:00] VITALS: BP 123/66; PULSE 104; RESP 18; TEMP 98.4; O2SAT 97
[2016-06-03] MEDS: SIMETHICONE SUSP DROPS 40 MG/0.6 ML 30 ML BTL PO PRN (15:15)
[2016-06-03 16:00] VITALS: BP 126/69; PULSE 98; RESP 19; TEMP 99.6; O2SAT 97
[2016-06-03 20:00] VITALS: BP 119/66; PULSE 99; RESP 16; TEMP 99.5; O2SAT 97
[2016-06-03] MEDS: ENOXAPARIN SODIUM 40 MG/0.4 ML SYRINGE SQ SCH (20:58)
[2016-06-04] VITALS: BP 112/54; PULSE 100; RESP 18; TEMP 98.5; O2SAT 94
[2016-06-04] MEDS: oxyCODONE HCL ORAL CONC 20 MG/ML SYRINGE PO PRN ×2 (02:38→06:12)
[2016-06-04] MEDS: SIMETHICONE SUSP DROPS 40 MG/0.6 ML 30 ML BTL PO PRN ×3 (02:38→21:46)
[2016-06-04] MEDS: LEVOTHYROXINE SODIUM 100 MCG VIAL IV PUSH SCH (06:12)
[2016-06-04] MEDS: ONDANSETRON HCL 4 MG/2 ML VIAL IV PUSH PRN ×2 (06:12→20:23)
[2016-06-04] MEDS: INSULIN ASPART SUPPLEMENTAL SCALE SQ SCH ×4 (06:24→21:00)
[2016-06-04 07:01] LABS: AUTOMATED NEUTROPHIL # 4.5 TH/MM3 (1.8-7.7); BASOPHIL % 0.6 % (0.0-2.0); EOSINOPHIL # 0.1 TH/MM3 (0-0.4); EOSINOPHIL % 2.3 % (0.0-4.0); HEMATOCRIT 25.7 % (35.0-46.0); HEMO FLAGS DIFF FINAL; LYMPH % 13.3 % (9.0-44.0); LYMPHOCYTE # 0.9 TH/MM3 (1.0-4.8); MEAN CELL VOLUME 85.6 FL (80.0-100.0); MEAN CORPUSCULAR HEMOGLOBIN 28.7 PG (27.0-34.0); MEAN CORPUSCULAR HGB CONC 33.5 % (32.0-36.0); MONO % 13.6 % (0.0-8.0); NEUT % 70.2 % (16.0-70.0); PLATELET COUNT 266 TH/MM3 (150-450); RED CELL DISTRIBUTION WIDTH 13.9 % (11.6-17.2); WHITE BLOOD COUNT 6.4 TH/MM3 (4.0-11.0)
[2016-06-04 07:11] LABS: BICARBONATE 30.6 MEQ/L (21.0-32.0); POTASSIUM 3.6 MEQ/L (3.5-5.1)
[2016-06-04 08:00] VITALS: BP 106/61; PULSE 106; RESP 19; TEMP 98; O2SAT 97
[2016-06-04] MEDS ORDERED: oxyCODONE HCL ORAL CONC 20 MG/ML SYRINGE GT PRN (08:30)
[2016-06-04] MEDS ORDERED: POTASSIUM CL 40 MEQ/30 ML LIQ UDC PO ONE (09:00)
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
[2016-06-04] MEDS: HYDROmorphone HCL PF 1 MG/ML VIAL IV PUSH PRN (10:24)
[2016-06-04] MEDS: SODIUM CHLOR 0.9% 1000 ML INJ 1,000 ML IV SCH (10:28)
[2016-06-04] MEDS: PANTOPRAZOLE SODIUM 40 MG VIAL IV PUSH SCH (10:29)
[2016-06-04] MEDS: METOPROLOL TARTRATE 25 MG TAB PEG SCH (10:30)
[2016-06-04] MEDS: SODIUM CHLORIDE 0.9% FLUSH 5 ML FLUSH FLUSH SCH ×2 (10:31→20:27)
--- NOTE | 2016-06-04 10:45 | HHI.PR ---
Subjective Remarks in no acute distress. pain is fairly controlled. no nausea or vomiting. afebrile. Objective Vitals Vital Signs Date Time Temp Pulse Resp B/P Pulse Ox O2 Delivery O2 Flow Rate FiO2 06/04/16 08:00 98.0 106 19 106/61 97 06/04/16 00:00 98.5 100 18 112/54 94 06/03/16 20:00 99.5 99 16 119/66 97 06/03/16 16:31 20 06/03/16 16:00 99.6 98 19 126/69 97 06/03/16 12:00 98.4 104 18 123/66 97 I/O 06/03/16 06/03/16 06/03/16 06/04/16 06/04/16 06/04/16 07:00 15:00 23:00 07:00 15:00 23:00 Intake Total 1526 ml 1719 ml 1314 ml 1307 ml Output Total 2350 ml 1085 ml 1010 ml 1260 ml Balance -824 ml 634 ml 304 ml 47 ml Intake Oral 240 ml 300 ml 240 ml 420 ml IV Total 358 ml 440 ml 376 ml 461 ml Tube Feeding 557 ml 569 ml 353 ml 426 ml TPN/PPN 300 ml 332 ml 271 ml Lipid 71 ml 78 ml 74 ml Output Urine Total 1800 ml 500 ml 850 ml 650 ml Gastric Drainage Total 350 ml 400 ml 450 ml Drainage Total 200 ml 185 ml 160 ml 160 ml # Bowel Movements 0 0 0 0 Result Diagram: 06/04/16 0611 06/04/16 0611 Imaging Last Impressions Lower Extremity Ultrasound 06/04/16 0000 Signed Impressions: Service Date/Time: Saturday, June 04, 2016 08:13 - CONCLUSION: 1. DVT left common femoral vein. 2. No DVT right lower extremity. Reynaldo Hernandez MD GI Procedure 05/26/16 0000 Signed Impressions: Service Date/Time: Thursday, May 26, 2016 17:29 - CONCLUSION: Intestinal stent placement as described above. Blaine Kowalski MD Chest X-Ray 05/26/16 0000 Signed Impressions: Service Date/Time: Thursday, May 26, 2016 21:29 - CONCLUSION: Status post intubation with endotracheal tube in appropriate position. Acute extensive subcutaneous emphysema. No evidence of pneumothorax. Bilateral airspace disease as described. Blaine Kowalski MD Abdomen/Pelvis CT 05/24/16 0000 Signed Impressions: Service Date/Time: Tuesday, May 24, 2016 08:51 - CONCLUSION: 1. Pancreatic mass again identified, measuring larger than on the comparison study.. 2. New gastric distention and diffuse dilatation of the duodenum with apparent transition point in the distal third portion of the duodenum. The transition point is in the region of soft tissue mass extending from the pancreas to the retroperitoneal region. More distally the small bowel is normal diameter. Finding suggest at least partial obstruction of the duodenum. 3. New diffuse intrahepatic and extra hepatic biliary ductal dilatation. No discrete mass is identified in the region of the distal common duct. The pancreatic duct is also now mildly prominent diffusely measuring approximately 4 mm. 4. Small pleural effusions. Hunter Pagan MD Objective Remarks GENERAL: This is a well-nourished, well-developed patient, in no apparent distress. CARDIOVASCULAR: Regular rate and regular rhythm without murmurs, gallops, or rubs. RESPIRATORY: Clear to auscultation. Breath sounds equal bilaterally. No wheezes , rales, or rhonchi. GASTROINTESTINAL: Abdomen soft, non-tender, site of surgery is clean. MUSCULOSKELETAL: Extremities without clubbing, cyanosis, or edema. NEURO: Alert & Oriented x4 to person, place, time, situation. Moves all ext x4 Procedures None. Medications and IVs Current Medications Ondansetron HCl 4 mg 4 mg ONCE ONCE IVP Last administered on 05/24/16 07:28; Start 05/24/16 at 07:15; Stop 05/24/16 at 07:18; Status DC Sodium Chloride (NS 1000 ml Inj) 1,000 ml @ 1,000 mls/hr Q1H IV Last administered on 05/24/16 07:28; Start 05/24/16 at 07:14; Stop 05/24/16 at 08:13 ; Status DC IV Flush (NS Flush) 2 ml UNSCH PRN IVF FLUSH AFTER USING IV ACCESS Last administered on 05/24/16 09:56; Start 05/24/16 at 07:15; Stop 05/24/16 at 17:43 ; Status DC Morphine Sulfate (Morphine Inj) 5 mg ONCE ONCE IV PUSH Last administered on 07:28; Start 05/24/16 at 07:15; Stop 05/24/16 at 07:18; Status DC Promethazine HCl (Phenergan Inj) 25 mg ONCE ONCE IM ; Start 05/24/16 at 08:15; Stop 05/24/16 at 08:57; Status DC Promethazine HCl (Phenergan Supp) 25 mg ONCE ONCE RECTAL Last administered on 05/24/16 09:25; Start 05/24/16 at 09:00; Stop 05/24/16 at 09:01; Status DC Iohexol (Omnipaque 350 Inj) 96 ml STK-MED ONCE IV Last administered on 09:14; Start 05/24/16 at 09:14; Stop 05/24/16 at 09:15; Status DC Hydromorphone HCl (Dilaudid Pf Inj) 0.5 mg ONCE ONCE IV PUSH Last administered on 05/24/16 09:56; Start 05/24/16 at 09:45; Stop 05/24/16 at 09:46 ; Status DC Lidocaine HCl 5 ml 5 ml ONCE ONCE TOPICAL Last administered on 05/24/16 10:32 ; Start 05/24/16 at 10:00; Stop 05/24/16 at 10:20; Status DC Potassium Chloride 100 ml @ 50 mls/hr ONCE ONCE IV Last administered on 11:31; Start 05/24/16 at 10:00; Stop 05/24/16 at 11:59; Status DC Sodium Chloride 1,000 ml @ 100 mls/hr Q10H IV Last administered on 05/24/16 11:31; Start 05/24/16 at 10:00; Stop 05/24/16 at 17:44; Status DC Sodium Chloride (NS 1000 ml Inj) 1,000 ml @ 50 mls/hr Q20H IV Last administered on 06/04/16 10:28; Start 05/24/16 at 10:14 IV Flush (NS Flush) 2 ml UNSCH PRN FLUSH FLUSH AFTER USING IV ACCESS Last administered on 06/03/16 02:59; Start 05/24/16 at 10:15 IV Flush (NS Flush) 2 ml BID FLUSH Last administered on 06/04/16 10:31; Start 05/24/16 at 21:00 Acetaminophen (Tylenol) 650 mg Q4H PRN PO fever, headache, pain 1-4; Start at 10:15; Stop 05/28/16 at 11:13; Status DC Ondansetron HCl (Zofran Inj) 4 mg Q6H PRN IVP NAUSEA OR VOMITING; Start at 10:15; Stop 05/24/16 at 15:39; Status DC Bisacodyl (Dulcolax Supp) 10 mg DAILY PRN [place] CONSTIPATION Last administered on 06/02/16 13:44; Start 05/24/16 at 10:15 Magnesium Hydroxide (Milk Of Magnesia Liq) 30 ml Q12H PRN PO CONSTIPATION; Start 05/24/16 at 10:15 Enoxaparin Sodium (Lovenox Inj) 40 mg Q24H SQ ; Start 05/24/16 at 10:15; Stop at 20:02; Status DC Naloxone HCl (Narcan Inj) 0.4 mg UNSCH PRN IV SEE LABEL COMMENTS; Start at 10:15 Prochlorperazine Edisylate (Compazine Inj) 10 mg Q6H PRN IM NAUSEA OR VOMITING ; Start 05/24/16 at 10:15; Stop 05/26/16 at 12:33; Status DC Hydromorphone HCl (Dilaudid Pf Inj) 1 mg ONCE ONCE IV PUSH Last administered on 05/24/16 13:02; Start 05/24/16 at 13:00; Stop 05/24/16 at 13:01; Status DC Hydromorphone HCl (Dilaudid Pf Inj) 0.5 mg Q4H PRN IV PUSH PAIN SCALE 5 TO 10 Last administered on 05/26/16 08:14; Start 05/24/16 at 13:00; Stop 05/26/16 at 11:34; Status DC Ondansetron HCl (Zofran Inj) 4 mg Q6H IVP Last administered on 05/25/16 09:18 ; Start 05/24/16 at 16:00; Stop 05/25/16 at 13:37; Status DC Fentanyl (Duragesic 25 Mcg Patch.72 Hr) 1 patch ONCE ONCE TD Last administered on 05/24/16 16:31; Start 05/24/16 at 16:00; Stop 05/24/16 at 16:01 ; Status DC Miscellaneous Information 1 1 Q3D TD ; Start 05/27/16 at 09:00; Stop 05/27/16 at 09:00; Status DC Cefazolin Sodium/ Dextrose 50 ml @ 100 mls/hr Q8H IV ; Start 05/24/16 at 17:45 ; Stop 05/24/16 at 18:28; Status DC Levofloxacin/ Dextrose 150 ml @ 100 mls/hr Q24H IV Last administered on 20:01; Start 05/24/16 at 20:00; Stop 05/28/16 at 11:13; Status DC Metronidazole (Flagyl 500 Mg Inj) 100 ml @ 100 mls/hr Q8H IV Last administered on 05/28/16 03:39; Start 05/24/16 at 20:00; Stop 05/28/16 at 11:14; Status DC Enoxaparin Sodium (Lovenox Inj) 40 mg Q24H SQ Last administered on 06/03/16 20: 58; Start 05/24/16 at 20:00; Stop 06/04/16 at 10:06; Status DC Ondansetron HCl 6 mg 6 mg Q6H IVP Last administered on 05/26/16 08:13; Start 05/25/16 at 14:00; Stop 05/26/16 at 13:59; Status DC Multivitamins 10 ml/Folic Acid 1 mg/Amino Acids/ Electrolytes/ Dextrose 1,010.2 ml @ 42 mls/hr Q24H IV Last administered on 06/02/16 19:50; Start 05/25/16 at 20:00; Stop 06/03/16 at 10:20; Status DC Fat Emulsion Intravenous 250 ml @ 10 mls/hr Q24H IV Last administered on 19:49; Start 05/25/16 at 20:00; Stop 06/03/16 at 10:21; Status DC Potassium Chloride (KCl 20 Meq Premix Inj) 100 ml @ 50 mls/hr Q2H IV Last administered on 05/26/16 11:57; Start 05/26/16 at 08:00; Stop 05/26/16 at 11:59 ; Status DC Levothyroxine Sodium 62 mcg 62 mcg DAILY@06 IV PUSH Last administered on 06:12; Start 05/26/16 at 06:00 Potassium Chloride 100 ml @ 50 mls/hr Q2H IV Last administered on 05/26/16 15 :16; Start 05/26/16 at 12:00; Stop 05/26/16 at 15:59; Status DC Potassium Chloride (KCl 20 Meq Premix Inj) 100 ml @ 50 mls/hr Q2H IV ; Start at 18:00; Stop 05/26/16 at 21:59; Status DC Fentanyl (Duragesic 50 Mcg Patch.72 Hr) 1 patch Q3D TD Last administered on 12:00; Start 05/26/16 at 12:00; Stop 06/04/16 at 08:37; Status DC Miscellaneous Information 1 Q3D T-DERMAL Last administered on 06/01/16 12:00; Start 05/29/16 at 12:00; Stop 06/04/16 at 08:37; Status DC Hydromorphone HCl (Dilaudid Pf Inj) 0.5 mg Q3HR PRN IV PUSH pain1-5 Last administered on 05/27/16 15:11; Start 05/26/16 at 11:30; Stop 06/02/16 at 11:16 ; Status DC Hydromorphone HCl (Dilaudid Pf Inj) 1 mg Q3HR PRN IV PUSH pain6-10 Last administered on 06/04/16 10:24; Start 05/26/16 at 11:30 Promethazine HCl (Phenergan Supp) 12.5 mg ONCE ONCE RECTAL ; Start 05/26/16 at 11:45; Stop 05/26/16 at 11:48; Status DC Prochlorperazine Edisylate (Compazine Inj) 10 mg Q6H PRN IVS NAUSEA OR VOMITING Last administered on 06/01/16 02:39; Start 05/26/16 at 12:45 Ondansetron HCl (Zofran Inj) 4 mg Q6HR PRN IV PUSH NAUSEA OR VOMITING Last administered on 06/04/16 06:12; Start 05/26/16 at 15:30 Miscellaneous Information ALL NURSING DEPARTME... UNSCH PRN XX SEE LABEL COMMENTS; Start 05/26/16 at 17:58; Stop 05/27/16 at 17:57; Status DC Fluconazole/ Sodium Chloride 200 ml @ 100 mls/hr NOW ONCE IV ; Start 05/26/16 at 20:00; Stop 05/26/16 at 21:59; Status DC Fluconazole/ Sodium Chloride 200 ml @ 100 mls/hr NOW ONCE IV Last administered on 05/26/16t 19:44; Start 05/26/16 at 19:30; Stop 05/26/16 at 21:29 ; Status Cancel Sodium Chloride 154 meq/Dextrose 1,038.5 ml @ 30 mls/hr Q24H IV ; Start at 21:30; Stop 05/27/16 at 08:39; Status DC Propofol (Diprivan 1000 Mg/100ml Inj) 100 ml @ As Directed STK-MED ONCE .ROUTE ; Start 05/26/16 at 21:10; Stop 05/26/16 at 21:11; Status DC Fentanyl Citrate (fentaNYL INJ) 250 mcg STK-MED ONCE .ROUTE ; Start 05/26/16 at 21:30; Stop 05/26/16 at 21:31; Status DC Fentanyl Citrate (fentaNYL INJ) 250 mcg STK-MED ONCE .ROUTE ; Start 05/26/16 at 21:30; Stop 05/26/16 at 21:31; Status DC Morphine Sulfate (*morphine INJ PERIprocedure ONLY) 8 mg STK-MED ONCE .ROUTE ; Start 05/26/16 at 21:38; Stop 05/26/16 at 21:39; Status DC Enalaprilat (*VASOTEC INJ PERIprocedural Use ONLY) 1.25 mg STK-MED ONCE .ROUTE ; Start 05/26/16 at 21:38; Stop 05/26/16 at 21:39; Status DC Labetalol HCl 100 mg 100 mg STK-MED ONCE .ROUTE ; Start 05/26/16 at 21:38; Stop 05/26/16 at 21:39; Status DC Propofol (Diprivan 1000 Mg/100ml Inj) 100 ml @ 0 mls/hr TITRATE IV Last administered on 05/27/16t 06:15; Start 05/26/16 at 22:00; Stop 05/30/16 at 16:32 ; Status DC Morphine Sulfate (*morphine INJ PERIprocedure ONLY) 8 mg STK-MED ONCE .ROUTE ; Start 05/26/16 at 22:39; Stop 05/26/16 at 22:40; Status DC Morphine Sulfate (Morphine Inj) 8 mg STK-MED ONCE IV PUSH Last administered on 05/26/16 21:40; Start 05/26/16 at 21:40; Stop 05/27/16 at 01:31; Status DC Labetalol HCl (Trandate Inj) 100 mg STK-MED ONCE IVP Last administered on 21:41; Start 05/26/16 at 21:41; Stop 05/27/16 at 01:31; Status DC Enalaprilat (Vasotec Inj) 1.25 mg STK-MED ONCE IV PUSH Last administered on 21:55; Start 05/26/16 at 21:55; Stop 05/27/16 at 01:31; Status DC Morphine Sulfate 8 mg 8 mg STK-MED ONCE IV PUSH Last administered on 05/26/16 22:40; Start 05/26/16 at 22:40; Stop 05/27/16 at 01:31; Status DC Potassium Chloride 100 ml @ 50 mls/hr Q2H IV Last administered on 05/27/16 03 :45; Start 05/27/16 at 01:45; Stop 05/27/16 at 05:44; Status DC Potassium Chloride 100 ml @ 50 mls/hr Q2H PRN IV For Potassium 2.8 - 3.2 mEq/L ; Start 05/27/16 at 05:15; Stop 05/30/16 at 10:19; Status DC Potassium Chloride (KCl 20 Meq Premix Inj) 100 ml @ 50 mls/hr Q2H PRN IV For Potassium 2.8 - 3.2 mEq/L Last administered on 05/28/16 06:16; Start 05/27/16 at 05:15; Stop 05/30/16 at 10:19; Status DC Potassium Chloride 40 meq 40 meq UNSCH PRN PO/TUBE For Potassium 3.3 - 3.5 mEq/ L; Start 05/27/16 at 05:15; Stop 05/30/16 at 10:19; Status DC Potassium Chloride 100 ml @ 25 mls/hr UNSCH PRN IV For Potassium 3.3 - 3.5 mEq /L; Start 05/27/16 at 05:15; Stop 05/30/16 at 10:19; Status DC Potassium Chloride 100 ml @ 50 mls/hr Q2H PRN IV For Potassium 3.3 - 3.5 mEq/L ; Start 05/27/16 at 05:15; Stop 05/30/16 at 10:19; Status DC Magnesium Sulfate/ Sodium Chloride (Magnesium Sulfate Inj/NS Inj) 100 ml @ 50 mls/hr UNSCH PRN IV For Magnesium 0.9 - 1.1 mg/dL; Start 05/27/16 at 05:15; Stop 05/30/16 at 10:19; Status DC Magnesium Oxide 800 mg 800 mg UNSCH PRN PO For Magnesium 1.2 - 1.6 mg/dL; Start 05/27/16 at 05:15; Stop 05/30/16 at 10:19; Status DC Magnesium Sulfate/ Sodium Chloride (Magnesium Sulfate Inj/NS Inj) 100 ml @ 50 mls/hr UNSCH PRN IV For Magnesium 1.2 - 1.6 mg/dL; Start 05/27/16 at 05:15; Stop 05/30/16 at 10:19; Status DC Potassium Phosphate 2000 mg 2,000 mg Q4H PRN PO For Phosphorus < 2.5 mg/dL; Start 05/27/16 at 05:15; Stop 05/30/16 at 10:19; Status DC Sodium Phosphate/ Sodium Chloride (Sodium Phosphate Inj/NS 250 ml Inj) 250 ml @ 42 mls/hr UNSCH PRN IV For Phosphorus < 2.5 mg/dL; Start 05/27/16 at 05:15; Stop 05/30/16 at 10:19; Status DC Potassium Chloride (KCl 40 Meq/30 ml Liq) 40 meq UNSCH PRN PO/TUBE SEE LABEL COMMENTS; Start 05/27/16 at 05:15; Stop 05/30/16 at 10:19; Status DC Potassium Phosphate 2000 mg 2,000 mg UNSCH PRN PO/TUBE SEE LABEL COMMENTS; Start 05/27/16 at 05:15; Stop 05/30/16 at 10:19; Status DC Potassium Phosphate/Sodium Chloride (Potassium Phosphate Inj/NS 250 ml Inj) 260 ml @ 42 mls/hr UNSCH PRN IV SEE LABEL COMMENTS; Start 05/27/16 at 05:15; Stop 05/30/16 at 10:19; Status DC Pantoprazole Sodium (Protonix Inj) 40 mg Q24H IV PUSH Last administered on 10:29; Start 05/27/16 at 09:00 Propofol (Diprivan 200 Mg/20 ml Inj) 200 mg STK-MED ONCE IV ; Start 05/26/16 at 12:00; Stop 05/27/16 at 09:06; Status DC Ondansetron HCl 4 mg 4 mg STK-MED ONCE IV PUSH ; Start 05/26/16 at 12:00; Stop 05/27/16 at 09:06; Status DC Lactated Ringer's 2,000 ml @ As Directed STK-MED ONCE IV ; Start 05/26/16 at 12 :00; Stop 05/27/16 at 09:06; Status DC Sodium Chloride (NS 500 ml Inj) 500 ml @ As Directed STK-MED ONCE IV ; Start at 12:00; Stop 05/27/16 at 09:06; Status DC Propofol (Diprivan 200 Mg/20 ml Inj) 200 mg STK-MED ONCE IV ; Start 05/26/16 at 18:00; Stop 05/27/16 at 16:53; Status DC Labetalol HCl (Trandate Inj) 100 mg STK-MED ONCE .ROUTE Last administered on 18:05; Start 05/27/16 at 17:51; Stop 05/27/16 at 17:52; Status DC Labetalol HCl (Trandate Inj) 20 mg Q2H PRN IV SBP > 160 MMHG; Start 05/27/16 at 18:30 Potassium Chloride (KCl 40 Meq/30 ml Liq) 40 meq NOW ONCE PO Last administered on 05/28/16 07:54; Start 05/28/16 at 07:30; Stop 05/28/16 at 07:31; Status DC Potassium Chloride (KCl 40 Meq/30 ml Liq) 40 meq DAILY@12 PO Last administered on 05/28/16 11:32; Start 05/28/16 at 12:00; Stop 05/28/16 at 12:01; Status DC Albuterol/ Ipratropium 1 ampule 1 ampule Q6HR NEB NEB Last administered on 05/29 17:25; Start 05/28/16 at 10:00; Stop 06/01/16 at 09:38; Status DC Fluconazole/ Sodium Chloride (Diflucan 200 Mg Premix Bag) 100 ml @ 100 mls/hr Q24H IV Last administered on 06/03/16 11:20; Start 05/28/16 at 11:15; Stop 06/07 at 11:15 Oxycodone HCl (Roxicodone Intensol Liq) 5 mg Q3H PRN PO PAIN SCALE 1 TO 7 Last administered on 06/01/16 06:39; Start 05/28/16 at 12:00; Stop 06/01/16 at 09:40; Status DC Acetaminophen (Ofirmev Inj) 1,000 mg Q6H IV Last administered on 05/31/16 05:51 ; Start 05/28/16 at 13:00; Stop 05/31/16 at 07:01; Status DC Oxycodone HCl (Roxicodone Intensol Liq) 5 mg Q2H PRN PO PAIN SCALE 1 TO 7 Last administered on 06/02/16 11:08; Start 06/01/16 at 11:00; Stop 06/02/16 at 11:16; Status DC Dextrose (D50w (Vial) Inj) 25 ml UNSCH PRN IV PUSH HYPOGLYCEMIA-SEE COMMENTS; Start 06/01/16 at 09:45 Glucagon (Glucagon Inj) 1 mg UNSCH PRN OTHER HYPOGLYCEMIA-SEE COMMENTS; Start 06/01/16 at 09:45 Insulin Aspart (NovoLOG SUPPLEMENTAL SCALE) 1 ACHS SLIDING SCALE SQ ; Start 06/01/16 at 11:00 Potassium Bicarb/ Potassium Chloride (K-Lyte Cl Eff) 50 meq ONCE ONCE PO Last administered on 06/01/16 09:45; Start 06/01/16 at 09:45; Stop 06/01/16 at 09: 49; Status DC Simethicone (Simethicone Liq (Drops)) 40 mg QID PRN PO CRAMPS Last administered on 06/04/16 02:38; Start 06/01/16 at 10:00 Metoprolol Tartrate 50 mg 50 mg ONCE ONCE PO Last administered on 06/01/16 10: 00; Start 06/01/16 at 10:00; Stop 06/01/16 at 10:01; Status DC Potassium Chloride (KCl 40 Meq Premix Inj) 100 ml @ 25 mls/hr BOLUS ONCE IV Last administered on 06/01/16 10:00; Start 06/01/16 at 10:00; Stop 06/01/16 at 13: 59; Status DC Oxycodone HCl (Roxicodone Intensol Liq) 7.5 mg Q2H PRN PO PAIN 1-7 Last administered on 06/04/16 06:12; Start 06/02/16 at 11:00; Stop 06/04/16 at 08:37; Status DC Metoprolol Tartrate (Lopressor) 12.5 mg DAILY PEG Last administered on 10:30; Start 06/02/16 at 15:00 Potassium Chloride (KCl 40 Meq/30 ml Liq) 40 meq ONCE ONCE PO Last administered on 06/04/16 10:28; Start 06/04/16 at 09:00; Stop 06/04/16 at 09:01; Status DC Oxycodone HCl (Roxicodone Intensol Liq) 10 mg Q3HR PRN PO PAIN 1-7; Start at 11:00; Stop 06/04/16 at 11:00; Status DC Fentanyl (Duragesic 75 Mcg Patch.72 Hr) 1 patch Q3D TD ; Start 06/04/16 at 11:00 Miscellaneous Information 1 Q3D T-DERMAL ; Start 06/04/16 at 11:00 Oxycodone HCl (Roxicodone Intensol Liq) 15 mg Q3H PRN GT PAIN SCALE 8 TO 10; Start 06/04/16 at 08:30; Stop 06/04/16 at 08:42; Status DC Oxycodone HCl (Roxicodone Intensol Liq) 10 mg Q3H PRN JT PAIN 1-7; Start at 11:00 Oxycodone HCl (Roxicodone Intensol Liq) 15 mg Q3H PRN JT PAIN SCALE 8 TO 10; Start 06/04/16 at 11:30 Enoxaparin Sodium (Lovenox Inj) 70 mg Q12H SQ ; Start 06/04/16 at 11:00 A/P Assessment and Plan A/P Respiratory failure: Extubated febrile 11/16/16. Stable and continue bronchodilator when necessary Small bowel obstruction - Status post palliative stent placement - Management per GI. -Adjust pain medication accordingly Gastric perforation - Status post surgical repair with G-tube/J-tube placement. - s/p Levaquin and Flagyl tx - On full liquid -continue pain control -management per surgery DVT - left lower extremity; started on therapeutic dose of Lovenox- Atrial fibrillation - Status post ablation - Rate controlled -resumed BB Pancreatic cancer - per Oncology - When medically stable may consider treatment with Gemcitabine and Abraxane Hypothyroidism - Synthroid GI prophylaxis - Protonix PT to treat and Jennifer Sanchez MD Jun 04, 2016 10:45
[2016-06-04] MEDS ORDERED: fentaNYL 75 MCG/HR PATCH TD SCH (11:00)
[2016-06-04] MEDS: REMOVE OLD PATCH T-DERMAL SCH (11:00)
[2016-06-04] MEDS ORDERED: oxyCODONE HCL ORAL CONC 20 MG/ML SYRINGE PO PRN (11:00)
[2016-06-04] MEDS: ENOXAPARIN SODIUM 80 MG/0.8 ML SYRINGE SQ SCH ×2 (11:27→21:29)
[2016-06-04] MEDS: FLUCONAZOLE 200 MG PREMIX BAG 100 ML IV SCH (11:36)
[2016-06-04 12:00] VITALS: BP 107/65; PULSE 98; RESP 16; TEMP 98.3; O2SAT 96
[2016-06-04] MEDS: oxyCODONE HCL ORAL CONC 20 MG/ML SYRINGE JT PRN ×3 (12:29→21:29)
[2016-06-04 16:00] VITALS: BP 114/72; PULSE 99; RESP 19; TEMP 98.6; O2SAT 96
--- NOTE | 2016-06-04 16:30 | HHI.PR ---
Subjective Subjective Notes Mrs. Mendoza seen around 7am today Sitting on the side of the bed Concerned about possibility of DVT in LEFT leg Objective Vitals/I&O Vital Signs Date Time Temp Pulse Resp B/P Pulse Ox O2 Delivery O2 Flow Rate FiO2 06/04/16 12:00 98.3 98 16 107/65 96 05/31/16 10:46 21 Labs Laboratory Tests Test 06/04/16 06:11 White Blood Count 6.4 Red Blood Count 3.00 Hemoglobin 8.6 Hematocrit 25.7 Mean Corpuscular Volume 85.6 Mean Corpuscular Hemoglobin 28.7 Mean Corpuscular Hemoglobin 33.5 Concent Red Cell Distribution Width 13.9 Platelet Count 266 Mean Platelet Volume 8.2 Neutrophils (%) (Auto) 70.2 Lymphocytes (%) (Auto) 13.3 Monocytes (%) (Auto) 13.6 Eosinophils (%) (Auto) 2.3 Basophils (%) (Auto) 0.6 Neutrophils # (Auto) 4.5 Lymphocytes # (Auto) 0.9 Monocytes # (Auto) 0.9 Eosinophils # (Auto) 0.1 Basophils # (Auto) 0.0 CBC Comment DIFF FINAL Differential Comment Sodium Level 136 Potassium Level 3.6 Chloride Level 98 Carbon Dioxide Level 30.6 Anion Gap 7 Blood Urea Nitrogen 11 Creatinine 0.47 Estimat Glomerular Filtration 132 Rate Random Glucose 131 Calcium Level 7.7 Cardiovascular: Regular Lungs: Clear Abdomen: Other (midline incision; G and J tube without complications; AUTUMN x1 ) Extremities: Other (LEFT leg swelling at knee ) A/P Assessment and Plan 70 year old female with stage IV pancreatic cancer with malignant gastric outlet obstruction -POD9 Ex laparotomy, oversew gastric perforation lesser curve of stomach; Gastrostomy tube placement; Jejunostomy feeding tube placement -s/p place duodenal stent placement -TF at 45; increase to 60 cc/hr as tolerated -Flush J tube with NS 30 ml Q8 -Flush G tube Q8 -Start therapeutic Lovenox today for DVT in LEFT leg -Continue Angélica -Dr. Umana following and discussed with family code status Attending Note - Dr. Alexander Drains intact with serosanguinous drainage Incision clean and dry with nik intact I attest that I had a [id number] encounter with the patient on the same day, and personally performed and documented my assessment and findings in the medical record. The following services were provided during this hospital visit: Chart data review, vital sign assessments/reviewing monitor data Review of consultations notes if present. Medication orders/review and/or management Ordering and/or reviewing lab tests Ordering and/or interpreting/reviewing x-rays and/or diagnostic studies Care of the patient and discussion of the patient with the care team Documentation time To help prompt me to consider important information that might be impacting today's encounter and assessment, information from prior notes written by myself or my colleagues may have been "brought forward/copy and pasted" into today's note. The exam, history, and the medical decision-making described in the above note were completed with the assistance of the mid-level provider. I reviewed and agree with the findings presented. Abiola Zhong Jun 04, 2016 16:30 Jesse Alexander MD Jun 16, 2016 21:01
[2016-06-04 20:00] VITALS: BP 113/57; PULSE 100; RESP 16; TEMP 98.5; O2SAT 96
[2016-06-04] MEDS: BISACODYL 10 MG SUPP PR PRN (20:23)
--- NOTE | 2016-06-04 21:33 | PD.ONC.PN ---
Subjective Subjective Remarks abdominal pain not well controlled and using frequent prn doses of narcotics. mild left leg swelling. Objective Data Date Time Temp Pulse Resp B/P Pulse Ox O2 Delivery O2 Flow Rate FiO2 06/04/16 16:00 98.6 99 19 114/72 96 06/04/16 12:00 98.3 98 16 107/65 96 06/04/16 08:00 98.0 106 19 106/61 97 06/04/16 00:00 98.5 100 18 112/54 94 06/04/16 06/04/16 06/04/16 07:00 15:00 23:00 Intake Total 1307 ml 500 ml 944 ml Output Total 1260 ml 750 ml 310 ml Balance 47 ml -250 ml 634 ml Result Diagram: 06/04/1661006/04/16610 Laboratory Results Laboratory Tests Test 06/04/16 06:11 White Blood Count 6.4 TH/MM3 Red Blood Count 3.00 MIL/MM3 Hemoglobin 8.6 GM/DL Hematocrit 25.7 % Mean Corpuscular Volume 85.6 FL Mean Corpuscular Hemoglobin 28.7 PG Mean Corpuscular Hemoglobin 33.5 % Concent Red Cell Distribution Width 13.9 % Platelet Count 266 TH/MM3 Mean Platelet Volume 8.2 FL Neutrophils (%) (Auto) 70.2 % Lymphocytes (%) (Auto) 13.3 % Monocytes (%) (Auto) 13.6 % Eosinophils (%) (Auto) 2.3 % Basophils (%) (Auto) 0.6 % Neutrophils # (Auto) 4.5 TH/MM3 Lymphocytes # (Auto) 0.9 TH/MM3 Monocytes # (Auto) 0.9 TH/MM3 Eosinophils # (Auto) 0.1 TH/MM3 Basophils # (Auto) 0.0 TH/MM3 CBC Comment DIFF FINAL Differential Comment Sodium Level 136 MEQ/L Potassium Level 3.6 MEQ/L Chloride Level 98 MEQ/L Carbon Dioxide Level 30.6 MEQ/L Anion Gap 7 MEQ/L Blood Urea Nitrogen 11 MG/DL Creatinine 0.47 MG/DL Estimat Glomerular Filtration 132 ML/MIN Rate Random Glucose 131 MG/DL Calcium Level 7.7 MG/DL Imaging Studies Last 24 hours Impressions Lower Extremity Ultrasound 06/04/16 0000 Signed Impressions: Service Date/Time: Saturday, June 04, 2016 08:13 - CONCLUSION: 1. DVT left common femoral vein. 2. No DVT right lower extremity. Reynaldo Hernandez MD Administered Medications Medications (Trade) Dose Ordered Sig/Kristie Route PRN Reason Start Time Stop Time Status Last Admin Dose Admin Sodium Chloride (NS 1000 ml Inj) 1,000 ml @ 50 mls/hr Q20H IV 05/24/16 10:14 06/04/16 10:28 IV Flush (NS Flush) 2 ml UNSCH PRN FLUSH FLUSH AFTER USING IV ACCESS 05/24/16 10:15 06/03/16 02:59 IV Flush (NS Flush) 2 ml BID FLUSH 05/24/16 21:00 06/04/16 10:31 Bisacodyl (Dulcolax Supp) 10 mg DAILY PRN [place] CONSTIPATION 05/24/16 10:15 06/04/16 20:23 Levothyroxine Sodium (Synthroid Inj) 62 mcg DAILY@06 IV PUSH 05/26/16 06:00 06/04/16 06:12 Hydromorphone HCl (Dilaudid Pf Inj) 1 mg Q3HR PRN IV PUSH pain6-10 05/26/16 11:30 06/04/16 10:24 Prochlorperazine Edisylate (Compazine Inj) 10 mg Q6H PRN IVS NAUSEA OR VOMITING 05/26/16 12:45 06/01/16 02:39 Ondansetron HCl (Zofran Inj) 4 mg Q6HR PRN IV PUSH NAUSEA OR VOMITING 05/26/16 15:30 06/04/16 20:23 Pantoprazole Sodium 40 mg 40 mg Q24H IV PUSH 05/27/16 09:00 06/04/16 10:29 Fluconazole/ Sodium Chloride (Diflucan 200 Mg Premix Bag) 100 ml @ 100 mls/hr Q24H IV 05/28/16 11:15 06/07/16 11:15 06/04/16 11:36 Simethicone (Simethicone Liq (Drops)) 40 mg QID PRN PO CRAMPS 06/01/16 10:00 06/04/16 11:35 Metoprolol Tartrate (Lopressor) 12.5 mg DAILY PEG 06/02/16 15:00 06/04/16 10:30 Fentanyl (Duragesic 75 Mcg Patch.72 Hr) 1 patch Q3D TD 06/04/16 11:00 06/04/16 10:44 Miscellaneous Information 1 Q3D T-DERMAL 06/04/16 11:00 06/04/16 11:00 Oxycodone HCl (Roxicodone Intensol Liq) 15 mg Q3H PRN JT PAIN SCALE 8 TO 10 06/04/16 11:30 06/04/16 15:55 Enoxaparin Sodium (Lovenox Inj) 70 mg Q12H SQ 06/04/16 11:00 06/04/16 11:27 Objective Remarks GENERAL: tired SKIN: Warm and dry. HEAD: Normocephalic. EYES: No scleral icterus. No injection or drainage. NECK: Supple, trachea midline. No JVD or lymphadenopathy. LYMPHATIC: No adenopathy. CARDIOVASCULAR: Regular rate and rhythm without murmurs. RESPIRATORY: Breath sounds equal bilaterally. No accessory muscle use. GASTROINTESTINAL: Abdomen soft, mild distention. has G tube and J tube ( feedings at 50 cc/hour) EXTREMITIES: +1 edema left leg MUSCULOSKELETAL: Adequate muscle tone. NEUROLOGICAL: No obvious focal deficit. Awake, alert, and oriented x3. PSYCHIATRIC: Appropriate mood and affect; insight and judgment normal. Assessment/Plan Assessment 1: abd pain still a problem. have increased duragesic and oxycodone 2: DVT- lovenex started and would recommend continuing Lovenox as PO intake not reliable. On discharge one can give 1.5 mg/kg sub cut daily 3: I am not sure she will come to further chemotherapy if problems continue to mount. Chiki Umana MD Jun 04, 2016 21:33
[2016-06-05] VITALS: BP 108/61; PULSE 102; RESP 16; TEMP 99.1; O2SAT 96
[2016-06-05] MEDS: ONDANSETRON HCL 4 MG/2 ML VIAL IV PUSH PRN ×3 (02:12→18:37)
[2016-06-05] MEDS: oxyCODONE HCL ORAL CONC 20 MG/ML SYRINGE JT PRN ×6 (02:13→18:37)
[2016-06-05] MEDS: LEVOTHYROXINE SODIUM 100 MCG VIAL IV PUSH SCH (05:38)
[2016-06-05] MEDS: SODIUM CHLOR 0.9% 1000 ML INJ 1,000 ML IV SCH ×2 (05:38→22:00)
[2016-06-05] MEDS: INSULIN ASPART SUPPLEMENTAL SCALE SQ SCH ×4 (05:42→21:00)
[2016-06-05 08:00] VITALS: BP 116/59; PULSE 99; RESP 20; TEMP 99.2; O2SAT 95
[2016-06-05] MEDS: SODIUM CHLORIDE 0.9% FLUSH 5 ML FLUSH FLUSH SCH ×2 (09:00→21:00)
[2016-06-05] MEDS: PANTOPRAZOLE SODIUM 40 MG VIAL IV PUSH SCH (09:15)
[2016-06-05] MEDS: METOPROLOL TARTRATE 25 MG TAB PEG SCH (09:15)
[2016-06-05] MEDS: ENOXAPARIN SODIUM 80 MG/0.8 ML SYRINGE SQ SCH ×2 (11:30→22:16)
[2016-06-05] MEDS: FLUCONAZOLE 200 MG PREMIX BAG 100 ML IV SCH (11:31)
--- NOTE | 2016-06-05 11:43 | HHI.PR ---
Subjective Remarks in no acute distress. abdominal pain is better today. had some nausea earlier but no emesis. Objective Vitals Vital Signs Date Time Temp Pulse Resp B/P Pulse Ox O2 Delivery O2 Flow Rate FiO2 06/05/16 08:00 99.2 99 20 116/59 95 06/05/16 00:00 99.1 102 16 108/61 96 06/04/16 20:00 98.5 100 16 113/57 96 06/04/16 16:00 98.6 99 19 114/72 96 06/04/16 12:00 98.3 98 16 107/65 96 I/O 06/04/16 06/04/16 06/04/16 06/05/16 06/05/16 06/05/16 07:00 15:00 23:00 07:00 15:00 23:00 Intake Total 1307 ml 500 ml 944 ml 1683 ml 120 ml Output Total 1260 ml 750 ml 310 ml 340 ml Balance 47 ml -250 ml 634 ml 1343 ml 120 ml Intake Oral 420 ml 500 ml 240 ml 120 ml IV Total 461 ml 482 ml 703 ml Tube Feeding 426 ml 462 ml 740 ml Output Urine Total 650 ml 750 ml Gastric Drainage Total 450 ml Drainage Total 160 ml 310 ml 340 ml # Voids 2 # Bowel Movements 0 0 0 Result Diagram: 06/04/16 0611 06/04/16 0611 Imaging Last Impressions Lower Extremity Ultrasound 06/04/16 0000 Signed Impressions: Service Date/Time: Saturday, June 04, 2016 08:13 - CONCLUSION: 1. DVT left common femoral vein. 2. No DVT right lower extremity. Reynaldo Hernandez MD GI Procedure 05/26/16 0000 Signed Impressions: Service Date/Time: Thursday, May 26, 2016 17:29 - CONCLUSION: Intestinal stent placement as described above. Blaine Kowalski MD Chest X-Ray 05/26/16 0000 Signed Impressions: Service Date/Time: Thursday, May 26, 2016 21:29 - CONCLUSION: Status post intubation with endotracheal tube in appropriate position. Acute extensive subcutaneous emphysema. No evidence of pneumothorax. Bilateral airspace disease as described. Blaine Kowalski MD Abdomen/Pelvis CT 05/24/16 0000 Signed Impressions: Service Date/Time: Tuesday, May 24, 2016 08:51 - CONCLUSION: 1. Pancreatic mass again identified, measuring larger than on the comparison study.. 2. New gastric distention and diffuse dilatation of the duodenum with apparent transition point in the distal third portion of the duodenum. The transition point is in the region of soft tissue mass extending from the pancreas to the retroperitoneal region. More distally the small bowel is normal diameter. Finding suggest at least partial obstruction of the duodenum. 3. New diffuse intrahepatic and extra hepatic biliary ductal dilatation. No discrete mass is identified in the region of the distal common duct. The pancreatic duct is also now mildly prominent diffusely measuring approximately 4 mm. 4. Small pleural effusions. Hunter Pagan MD Objective Remarks GENERAL: This is a well-nourished, well-developed patient, in no apparent distress. CARDIOVASCULAR: Regular rate and regular rhythm without murmurs, gallops, or rubs. RESPIRATORY: Clear to auscultation. Breath sounds equal bilaterally. No wheezes , rales, or rhonchi. GASTROINTESTINAL: Abdomen soft, non-tender, site of surgery is clean. MUSCULOSKELETAL: Extremities without clubbing, cyanosis, or edema. NEURO: Alert & Oriented x4 to person, place, time, situation. Moves all ext x4 Procedures None. Medications and IVs Current Medications Ondansetron HCl 4 mg 4 mg ONCE ONCE IVP Last administered on 05/24/16 07:28; Start 05/24/16 at 07:15; Stop 05/24/16 at 07:18; Status DC Sodium Chloride (NS 1000 ml Inj) 1,000 ml @ 1,000 mls/hr Q1H IV Last administered on 05/24/16 07:28; Start 05/24/16 at 07:14; Stop 05/24/16 at 08:13 ; Status DC IV Flush (NS Flush) 2 ml UNSCH PRN IVF FLUSH AFTER USING IV ACCESS Last administered on 05/24/16 09:56; Start 05/24/16 at 07:15; Stop 05/24/16 at 17:43 ; Status DC Morphine Sulfate (Morphine Inj) 5 mg ONCE ONCE IV PUSH Last administered on 07:28; Start 05/24/16 at 07:15; Stop 05/24/16 at 07:18; Status DC Promethazine HCl (Phenergan Inj) 25 mg ONCE ONCE IM ; Start 05/24/16 at 08:15; Stop 05/24/16 at 08:57; Status DC Promethazine HCl (Phenergan Supp) 25 mg ONCE ONCE RECTAL Last administered on 05/24/16 09:25; Start 05/24/16 at 09:00; Stop 05/24/16 at 09:01; Status DC Iohexol (Omnipaque 350 Inj) 96 ml STK-MED ONCE IV Last administered on 09:14; Start 05/24/16 at 09:14; Stop 05/24/16 at 09:15; Status DC Hydromorphone HCl (Dilaudid Pf Inj) 0.5 mg ONCE ONCE IV PUSH Last administered on 05/24/16 09:56; Start 05/24/16 at 09:45; Stop 05/24/16 at 09:46 ; Status DC Lidocaine HCl 5 ml 5 ml ONCE ONCE TOPICAL Last administered on 05/24/16 10:32 ; Start 05/24/16 at 10:00; Stop 05/24/16 at 10:20; Status DC Potassium Chloride 100 ml @ 50 mls/hr ONCE ONCE IV Last administered on 11:31; Start 05/24/16 at 10:00; Stop 05/24/16 at 11:59; Status DC Sodium Chloride 1,000 ml @ 100 mls/hr Q10H IV Last administered on 05/24/16 11:31; Start 05/24/16 at 10:00; Stop 05/24/16 at 17:44; Status DC Sodium Chloride (NS 1000 ml Inj) 1,000 ml @ 50 mls/hr Q20H IV Last administered on 06/05/16 05:38; Start 05/24/16 at 10:14 IV Flush (NS Flush) 2 ml UNSCH PRN FLUSH FLUSH AFTER USING IV ACCESS Last administered on 06/03/16 02:59; Start 05/24/16 at 10:15 IV Flush (NS Flush) 2 ml BID FLUSH Last administered on 06/05/16 09:00; Start 05/24/16 at 21:00 Acetaminophen (Tylenol) 650 mg Q4H PRN PO fever, headache, pain 1-4; Start at 10:15; Stop 05/28/16 at 11:13; Status DC Ondansetron HCl (Zofran Inj) 4 mg Q6H PRN IVP NAUSEA OR VOMITING; Start at 10:15; Stop 05/24/16 at 15:39; Status DC Bisacodyl (Dulcolax Supp) 10 mg DAILY PRN [place] CONSTIPATION Last administered on 06/04/16 20:23; Start 05/24/16 at 10:15 Magnesium Hydroxide (Milk Of Magnesia Liq) 30 ml Q12H PRN PO CONSTIPATION; Start 05/24/16 at 10:15 Enoxaparin Sodium (Lovenox Inj) 40 mg Q24H SQ ; Start 05/24/16 at 10:15; Stop at 20:02; Status DC Naloxone HCl (Narcan Inj) 0.4 mg UNSCH PRN IV SEE LABEL COMMENTS; Start at 10:15 Prochlorperazine Edisylate (Compazine Inj) 10 mg Q6H PRN IM NAUSEA OR VOMITING ; Start 05/24/16 at 10:15; Stop 05/26/16 at 12:33; Status DC Hydromorphone HCl (Dilaudid Pf Inj) 1 mg ONCE ONCE IV PUSH Last administered on 05/24/16 13:02; Start 05/24/16 at 13:00; Stop 05/24/16 at 13:01; Status DC Hydromorphone HCl (Dilaudid Pf Inj) 0.5 mg Q4H PRN IV PUSH PAIN SCALE 5 TO 10 Last administered on 05/26/16 08:14; Start 05/24/16 at 13:00; Stop 05/26/16 at 11:34; Status DC Ondansetron HCl (Zofran Inj) 4 mg Q6H IVP Last administered on 05/25/16 09:18 ; Start 05/24/16 at 16:00; Stop 05/25/16 at 13:37; Status DC Fentanyl (Duragesic 25 Mcg Patch.72 Hr) 1 patch ONCE ONCE TD Last administered on 05/24/16 16:31; Start 05/24/16 at 16:00; Stop 05/24/16 at 16:01 ; Status DC Miscellaneous Information 1 1 Q3D TD ; Start 05/27/16 at 09:00; Stop 05/27/16 at 09:00; Status DC Cefazolin Sodium/ Dextrose 50 ml @ 100 mls/hr Q8H IV ; Start 05/24/16 at 17:45 ; Stop 05/24/16 at 18:28; Status DC Levofloxacin/ Dextrose 150 ml @ 100 mls/hr Q24H IV Last administered on 20:01; Start 05/24/16 at 20:00; Stop 05/28/16 at 11:13; Status DC Metronidazole (Flagyl 500 Mg Inj) 100 ml @ 100 mls/hr Q8H IV Last administered on 05/28/16 03:39; Start 05/24/16 at 20:00; Stop 05/28/16 at 11:14; Status DC Enoxaparin Sodium (Lovenox Inj) 40 mg Q24H SQ Last administered on 06/03/16 20: 58; Start 05/24/16 at 20:00; Stop 06/04/16 at 10:06; Status DC Ondansetron HCl 6 mg 6 mg Q6H IVP Last administered on 05/26/16 08:13; Start 05/25/16 at 14:00; Stop 05/26/16 at 13:59; Status DC Multivitamins 10 ml/Folic Acid 1 mg/Amino Acids/ Electrolytes/ Dextrose 1,010.2 ml @ 42 mls/hr Q24H IV Last administered on 06/02/16 19:50; Start 05/25/16 at 20:00; Stop 06/03/16 at 10:20; Status DC Fat Emulsion Intravenous 250 ml @ 10 mls/hr Q24H IV Last administered on 19:49; Start 05/25/16 at 20:00; Stop 06/03/16 at 10:21; Status DC Potassium Chloride (KCl 20 Meq Premix Inj) 100 ml @ 50 mls/hr Q2H IV Last administered on 05/26/16 11:57; Start 05/26/16 at 08:00; Stop 05/26/16 at 11:59 ; Status DC Levothyroxine Sodium 62 mcg 62 mcg DAILY@06 IV PUSH Last administered on 05:38; Start 05/26/16 at 06:00 Potassium Chloride 100 ml @ 50 mls/hr Q2H IV Last administered on 05/26/16 15 :16; Start 05/26/16 at 12:00; Stop 05/26/16 at 15:59; Status DC Potassium Chloride (KCl 20 Meq Premix Inj) 100 ml @ 50 mls/hr Q2H IV ; Start at 18:00; Stop 05/26/16 at 21:59; Status DC Fentanyl (Duragesic 50 Mcg Patch.72 Hr) 1 patch Q3D TD Last administered on 12:00; Start 05/26/16 at 12:00; Stop 06/04/16 at 08:37; Status DC Miscellaneous Information 1 Q3D T-DERMAL Last administered on 06/01/16 12:00; Start 05/29/16 at 12:00; Stop 06/04/16 at 08:37; Status DC Hydromorphone HCl (Dilaudid Pf Inj) 0.5 mg Q3HR PRN IV PUSH pain1-5 Last administered on 05/27/16 15:11; Start 05/26/16 at 11:30; Stop 06/02/16 at 11:16 ; Status DC Hydromorphone HCl (Dilaudid Pf Inj) 1 mg Q3HR PRN IV PUSH pain6-10 Last administered on 06/04/16 10:24; Start 05/26/16 at 11:30 Promethazine HCl (Phenergan Supp) 12.5 mg ONCE ONCE RECTAL ; Start 05/26/16 at 11:45; Stop 05/26/16 at 11:48; Status DC Prochlorperazine Edisylate (Compazine Inj) 10 mg Q6H PRN IVS NAUSEA OR VOMITING Last administered on 06/01/16 02:39; Start 05/26/16 at 12:45 Ondansetron HCl (Zofran Inj) 4 mg Q6HR PRN IV PUSH NAUSEA OR VOMITING Last administered on 06/05/16 11:26; Start 05/26/16 at 15:30 Miscellaneous Information ALL NURSING DEPARTME... UNSCH PRN XX SEE LABEL COMMENTS; Start 05/26/16 at 17:58; Stop 05/27/16 at 17:57; Status DC Fluconazole/ Sodium Chloride 200 ml @ 100 mls/hr NOW ONCE IV ; Start 05/26/16 at 20:00; Stop 05/26/16 at 21:59; Status DC Fluconazole/ Sodium Chloride 200 ml @ 100 mls/hr NOW ONCE IV Last administered on 05/26/16t 19:44; Start 05/26/16 at 19:30; Stop 05/26/16 at 21:29 ; Status Cancel Sodium Chloride 154 meq/Dextrose 1,038.5 ml @ 30 mls/hr Q24H IV ; Start at 21:30; Stop 05/27/16 at 08:39; Status DC Propofol (Diprivan 1000 Mg/100ml Inj) 100 ml @ As Directed STK-MED ONCE .ROUTE ; Start 05/26/16 at 21:10; Stop 05/26/16 at 21:11; Status DC Fentanyl Citrate (fentaNYL INJ) 250 mcg STK-MED ONCE .ROUTE ; Start 05/26/16 at 21:30; Stop 05/26/16 at 21:31; Status DC Fentanyl Citrate (fentaNYL INJ) 250 mcg STK-MED ONCE .ROUTE ; Start 05/26/16 at 21:30; Stop 05/26/16 at 21:31; Status DC Morphine Sulfate (*morphine INJ PERIprocedure ONLY) 8 mg STK-MED ONCE .ROUTE ; Start 05/26/16 at 21:38; Stop 05/26/16 at 21:39; Status DC Enalaprilat (*VASOTEC INJ PERIprocedural Use ONLY) 1.25 mg STK-MED ONCE .ROUTE ; Start 05/26/16 at 21:38; Stop 05/26/16 at 21:39; Status DC Labetalol HCl 100 mg 100 mg STK-MED ONCE .ROUTE ; Start 05/26/16 at 21:38; Stop 05/26/16 at 21:39; Status DC Propofol (Diprivan 1000 Mg/100ml Inj) 100 ml @ 0 mls/hr TITRATE IV Last administered on 05/27/16t 06:15; Start 05/26/16 at 22:00; Stop 05/30/16 at 16:32 ; Status DC Morphine Sulfate (*morphine INJ PERIprocedure ONLY) 8 mg STK-MED ONCE .ROUTE ; Start 05/26/16 at 22:39; Stop 05/26/16 at 22:40; Status DC Morphine Sulfate (Morphine Inj) 8 mg STK-MED ONCE IV PUSH Last administered on 05/26/16 21:40; Start 05/26/16 at 21:40; Stop 05/27/16 at 01:31; Status DC Labetalol HCl (Trandate Inj) 100 mg STK-MED ONCE IVP Last administered on 21:41; Start 05/26/16 at 21:41; Stop 05/27/16 at 01:31; Status DC Enalaprilat (Vasotec Inj) 1.25 mg STK-MED ONCE IV PUSH Last administered on 21:55; Start 05/26/16 at 21:55; Stop 05/27/16 at 01:31; Status DC Morphine Sulfate 8 mg 8 mg STK-MED ONCE IV PUSH Last administered on 05/26/16 22:40; Start 05/26/16 at 22:40; Stop 05/27/16 at 01:31; Status DC Potassium Chloride 100 ml @ 50 mls/hr Q2H IV Last administered on 05/27/16 03 :45; Start 05/27/16 at 01:45; Stop 05/27/16 at 05:44; Status DC Potassium Chloride 100 ml @ 50 mls/hr Q2H PRN IV For Potassium 2.8 - 3.2 mEq/L ; Start 05/27/16 at 05:15; Stop 05/30/16 at 10:19; Status DC Potassium Chloride (KCl 20 Meq Premix Inj) 100 ml @ 50 mls/hr Q2H PRN IV For Potassium 2.8 - 3.2 mEq/L Last administered on 05/28/16 06:16; Start 05/27/16 at 05:15; Stop 05/30/16 at 10:19; Status DC Potassium Chloride 40 meq 40 meq UNSCH PRN PO/TUBE For Potassium 3.3 - 3.5 mEq/ L; Start 05/27/16 at 05:15; Stop 05/30/16 at 10:19; Status DC Potassium Chloride 100 ml @ 25 mls/hr UNSCH PRN IV For Potassium 3.3 - 3.5 mEq /L; Start 05/27/16 at 05:15; Stop 05/30/16 at 10:19; Status DC Potassium Chloride 100 ml @ 50 mls/hr Q2H PRN IV For Potassium 3.3 - 3.5 mEq/L ; Start 05/27/16 at 05:15; Stop 05/30/16 at 10:19; Status DC Magnesium Sulfate/ Sodium Chloride (Magnesium Sulfate Inj/NS Inj) 100 ml @ 50 mls/hr UNSCH PRN IV For Magnesium 0.9 - 1.1 mg/dL; Start 05/27/16 at 05:15; Stop 05/30/16 at 10:19; Status DC Magnesium Oxide 800 mg 800 mg UNSCH PRN PO For Magnesium 1.2 - 1.6 mg/dL; Start 05/27/16 at 05:15; Stop 05/30/16 at 10:19; Status DC Magnesium Sulfate/ Sodium Chloride (Magnesium Sulfate Inj/NS Inj) 100 ml @ 50 mls/hr UNSCH PRN IV For Magnesium 1.2 - 1.6 mg/dL; Start 05/27/16 at 05:15; Stop 05/30/16 at 10:19; Status DC Potassium Phosphate 2000 mg 2,000 mg Q4H PRN PO For Phosphorus < 2.5 mg/dL; Start 05/27/16 at 05:15; Stop 05/30/16 at 10:19; Status DC Sodium Phosphate/ Sodium Chloride (Sodium Phosphate Inj/NS 250 ml Inj) 250 ml @ 42 mls/hr UNSCH PRN IV For Phosphorus < 2.5 mg/dL; Start 05/27/16 at 05:15; Stop 05/30/16 at 10:19; Status DC Potassium Chloride (KCl 40 Meq/30 ml Liq) 40 meq UNSCH PRN PO/TUBE SEE LABEL COMMENTS; Start 05/27/16 at 05:15; Stop 05/30/16 at 10:19; Status DC Potassium Phosphate 2000 mg 2,000 mg UNSCH PRN PO/TUBE SEE LABEL COMMENTS; Start 05/27/16 at 05:15; Stop 05/30/16 at 10:19; Status DC Potassium Phosphate/Sodium Chloride (Potassium Phosphate Inj/NS 250 ml Inj) 260 ml @ 42 mls/hr UNSCH PRN IV SEE LABEL COMMENTS; Start 05/27/16 at 05:15; Stop 05/30/16 at 10:19; Status DC Pantoprazole Sodium (Protonix Inj) 40 mg Q24H IV PUSH Last administered on t 09:15; Start 05/27/16 at 09:00 Propofol (Diprivan 200 Mg/20 ml Inj) 200 mg STK-MED ONCE IV ; Start 05/26/16 at 12:00; Stop 05/27/16 at 09:06; Status DC Ondansetron HCl 4 mg 4 mg STK-MED ONCE IV PUSH ; Start 05/26/16 at 12:00; Stop 05/27/16 at 09:06; Status DC Lactated Ringer's 2,000 ml @ As Directed STK-MED ONCE IV ; Start 05/26/16 at 12 :00; Stop 05/27/16 at 09:06; Status DC Sodium Chloride (NS 500 ml Inj) 500 ml @ As Directed STK-MED ONCE IV ; Start at 12:00; Stop 05/27/16 at 09:06; Status DC Propofol (Diprivan 200 Mg/20 ml Inj) 200 mg STK-MED ONCE IV ; Start 05/26/16 at 18:00; Stop 05/27/16 at 16:53; Status DC Labetalol HCl (Trandate Inj) 100 mg STK-MED ONCE .ROUTE Last administered on 18:05; Start 05/27/16 at 17:51; Stop 05/27/16 at 17:52; Status DC Labetalol HCl (Trandate Inj) 20 mg Q2H PRN IV SBP > 160 MMHG; Start 05/27/16 at 18:30 Potassium Chloride (KCl 40 Meq/30 ml Liq) 40 meq NOW ONCE PO Last administered on 05/28/16 07:54; Start 05/28/16 at 07:30; Stop 05/28/16 at 07:31; Status DC Potassium Chloride (KCl 40 Meq/30 ml Liq) 40 meq DAILY@12 PO Last administered on 05/28/16 11:32; Start 05/28/16 at 12:00; Stop 05/28/16 at 12:01; Status DC Albuterol/ Ipratropium 1 ampule 1 ampule Q6HR NEB NEB Last administered on 05/29 17:25; Start 05/28/16 at 10:00; Stop 06/01/16 at 09:38; Status DC Fluconazole/ Sodium Chloride (Diflucan 200 Mg Premix Bag) 100 ml @ 100 mls/hr Q24H IV Last administered on 06/05/16 11:31; Start 05/28/16 at 11:15; Stop 06/07 at 11:15 Oxycodone HCl (Roxicodone Intensol Liq) 5 mg Q3H PRN PO PAIN SCALE 1 TO 7 Last administered on 06/01/16 06:39; Start 05/28/16 at 12:00; Stop 06/01/16 at 09:40; Status DC Acetaminophen (Ofirmev Inj) 1,000 mg Q6H IV Last administered on 05/31/16 05:51 ; Start 05/28/16 at 13:00; Stop 05/31/16 at 07:01; Status DC Oxycodone HCl (Roxicodone Intensol Liq) 5 mg Q2H PRN PO PAIN SCALE 1 TO 7 Last administered on 06/02/16 11:08; Start 06/01/16 at 11:00; Stop 06/02/16 at 11:16; Status DC Dextrose (D50w (Vial) Inj) 25 ml UNSCH PRN IV PUSH HYPOGLYCEMIA-SEE COMMENTS; Start 06/01/16 at 09:45 Glucagon (Glucagon Inj) 1 mg UNSCH PRN OTHER HYPOGLYCEMIA-SEE COMMENTS; Start 06/01/16 at 09:45 Insulin Aspart (NovoLOG SUPPLEMENTAL SCALE) 1 ACHS SLIDING SCALE SQ ; Start 06/01/16 at 11:00 Potassium Bicarb/ Potassium Chloride (K-Lyte Cl Eff) 50 meq ONCE ONCE PO Last administered on 06/01/16 09:45; Start 06/01/16 at 09:45; Stop 06/01/16 at 09: 49; Status DC Simethicone (Simethicone Liq (Drops)) 40 mg QID PRN PO CRAMPS Last administered on 06/04/16 21:46; Start 06/01/16 at 10:00 Metoprolol Tartrate 50 mg 50 mg ONCE ONCE PO Last administered on 06/01/16 10: 00; Start 06/01/16 at 10:00; Stop 06/01/16 at 10:01; Status DC Potassium Chloride (KCl 40 Meq Premix Inj) 100 ml @ 25 mls/hr BOLUS ONCE IV Last administered on 06/01/16 10:00; Start 06/01/16 at 10:00; Stop 06/01/16 at 13: 59; Status DC Oxycodone HCl (Roxicodone Intensol Liq) 7.5 mg Q2H PRN PO PAIN 1-7 Last administered on 06/04/16 06:12; Start 06/02/16 at 11:00; Stop 06/04/16 at 08:37; Status DC Metoprolol Tartrate (Lopressor) 12.5 mg DAILY PEG Last administered on 09:15; Start 06/02/16 at 15:00 Potassium Chloride (KCl 40 Meq/30 ml Liq) 40 meq ONCE ONCE PO Last administered on 06/04/16 10:28; Start 06/04/16 at 09:00; Stop 06/04/16 at 09:01; Status DC Oxycodone HCl (Roxicodone Intensol Liq) 10 mg Q3HR PRN PO PAIN 1-7; Start at 11:00; Stop 06/04/16 at 11:00; Status DC Fentanyl (Duragesic 75 Mcg Patch.72 Hr) 1 patch Q3D TD Last administered on 10:44; Start 06/04/16 at 11:00 Miscellaneous Information 1 Q3D T-DERMAL Last administered on 06/04/16 11:00; Start 06/04/16 at 11:00 Oxycodone HCl (Roxicodone Intensol Liq) 15 mg Q3H PRN GT PAIN SCALE 8 TO 10; Start 06/04/16 at 08:30; Stop 06/04/16 at 08:42; Status DC Oxycodone HCl (Roxicodone Intensol Liq) 10 mg Q3H PRN JT PAIN 1-7 Last administered on 06/05/16 09:14; Start 06/04/16 at 11:00 Oxycodone HCl (Roxicodone Intensol Liq) 15 mg Q3H PRN JT PAIN SCALE 8 TO 10 Last administered on 06/05/16 05:46; Start 06/04/16 at 11:30 Enoxaparin Sodium (Lovenox Inj) 70 mg Q12H SQ Last administered on 06/05/16 11: 30; Start 06/04/16 at 11:00 A/P Assessment and Plan A/P Respiratory failure: Extubated febrile 20 08/. Stable and continue bronchodilator when necessary Small bowel obstruction - Status post palliative stent placement - Management per GI. -Adjust pain medication accordingly Gastric perforation - Status post surgical repair with G-tube/J-tube placement. - s/p Levaquin and Flagyl tx - diet per surgery -continue pain control -management per surgery DVT - left lower extremity; started on therapeutic dose of Lovenox- Atrial fibrillation - Status post ablation - Rate controlled -resumed BB Pancreatic cancer - per Oncology Hypothyroidism - Synthroid GI prophylaxis - Protonix PT to treat and Jennifer Sanchez MD Jun 05, 2016 11:42
[2016-06-05 12:00] VITALS: BP 115/59; PULSE 98; RESP 19; TEMP 99.7; O2SAT 96
--- NOTE | 2016-06-05 12:00 | HHI.PR ---
Subjective Subjective Notes Resting in bed Asking if Hospice can come talk to her; does not think her is ready to have the conversation Son at bedside agrees they need to have family meeting and thinks Palliative Care would be a good idea Objective Vitals/I&O Vital Signs Date Time Temp Pulse Resp B/P Pulse Ox O2 Delivery O2 Flow Rate FiO2 06/05/16 08:00 99.2 99 20 116/59 95 Cardiovascular: Regular Lungs: Clear Abdomen: Other (midline incision; G-tube clamped; J-tube with tube feeding; AUTUMN 1) Extremities: Other (left knee edema) A/P Assessment and Plan 70 year old female with stage IV pancreatic cancer with malignant gastric outlet obstruction -POD10 Ex laparotomy, oversew gastric perforation lesser curve of stomach; Gastrostomy tube placement; Jejunostomy feeding tube placement -s/p place duodenal stent placement -TF at 55; increase to 60 cc/hr as tolerated -Flush J tube with NS 30 ml Q8 -Flush G tube Q8 -On therapeutic Lovenox for DVT in LEFT leg -Dr. Umana following and discussed with family code status -Consult palliative care to establish goals of treatment and for family meeting ; patient inquiring about Hospice Attending Note - Dr. Benjamin Holley intact Tolerating TF at 55mlhr Keeping G-tube to gravity for comfort The exam, history, and the medical decision-making described in the above note were completed with the assistance of the mid-level provider. I reviewed and agree with the findings presented. I attest that I had a [id number] encounter with the patient on the same day, and personally performed and documented my assessment and findings in the medical record. Abiola Zhong Jun 05, 2016 11:59 Jesse Alexander MD Jun 05, 2016 17:12
[2016-06-05] MEDS ORDERED: KANGAROO JOEY P1 MIS (12:07)
--- NOTE | 2016-06-05 12:12 | HHI.FF ---
Face to Face Verification Diagnosis: (1) Pancreatic cancer Physical Therapy Order: Evaluate and Treat, Improve ambulation, Strength and gait training Instructions: No restrictions Home Health Nursing Order: Wound care and dressing changes Instructions: midline incision ---open to air Prior AUTUMN site---LEFT---place heavy drainage pad to site daily and PRN Tube feeding--Jevity 1.5 at 60 ml/hr (goal) Flush G and J tubes at each RN visit please Lovenox injections I have seen patient Winnie Campbell on 06/05/16. My clinical findings support the need for the requested home health care services because: Limited ability to care for self I certify that my clinical findings support that this patient is homebound because: Post-op weakness Unsteady gait/balance Abiola Zhong Jun 05, 2016 12:12
--- NOTE | 2016-06-05 14:52 | PD.CONS ---
Consult Service Palliative Care Consult Requested By Trevin NARVAEZ . Primary Care Physician Sly rL MD . Reason for Consultation a. To assist with evaluation and management of symptoms including: Pain b. To assist medical decision maker(s) with: better understanding of current medical conditions; weighing benefits/burdens of medical treatment options; making medical treatment decisions. . HPI History of Present Illness This 70-year-old female, with a past history of atrial fibrillation, hypothyroidism, chronic sinusitis, and ulcer disease, was diagnosed with metastatic pancreatic cancer 2 months ago. The patient had noticed some left supraclavicular adenopathy in January 2016, and had undergone some tests without specific results. She began developing abdominal pain and had lost a few pounds, and she presented to the emergency department on 04/06/16 where her serum lipase was 4287, and a CT scan revealed mesenteric adenopathy, multiple low density lesions in the liver, and one lesion in the pancreas. At that time , AFP was 3.6, CEA was 60, and CA 19-9 was 2964. An open lymph node biopsy was undertaken and the patient was sent home. Pathology revealed adenocarcinoma consistent with pancreatic origin, and a follow-up the patient was begun on FOLIRINOX chemotherapy. Her first session on 04/22/16 resulted in some fairly severe nausea/vomiting side effects, but she tolerated the second session better. Her third dose of FOLFOX was tolerated moderately well, but it was noted during that visit that the palpable supraclavicular adenopathy had not been improving. The patient was on Percocet 10 at home, and the pain was becoming more difficult to control. The patient then presented to the emergency department on 05/24/16 because of abdominal fullness and worsening pain, and some vomiting. Her pain was across the abdomen and in the lower back constant, not positional, not relieved by vomiting. In the emergency department, findings included: * Moderate pain, alert * Temp 98.0, pulse 93, respirations 14, blood pressure 154/84, oxygen saturation 99% on room air * White count 5.0, hemoglobin 11.9 * Sodium 138, creatinine 0.63, albumin 3.8 * AST 63, ALT 63, bilirubin 0.5 * CT abdomen/pelvis revealed the pancreatic mass to be larger, and a new finding of partial bowel obstruction due to another enlarging mass. An NG tube was placed, and the patient was admitted to the hospital. IV fluids and pain medicine was provided. On 05/26/16, the patient underwent EGD, and a stent was placed in the obstructed bowel. Pneumoperitoneum resulted, and the patient was taken to the operating room where a gastric perforation was repaired , and both G- and J-tubes as well as 2 drains were placed. The patient was able to be EXTUBATED by the following day. The patient had pain intermittently , was begun on a transdermal fentanyl patch which was just increased again, and has received oxycodone via her J-tube. She developed left leg swelling, and an ultrasound on 06/04/16 revealed acute DVT involving the left common femoral vein. She is on Lovenox. Dr. Umana, her oncologist, had earlier entertained the possibility of second line chemotherapy, but these multiple complications now seemed to be making that eventuality less certain. Palliative Care was consulted to assist with symptom management, and to enter into discussions with patient and family regarding her illness, the prognosis, and the various treatment options going forward. . Function/Cognitive Trajectory The patient has been declining for a few months. She was exercising very regularly up until the fall of 2015 when she began losing energy and strength. By the time of her cancer diagnosis, she had lost several pounds, and was weaker. She lost additional weight following the severe vomiting reaction to the first session of chemotherapy, but she says her weight has actually increased now because of the ascites. She has continued to be ambulatory, although she is weaker now and she has stopped driving a car. . Review of Systems Constitutional: COMPLAINS OF: Weight loss, DENIES: Fever Endocrine: DENIES: Polyuria Eyes: DENIES: Eye inflammation Ears, nose, mouth, throat: DENIES: Epistaxis Respiratory: DENIES: Cough, Shortness of breath Cardiovascular: DENIES: Syncope, Dyspnea on Exertion Gastrointestinal: COMPLAINS OF: Abdominal pain, DENIES: Bloody stools, Constipation, Diarrhea, Vomiting blood Genitourinary: DENIES: Hematuria Musculoskeletal: COMPLAINS OF: Back pain Integumentary: DENIES: Rash Hematologic/Lymphatics: DENIES: Bruising Immunologic/Allergic: DENIES: Urticaria Neurologic: DENIES: Headache, Localized weakness, Seizures Psychiatric: DENIES: Hallucinations, Agitation Past Family Social History Coded Allergies: Hepatitis B Vaccine (Verified Allergy, Severe, 2/25/17) Penicillin (Unverified Allergy, Severe, SWELLING,HIVES, 05/24/16) Past Medical History * Stage IV pancreatic cancer, worsening in spite of FOLFOX first-line chemotherapy * Malignant bowel obstruction * Gastric perforation and surgical repair * DVT, acute, left common femoral vein * Atrial fibrillation * 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 Past Surgical History * Appendectomy age 10 * Cardiac ablation for atrial fibrillation, 2012 * Age 14 Tonsillectomy * Lymph node biopsy March 2016 * [id number] 04/09/16 * Sinus surgery 2011 * Gastric perforation, G-tube, J-tube 05/26/16 . Reported Medications Zofran Odt (Ondansetron Odt) 8 Mg Tab 8 Mg SL Q8H PRN [Alonzapine] Unknown Dose DIRECTED Emend (Aprepitant) 125 Mg Cap 125 Mg PO DIRECTED Take on day 1. Fluticasone Nasal [place] 50 Mcg/Act Naspr 50 Mcg EACH NARE BID PRN 50 mcg/spray Tussin (Guaifenesin) 100 Mg/5 Ml Syp Unknown Dose PO DIRECTED PRN Imodium A-D (Loperamide HCl) 2 Mg Cap 2 Mg PO Q6HR PRN One capsule after each loose stool. Not to exceed 8 tablets per day. Percocet (Oxycodone-Acetaminophen) 10-325 mg Tab 1-2 Tab PO Q4H PRN Vitamin B12 (Cyanocobalamin) 100 Mcg Tab Unknown Dose PO DAILY Vitamin C (Ascorbic Acid) 1,000 Mg Tab 1,000 Mg PO DAILY Cranberry (Cranberry (Vaccinium Macrocarpon)) 400 Mg Cap Unknown Dose PO DAILY Melatonin 5 Mg Cap 5 Mg PO HS Metoprolol Succinate ER 24 HR (Metoprolol Succinate) 50 Mg Tab 50 Mg PO HS Pantoprazole (Pantoprazole Sodium) 40 Mg Tab 40 Mg PO DAILY Aspirin EC (Aspirin) 325 Mg Tabdr 325 Mg PO DAILY Calcium 500 +D (Calcium Carbonate-Cholecalciferol) 500-400 Mg-Unit Tab 1 Tab PO DAILY Multiple Vitamin 1 Tab 1 Tab PO DAILY Levothyroxine (Levothyroxine Sodium) 112 Mcg Tab 112 Mcg PO DAILY Gabapentin 600 Mg Tab 600 Mg PO HS . Current Medications Medications (Trade) Dose Ordered Sig/Kristie Route Start Time Stop Time Status Last Admin (NS 1000 ml Inj) 1,000 ml @ 50 mls/hr Q20H IV 05/24/16 10:14 06/05/16 05:38 (NS Flush) 2 ml UNSCH PRN FLUSH 05/24/16 10:15 06/03/16 02:59 (NS Flush) 2 ml BID FLUSH 05/24/16 21:00 06/05/16 09:00 (Dulcolax Supp) 10 mg DAILY PRN GA 05/24/16 10:15 06/04/16 20:23 (Milk Of Magnesia Liq) 30 ml Q12H PRN PO 05/24/16 10:15 (Narcan Inj) 0.4 mg UNSCH PRN IV 05/24/16 10:15 (Synthroid Inj) 62 mcg DAILY@06 IV PUSH 05/26/16 06:00 06/05/16 05:38 (Dilaudid Pf Inj) 1 mg Q3HR PRN IV PUSH 05/26/16 11:30 06/04/16 10:24 (Compazine Inj) 10 mg Q6H PRN IVS 05/26/16 12:45 06/01/16 02:39 (Zofran Inj) 4 mg Q6HR PRN IV PUSH 05/26/16 15:30 06/05/16 11:26 (Protonix Inj) 40 mg Q24H IV PUSH 05/27/16 09:00 06/05/16 09:15 Labetalol HCl 20 mg 20 mg Q2H PRN IV 05/27/16 18:30 (Diflucan 200 Mg Premix Bag) 100 ml @ 100 mls/hr Q24H IV 05/28/16 11:15 06/07/16 11:15 06/05/16 11:31 (D50w (Vial) Inj) 25 ml UNSCH PRN IV PUSH 06/01/16 09:45 (Glucagon Inj) 1 mg UNSCH PRN OTHER 06/01/16 09:45 (Simethicone Liq (Drops)) 40 mg QID PRN PO 06/01/16 10:00 06/04/16 21:46 (Lopressor) 12.5 mg DAILY PEG 06/02/16 15:00 06/05/16 09:15 (Duragesic 75 Mcg Patch.72 Hr) 1 patch Q3D TD 06/04/16 11:00 06/04/16 10:44 Miscellaneous Information 1 Q3D T-DERMAL 06/04/16 11:00 06/04/16 11:00 (Roxicodone Intensol Liq) 10 mg Q3H PRN JT 06/04/16 11:00 06/05/16 09:14 (Roxicodone Intensol Liq) 15 mg Q3H PRN JT 06/04/16 11:30 06/05/16 12:47 (Lovenox Inj) 70 mg Q12H SQ 06/04/16 11:00 06/05/16 11:30 Family History Grandfather from esophageal cancer, brother from colon cancer at age 39. No family history of pancreatic cancer. Patient's mother of COPD and had bladder cancer. Patient's father at age 71 of colon cancer. . Substance Use Tobacco: None. Alcohol: Rare. Prescription med abuse: None. Illicits: None. . Psychosocial History The patient was born and raised in [place], [place]. 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 She worked here at [employer] in the orthopedic area for many years. She has been for more than 48 years, and they have 2 sons, one living here in [place] (Jesus Alberto, a elementary school principal), and one living in [place] (Ney, retired [employer]). . Spiritual/Cultural Factors The patient has a Presbyterian background, was in the [employer]ism [employer], but returned to [employer] associations later. She is not affiliated with any particular taoism or clergy now, and she does not desire data storage specialist visits at this time. . Living Will: Completed, but not made available Health Care Surrogate: Completed, but not made available Durable Power of Acupuncturist: Completed, but not made available Health Care Surrogate(s): Patient's is her healthcare surrogate . Today's verbally stated goals: The patient does not want additional chemotherapy, and she wants to transition to comfort care as she hopefully is able to return home in the upcoming days. . Family/friends goals: The patient's and their son Ney support her in her choices. . Ethical and Legal Issues There are no ethical issues that would impact her care or decision-making at this time. The patient has capacity for decision making at this time. When she loses that capacity in the upcoming weeks, her will be the proxy decision maker. . Physical Exam Vital Signs Date Time Temp Pulse Resp B/P Pulse Ox O2 Delivery O2 Flow Rate FiO2 06/05/16 12:00 99.7 98 19 115/59 96 06/05/16 08:00 99.2 99 20 116/59 95 06/05/16 00:00 99.1 102 16 108/61 96 06/04/16 20:00 98.5 100 16 113/57 96 06/04/16 16:00 98.6 99 19 114/72 96 06/04/16 06/05/16 19:00 07:00 Intake Total 1444 ml 1683 ml Output Total 1060 ml 340 ml Balance 384 ml 1343 ml Intake Oral 500 ml 240 ml IV Total 482 ml 703 ml Tube Feeding 462 ml 740 ml Output Urine Total 750 ml Drainage Total 310 ml 340 ml # Voids 2 # Bowel Movements 0 0 Exam CONSTITUTIONAL/GENERAL: This is an adequately nourished patient, in no apparent distress. TUBES/LINES/DRAINS: Right chest port accessed, G-tube, J-tube, right abdominal drain to a vacuum bottle SKIN: No jaundice, rashes, or lesions. Ecchymoses on upper extremities. No wounds seen anteriorly. Skin temperature appropriate. Not diaphoretic. HEAD: Atraumatic. Normocephalic. EYES: Pupils equal and round and reactive. Extraocular motions intact. No scleral icterus. No injection or drainage. Fundi not examined. ENT: Hearing grossly normal. Nose without bleeding or purulent drainage. Throat without visible erythema, exudates, masses, or lesions. NECK: Trachea midline. Supple, nontender. No palpable thyroid enlargement or nodularity. CARDIOVASCULAR: Regular rate and rhythm without murmurs, gallops, or rubs. No JVD. Peripheral pulses symmetric. RESPIRATORY/CHEST: Symmetric, unlabored respirations. Clear to auscultation. Breath sounds equal bilaterally. No wheezes, rales, or rhonchi. GASTROINTESTINAL: Abdomen soft, non-tender, but moderately distended and mildly tender. No hepato-splenomegaly, or palpable masses. No guarding. Bowel sounds present. GENITOURINARY: Without palpable bladder distension. MUSCULOSKELETAL: Extremities without clubbing or cyanosis. There is mild generalized edema involving the left leg. No joint tenderness or effusion noted. No calf tenderness. No mottling or clubbing. LYMPHATICS: No palpable cervical or supraclavicular adenopathy. NEUROLOGICAL: Awake and alert. Motor and sensory grossly within normal limits. Follows commands. Cognitively sharp. Moves all extremities. PSYCHIATRIC: No obvious anxiety/depression. no apparent hallucinations or other psychotic thought process. . Diagnostic Tests Laboratory Laboratory Tests Test 06/03/16 06/04/16 10:21 06:11 Albumin 2.1 GM/DL (3.4-5.0) Prealbumin 15 MG/DL (20-40) White Blood Count 6.4 TH/MM3 (4.0-11.0) Red Blood Count 3.00 MIL/MM3 (4.00-5.30) Hemoglobin 8.6 GM/DL (11.6-15.3) Hematocrit 25.7 % (35.0-46.0) Mean Corpuscular Volume 85.6 FL (80.0-100.0) Mean Corpuscular Hemoglobin 28.7 PG (27.0-34.0) Mean Corpuscular Hemoglobin 33.5 % Concent (32.0-36.0) Red Cell Distribution Width 13.9 % (11.6-17.2) Platelet Count 266 TH/MM3 (150-450) Mean Platelet Volume 8.2 FL (7.0-11.0) Neutrophils (%) (Auto) 70.2 % (16.0-70.0) Lymphocytes (%) (Auto) 13.3 % (9.0-44.0) Monocytes (%) (Auto) 13.6 % (0.0-8.0) Eosinophils (%) (Auto) 2.3 % (0.0-4.0) Basophils (%) (Auto) 0.6 % (0.0-2.0) Neutrophils # (Auto) 4.5 TH/MM3 (1.8-7.7) Lymphocytes # (Auto) 0.9 TH/MM3 (1.0-4.8) Monocytes # (Auto) 0.9 TH/MM3 (0-0.9) Eosinophils # (Auto) 0.1 TH/MM3 (0-0.4) Basophils # (Auto) 0.0 TH/MM3 (0-0.2) CBC Comment DIFF FINAL Differential Comment Sodium Level 136 MEQ/L (136-145) Potassium Level 3.6 MEQ/L (3.5-5.1) Chloride Level 98 MEQ/L (98-107) Carbon Dioxide Level 30.6 MEQ/L (21.0-32.0) Anion Gap 7 MEQ/L (5-15) Blood Urea Nitrogen 11 MG/DL (7-18) Creatinine 0.47 MG/DL (0.50-1.00) Estimat Glomerular Filtration 132 ML/MIN Rate (>89) Random Glucose 131 MG/DL (74-106) Calcium Level 7.7 MG/DL (8.5-10.1) Result Diagram: 06/04/16 0611 06/04/16 0611 Imaging Last Impressions Lower Extremity Ultrasound 06/04/16 0000 Signed Impressions: Service Date/Time: Saturday, June 04, 2016 08:13 - CONCLUSION: 1. DVT left common femoral vein. 2. No DVT right lower extremity. Reynaldo Hernandez MD GI Procedure 05/26/16 0000 Signed Impressions: Service Date/Time: Thursday, May 26, 2016 17:29 - CONCLUSION: Intestinal stent placement as described above. Blaine Kowalski MD Chest X-Ray 05/26/16 0000 Signed Impressions: Service Date/Time: Thursday, May 26, 2016 21:29 - CONCLUSION: Status post intubation with endotracheal tube in appropriate position. Acute extensive subcutaneous emphysema. No evidence of pneumothorax. Bilateral airspace disease as described. Blaine Kowalski MD Abdomen/Pelvis CT 05/24/16 0000 Signed Impressions: Service Date/Time: Tuesday, May 24, 2016 08:51 - CONCLUSION: 1. Pancreatic mass again identified, measuring larger than on the comparison study.. 2. New gastric distention and diffuse dilatation of the duodenum with apparent transition point in the distal third portion of the duodenum. The transition point is in the region of soft tissue mass extending from the pancreas to the retroperitoneal region. More distally the small bowel is normal diameter. Finding suggest at least partial obstruction of the duodenum. 3. New diffuse intrahepatic and extra hepatic biliary ductal dilatation. No discrete mass is identified in the region of the distal common duct. The pancreatic duct is also now mildly prominent diffusely measuring approximately 4 mm. 4. Small pleural effusions. Hunter Pagan MD Procedures EGD, bowel stent placement 05/26/16 Surgery: Gastric perforation, G-tube, J-tube 05/26/16 EXTUBATION 05/27/16 . Patient/Family Conference Present at Family Conference: Patient's Rubin, and patient's son Ney . Family Conference Time (mins): 51 Family Conference Location: Bedside Issues Discussed: * Palliative care role, purpose, approach * Hospice care role, purpose, approach * Additional medical, psychosocial, and spiritual history * Patients general health, functional status, and cognitive changes in the months leading up to the current hospitalization * Patient/family understanding of the current medical problems * Patient/family understanding of prognosis * Patients goals of care as best understood from advance directives and/or conversations and/or values * Current medical treatment options and benefits/burdens of those options * Likely scenarios comparing ongoing aggressive care with a transition to comfort measures only * Questions answered to the best of my ability * Palliative care contact information provided The patient is considering a change in CODE STATUS but will remain FULL CODE for now. She does want to transition to comfort oriented care, and requests a meeting with hospice tomorrow and her can be here again. She hopes to have hospice help when she returns home... Assessment and Plan Disease Oriented Problem List: (1) stage IV pancreatic cancer, progressive in spite of FOLFOX first-line chemotherapy (2) gastric perforation and surgical repair (3) malignant bowel obstruction, s/p surg, J-tube, G-tube (4) DVT, acute, left common femoral vein (5) history of ulcer disease (6) left retinal artery occlusion attributed to atrial fibrillation complications (7) hyperlipidemia (8) atrial fibrillation history (9) osteoarthritis (10) subarachnoid hemorrhage 2000, treated nonsurgically (11) left leg neuropathic pain (12) hypothyroidism (13) chronic sinusitis Symptom Scale: (1) pain 0-10 Scale: 7 (underlying neuropathic pain, now pain related to her recent surgery and her malignancy tumor burden) Pertinent Non-Medical Issues Psychosocial: , retired [employer], 2 sons. Spiritual: Spiritual Judaism Anabaptist without particular taoism or clergy affiliation. Legal: The patient has capacity for decision making at this time. When she loses that capacity in the upcoming weeks, her will be the proxy decision maker. Ethical issues impacting care: None. . Important Contacts Rubin, home: [phone], cell: [phone] Patient's cell phone [phone] Son Jesus Alberto: [phone] Son Ney: [phone] . Prognosis The patient is terminal due to her malignancy and other complications. She likely has weeks to live. . Code Status: Full Code Plan * FULL CODE for now, but the patient is actively considering transitioning to DNR status * DECISION-MAKING: The patient has capacity for decision making at this time. When she loses that capacity in the upcoming weeks, her will be the proxy decision maker. * GOALS: The patient is giving serious thought now to transitioning to DNR status, but wants to maintain full CODE STATUS for now, anticipating the arrival of the granddaughters in the upcoming days. She definitely does not want to undergo additional chemotherapy, saying that quality of life is now more important for her, and she is requesting hospice consultation so that hospice help will be available when she returns home from the hospital in the upcoming days. * Hospice consult placed. * SYMPTOMS: Pain: She reports her pain is a level 7 and she would prefer that it only be about a level 2. Her fentanyl patch was increased to 75 g yesterday , but she has continued to use at least 45 mg of breakthrough oxycodone daily - - I will increase the fentanyl to 100 g. * She has grandchildren coming into town this weekend, and she is hoping to be able to transition home with hospice help soon. * Palliative Care will continue to follow the patient during this hospitalization. . Time Spent Total Floor Time (mins): 98 Face to Face Time (mins): 62 >50% Counseling/Coord of Care: Yes (d/w Dr. Umana) Thank you for the opportunity to participate in the care of Ms. Campbell. Attestation To help prompt me to consider important information that might be impacting today's encounter and assessment, information from prior notes written by myself or my colleagues may have been "brought forward" into today's note. My signature on this note, however, is an attestation that I personally performed the exam, history, and/or decision-making noted today, and, unless otherwise indicated, the interactions with patient, family, and staff as well as the review of records all occurred today. I also attest that the listed assessment and stated plan reflect my best clinical judgment today based on the combination of historical information, prior notes, and today's exam/ interactions. When time spent is documented, it refers only to time spent today by the signer, or if indicated, combined time spent today by collaborating physician/nurse practitioner. Gricel Santamaria MD Jun 05, 2016 14:52
[2016-06-05 16:00] VITALS: BP 109/61; PULSE 95; RESP 20; TEMP 98.2; O2SAT 100
[2016-06-05] MEDS ORDERED: fentaNYL 100 MCG/HR PATCH TD SCH (17:00)
[2016-06-05 20:00] VITALS: BP 110/56; PULSE 110; RESP 20; TEMP 99; O2SAT 98
[2016-06-05] MEDS: SODIUM CHLORIDE 0.9% SCH (22:00)
[2016-06-05] MEDS: PROCHLORPERAZINE INJ 10 MG/2 ML VIAL IVS PRN (22:15)
[2016-06-06] VITALS: BP 124/66; PULSE 99; RESP 20; TEMP 98.7; O2SAT 96
[2016-06-06] MEDS ORDERED: SODIUM CHLORIDE 0.9% 50 ML BAG OTHER SCH
[2016-06-06] MEDS: oxyCODONE HCL ORAL CONC 20 MG/ML SYRINGE JT PRN ×6 (02:57→21:49)
[2016-06-06] MEDS: SODIUM CHLORIDE 0.9% SCH ×3 (06:00→21:06)
[2016-06-06] MEDS: LEVOTHYROXINE SODIUM 100 MCG VIAL IV PUSH SCH (06:14)
[2016-06-06] MEDS: INSULIN ASPART SUPPLEMENTAL SCALE SQ SCH ×4 (06:14→21:00)
[2016-06-06 06:50] LABS: AUTOMATED NEUTROPHIL # 5.4 TH/MM3 (1.8-7.7); BASOPHIL # 0.1 TH/MM3 (0-0.2); BASOPHIL % 0.8 % (0.0-2.0); EOSINOPHIL # 0.2 TH/MM3 (0-0.4); EOSINOPHIL % 2.7 % (0.0-4.0); HEMATOCRIT 26.1 % (35.0-46.0); HEMO FLAGS DIFF FINAL; LYMPH % 14.2 % (9.0-44.0); LYMPHOCYTE # 1.1 TH/MM3 (1.0-4.8); MEAN CELL VOLUME 85.7 FL (80.0-100.0); MEAN CORPUSCULAR HEMOGLOBIN 28.2 PG (27.0-34.0); MEAN CORPUSCULAR HGB CONC 32.9 % (32.0-36.0); MONO % 11.2 % (0.0-8.0); NEUT % 71.1 % (16.0-70.0); PLATELET COUNT 297 TH/MM3 (150-450); RED BLOOD COUNT 3.05 MIL/MM3 (4.00-5.30); WHITE BLOOD COUNT 7.5 TH/MM3 (4.0-11.0)
[2016-06-06 07:10] LABS: BICARBONATE 33.2 MEQ/L (21.0-32.0); POTASSIUM 3.8 MEQ/L (3.5-5.1)
[2016-06-06 08:00] VITALS: BP 116/64; PULSE 93; RESP 19; TEMP 98.4; O2SAT 96
[2016-06-06] MEDS: PANTOPRAZOLE SODIUM 40 MG VIAL IV PUSH SCH (08:47)
[2016-06-06] MEDS: METOPROLOL TARTRATE 25 MG TAB PEG SCH (08:47)
[2016-06-06] MEDS: SODIUM CHLORIDE 0.9% FLUSH 5 ML FLUSH FLUSH SCH ×2 (08:48→21:00)
[2016-06-06] MEDS: ONDANSETRON HCL 4 MG/2 ML VIAL IV PUSH PRN ×2 (08:54→18:51)
--- NOTE | 2016-06-06 09:48 | HHI.PR ---
Subjective Remarks looks more comfortable today. sitting on the chair with no distress. afebrile. Objective Vitals Vital Signs Date Time Temp Pulse Resp B/P Pulse Ox O2 Delivery O2 Flow Rate FiO2 06/06/16 08:00 98.4 93 19 116/64 96 06/06/16 00:00 98.7 99 20 124/66 96 06/05/16 20:00 99.0 110 20 110/56 98 06/05/16 16:00 98.2 95 20 109/61 100 06/05/16 12:00 99.7 98 19 115/59 96 I/O 06/05/16 06/05/16 06/05/16 06/06/16 06/06/16 06/06/16 07:00 15:00 23:00 07:00 15:00 23:00 Intake Total 1683 ml 600 ml 2175 ml 2120 ml 120 ml Output Total 340 ml 500 ml 1740 ml 210 ml Balance 1343 ml 100 ml 435 ml 1910 ml 120 ml Intake Oral 240 ml 600 ml 340 ml 1440 ml 120 ml IV Total 703 ml 849 ml 250 ml Tube Feeding 740 ml 866 ml 250 ml Tube Irrigant 120 ml 180 ml Output Urine Total 500 ml Gastric Drainage Total 1325 ml Drainage Total 340 ml 415 ml 210 ml # Voids 2 2 2 # Bowel Movements 0 0 1 Result Diagram: 06/06/1620 06/06/16 0620 Imaging Last Impressions Lower Extremity Ultrasound 06/04/16 0000 Signed Impressions: Service Date/Time: Saturday, June 04, 2016 08:13 - CONCLUSION: 1. DVT left common femoral vein. 2. No DVT right lower extremity. Reynaldo Hernandez MD GI Procedure 05/26/16 0000 Signed Impressions: Service Date/Time: Thursday, May 26, 2016 17:29 - CONCLUSION: Intestinal stent placement as described above. Blaine Kowalski MD Chest X-Ray 05/26/16 0000 Signed Impressions: Service Date/Time: Thursday, May 26, 2016 21:29 - CONCLUSION: Status post intubation with endotracheal tube in appropriate position. Acute extensive subcutaneous emphysema. No evidence of pneumothorax. Bilateral airspace disease as described. Blaine Kowalski MD Abdomen/Pelvis CT 05/24/16 0000 Signed Impressions: Service Date/Time: Tuesday, May 24, 2016 08:51 - CONCLUSION: 1. Pancreatic mass again identified, measuring larger than on the comparison study.. 2. New gastric distention and diffuse dilatation of the duodenum with apparent transition point in the distal third portion of the duodenum. The transition point is in the region of soft tissue mass extending from the pancreas to the retroperitoneal region. More distally the small bowel is normal diameter. Finding suggest at least partial obstruction of the duodenum. 3. New diffuse intrahepatic and extra hepatic biliary ductal dilatation. No discrete mass is identified in the region of the distal common duct. The pancreatic duct is also now mildly prominent diffusely measuring approximately 4 mm. 4. Small pleural effusions. Hunter Pagan MD Objective Remarks GENERAL: This is a well-nourished, well-developed patient, in no apparent distress. CARDIOVASCULAR: Regular rate and regular rhythm without murmurs, gallops, or rubs. RESPIRATORY: Clear to auscultation. Breath sounds equal bilaterally. No wheezes , rales, or rhonchi. GASTROINTESTINAL: Abdomen soft, non-tender, site of surgery is clean. MUSCULOSKELETAL: Extremities without clubbing, cyanosis, or edema. NEURO: Alert & Oriented x4 to person, place, time, situation. Moves all ext x4 Procedures None. Medications and IVs Current Medications Ondansetron HCl 4 mg 4 mg ONCE ONCE IVP Last administered on 05/24/16 07:28; Start 05/24/16 at 07:15; Stop 05/24/16 at 07:18; Status DC Sodium Chloride (NS 1000 ml Inj) 1,000 ml @ 1,000 mls/hr Q1H IV Last administered on 05/24/16 07:28; Start 05/24/16 at 07:14; Stop 05/24/16 at 08:13 ; Status DC IV Flush (NS Flush) 2 ml UNSCH PRN IVF FLUSH AFTER USING IV ACCESS Last administered on 05/24/16 09:56; Start 05/24/16 at 07:15; Stop 05/24/16 at 17:43 ; Status DC Morphine Sulfate (Morphine Inj) 5 mg ONCE ONCE IV PUSH Last administered on 07:28; Start 05/24/16 at 07:15; Stop 05/24/16 at 07:18; Status DC Promethazine HCl (Phenergan Inj) 25 mg ONCE ONCE IM ; Start 05/24/16 at 08:15; Stop 05/24/16 at 08:57; Status DC Promethazine HCl (Phenergan Supp) 25 mg ONCE ONCE RECTAL Last administered on 05/24/16 09:25; Start 05/24/16 at 09:00; Stop 05/24/16 at 09:01; Status DC Iohexol (Omnipaque 350 Inj) 96 ml STK-MED ONCE IV Last administered on 09:14; Start 05/24/16 at 09:14; Stop 05/24/16 at 09:15; Status DC Hydromorphone HCl (Dilaudid Pf Inj) 0.5 mg ONCE ONCE IV PUSH Last administered on 05/24/16 09:56; Start 05/24/16 at 09:45; Stop 05/24/16 at 09:46 ; Status DC Lidocaine HCl 5 ml 5 ml ONCE ONCE TOPICAL Last administered on 05/24/16 10:32 ; Start 05/24/16 at 10:00; Stop 05/24/16 at 10:20; Status DC Potassium Chloride 100 ml @ 50 mls/hr ONCE ONCE IV Last administered on 11:31; Start 05/24/16 at 10:00; Stop 05/24/16 at 11:59; Status DC Sodium Chloride 1,000 ml @ 100 mls/hr Q10H IV Last administered on 05/24/16 11:31; Start 05/24/16 at 10:00; Stop 05/24/16 at 17:44; Status DC Sodium Chloride (NS 1000 ml Inj) 1,000 ml @ 50 mls/hr Q20H IV Last administered on 06/05/16 05:38; Start 05/24/16 at 10:14; Stop 06/05/16 at 19:46; Status DC IV Flush (NS Flush) 2 ml UNSCH PRN FLUSH FLUSH AFTER USING IV ACCESS Last administered on 06/03/16 02:59; Start 05/24/16 at 10:15 IV Flush (NS Flush) 2 ml BID FLUSH Last administered on 06/06/16 08:48; Start 05/24/16 at 21:00 Acetaminophen (Tylenol) 650 mg Q4H PRN PO fever, headache, pain 1-4; Start at 10:15; Stop 05/28/16 at 11:13; Status DC Ondansetron HCl (Zofran Inj) 4 mg Q6H PRN IVP NAUSEA OR VOMITING; Start at 10:15; Stop 05/24/16 at 15:39; Status DC Bisacodyl (Dulcolax Supp) 10 mg DAILY PRN NE CONSTIPATION Last administered on 06/04/16 20:23; Start 05/24/16 at 10:15 Magnesium Hydroxide (Milk Of Magnesia Liq) 30 ml Q12H PRN PO CONSTIPATION; Start 05/24/16 at 10:15 Enoxaparin Sodium (Lovenox Inj) 40 mg Q24H SQ ; Start 05/24/16 at 10:15; Stop at 20:02; Status DC Naloxone HCl (Narcan Inj) 0.4 mg UNSCH PRN IV SEE LABEL COMMENTS; Start at 10:15 Prochlorperazine Edisylate (Compazine Inj) 10 mg Q6H PRN IM NAUSEA OR VOMITING ; Start 05/24/16 at 10:15; Stop 05/26/16 at 12:33; Status DC Hydromorphone HCl (Dilaudid Pf Inj) 1 mg ONCE ONCE IV PUSH Last administered on 05/24/16 13:02; Start 05/24/16 at 13:00; Stop 05/24/16 at 13:01; Status DC Hydromorphone HCl (Dilaudid Pf Inj) 0.5 mg Q4H PRN IV PUSH PAIN SCALE 5 TO 10 Last administered on 05/26/16 08:14; Start 05/24/16 at 13:00; Stop 05/26/16 at 11:34; Status DC Ondansetron HCl (Zofran Inj) 4 mg Q6H IVP Last administered on 05/25/16 09:18 ; Start 05/24/16 at 16:00; Stop 05/25/16 at 13:37; Status DC Fentanyl (Duragesic 25 Mcg Patch.72 Hr) 1 patch ONCE ONCE TD Last administered on 05/24/16 16:31; Start 05/24/16 at 16:00; Stop 05/24/16 at 16:01 ; Status DC Miscellaneous Information 1 1 Q3D TD ; Start 05/27/16 at 09:00; Stop 05/27/16 at 09:00; Status DC Cefazolin Sodium/ Dextrose 50 ml @ 100 mls/hr Q8H IV ; Start 05/24/16 at 17:45 ; Stop 05/24/16 at 18:28; Status DC Levofloxacin/ Dextrose 150 ml @ 100 mls/hr Q24H IV Last administered on 20:01; Start 05/24/16 at 20:00; Stop 05/28/16 at 11:13; Status DC Metronidazole (Flagyl 500 Mg Inj) 100 ml @ 100 mls/hr Q8H IV Last administered on 05/28/16 03:39; Start 05/24/16 at 20:00; Stop 05/28/16 at 11:14; Status DC Enoxaparin Sodium (Lovenox Inj) 40 mg Q24H SQ Last administered on 06/03/16 20: 58; Start 05/24/16 at 20:00; Stop 06/04/16 at 10:06; Status DC Ondansetron HCl 6 mg 6 mg Q6H IVP Last administered on 05/26/16 08:13; Start 05/25/16 at 14:00; Stop 05/26/16 at 13:59; Status DC Multivitamins 10 ml/Folic Acid 1 mg/Amino Acids/ Electrolytes/ Dextrose 1,010.2 ml @ 42 mls/hr Q24H IV Last administered on 06/02/16 19:50; Start 05/25/16 at 20:00; Stop 06/03/16 at 10:20; Status DC Fat Emulsion Intravenous 250 ml @ 10 mls/hr Q24H IV Last administered on 19:49; Start 05/25/16 at 20:00; Stop 06/03/16 at 10:21; Status DC Potassium Chloride (KCl 20 Meq Premix Inj) 100 ml @ 50 mls/hr Q2H IV Last administered on 05/26/16 11:57; Start 05/26/16 at 08:00; Stop 05/26/16 at 11:59 ; Status DC Levothyroxine Sodium 62 mcg 62 mcg DAILY@06 IV PUSH Last administered on 06:14; Start 05/26/16 at 06:00 Potassium Chloride 100 ml @ 50 mls/hr Q2H IV Last administered on 05/26/16 15 :16; Start 05/26/16 at 12:00; Stop 05/26/16 at 15:59; Status DC Potassium Chloride (KCl 20 Meq Premix Inj) 100 ml @ 50 mls/hr Q2H IV ; Start at 18:00; Stop 05/26/16 at 21:59; Status DC Fentanyl (Duragesic 50 Mcg Patch.72 Hr) 1 patch Q3D TD Last administered on 12:00; Start 05/26/16 at 12:00; Stop 06/04/16 at 08:37; Status DC Miscellaneous Information 1 Q3D T-DERMAL Last administered on 06/01/16 12:00; Start 05/29/16 at 12:00; Stop 06/04/16 at 08:37; Status DC Hydromorphone HCl (Dilaudid Pf Inj) 0.5 mg Q3HR PRN IV PUSH pain1-5 Last administered on 05/27/16 15:11; Start 05/26/16 at 11:30; Stop 06/02/16 at 11:16 ; Status DC Hydromorphone HCl (Dilaudid Pf Inj) 1 mg Q3HR PRN IV PUSH pain6-10 Last administered on 06/04/16 10:24; Start 05/26/16 at 11:30 Promethazine HCl (Phenergan Supp) 12.5 mg ONCE ONCE RECTAL ; Start 05/26/16 at 11:45; Stop 05/26/16 at 11:48; Status DC Prochlorperazine Edisylate (Compazine Inj) 10 mg Q6H PRN IVS NAUSEA OR VOMITING Last administered on 06/05/16 22:15; Start 05/26/16 at 12:45 Ondansetron HCl (Zofran Inj) 4 mg Q6HR PRN IV PUSH NAUSEA OR VOMITING Last administered on 06/06/16 08:54; Start 05/26/16 at 15:30 Miscellaneous Information ALL NURSING DEPARTME... UNSCH PRN XX SEE LABEL COMMENTS; Start 05/26/16 at 17:58; Stop 05/27/16 at 17:57; Status DC Fluconazole/ Sodium Chloride 200 ml @ 100 mls/hr NOW ONCE IV ; Start 05/26/16 at 20:00; Stop 05/26/16 at 21:59; Status DC Fluconazole/ Sodium Chloride 200 ml @ 100 mls/hr NOW ONCE IV Last administered on 05/26/16t 19:44; Start 05/26/16 at 19:30; Stop 05/26/16 at 21:29 ; Status Cancel Sodium Chloride 154 meq/Dextrose 1,038.5 ml @ 30 mls/hr Q24H IV ; Start at 21:30; Stop 05/27/16 at 08:39; Status DC Propofol (Diprivan 1000 Mg/100ml Inj) 100 ml @ As Directed STK-MED ONCE .ROUTE ; Start 05/26/16 at 21:10; Stop 05/26/16 at 21:11; Status DC Fentanyl Citrate (fentaNYL INJ) 250 mcg STK-MED ONCE .ROUTE ; Start 05/26/16 at 21:30; Stop 05/26/16 at 21:31; Status DC Fentanyl Citrate (fentaNYL INJ) 250 mcg STK-MED ONCE .ROUTE ; Start 05/26/16 at 21:30; Stop 05/26/16 at 21:31; Status DC Morphine Sulfate (*morphine INJ PERIprocedure ONLY) 8 mg STK-MED ONCE .ROUTE ; Start 05/26/16 at 21:38; Stop 05/26/16 at 21:39; Status DC Enalaprilat (*VASOTEC INJ PERIprocedural Use ONLY) 1.25 mg STK-MED ONCE .ROUTE ; Start 05/26/16 at 21:38; Stop 05/26/16 at 21:39; Status DC Labetalol HCl 100 mg 100 mg STK-MED ONCE .ROUTE ; Start 05/26/16 at 21:38; Stop 05/26/16 at 21:39; Status DC Propofol (Diprivan 1000 Mg/100ml Inj) 100 ml @ 0 mls/hr TITRATE IV Last administered on 05/27/16t 06:15; Start 05/26/16 at 22:00; Stop 05/30/16 at 16:32 ; Status DC Morphine Sulfate (*morphine INJ PERIprocedure ONLY) 8 mg STK-MED ONCE .ROUTE ; Start 05/26/16 at 22:39; Stop 05/26/16 at 22:40; Status DC Morphine Sulfate (Morphine Inj) 8 mg STK-MED ONCE IV PUSH Last administered on 05/26/16 21:40; Start 05/26/16 at 21:40; Stop 05/27/16 at 01:31; Status DC Labetalol HCl (Trandate Inj) 100 mg STK-MED ONCE IVP Last administered on 21:41; Start 05/26/16 at 21:41; Stop 05/27/16 at 01:31; Status DC Enalaprilat (Vasotec Inj) 1.25 mg STK-MED ONCE IV PUSH Last administered on 21:55; Start 05/26/16 at 21:55; Stop 05/27/16 at 01:31; Status DC Morphine Sulfate 8 mg 8 mg STK-MED ONCE IV PUSH Last administered on 05/26/16 22:40; Start 05/26/16 at 22:40; Stop 05/27/16 at 01:31; Status DC Potassium Chloride 100 ml @ 50 mls/hr Q2H IV Last administered on 05/27/16 03 :45; Start 05/27/16 at 01:45; Stop 05/27/16 at 05:44; Status DC Potassium Chloride 100 ml @ 50 mls/hr Q2H PRN IV For Potassium 2.8 - 3.2 mEq/L ; Start 05/27/16 at 05:15; Stop 05/30/16 at 10:19; Status DC Potassium Chloride (KCl 20 Meq Premix Inj) 100 ml @ 50 mls/hr Q2H PRN IV For Potassium 2.8 - 3.2 mEq/L Last administered on 05/28/16 06:16; Start 05/27/16 at 05:15; Stop 05/30/16 at 10:19; Status DC Potassium Chloride 40 meq 40 meq UNSCH PRN PO/TUBE For Potassium 3.3 - 3.5 mEq/ L; Start 05/27/16 at 05:15; Stop 05/30/16 at 10:19; Status DC Potassium Chloride 100 ml @ 25 mls/hr UNSCH PRN IV For Potassium 3.3 - 3.5 mEq /L; Start 05/27/16 at 05:15; Stop 05/30/16 at 10:19; Status DC Potassium Chloride 100 ml @ 50 mls/hr Q2H PRN IV For Potassium 3.3 - 3.5 mEq/L ; Start 05/27/16 at 05:15; Stop 05/30/16 at 10:19; Status DC Magnesium Sulfate/ Sodium Chloride (Magnesium Sulfate Inj/NS Inj) 100 ml @ 50 mls/hr UNSCH PRN IV For Magnesium 0.9 - 1.1 mg/dL; Start 05/27/16 at 05:15; Stop 05/30/16 at 10:19; Status DC Magnesium Oxide 800 mg 800 mg UNSCH PRN PO For Magnesium 1.2 - 1.6 mg/dL; Start 05/27/16 at 05:15; Stop 05/30/16 at 10:19; Status DC Magnesium Sulfate/ Sodium Chloride (Magnesium Sulfate Inj/NS Inj) 100 ml @ 50 mls/hr UNSCH PRN IV For Magnesium 1.2 - 1.6 mg/dL; Start 05/27/16 at 05:15; Stop 05/30/16 at 10:19; Status DC Potassium Phosphate 2000 mg 2,000 mg Q4H PRN PO For Phosphorus < 2.5 mg/dL; Start 05/27/16 at 05:15; Stop 05/30/16 at 10:19; Status DC Sodium Phosphate/ Sodium Chloride (Sodium Phosphate Inj/NS 250 ml Inj) 250 ml @ 42 mls/hr UNSCH PRN IV For Phosphorus < 2.5 mg/dL; Start 05/27/16 at 05:15; Stop 05/30/16 at 10:19; Status DC Potassium Chloride (KCl 40 Meq/30 ml Liq) 40 meq UNSCH PRN PO/TUBE SEE LABEL COMMENTS; Start 05/27/16 at 05:15; Stop 05/30/16 at 10:19; Status DC Potassium Phosphate 2000 mg 2,000 mg UNSCH PRN PO/TUBE SEE LABEL COMMENTS; Start 05/27/16 at 05:15; Stop 05/30/16 at 10:19; Status DC Potassium Phosphate/Sodium Chloride (Potassium Phosphate Inj/NS 250 ml Inj) 260 ml @ 42 mls/hr UNSCH PRN IV SEE LABEL COMMENTS; Start 05/27/16 at 05:15; Stop 05/30/16 at 10:19; Status DC Pantoprazole Sodium (Protonix Inj) 40 mg Q24H IV PUSH Last administered on 06/06 08:47; Start 05/27/16 at 09:00 Propofol (Diprivan 200 Mg/20 ml Inj) 200 mg STK-MED ONCE IV ; Start 05/26/16 at 12:00; Stop 05/27/16 at 09:06; Status DC Ondansetron HCl 4 mg 4 mg STK-MED ONCE IV PUSH ; Start 05/26/16 at 12:00; Stop 05/27/16 at 09:06; Status DC Lactated Ringer's 2,000 ml @ As Directed STK-MED ONCE IV ; Start 05/26/16 at 12 :00; Stop 05/27/16 at 09:06; Status DC Sodium Chloride (NS 500 ml Inj) 500 ml @ As Directed STK-MED ONCE IV ; Start at 12:00; Stop 05/27/16 at 09:06; Status DC Propofol (Diprivan 200 Mg/20 ml Inj) 200 mg STK-MED ONCE IV ; Start 05/26/16 at 18:00; Stop 05/27/16 at 16:53; Status DC Labetalol HCl (Trandate Inj) 100 mg STK-MED ONCE .ROUTE Last administered on 18:05; Start 05/27/16 at 17:51; Stop 05/27/16 at 17:52; Status DC Labetalol HCl (Trandate Inj) 20 mg Q2H PRN IV SBP > 160 MMHG; Start 05/27/16 at 18:30 Potassium Chloride (KCl 40 Meq/30 ml Liq) 40 meq NOW ONCE PO Last administered on 05/28/16 07:54; Start 05/28/16 at 07:30; Stop 05/28/16 at 07:31; Status DC Potassium Chloride (KCl 40 Meq/30 ml Liq) 40 meq DAILY@12 PO Last administered on 05/28/16 11:32; Start 05/28/16 at 12:00; Stop 05/28/16 at 12:01; Status DC Albuterol/ Ipratropium 1 ampule 1 ampule Q6HR NEB NEB Last administered on 05/29 17:25; Start 05/28/16 at 10:00; Stop 06/01/16 at 09:38; Status DC Fluconazole/ Sodium Chloride (Diflucan 200 Mg Premix Bag) 100 ml @ 100 mls/hr Q24H IV Last administered on 06/05/16 11:31; Start 05/28/16 at 11:15; Stop 06/07 at 11:15 Oxycodone HCl (Roxicodone Intensol Liq) 5 mg Q3H PRN PO PAIN SCALE 1 TO 7 Last administered on 06/01/16 06:39; Start 05/28/16 at 12:00; Stop 06/01/16 at 09:40; Status DC Acetaminophen (Ofirmev Inj) 1,000 mg Q6H IV Last administered on 05/31/16 05:51 ; Start 05/28/16 at 13:00; Stop 05/31/16 at 07:01; Status DC Oxycodone HCl (Roxicodone Intensol Liq) 5 mg Q2H PRN PO PAIN SCALE 1 TO 7 Last administered on 06/02/16 11:08; Start 06/01/16 at 11:00; Stop 06/02/16 at 11:16; Status DC Dextrose (D50w (Vial) Inj) 25 ml UNSCH PRN IV PUSH HYPOGLYCEMIA-SEE COMMENTS; Start 06/01/16 at 09:45 Glucagon (Glucagon Inj) 1 mg UNSCH PRN OTHER HYPOGLYCEMIA-SEE COMMENTS; Start 06/01/16 at 09:45 Insulin Aspart (NovoLOG SUPPLEMENTAL SCALE) 1 ACHS SLIDING SCALE SQ ; Start 06/01/16 at 11:00 Potassium Bicarb/ Potassium Chloride (K-Lyte Cl Eff) 50 meq ONCE ONCE PO Last administered on 06/01/16 09:45; Start 06/01/16 at 09:45; Stop 06/01/16 at 09: 49; Status DC Simethicone (Simethicone Liq (Drops)) 40 mg QID PRN PO CRAMPS Last administered on 06/04/16 21:46; Start 06/01/16 at 10:00 Metoprolol Tartrate 50 mg 50 mg ONCE ONCE PO Last administered on 06/01/16 10: 00; Start 06/01/16 at 10:00; Stop 06/01/16 at 10:01; Status DC Potassium Chloride (KCl 40 Meq Premix Inj) 100 ml @ 25 mls/hr BOLUS ONCE IV Last administered on 06/01/16 10:00; Start 06/01/16 at 10:00; Stop 06/01/16 at 13: 59; Status DC Oxycodone HCl (Roxicodone Intensol Liq) 7.5 mg Q2H PRN PO PAIN 1-7 Last administered on 06/04/16 06:12; Start 06/02/16 at 11:00; Stop 06/04/16 at 08:37; Status DC Metoprolol Tartrate (Lopressor) 12.5 mg DAILY PEG Last administered on 08:47; Start 06/02/16 at 15:00 Potassium Chloride (KCl 40 Meq/30 ml Liq) 40 meq ONCE ONCE PO Last administered on 06/04/16 10:28; Start 06/04/16 at 09:00; Stop 06/04/16 at 09:01; Status DC Oxycodone HCl (Roxicodone Intensol Liq) 10 mg Q3HR PRN PO PAIN 1-7; Start at 11:00; Stop 06/04/16 at 11:00; Status DC Fentanyl (Duragesic 75 Mcg Patch.72 Hr) 1 patch Q3D TD Last administered on 10:44; Start 06/04/16 at 11:00; Stop 06/05/16 at 15:37; Status DC Miscellaneous Information 1 Q3D T-DERMAL Last administered on 06/04/16 11:00; Start 06/04/16 at 11:00 Oxycodone HCl (Roxicodone Intensol Liq) 15 mg Q3H PRN GT PAIN SCALE 8 TO 10; Start 06/04/16 at 08:30; Stop 06/04/16 at 08:42; Status DC Oxycodone HCl (Roxicodone Intensol Liq) 10 mg Q3H PRN JT PAIN 1-7 Last administered on 06/06/16 06:19; Start 06/04/16 at 11:00 Oxycodone HCl (Roxicodone Intensol Liq) 15 mg Q3H PRN JT PAIN SCALE 8 TO 10 Last administered on 06/05/16 12:47; Start 06/04/16 at 11:30 Enoxaparin Sodium (Lovenox Inj) 70 mg Q12H SQ Last administered on 06/05/16 22: 16; Start 06/04/16 at 11:00 Fentanyl (Duragesic 100 Mcg Patch.72 Hr) 1 patch Q3D TD Last administered on 18:36; Start 06/05/16 at 17:00 Miscellaneous Information 1 Q3D T-DERMAL ; Start 06/08/16 at 15:45 Sodium Chloride 250 ml 250 ml Q6H OTHER ; Start 06/06/16 at 00:00; Stop at 00:00; Status DC Sodium Chloride (NS 1000 ml Inj) 1,000 ml @ 50 mls/hr Q20H IV Last administered on 06/05/16 22:00; Start 06/05/16 at 22:00 Sodium Chloride (NS Irr Btl) 300 ml Q8HR .XX Last administered on 06/06/16 06: 00; Start 06/05/16 at 22:00 A/P Assessment and Plan A/P Respiratory failure: Extubated febrile 11/16/16. Stable and continue bronchodilator when necessary Small bowel obstruction - Status post palliative stent placement -evaluated by GI -Adjust pain medication accordingly Gastric perforation - Status post surgical repair with G-tube/J-tube placement. - s/p Levaquin and Flagyl tx - diet per surgery -continue pain control -management per surgery DVT - left lower extremity; started on therapeutic dose of Lovenox- Atrial fibrillation - Status post ablation - Rate controlled -resumed BB Pancreatic cancer - per Oncology -patient is considering hospice. Hypothyroidism - Synthroid GI prophylaxis - Protonix PT to treat and eval palliative care consulted. d/w today; possible dc home on Hospice. Jennifer Chapman MD Jun 06, 2016 09:47
[2016-06-06] MEDS: FLUCONAZOLE 200 MG PREMIX BAG 100 ML IV SCH (11:32)
[2016-06-06] MEDS: ENOXAPARIN SODIUM 100 MG/ML SYRINGE SQ SCH (11:32)
[2016-06-06 12:00] VITALS: BP 130/74; PULSE 95; RESP 19; TEMP 97.3; O2SAT 98
[2016-06-06] MEDS ORDERED: MISC-163 (12:00)
[2016-06-06] MEDS ORDERED: WALKER WHEELS/F1 MIS (12:00)
--- NOTE | 2016-06-06 12:21 | HHI.PR ---
Subjective Subjective Notes Resting in bed Son Rubin at bedside Had family meeting with Hospice today and planning to go home tomorrow with Hospice Care Objective Vitals/I&O Vital Signs Date Time Temp Pulse Resp B/P Pulse Ox O2 Delivery O2 Flow Rate FiO2 06/06/16 08:00 98.4 93 19 116/64 96 Labs Laboratory Tests Test 06/06/16 06:20 White Blood Count 7.5 Red Blood Count 3.05 Hemoglobin 8.6 Hematocrit 26.1 Mean Corpuscular Volume 85.7 Mean Corpuscular Hemoglobin 28.2 Mean Corpuscular Hemoglobin 32.9 Concent Red Cell Distribution Width 14.0 Platelet Count 297 Mean Platelet Volume 7.8 Neutrophils (%) (Auto) 71.1 Lymphocytes (%) (Auto) 14.2 Monocytes (%) (Auto) 11.2 Eosinophils (%) (Auto) 2.7 Basophils (%) (Auto) 0.8 Neutrophils # (Auto) 5.4 Lymphocytes # (Auto) 1.1 Monocytes # (Auto) 0.8 Eosinophils # (Auto) 0.2 Basophils # (Auto) 0.1 CBC Comment DIFF FINAL Differential Comment Sodium Level 136 Potassium Level 3.8 Chloride Level 98 Carbon Dioxide Level 33.2 Anion Gap 5 Blood Urea Nitrogen 9 Creatinine 0.43 Estimat Glomerular Filtration 146 Rate Random Glucose 119 Calcium Level 7.5 Cardiovascular: Regular Lungs: Clear Abdomen: Other (midline incision with leydi; G and J tube with complications ; AUTUMN x1 with serous fluid ) Extremities: Other (mild LEFT leg edema ) A/P Assessment and Plan 70 year old female with stage IV pancreatic cancer with malignant gastric outlet obstruction -POD11 Ex laparotomy, oversew gastric perforation lesser curve of stomach; Gastrostomy tube placement; Jejunostomy feeding tube placement -s/p place duodenal stent placement -TF at 55; increase to 60 cc/hr as tolerated -Flush G and J tubes as ordered -Contniue Lovenox 100 mg daily for DVT in LEFT leg -Appreciate Palliative Care consult; Hospice consult -Plan for home tomorrow with Hospice Attending Note - Dr. Alexander Abdomen benign Leydi intact without erythema or drainage AUTUMN with serous drainage I attest that I had a [id number] encounter with the patient on the same day , and personally performed and documented my assessment and findings in the medical record. The following services were provided during this hospital visit: Chart data review, vital sign assessments/reviewing monitor data Review of consultations notes if present. Medication orders/review and/or management Ordering and/or reviewing lab tests Ordering and/or interpreting/reviewing x-rays and/or diagnostic studies Care of the patient and discussion of the patient with the care team Documentation time To help prompt me to consider important information that might be impacting today's encounter and assessment, information from prior notes written by myself or my colleagues may have been "brought forward/copy and pasted" into today's note. Abiola Zhong Jun 06, 2016 12:21 Jesse Alexander MD Jun 16, 2016 21:22
--- NOTE | 2016-06-06 13:59 | PD.ONC.PN ---
Subjective Subjective Remarks Afebrile overnight. Pt sitting up in chair at bedside surrounded by family members. She states her pain is better controlled today. They apparently have a meeting with Hospice scheduled for today. The patient states she is looking forward to going home and being with her family. Objective Data Date Time Temp Pulse Resp B/P Pulse Ox O2 Delivery O2 Flow Rate FiO2 06/06/16 12:00 97.3 95 19 130/74 98 06/06/16 08:00 98.4 93 19 116/64 96 06/06/16 00:00 98.7 99 20 124/66 96 06/05/16 20:00 99.0 110 20 110/56 98 06/05/16 16:00 98.2 95 20 109/61 100 06/06/16 06/06/16 06/06/16 07:00 15:00 23:00 Intake Total 2120 ml 120 ml Output Total 210 ml 700 ml Balance 1910 ml -580 ml Result Diagram: 06/06/16 0620 06/06/16 0620 Laboratory Results Laboratory Tests Test 06/06/16 06:20 White Blood Count 7.5 TH/MM3 Red Blood Count 3.05 MIL/MM3 Hemoglobin 8.6 GM/DL Hematocrit 26.1 % Mean Corpuscular Volume 85.7 FL Mean Corpuscular Hemoglobin 28.2 PG Mean Corpuscular Hemoglobin 32.9 % Concent Red Cell Distribution Width 14.0 % Platelet Count 297 TH/MM3 Mean Platelet Volume 7.8 FL Neutrophils (%) (Auto) 71.1 % Lymphocytes (%) (Auto) 14.2 % Monocytes (%) (Auto) 11.2 % Eosinophils (%) (Auto) 2.7 % Basophils (%) (Auto) 0.8 % Neutrophils # (Auto) 5.4 TH/MM3 Lymphocytes # (Auto) 1.1 TH/MM3 Monocytes # (Auto) 0.8 TH/MM3 Eosinophils # (Auto) 0.2 TH/MM3 Basophils # (Auto) 0.1 TH/MM3 CBC Comment DIFF FINAL Differential Comment Sodium Level 136 MEQ/L Potassium Level 3.8 MEQ/L Chloride Level 98 MEQ/L Carbon Dioxide Level 33.2 MEQ/L Anion Gap 5 MEQ/L Blood Urea Nitrogen 9 MG/DL Creatinine 0.43 MG/DL Estimat Glomerular Filtration 146 ML/MIN Rate Random Glucose 119 MG/DL Calcium Level 7.5 MG/DL Administered Medications Medications (Trade) Dose Ordered Sig/Kristie Route PRN Reason Start Time Stop Time Status Last Admin Dose Admin IV Flush (NS Flush) 2 ml UNSCH PRN FLUSH FLUSH AFTER USING IV ACCESS 05/24/16 10:15 06/03/16 02:59 IV Flush (NS Flush) 2 ml BID FLUSH 05/24/16 21:00 06/06/16 08:48 Bisacodyl (Dulcolax Supp) 10 mg DAILY PRN FL CONSTIPATION 05/24/16 10:15 06/04/16 20:23 Levothyroxine Sodium (Synthroid Inj) 62 mcg DAILY@06 IV PUSH 05/26/16 06:00 06/06/16 06:14 Hydromorphone HCl (Dilaudid Pf Inj) 1 mg Q3HR PRN IV PUSH pain6-10 05/26/16 11:30 06/04/16 10:24 Prochlorperazine Edisylate (Compazine Inj) 10 mg Q6H PRN IVS NAUSEA OR VOMITING 05/26/16 12:45 06/05/16 22:15 Ondansetron HCl (Zofran Inj) 4 mg Q6HR PRN IV PUSH NAUSEA OR VOMITING 05/26/16 15:30 06/06/16 08:54 Pantoprazole Sodium 40 mg 40 mg Q24H IV PUSH 05/27/16 09:00 06/06/16 08:47 Fluconazole/ Sodium Chloride (Diflucan 200 Mg Premix Bag) 100 ml @ 100 mls/hr Q24H IV 05/28/16 11:15 06/07/16 11:15 06/06/16 11:32 Simethicone (Simethicone Liq (Drops)) 40 mg QID PRN PO CRAMPS 06/01/16 10:00 06/04/16 21:46 Metoprolol Tartrate (Lopressor) 12.5 mg DAILY PEG 06/02/16 15:00 06/06/16 08:47 Miscellaneous Information 1 Q3D T-DERMAL 06/04/16 11:00 06/04/16 11:00 Oxycodone HCl (Roxicodone Intensol Liq) 10 mg Q3H PRN JT PAIN 1-7 06/04/16 11:00 06/06/16 10:47 Oxycodone HCl (Roxicodone Intensol Liq) 15 mg Q3H PRN JT PAIN SCALE 8 TO 10 06/04/16 11:30 06/05/16 12:47 Fentanyl 1 patch 1 patch Q3D TD 06/05/16 17:00 06/05/16 18:36 Sodium Chloride (NS 1000 ml Inj) 1,000 ml @ 50 mls/hr Q20H IV 06/05/16 22:00 06/05/16 22:00 Sodium Chloride (NS Irr Btl) 300 ml Q8HR .XX 06/05/16 22:00 06/06/16 06:00 Enoxaparin Sodium (Lovenox Inj) 100 mg Q24H SQ 06/06/16 11:00 06/06/16 11:32 Objective Remarks GENERAL: Older female, sitting up in chair at bedside. She looks better than my previous visit. SKIN: Warm and dry. HEAD: Normocephalic. EYES: No injection or drainage. Wears glasses. NECK: Supple, trachea midline. CARDIOVASCULAR: Regular rate and rhythm without murmurs. RESPIRATORY: Breath sounds equal bilaterally. No accessory muscle use. GASTROINTESTINAL: Abdomen with vertical incision. Well approximated, nik present. EXTREMITIES: LLE with edema. NEUROLOGICAL: No obvious focal deficit. Awake, alert, and oriented x3. Assessment/Plan Problem List: (1) Pancreatic cancer Status: Acute Plan: -- Her last chemotherapy was 05/22/16. -- CA 19-9 has increased to 4033 from 2964 in March. Hx/Workup: She presented with a left supraclavicular adenopathy in January of 2016. She had elevated lipase. Her CA 19-9 was 2064. She had positive clavicular lymph node biopsy that was consistent with metastatic pancreatic cancer. She has been receiving palliative intent Folfirinox with her last dose finishing on 05/22/16. She has completed three doses. (2) Small bowel obstruction, partial Status: Acute Plan: -- CT scan on 05/24/16 suggests at least a partial obstruction of the duodenum with diffuse intrahepatic and extra hepatic biliary ductal dilatation. -- S/P jejunostomy and gastrostomy tube placement -- Tolerating TF at 60ml/hr Assessment Mrs. Campbell has a meeting with Hospice today and is likely planning to go home with them tomorrow. She has been on twice daily Lovenox for her DVT to her L leg. We will send her home on once daily therapeutic Lovenox at 100mg SQ daily. We discussed potentially treating her with second line chemotherapy and she did not wish to explore this as it will likely lead to further complications with no assurance of benefit. Her pain is much better controlled on the 100mcg/hr Fentanyl patch. Plan The exam, history, and the medical decision-making described in the above note were completed with the assistance of the mid-level provider. I reviewed and agree with the findings presented. I attest that I had a [id number] encounter with the patient on the same day, and personally performed and documented my assessment and findings in the medical record. Had a lengthy conversation with the patient and she is very comfortable with the idea of hospice and no further chemotherapy and so am I . I would recommend lovenex 1.5 mg/Kg sub cut daily on discharge. I will continue to follow while she is on the hospice program. I discussed this with and sister as well. Flower Giraldo Jun 06, 2016 13:59 Chiki Umana MD Jun 06, 2016 19:12
[2016-06-06 16:00] VITALS: BP 130/64; PULSE 100; RESP 20; TEMP 97.8; O2SAT 95
[2016-06-06 20:00] VITALS: BP 118/67; PULSE 100; RESP 20; TEMP 97.7; O2SAT 97
[2016-06-06] MEDS: BISACODYL 10 MG SUPP PR PRN ×2 (22:11→22:55)
[2016-06-06] MEDS: SODIUM CHLOR 0.9% 1000 ML INJ 1,000 ML IV SCH (22:12)
[2016-06-07] MEDS: oxyCODONE HCL ORAL CONC 20 MG/ML SYRINGE JT PRN ×4 (01:58→11:31)
[2016-06-07] MEDS: ONDANSETRON HCL 4 MG/2 ML VIAL IV PUSH PRN ×2 (01:59→10:52)
[2016-06-07] MEDS: LEVOTHYROXINE SODIUM 100 MCG VIAL IV PUSH SCH (05:49)
[2016-06-07] MEDS: SODIUM CHLORIDE 0.9% SCH (05:49)
[2016-06-07] MEDS: INSULIN ASPART SUPPLEMENTAL SCALE SQ SCH ×2 (06:47→10:53)
[2016-06-07 08:00] VITALS: BP 112/65; PULSE 106; RESP 19; TEMP 98.2; O2SAT 96
[2016-06-07] MEDS: PANTOPRAZOLE SODIUM 40 MG VIAL IV PUSH SCH (08:32)
[2016-06-07] MEDS: METOPROLOL TARTRATE 25 MG TAB PEG SCH (08:32)
[2016-06-07] MEDS: SODIUM CHLORIDE 0.9% FLUSH 5 ML FLUSH FLUSH SCH (08:33)
--- NOTE | 2016-06-07 09:19 | HHI.PR ---
Subjective Remarks resting comfortably. pain is controlled. no new complaints. wants to go home with hospice today. Objective Vitals Vital Signs Date Time Temp Pulse Resp B/P Pulse Ox O2 Delivery O2 Flow Rate FiO2 06/07/16 08:29 17 06/07/16 08:00 98.2 106 19 112/65 96 06/06/16 20:00 97.7 100 20 118/67 97 06/06/16 16:00 97.8 100 20 130/64 95 06/06/16 12:00 97.3 95 19 130/74 98 I/O 06/06/16 06/06/16 06/06/16 06/07/16 06/07/16 06/07/16 07:00 15:00 23:00 07:00 15:00 23:00 Intake Total 2120 ml 732 ml 1594 ml 1089 ml 120 ml Output Total 210 ml 1970 ml 1440 ml 1750 ml Balance 1910 ml -1238 ml 154 ml -661 ml 120 ml Intake Oral 1440 ml 240 ml 0 ml 240 ml 120 ml IV Total 250 ml 492 ml 385 ml 205 ml Tube Feeding 250 ml 1049 ml 444 ml Tube Irrigant 180 ml 160 ml 200 ml Output Urine Total 1200 ml 600 ml 400 ml Gastric Drainage Total 500 ml 550 ml 1100 ml Drainage Total 210 ml 270 ml 290 ml 250 ml # Voids 2 Result Diagram: 06/06/16 0620 06/06/16 0620 Imaging Last Impressions Lower Extremity Ultrasound 06/04/16 0000 Signed Impressions: Service Date/Time: Saturday, June 04, 2016 08:13 - CONCLUSION: 1. DVT left common femoral vein. 2. No DVT right lower extremity. Reynaldo Hernandez MD GI Procedure 05/26/16 0000 Signed Impressions: Service Date/Time: Thursday, May 26, 2016 17:29 - CONCLUSION: Intestinal stent placement as described above. Blaine Kowalski MD Chest X-Ray 05/26/16 0000 Signed Impressions: Service Date/Time: Thursday, May 26, 2016 21:29 - CONCLUSION: Status post intubation with endotracheal tube in appropriate position. Acute extensive subcutaneous emphysema. No evidence of pneumothorax. Bilateral airspace disease as described. Blaine Kowalski MD Abdomen/Pelvis CT 05/24/16 0000 Signed Impressions: Service Date/Time: Tuesday, May 24, 2016 08:51 - CONCLUSION: 1. Pancreatic mass again identified, measuring larger than on the comparison study.. 2. New gastric distention and diffuse dilatation of the duodenum with apparent transition point in the distal third portion of the duodenum. The transition point is in the region of soft tissue mass extending from the pancreas to the retroperitoneal region. More distally the small bowel is normal diameter. Finding suggest at least partial obstruction of the duodenum. 3. New diffuse intrahepatic and extra hepatic biliary ductal dilatation. No discrete mass is identified in the region of the distal common duct. The pancreatic duct is also now mildly prominent diffusely measuring approximately 4 mm. 4. Small pleural effusions. Hunter Pagan MD Objective Remarks GENERAL: This is a well-nourished, well-developed patient, in no apparent distress. CARDIOVASCULAR: Regular rate and regular rhythm without murmurs, gallops, or rubs. RESPIRATORY: Clear to auscultation. Breath sounds equal bilaterally. No wheezes , rales, or rhonchi. GASTROINTESTINAL: Abdomen soft, non-tender, site of surgery is clean. MUSCULOSKELETAL: Extremities without clubbing, cyanosis, or edema. NEURO: Alert & Oriented x4 to person, place, time, situation. Moves all ext x4 Procedures 1. Exploratory laparotomy with over sew of gastric perforation on the lesser curve of the stomach. 2. Gastrostomy tube placement. 3. Jejunostomy feeding tube placement. 4. EGD with duodenal stent placement. Medications and IVs Current Medications Ondansetron HCl 4 mg 4 mg ONCE ONCE IVP Last administered on 05/24/16 07:28; Start 05/24/16 at 07:15; Stop 05/24/16 at 07:18; Status DC Sodium Chloride (NS 1000 ml Inj) 1,000 ml @ 1,000 mls/hr Q1H IV Last administered on 05/24/16 07:28; Start 05/24/16 at 07:14; Stop 05/24/16 at 08:13 ; Status DC IV Flush (NS Flush) 2 ml UNSCH PRN IVF FLUSH AFTER USING IV ACCESS Last administered on 05/24/16 09:56; Start 05/24/16 at 07:15; Stop 05/24/16 at 17:43 ; Status DC Morphine Sulfate (Morphine Inj) 5 mg ONCE ONCE IV PUSH Last administered on 07:28; Start 05/24/16 at 07:15; Stop 05/24/16 at 07:18; Status DC Promethazine HCl (Phenergan Inj) 25 mg ONCE ONCE IM ; Start 05/24/16 at 08:15; Stop 05/24/16 at 08:57; Status DC Promethazine HCl (Phenergan Supp) 25 mg ONCE ONCE RECTAL Last administered on 05/24/16 09:25; Start 05/24/16 at 09:00; Stop 05/24/16 at 09:01; Status DC Iohexol (Omnipaque 350 Inj) 96 ml STK-MED ONCE IV Last administered on 09:14; Start 05/24/16 at 09:14; Stop 05/24/16 at 09:15; Status DC Hydromorphone HCl (Dilaudid Pf Inj) 0.5 mg ONCE ONCE IV PUSH Last administered on 05/24/16 09:56; Start 05/24/16 at 09:45; Stop 05/24/16 at 09:46 ; Status DC Lidocaine HCl 5 ml 5 ml ONCE ONCE TOPICAL Last administered on 05/24/16 10:32 ; Start 05/24/16 at 10:00; Stop 05/24/16 at 10:20; Status DC Potassium Chloride 100 ml @ 50 mls/hr ONCE ONCE IV Last administered on 11:31; Start 05/24/16 at 10:00; Stop 05/24/16 at 11:59; Status DC Sodium Chloride 1,000 ml @ 100 mls/hr Q10H IV Last administered on 05/24/16 11:31; Start 05/24/16 at 10:00; Stop 05/24/16 at 17:44; Status DC Sodium Chloride (NS 1000 ml Inj) 1,000 ml @ 50 mls/hr Q20H IV Last administered on 06/05/16 05:38; Start 05/24/16 at 10:14; Stop 06/05/16 at 19:46; Status DC IV Flush (NS Flush) 2 ml UNSCH PRN FLUSH FLUSH AFTER USING IV ACCESS Last administered on 06/03/16 02:59; Start 05/24/16 at 10:15 IV Flush (NS Flush) 2 ml BID FLUSH Last administered on 06/07/16 08:33; Start 05/24/16 at 21:00 Acetaminophen (Tylenol) 650 mg Q4H PRN PO fever, headache, pain 1-4; Start at 10:15; Stop 05/28/16 at 11:13; Status DC Ondansetron HCl (Zofran Inj) 4 mg Q6H PRN IVP NAUSEA OR VOMITING; Start at 10:15; Stop 05/24/16 at 15:39; Status DC Bisacodyl (Dulcolax Supp) 10 mg DAILY PRN [place] CONSTIPATION Last administered on 06/06/16 22:55; Start 05/24/16 at 10:15 Magnesium Hydroxide (Milk Of Magnesia Liq) 30 ml Q12H PRN PO CONSTIPATION; Start 05/24/16 at 10:15 Enoxaparin Sodium (Lovenox Inj) 40 mg Q24H SQ ; Start 05/24/16 at 10:15; Stop at 20:02; Status DC Naloxone HCl (Narcan Inj) 0.4 mg UNSCH PRN IV SEE LABEL COMMENTS; Start at 10:15 Prochlorperazine Edisylate (Compazine Inj) 10 mg Q6H PRN IM NAUSEA OR VOMITING ; Start 05/24/16 at 10:15; Stop 05/26/16 at 12:33; Status DC Hydromorphone HCl (Dilaudid Pf Inj) 1 mg ONCE ONCE IV PUSH Last administered on 05/24/16 13:02; Start 05/24/16 at 13:00; Stop 05/24/16 at 13:01; Status DC Hydromorphone HCl (Dilaudid Pf Inj) 0.5 mg Q4H PRN IV PUSH PAIN SCALE 5 TO 10 Last administered on 05/26/16 08:14; Start 05/24/16 at 13:00; Stop 05/26/16 at 11:34; Status DC Ondansetron HCl (Zofran Inj) 4 mg Q6H IVP Last administered on 05/25/16 09:18 ; Start 05/24/16 at 16:00; Stop 05/25/16 at 13:37; Status DC Fentanyl (Duragesic 25 Mcg Patch.72 Hr) 1 patch ONCE ONCE TD Last administered on 05/24/16 16:31; Start 05/24/16 at 16:00; Stop 05/24/16 at 16:01 ; Status DC Miscellaneous Information 1 1 Q3D TD ; Start 05/27/16 at 09:00; Stop 05/27/16 at 09:00; Status DC Cefazolin Sodium/ Dextrose 50 ml @ 100 mls/hr Q8H IV ; Start 05/24/16 at 17:45 ; Stop 05/24/16 at 18:28; Status DC Levofloxacin/ Dextrose 150 ml @ 100 mls/hr Q24H IV Last administered on 20:01; Start 05/24/16 at 20:00; Stop 05/28/16 at 11:13; Status DC Metronidazole (Flagyl 500 Mg Inj) 100 ml @ 100 mls/hr Q8H IV Last administered on 05/28/16 03:39; Start 05/24/16 at 20:00; Stop 05/28/16 at 11:14; Status DC Enoxaparin Sodium (Lovenox Inj) 40 mg Q24H SQ Last administered on 06/03/16 20: 58; Start 05/24/16 at 20:00; Stop 06/04/16 at 10:06; Status DC Ondansetron HCl 6 mg 6 mg Q6H IVP Last administered on 05/26/16 08:13; Start 05/25/16 at 14:00; Stop 05/26/16 at 13:59; Status DC Multivitamins 10 ml/Folic Acid 1 mg/Amino Acids/ Electrolytes/ Dextrose 1,010.2 ml @ 42 mls/hr Q24H IV Last administered on 06/02/16 19:50; Start 05/25/16 at 20:00; Stop 06/03/16 at 10:20; Status DC Fat Emulsion Intravenous 250 ml @ 10 mls/hr Q24H IV Last administered on 19:49; Start 05/25/16 at 20:00; Stop 06/03/16 at 10:21; Status DC Potassium Chloride (KCl 20 Meq Premix Inj) 100 ml @ 50 mls/hr Q2H IV Last administered on 05/26/16 11:57; Start 05/26/16 at 08:00; Stop 05/26/16 at 11:59 ; Status DC Levothyroxine Sodium 62 mcg 62 mcg DAILY@06 IV PUSH Last administered on 05:49; Start 05/26/16 at 06:00 Potassium Chloride 100 ml @ 50 mls/hr Q2H IV Last administered on 05/26/16 15 :16; Start 05/26/16 at 12:00; Stop 05/26/16 at 15:59; Status DC Potassium Chloride (KCl 20 Meq Premix Inj) 100 ml @ 50 mls/hr Q2H IV ; Start at 18:00; Stop 05/26/16 at 21:59; Status DC Fentanyl (Duragesic 50 Mcg Patch.72 Hr) 1 patch Q3D TD Last administered on 12:00; Start 05/26/16 at 12:00; Stop 06/04/16 at 08:37; Status DC Miscellaneous Information 1 Q3D T-DERMAL Last administered on 06/01/16 12:00; Start 05/29/16 at 12:00; Stop 06/04/16 at 08:37; Status DC Hydromorphone HCl (Dilaudid Pf Inj) 0.5 mg Q3HR PRN IV PUSH pain1-5 Last administered on 05/27/16 15:11; Start 05/26/16 at 11:30; Stop 06/02/16 at 11:16 ; Status DC Hydromorphone HCl (Dilaudid Pf Inj) 1 mg Q3HR PRN IV PUSH pain6-10 Last administered on 06/04/16 10:24; Start 05/26/16 at 11:30 Promethazine HCl (Phenergan Supp) 12.5 mg ONCE ONCE RECTAL ; Start 05/26/16 at 11:45; Stop 05/26/16 at 11:48; Status DC Prochlorperazine Edisylate (Compazine Inj) 10 mg Q6H PRN IVS NAUSEA OR VOMITING Last administered on 06/05/16 22:15; Start 05/26/16 at 12:45 Ondansetron HCl (Zofran Inj) 4 mg Q6HR PRN IV PUSH NAUSEA OR VOMITING Last administered on 06/07/16 01:59; Start 05/26/16 at 15:30 Miscellaneous Information ALL NURSING DEPARTME... UNSCH PRN XX SEE LABEL COMMENTS; Start 05/26/16 at 17:58; Stop 05/27/16 at 17:57; Status DC Fluconazole/ Sodium Chloride 200 ml @ 100 mls/hr NOW ONCE IV ; Start 05/26/16 at 20:00; Stop 05/26/16 at 21:59; Status DC Fluconazole/ Sodium Chloride 200 ml @ 100 mls/hr NOW ONCE IV Last administered on 05/26/16t 19:44; Start 05/26/16 at 19:30; Stop 05/26/16 at 21:29 ; Status Cancel Sodium Chloride 154 meq/Dextrose 1,038.5 ml @ 30 mls/hr Q24H IV ; Start at 21:30; Stop 05/27/16 at 08:39; Status DC Propofol (Diprivan 1000 Mg/100ml Inj) 100 ml @ As Directed STK-MED ONCE .ROUTE ; Start 05/26/16 at 21:10; Stop 05/26/16 at 21:11; Status DC Fentanyl Citrate (fentaNYL INJ) 250 mcg STK-MED ONCE .ROUTE ; Start 05/26/16 at 21:30; Stop 05/26/16 at 21:31; Status DC Fentanyl Citrate (fentaNYL INJ) 250 mcg STK-MED ONCE .ROUTE ; Start 05/26/16 at 21:30; Stop 05/26/16 at 21:31; Status DC Morphine Sulfate (*morphine INJ PERIprocedure ONLY) 8 mg STK-MED ONCE .ROUTE ; Start 05/26/16 at 21:38; Stop 05/26/16 at 21:39; Status DC Enalaprilat (*VASOTEC INJ PERIprocedural Use ONLY) 1.25 mg STK-MED ONCE .ROUTE ; Start 05/26/16 at 21:38; Stop 05/26/16 at 21:39; Status DC Labetalol HCl 100 mg 100 mg STK-MED ONCE .ROUTE ; Start 05/26/16 at 21:38; Stop 05/26/16 at 21:39; Status DC Propofol (Diprivan 1000 Mg/100ml Inj) 100 ml @ 0 mls/hr TITRATE IV Last administered on 05/27/16t 06:15; Start 05/26/16 at 22:00; Stop 05/30/16 at 16:32 ; Status DC Morphine Sulfate (*morphine INJ PERIprocedure ONLY) 8 mg STK-MED ONCE .ROUTE ; Start 05/26/16 at 22:39; Stop 05/26/16 at 22:40; Status DC Morphine Sulfate (Morphine Inj) 8 mg STK-MED ONCE IV PUSH Last administered on 05/26/16 21:40; Start 05/26/16 at 21:40; Stop 05/27/16 at 01:31; Status DC Labetalol HCl (Trandate Inj) 100 mg STK-MED ONCE IVP Last administered on 21:41; Start 05/26/16 at 21:41; Stop 05/27/16 at 01:31; Status DC Enalaprilat (Vasotec Inj) 1.25 mg STK-MED ONCE IV PUSH Last administered on 21:55; Start 05/26/16 at 21:55; Stop 05/27/16 at 01:31; Status DC Morphine Sulfate 8 mg 8 mg STK-MED ONCE IV PUSH Last administered on 05/26/16 22:40; Start 05/26/16 at 22:40; Stop 05/27/16 at 01:31; Status DC Potassium Chloride 100 ml @ 50 mls/hr Q2H IV Last administered on 05/27/16 03 :45; Start 05/27/16 at 01:45; Stop 05/27/16 at 05:44; Status DC Potassium Chloride 100 ml @ 50 mls/hr Q2H PRN IV For Potassium 2.8 - 3.2 mEq/L ; Start 05/27/16 at 05:15; Stop 05/30/16 at 10:19; Status DC Potassium Chloride (KCl 20 Meq Premix Inj) 100 ml @ 50 mls/hr Q2H PRN IV For Potassium 2.8 - 3.2 mEq/L Last administered on 05/28/16 06:16; Start 05/27/16 at 05:15; Stop 05/30/16 at 10:19; Status DC Potassium Chloride 40 meq 40 meq UNSCH PRN PO/TUBE For Potassium 3.3 - 3.5 mEq/ L; Start 05/27/16 at 05:15; Stop 05/30/16 at 10:19; Status DC Potassium Chloride 100 ml @ 25 mls/hr UNSCH PRN IV For Potassium 3.3 - 3.5 mEq /L; Start 05/27/16 at 05:15; Stop 05/30/16 at 10:19; Status DC Potassium Chloride 100 ml @ 50 mls/hr Q2H PRN IV For Potassium 3.3 - 3.5 mEq/L ; Start 05/27/16 at 05:15; Stop 05/30/16 at 10:19; Status DC Magnesium Sulfate/ Sodium Chloride (Magnesium Sulfate Inj/NS Inj) 100 ml @ 50 mls/hr UNSCH PRN IV For Magnesium 0.9 - 1.1 mg/dL; Start 05/27/16 at 05:15; Stop 05/30/16 at 10:19; Status DC Magnesium Oxide 800 mg 800 mg UNSCH PRN PO For Magnesium 1.2 - 1.6 mg/dL; Start 05/27/16 at 05:15; Stop 05/30/16 at 10:19; Status DC Magnesium Sulfate/ Sodium Chloride (Magnesium Sulfate Inj/NS Inj) 100 ml @ 50 mls/hr UNSCH PRN IV For Magnesium 1.2 - 1.6 mg/dL; Start 05/27/16 at 05:15; Stop 05/30/16 at 10:19; Status DC Potassium Phosphate 2000 mg 2,000 mg Q4H PRN PO For Phosphorus < 2.5 mg/dL; Start 05/27/16 at 05:15; Stop 05/30/16 at 10:19; Status DC Sodium Phosphate/ Sodium Chloride (Sodium Phosphate Inj/NS 250 ml Inj) 250 ml @ 42 mls/hr UNSCH PRN IV For Phosphorus < 2.5 mg/dL; Start 05/27/16 at 05:15; Stop 05/30/16 at 10:19; Status DC Potassium Chloride (KCl 40 Meq/30 ml Liq) 40 meq UNSCH PRN PO/TUBE SEE LABEL COMMENTS; Start 05/27/16 at 05:15; Stop 05/30/16 at 10:19; Status DC Potassium Phosphate 2000 mg 2,000 mg UNSCH PRN PO/TUBE SEE LABEL COMMENTS; Start 05/27/16 at 05:15; Stop 05/30/16 at 10:19; Status DC Potassium Phosphate/Sodium Chloride (Potassium Phosphate Inj/NS 250 ml Inj) 260 ml @ 42 mls/hr UNSCH PRN IV SEE LABEL COMMENTS; Start 05/27/16 at 05:15; Stop 05/30/16 at 10:19; Status DC Pantoprazole Sodium (Protonix Inj) 40 mg Q24H IV PUSH Last administered on 06/07 08:32; Start 05/27/16 at 09:00 Propofol (Diprivan 200 Mg/20 ml Inj) 200 mg STK-MED ONCE IV ; Start 05/26/16 at 12:00; Stop 05/27/16 at 09:06; Status DC Ondansetron HCl 4 mg 4 mg STK-MED ONCE IV PUSH ; Start 05/26/16 at 12:00; Stop 05/27/16 at 09:06; Status DC Lactated Ringer's 2,000 ml @ As Directed STK-MED ONCE IV ; Start 05/26/16 at 12 :00; Stop 05/27/16 at 09:06; Status DC Sodium Chloride (NS 500 ml Inj) 500 ml @ As Directed STK-MED ONCE IV ; Start at 12:00; Stop 05/27/16 at 09:06; Status DC Propofol (Diprivan 200 Mg/20 ml Inj) 200 mg STK-MED ONCE IV ; Start 05/26/16 at 18:00; Stop 05/27/16 at 16:53; Status DC Labetalol HCl (Trandate Inj) 100 mg STK-MED ONCE .ROUTE Last administered on 18:05; Start 05/27/16 at 17:51; Stop 05/27/16 at 17:52; Status DC Labetalol HCl (Trandate Inj) 20 mg Q2H PRN IV SBP > 160 MMHG; Start 05/27/16 at 18:30 Potassium Chloride (KCl 40 Meq/30 ml Liq) 40 meq NOW ONCE PO Last administered on 05/28/16 07:54; Start 05/28/16 at 07:30; Stop 05/28/16 at 07:31; Status DC Potassium Chloride (KCl 40 Meq/30 ml Liq) 40 meq DAILY@12 PO Last administered on 05/28/16 11:32; Start 05/28/16 at 12:00; Stop 05/28/16 at 12:01; Status DC Albuterol/ Ipratropium 1 ampule 1 ampule Q6HR NEB NEB Last administered on 05/29 17:25; Start 05/28/16 at 10:00; Stop 06/01/16 at 09:38; Status DC Fluconazole/ Sodium Chloride (Diflucan 200 Mg Premix Bag) 100 ml @ 100 mls/hr Q24H IV Last administered on 06/06/16 11:32; Start 05/28/16 at 11:15; Stop 02/13 at 11:15 Oxycodone HCl (Roxicodone Intensol Liq) 5 mg Q3H PRN PO PAIN SCALE 1 TO 7 Last administered on 06/01/16 06:39; Start 05/28/16 at 12:00; Stop 06/01/16 at 09:40; Status DC Acetaminophen (Ofirmev Inj) 1,000 mg Q6H IV Last administered on 05/31/16 05:51 ; Start 05/28/16 at 13:00; Stop 05/31/16 at 07:01; Status DC Oxycodone HCl (Roxicodone Intensol Liq) 5 mg Q2H PRN PO PAIN SCALE 1 TO 7 Last administered on 06/02/16 11:08; Start 06/01/16 at 11:00; Stop 06/02/16 at 11:16; Status DC Dextrose (D50w (Vial) Inj) 25 ml UNSCH PRN IV PUSH HYPOGLYCEMIA-SEE COMMENTS; Start 06/01/16 at 09:45 Glucagon (Glucagon Inj) 1 mg UNSCH PRN OTHER HYPOGLYCEMIA-SEE COMMENTS; Start 06/01/16 at 09:45 Insulin Aspart (NovoLOG SUPPLEMENTAL SCALE) 1 ACHS SLIDING SCALE SQ ; Start 06/01/16 at 11:00 Potassium Bicarb/ Potassium Chloride (K-Lyte Cl Eff) 50 meq ONCE ONCE PO Last administered on 06/01/16 09:45; Start 06/01/16 at 09:45; Stop 06/01/16 at 09: 49; Status DC Simethicone (Simethicone Liq (Drops)) 40 mg QID PRN PO CRAMPS Last administered on 06/04/16 21:46; Start 06/01/16 at 10:00 Metoprolol Tartrate 50 mg 50 mg ONCE ONCE PO Last administered on 06/01/16 10: 00; Start 06/01/16 at 10:00; Stop 06/01/16 at 10:01; Status DC Potassium Chloride (KCl 40 Meq Premix Inj) 100 ml @ 25 mls/hr BOLUS ONCE IV Last administered on 06/01/16 10:00; Start 06/01/16 at 10:00; Stop 06/01/16 at 13: 59; Status DC Oxycodone HCl (Roxicodone Intensol Liq) 7.5 mg Q2H PRN PO PAIN 1-7 Last administered on 06/04/16 06:12; Start 06/02/16 at 11:00; Stop 06/04/16 at 08:37; Status DC Metoprolol Tartrate (Lopressor) 12.5 mg DAILY PEG Last administered on 08:32; Start 06/02/16 at 15:00 Potassium Chloride (KCl 40 Meq/30 ml Liq) 40 meq ONCE ONCE PO Last administered on 06/04/16 10:28; Start 06/04/16 at 09:00; Stop 06/04/16 at 09:01; Status DC Oxycodone HCl (Roxicodone Intensol Liq) 10 mg Q3HR PRN PO PAIN 1-7; Start at 11:00; Stop 06/04/16 at 11:00; Status DC Fentanyl (Duragesic 75 Mcg Patch.72 Hr) 1 patch Q3D TD Last administered on 10:44; Start 06/04/16 at 11:00; Stop 06/05/16 at 15:37; Status DC Miscellaneous Information 1 Q3D T-DERMAL Last administered on 06/04/16 11:00; Start 06/04/16 at 11:00 Oxycodone HCl (Roxicodone Intensol Liq) 15 mg Q3H PRN GT PAIN SCALE 8 TO 10; Start 06/04/16 at 08:30; Stop 06/04/16 at 08:42; Status DC Oxycodone HCl (Roxicodone Intensol Liq) 10 mg Q3H PRN JT PAIN 1-7 Last administered on 06/07/16 08:32; Start 06/04/16 at 11:00 Oxycodone HCl (Roxicodone Intensol Liq) 15 mg Q3H PRN JT PAIN SCALE 8 TO 10 Last administered on 06/05/16 12:47; Start 06/04/16 at 11:30 Enoxaparin Sodium (Lovenox Inj) 70 mg Q12H SQ Last administered on 06/05/16 22: 16; Start 06/04/16 at 11:00; Stop 06/06/16 at 10:49; Status DC Fentanyl (Duragesic 100 Mcg Patch.72 Hr) 1 patch Q3D TD Last administered on 18:36; Start 06/05/16 at 17:00 Miscellaneous Information 1 Q3D T-DERMAL ; Start 06/08/16 at 15:45 Sodium Chloride 250 ml 250 ml Q6H OTHER ; Start 06/06/16 at 00:00; Stop at 00:00; Status DC Sodium Chloride (NS 1000 ml Inj) 1,000 ml @ 50 mls/hr Q20H IV Last administered on 06/06/16 22:12; Start 06/05/16 at 22:00 Sodium Chloride (NS Irr Btl) 300 ml Q8HR .XX Last administered on 06/07/16 05: 49; Start 06/05/16 at 22:00 Enoxaparin Sodium (Lovenox Inj) 100 mg Q24H SQ Last administered on 06/06/16 11:32; Start 06/06/16 at 11:00 A/P Assessment and Plan A/P Respiratory failure: Extubated febrile 20 11/16/16. Stable and continue bronchodilator when necessary Small bowel obstruction - Status post palliative stent placement -evaluated by GI -Adjust pain medication accordingly Gastric perforation - Status post surgical repair with G-tube/J-tube placement. - s/p Levaquin and Flagyl tx - diet per surgery -continue pain control -management per surgery DVT - left lower extremity; started on therapeutic dose of Lovenox- Atrial fibrillation - Status post ablation - Rate controlled -resumed BB Pancreatic cancer - per Oncology -patient now wants to go home on hospice. Hypothyroidism - Synthroid GI prophylaxis - Protonix PT to treat and eval palliative care consulted. Discharge Planning dc home with hospice. see med list. d/w the patient. previously d/w and Hospice. time spent 35 min. Jennifer Chapman MD Jun 07, 2016 09:19
[2016-06-07] MEDS ORDERED: METO25TA3 PEG (09:24)
[2016-06-07] MEDS ORDERED: FENT100T TD (09:24)
[2016-06-07] MEDS ORDERED: ENOX100P SQ (09:24)
[2016-06-07] MEDS ORDERED: FAMO40S PO (09:24)
[2016-06-07] MEDS ORDERED: OXYC1CON3 JT (09:24)
--- NOTE | 2016-06-07 09:24 | HHI.DCPOC ---
Discharge Care Plan Diagnosis: (1) Pancreatic cancer Your Health Problems Are: Chronic Pain Goals to Promote Your Health * To prevent worsening of your condition and complications * To maintain your health at the optimal level Directions to Meet Your Goals Take your medications as prescribed Follow your dietary instruction Follow activity as directed Keep your appointments as scheduled Take your immunizations and boosters as scheduled If your symptoms worsen call your PCP, if no PCP go to Urgent Care Center or Emergency Room Smoking is Dangerous to Your Health. Avoid second hand smoke Call the 24-hour hour crisis hotline for domestic abuse at Jennifer Chapman MD Jun 07, 2016 09:24
--- NOTE | 2016-06-07 09:25 | HHI.DS ---
Discharge Summary Admission Date May 24, 2016 at 10:16 Discharge Date: Jun 07, 2016 Admitting Diagnosis SBO, Abdominal pain. (1) Small bowel obstruction, partial ICD Code: K56.69 Diagnosis: Principal (2) Pancreatic cancer ICD Code: C25.9 Diagnosis: Principal (3) Hypothyroidism ICD Code: E03.9 Diagnosis: Secondary (4) history of atrial fibrillation Diagnosis: Secondary Procedures 1. Exploratory laparotomy with over sew of gastric perforation on the lesser curve of the stomach. 2. Gastrostomy tube placement. 3. Jejunostomy feeding tube placement. 4- EGD with duodenal stent placement Brief History - From Admission Ms. Campbell is a pleasant 70-year-old female with a recent diagnosis of pancreatic cancer who presents to the emergency department on 05/24/2016 due to intractable nausea and vomiting as well as abdominal pain that started last night. She underwent therapy 2 days ago and subsequently she went home. Her nausea medication at home did not help which prompted her to seek medical attention today. Patient denies any fever or chills. Denies any chest pain, shortness of breath. Denies any changes in bowel or bladder habits. On arrival pressure 146/84, pulse 104, respirations 16, temperature 90.8F, pulse ox 97% on room air. CT abdomen pelvis showed pancreatic mass which appeared to be larger than the comparison study. CT abdomen pelvis also shows likely partial small bowel obstruction. An NG tube was placed in the emergency department. CBC/BMP: 06/06/16 0620 06/06/16 0620 Significant Findings Laboratory Tests Test 06/06/16 06:20 Red Blood Count 3.05 MIL/MM3 (4.00-5.30) Hemoglobin 8.6 GM/DL (11.6-15.3) Hematocrit 26.1 % (35.0-46.0) Neutrophils (%) (Auto) 71.1 % (16.0-70.0) Monocytes (%) (Auto) 11.2 % (0.0-8.0) Carbon Dioxide Level 33.2 MEQ/L (21.0-32.0) Creatinine 0.43 MG/DL (0.50-1.00) Random Glucose 119 MG/DL (74-106) Calcium Level 7.5 MG/DL (8.5-10.1) Imaging Last Impressions Lower Extremity Ultrasound 06/04/16 0000 Signed Impressions: Service Date/Time: Saturday, June 04, 2016 08:13 - CONCLUSION: 1. DVT left common femoral vein. 2. No DVT right lower extremity. Reynaldo Hernandez MD GI Procedure 05/26/16 0000 Signed Impressions: Service Date/Time: Thursday, May 26, 2016 17:29 - CONCLUSION: Intestinal stent placement as described above. Blaine Kowalski MD Chest X-Ray 05/26/16 0000 Signed Impressions: Service Date/Time: Thursday, May 26, 2016 21:29 - CONCLUSION: Status post intubation with endotracheal tube in appropriate position. Acute extensive subcutaneous emphysema. No evidence of pneumothorax. Bilateral airspace disease as described. Blaine Kowalski MD Abdomen/Pelvis CT 05/24/16 0000 Signed Impressions: Service Date/Time: Tuesday, May 24, 2016 08:51 - CONCLUSION: 1. Pancreatic mass again identified, measuring larger than on the comparison study.. 2. New gastric distention and diffuse dilatation of the duodenum with apparent transition point in the distal third portion of the duodenum. The transition point is in the region of soft tissue mass extending from the pancreas to the retroperitoneal region. More distally the small bowel is normal diameter. Finding suggest at least partial obstruction of the duodenum. 3. New diffuse intrahepatic and extra hepatic biliary ductal dilatation. No discrete mass is identified in the region of the distal common duct. The pancreatic duct is also now mildly prominent diffusely measuring approximately 4 mm. 4. Small pleural effusions. Hunter Pagan MD PE at Discharge GENERAL: This is a well-nourished, well-developed patient, in no apparent distress. CARDIOVASCULAR: Regular rate and regular rhythm without murmurs, gallops, or rubs. RESPIRATORY: Clear to auscultation. Breath sounds equal bilaterally. No wheezes , rales, or rhonchi. GASTROINTESTINAL: Abdomen soft, non-tender, site of surgery is clean. MUSCULOSKELETAL: Extremities without clubbing, cyanosis, or edema. NEURO: Alert & Oriented x4 to person, place, time, situation. Moves all ext x4 Hospital Course Respiratory failure: Extubated febrile 11/16/16. Stable and continue bronchodilator when necessary Small bowel obstruction - Status post palliative stent placement -evaluated by GI -Adjust pain medication accordingly Gastric perforation - Status post surgical repair with G-tube/J-tube placement. - s/p Levaquin and Flagyl tx - diet per surgery -continue pain control -management per surgery DVT - left lower extremity; started on therapeutic dose of Lovenox- Atrial fibrillation - Status post ablation - Rate controlled -resumed BB Pancreatic cancer - per Oncology -patient now wants to go home on hospice. Hypothyroidism - Synthroid GI prophylaxis - Protonix PT to treat and eval palliative care consulted. Pt Condition on Discharge: Fair Discharge Disposition: Hospice/ Home Discharge Time: > 30 minutes Discharge Instructions Additional Diet Instructions: tube feed with tray. Activities you can perform: Regular-No Restrictions Follow up Referrals: PCP Follow-up New Medications: 3-in-1 Bedside Toilet (3-in-1 Bedside Toilet) 1 Mis Mis 1 EA .ROUTE DIRECTED #1 EA Famotidine Liq (Pepcid Liq) 40 Mg/5 Ml Susp 20 MG PO BID ppi #50 Ref 0 ML Kangaroo Sean Feeding Tube Pump Set (Kangaroo Sean Feeding Tube Pump Set) 1 Mis Mis 1 EA .ROUTE DIRECTED #1 EA Walker with Front Wheels (Walker with Front Wheels) 1 Mis Mis 1 EA .ROUTE DIRECTED #1 Ref 0 EA Enoxaparin Inj (Lovenox Inj) 100 Mg/Ml Syr 100 MG SQ Q24H dvt Days 30 Ref 0 INJECTION Fentanyl Patch 72 HR (Duragesic Patch 72 HR) 100 Mcg/Hr Patch 1 PATCH TD Q3D Pain Management #2 Ref 0 PATCH Metoprolol Tartrate (Metoprolol Tartrate) 25 Mg Tab 12.5 MG PEG DAILY tachycardia Days 30 Ref 0 TAB Oxycodone Liq (Oxycodone Liq) 20 Mg/Ml Conc 10 MG JT Q3H PRN pain 1-7 Days 30 Ref 0 ML Oxycodone Liq (Oxycodone Liq) 20 Mg/Ml Conc 15 MG JT Q3H PRN pain 8-10 Days 30 Ref 0 ML Continued Medications: Fluticasone Nasal [place] (Fluticasone Nasal [place]) 50 Mcg/Act Naspr 50 MCG EACH NARE BID 50 mcg/spray PRN NASAL CONGESTION AND/OR COUGH #1 Ref 0 BOTTLE Guaifenesin (Tussin) 100 Mg/5 Ml Syp Unknown Dose PO DIRECTED PRN COUGH AND/OR COLD SYMPTOMS Levothyroxine (Levothyroxine) 112 Mcg Tab 112 MCG PO DAILY Thyroid #30 Ref 0 TAB Ondansetron Odt (Zofran Odt) 8 Mg Tab 8 MG SL Q8H PRN NAUSEA OR VOMITING #60 Ref 0 TAB Discontinued Medications: Aprepitant (Emend) 125 Mg Cap 125 MG PO DIRECTED Take on day 1. Nausea #1 Ref 0 CAP Ascorbic Acid (Vitamin C) 1,000 Mg Tab 1000 MG PO DAILY Nutritional Supplement Ref [address] (Aspirin EC) 325 Mg Tabdr 325 MG PO DAILY Ref 0 TAB Calcium Carbonate-Cholecalciferol (Calcium 500 +D) 500-400 Mg-Unit Tab 1 TAB PO DAILY Calcium Supplement Ref 0 TAB Cranberry (Vaccinium Macrocarpon) (Cranberry) 400 Mg Cap Unknown Dose PO DAILY Cyanocobalamin (Vitamin B12) 100 Mcg Tab Unknown Dose PO DAILY #1 BOTTLE Gabapentin (Gabapentin) 600 Mg Tab 600 MG PO HS #30 Ref 0 TAB Loperamide (Imodium A-D) 2 Mg Cap 2 MG PO Q6HR One capsule after each loose stool. Not to exceed 8 tablets per day. PRN DIARRHEA Ref 0 CAP Melatonin (Melatonin) 5 Mg Cap 5 MG PO HS Metoprolol Succinate ER 24 HR (Metoprolol Succinate ER 24 HR) 50 Mg Tab 50 MG PO HS #30 Ref 0 TAB Multiple Vitamin (Multiple Vitamin) 1 Tab 1 TAB PO DAILY Nutritional Supplement Ref 0 TAB Oxycodone-Acetaminophen (Percocet) 10-325 mg Tab 1-2 TAB PO Q4H PRN PAIN Ref 0 TAB Pantoprazole (Pantoprazole) 40 Mg Tab 40 MG PO DAILY Reflux #30 Ref 0 TAB ([Alonzapine]) Unknown Dose DIRECTED Jennifer Chapman MD Jun 07, 2016 09:25
[2016-06-07] MEDS: REMOVE OLD PATCH T-DERMAL SCH (10:06)
[2016-06-07] MEDS: ENOXAPARIN SODIUM 100 MG/ML SYRINGE SQ SCH (10:52)
[2016-06-07] MEDS: FLUCONAZOLE 200 MG PREMIX BAG 100 ML IV SCH (10:52)
[2016-06-07 12:00] VITALS: BP 117/62; PULSE 95; RESP 19; TEMP 98.2; O2SAT 96
[2016-06-07 12:31] VITALS: RESP 17
[2016-06-08] MEDS ORDERED: REMOVE OLD PATCH T-DERMAL SCH (15:45)
== END 2016-06-07 13:56 | disposition hospice, home (50) | DRG 326 ==
LOC: NEPE 06:45 → NEDA 10:16 → HOCA 13:21 → N03B 05-26 19:36 → N07A 05-29 16:28
PROVIDERS: ADMIT Internal Medicine; ATTEND Internal Medicine
PROC: 0DHA3UZ Insertion of Feeding Device into Jejunum, Percutaneous Approach (ICD-10-PCS; 2016-05-26)
PROC: 0D9630Z Drainage of Stomach with Drainage Device, Percutaneous Approach (ICD-10-PCS; 2016-05-26)
PROC: 0D798DZ Dilation of Duodenum with Intraluminal Device, Via Natural or Artificial Opening Endoscopic (ICD-10-PCS; 2016-05-26)
PROC: 0DQ60ZZ Repair Stomach, Open Approach (ICD-10-PCS; principal; 2016-05-26 16:00)
DX: K31.5 Obstruction of duodenum (principal); J95.821 Acute postprocedural respiratory failure; C25.1 Malignant neoplasm of body of pancreas; I82.412 Acute embolism and thrombosis of left femoral vein; C77.0 Secondary and unspecified malignant neoplasm of lymph nodes of head, face and neck; D64.9 Anemia, unspecified; K91.71 Accidental puncture and laceration of a digestive system organ or structure during a digestive system procedure; I48.91 Unspecified atrial fibrillation; K21.9 Gastro-esophageal reflux disease without esophagitis; E03.9 Hypothyroidism, unspecified; Y84.8 Other medical procedures as the cause of abnormal reaction of the patient, or of later complication, without mention of misadventure at the time of the procedure; Z51.5 Encounter for palliative care; R60.0 Localized edema; E78.5 Hyperlipidemia, unspecified; E87.6 Hypokalemia; Z86.73 Personal history of transient ischemic attack (TIA), and cerebral infarction without residual deficits; Z88.0 Allergy status to penicillin; Z88.7 Allergy status to serum and vaccine
CPT/HCPCS: 71010; 74177; 76000; 76937; 80048; 80053; 81001; 82040; 82805; 82948; 83605; 83690; 83735; 84100; 84132; 84134; 84145; 84155; 85007; 85025; 85027; 85610; 85730; 86301; 86850; 86900; 86901; 86920; 87015; 87040; 87070; 87086; 87102; 87106; 87116; 87205; 87206; 93005; 93970; 94002; 94003; 94150; 94640; 94664; 94667; 94668; 96361; 96374; 96375; 96523; C1769; C2625; C9113; J0131; J0780; J1170; J1450; J1642; J1650; J1956; J2270; J2405; J3010; J3480; J7030; J7040; J7120; Q9967

== ENCOUNTER 2016-06-15 05:05 | Observation (INO) | payer MEDICARE ==
[~2016-06-15] VITALS: Ht 167.6 cm; Wt 70.0 kg
[2016-06-15] VITALS (8 sets, daily range): BP systolic 106–146; BP diastolic 57–84; PULSE 113–125; RESP 16–18; TEMP 97.5–97.9; O2SAT 93–98
[~2016-06-15 05:05] MED LIST changes: -CALC1TAB12 PO; -COUM5TAB PO; -COUM6TAB PO; -CRANCAP2 PO; +ENOX100P SQ; -FAMO20TA2 PO; +FAMO40S PO; +FENT100T TD; +FLUT50SP EACH NARE; -GABA600T PO; -HYDR-3534 PO; +KANGAROO JOEY P1 MIS; -MELO7.5T4 PO; +METO25TA3 PEG; -METO50TA PO; +MISC-163; -MULTTAB67 PO; +OXYC1CON3 JT; -ROSU20 PO; +WALKER WHEELS/F1 MIS; +[UNRECOGNIZED DRUG - CODE] PO
--- NOTE | 2016-06-15 05:29 | PD ---
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 The hospice nurse had come in to the house and try to relieve the obstruction by pushing cold according or etc. and nothing worked. Patient says she feels she is dehydrated. Her heart rate was in 120s. She came in to find out the source of the obstruction of the J-tube. This was inserted by Dr. Alexander the general surgeon couple months ago in the OR. This was done in this hospital. Patient requires morphine and was unable to get much. She says her pain is coming back. Her family is here with her. PFSH Past Medical History Narrative Medical List of her past medical, surgical, social and family history is reviewed from the nursing note. 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) Cardiovascular Problems: Yes (A-FIB) High Cholesterol: Yes Chest Pain: No Congestive Heart Failure: No COPD: No Cerebrovascular Accident: Yes (SUBARACHNOID HEMORRHAGE ) Diabetes: No Diminished Hearing: No Endocrine: Yes GERD: Yes Genitourinary: No Hepatitis: No Hiatal Hernia: No Immune Disorder: No Implanted Vascular Access Dvce: Yes (RIGHT CHEST) Kidney Stones: No Musculoskeletal: No Neurologic: Yes (SAH, 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) Psychiatric: No Reproductive: No Respiratory: No Migraines: Yes Pneumonia: Yes Radiation Therapy: No Renal Failure: No Seizures: No Sickle Cell Disease: No Sleep Apnea: No Thyroid Disease: Yes Ulcer: No Menopausal: Yes : 2 Para: 2 Past Surgical History Abdominal Surgery: Yes AICD: No Appendectomy: Yes Arteriovenous Shunt: No Cardiac Surgery: Yes (CARDIAC (CRYO) ABLATION-2012) Ear Surgery: No Endocrine Surgery: No Eye Surgery: No Genitourinary Surgery: No Gynecologic Surgery: No Insulin Pump: No Joint Replacement: No Oral Surgery: Yes Pacemaker: No Thoracic Surgery: No Tonsillectomy: Yes Other Surgery: Yes (SINUS SX- 2012, PORT PLACED (RIGHT), LYMPH NODES REMOVED) Social History Alcohol Use: No (RARE) Tobacco Use: No Substance Use: No Allergies-Medications (Allergen,Severity, Reaction): Coded Allergies: Hepatitis B Vaccine (Verified Allergy, Severe, 06/15/16) Penicillin (Verified Allergy, Severe, SWELLING,HIVES, 06/15/16) Comments List of her allergies reviewed from the nursing note. Reported Meds & Prescriptions Reported Meds & Active Scripts Active Metoprolol Tartrate 25 Mg Tab 12.5 Mg PEG DAILY 30 Days Duragesic Patch 72 HR (Fentanyl) 100 Mcg/Hr Patch 1 Patch TD Q3D Lovenox Inj (Enoxaparin Sodium) 100 Mg/Ml Syr 100 Mg SQ Q24H 30 Days Walker with Front Wheels (Device) 1 Mis Mis 1 Ea .ROUTE DIRECTED 3-in-1 Bedside Toilet (Device) 1 Mis Mis 1 Ea .ROUTE DIRECTED Kangaroo Sean Feeding Tube Pump Set 1 Mis Mis 1 Ea .ROUTE DIRECTED Zofran Odt (Ondansetron Odt) 8 Mg Tab 8 Mg SL Q8H PRN Reported Sennazon Liq (Sennosides) 8.8 Mg/5 Ml Syp 8.8 Mg PO HS Phenergan Supp (Promethazine HCl) 25 Mg Supp 25 Mg RECTAL Q12HR PRN Prochlorperazine Supp (Prochlorperazine) 25 Mg Supp 25 Mg RECTAL Q12HR Ranitidine Liq (Ranitidine HCl) 75 Mg/5 Ml Syp 150 Mg PO DAILY Morphine Liq (Morphine Sulfate) 20 Mg/Ml Liq 20-30 Mg J-TUBE Q3HR PRN Fentanyl Patch 72 HR (Fentanyl) 25 Mcg/Hr Patch 25 Mcg T-DERMAL Q72H Dulcolax Supp (Bisacodyl) 10 Mg Supp 10 Mg RECTAL DAILY PRN Fluticasone Nasal [place] 50 Mcg/Act Naspr 50 Mcg EACH NARE BID PRN 50 mcg/spray Tussin (Guaifenesin) 100 Mg/5 Ml Syp Unknown Dose PO DIRECTED PRN Levothyroxine (Levothyroxine Sodium) 112 Mcg Tab 112 Mcg PO DAILY Narrative Medication List of her home medications reviewed from the nursing note. Review of Systems Except as stated in HPI: all other systems reviewed are Neg Physical Exam Narrative GENERAL: Awake, alert, mild distress SKIN: Warm and dry. HEAD: Atraumatic. Normocephalic. EYES: Pupils equal and round. No scleral icterus. No injection or drainage. ENT: No nasal bleeding or discharge. Dry mucous membrane NECK: Trachea midline. No JVD. CARDIOVASCULAR: Regular rate and rhythm. Tachycardia. No murmur appreciated. RESPIRATORY: No accessory muscle use. Clear to auscultation. Breath sounds equal bilaterally. GASTROINTESTINAL: Abdomen soft, non-tender, nondistended. Hepatic and splenic margins not palpable. J-tube noticed. AUTUMN drain coming out. MUSCULOSKELETAL: No obvious deformities. No clubbing. No cyanosis. No edema. NEUROLOGICAL: Awake and alert. No obvious cranial nerve deficits. Motor grossly within normal limits. Normal speech. PSYCHIATRIC: Appropriate mood and affect; insight and judgment normal. Data Data Last Documented VS Vital Signs Date Time Temp Pulse Resp B/P Pulse Ox O2 Delivery O2 Flow Rate FiO2 06/15/16 08:21 20 Orders Sodium Chlor 0.9% 1000 Ml Inj (Ns 1000 M (06/15/16 05:45) Morphine Inj (Morphine Inj) (06/15/16 05:45) Ct Abd/Pel W/O Iv Contrast (06/15/16 ) Morphine Inj (Morphine Inj) (06/15/16 07:45) Sodium Chlor 0.9% 1000 Ml Inj (Ns 1000 M (06/15/16 07:45) Admit Order (Ed Use Only) (06/15/16 09:48) MDM Medical Decision Making Medical Screen Exam Complete: Yes Emergency Medical Condition: Yes Medical Record Reviewed: Yes Differential Diagnosis Tumor obstruction of the J-tube, internal feeding obstruction of the J-tube Narrative Course 7:08 AM I ordered a CAT scan. 1 L IV fluid bolus was given to the patient and IV morphine. Patient did not want any blood work to be done. The CAT scan report came back and shows a stable pancreatic mass. I discussed the case with Dr. Stewart who is front desk agent. He wants invasive radiology to be consult did so that they can put a wire in and try to unclog the tube. I put an order for invasive radiology. Case will be signed over to the oncoming ER physician. Procedures EKG Prior to Arrival: No Scripts Nitrofurantoin Liq 25 Mg/5 Ml Susp20 Ml G-TUBE QID #560 ML Ref 0 Prov:Chaim Mancia MD R1 06/17/16 Nutritional Supplements (Vital 1.5 Guillaume)1 Liq Liq1 Bottle J-TUBE CONTINUOUS #1 BOTTLE Prov:Milena Quinteros MD R2 06/16/16 Konrad Burt MD Jun 15, 2016 05:29
[2016-06-15] MEDS ORDERED: SODIUM CHLOR 0.9% 1000 ML INJ 1,000 ML IV ONE ×2 (05:45→07:45)
[2016-06-15] MEDS ORDERED: MORPHINE SULFATE 8 MG/ML INJ IV PUSH ONE ×2 (05:45→07:45)
[2016-06-15] MEDS ORDERED: FENT25DI T-DERMAL (06:21)
[2016-06-15] MEDS ORDERED: DULC10SU3 RECTAL (06:21)
--- NOTE | 2016-06-15 06:43 | RADRPT ---
EXAM DATE/TIME: 06/15/2016 06:25 [facility] COMPARISON: GI LAB WIRE DILATATION, May 26, 2016, 17:29. INDICATIONS : J-tube blockage, pancreatic cancer. ORAL CONTRAST: No oral contrast ingested. RADIATION DOSE: 14.38 CTDIvol (mGy) MEDICAL HISTORY : Gastroesophageal reflux disease. Carcinoma, pancreas. SURGICAL HISTORY : Appendectomy. Tonsillectomy.Cardiac ablation. ENCOUNTER: Initial ACUITY: 1 day PAIN SCALE: 6/10 LOCATION: Bilateral abdomen TECHNIQUE: Volumetric scanning of the abdomen and pelvis was performed. Using automated exposure control and ad justment of the mA and/or kV according to patient size, radiation dose was kept as low as reasonably achievable to obtain optimal diagnostic quality images. FINDINGS: Compare May 24. Bilateral pleural effusions slightly increased since prior study. There is some intra-and extra hepatic ductal dilatation similar to prior examination. Multiple low attenuation hepa tic lesions appear stable since prior exam. No acute findings in the spleen, adrenals or right kidney . There is no left-sided mild hydronephrosis. Gastrostomy tube is now present. A stent is present in the upper abdomen probably in the distal duode num. Jejunostomy tube also present. Villagomez catheter present in decompressed bladder. There is mild con stipation. No free air. Trace free fluid. Mild anasarca. There is a moderate rotatory dextroscoliosis . CONCLUSION: 1. Compared with May 24 there is interval placement of a gastrostomy tube, distal duodenal stent and a jejunostomy tube as well as a drain in the right upper quadrant. 2. Pancreatic mass in body of pancreas appears relatively stable in size. Stable biliary ductal dilat ation and low-attenuation liver lesions. 3. There is a new mild left-sided hydronephrosis. No definite ureteral calculus is identified. 4. Mild constipation. Mild anasarca. Uriah Lepe MD on June 15, 2016 at 6:36 Board Certified Radiologist. This report was verified electronically.
[2016-06-15] MEDS ORDERED: RANI75SY PO (06:44)
[2016-06-15] MEDS ORDERED: JEVILIQ12 J-TUBE (06:44)
[2016-06-15] MEDS ORDERED: PROM1SUP7 RECTAL (06:44)
[2016-06-15] MEDS ORDERED: PROC25SU22 RECTAL (06:44)
[2016-06-15] MEDS ORDERED: SENN1SYP PO (06:44)
[2016-06-15] MEDS ORDERED: MORP20SO2 J-TUBE (06:44)
--- NOTE | 2016-06-15 09:59 | HHI.HP ---
[facility] Service Family Medicine Primary Care Physician Sly Lr MD Admission Diagnosis clogged j tube Diagnoses: International Travel<30 Days: No Contact w/Intl Traveler<30days: No Known Affected Area: No History of Present Illness Patient is a 70-year-old female with history significant for pancreatic cancer ( diagnosed 2016), A. fib. Presented here today due to malfunction of her J- tube that started at 2:00 this morning. Patient is coming from hospice care but needs it fixed for her nutrition. She repeatedly states that she does not want much intervention and wants to get home as soon as possible. She is unable to take anything by mouth and she does not want an NG tube. Patient states that she is at her baseline which is chronic pain and nausea vomiting. She does not divulge very much details about her health but states that she only wants her J-tube fixed. This has limited history obtained. (Milena Quinteros MD R2) Review of Systems ROS Limitations: Uncooperative Respiratory: DENIES: Shortness of breath Cardiovascular: DENIES: Chest pain Gastrointestinal: COMPLAINS OF: Constipation, Nausea, Vomiting (Milena Quinteros MD R2) Past Family Social History Past Medical History Atrial fibrillation subdural hematoma hypothyroidism Pancreatic cancer DVT-reports taking 100 g Lovenox daily Urinary Villagomez in place by hospice nurse Past Surgical History Appendectomy cardiac ablation tonsillectomy Left heal fracture repair G tube J tube Uriah Ramirez drain Reported Medications Reported Meds & Active Scripts Active Metoprolol Tartrate 25 Mg Tab 12.5 Mg PEG DAILY 30 Days Duragesic Patch 72 HR (Fentanyl) 100 Mcg/Hr Patch 1 Patch TD Q3D Lovenox Inj (Enoxaparin Sodium) 100 Mg/Ml Syr 100 Mg SQ Q24H 30 Days Walker with Front Wheels (Device) 1 Mis Mis 1 Ea .ROUTE DIRECTED 3-in-1 Bedside Toilet (Device) 1 Mis Mis 1 Ea .ROUTE DIRECTED Kangaroo Sean Feeding Tube Pump Set 1 Mis Mis 1 Ea .ROUTE DIRECTED Zofran Odt (Ondansetron Odt) 8 Mg Tab 8 Mg SL Q8H PRN Reported Sennazon Liq (Sennosides) 8.8 Mg/5 Ml Syp 8.8 Mg PO HS Phenergan Supp (Promethazine HCl) 25 Mg Supp 25 Mg RECTAL Q12HR PRN Prochlorperazine Supp (Prochlorperazine) 25 Mg Supp 25 Mg RECTAL Q12HR Ranitidine Liq (Ranitidine HCl) 75 Mg/5 Ml Syp 150 Mg PO DAILY Morphine Liq (Morphine Sulfate) 20 Mg/Ml Liq 20-30 Mg J-TUBE Q3HR PRN Jevity 1.5 Guillaume (Nutritional Supplements) 1 Liq Liq 55 Ml J-TUBE CONTINUOUS Fentanyl Patch 72 HR (Fentanyl) 25 Mcg/Hr Patch 25 Mcg T-DERMAL Q72H Dulcolax Supp (Bisacodyl) 10 Mg Supp 10 Mg RECTAL DAILY PRN Fluticasone Nasal [place] 50 Mcg/Act Naspr 50 Mcg EACH NARE BID PRN 50 mcg/spray Tussin (Guaifenesin) 100 Mg/5 Ml Syp Unknown Dose PO DIRECTED PRN Levothyroxine (Levothyroxine Sodium) 112 Mcg Tab 112 Mcg PO DAILY (Milena Quinteros MD R2) Allergies: Coded Allergies: Hepatitis B Vaccine (Verified Allergy, Severe, 06/15/16) Penicillin (Verified Allergy, Severe, SWELLING,HIVES, 06/15/16) Family History Family history significant for colon cancer. Grandfather from esophageal cancer, brother from colon cancer at age 39. No family history of pancreatic cancer. Social History Hospice Care at home Drinks alcohol none Denies using tobacco or illicit drugs. (Milena Quinteros MD R2) Physical Exam Vital Signs Vital Signs Date Time Temp Pulse Resp B/P Pulse Ox O2 Delivery O2 Flow Rate FiO2 06/15/16 06:20 20 06/15/16 05:37 124 16 124/84 98 Room Air 06/15/16 05:09 97.5 124 16 116/82 98 Room Air Physical Exam GENERAL: Well nourished female laying in bed. In mild distress due to nausea and generalized pain. SKIN: Mild erythema with dried granulation tissue around sites of abdominal tubes/drains. EYES: Extraocular motions intact. No scleral icterus. No injection or drainage. ENT: Nose without bleeding, purulent drainage. CARDIOVASCULAR: Increased rate but with regular rhythm without murmurs, gallops , or rubs. RESPIRATORY: Clear to auscultation. Breath sounds equal bilaterally. No wheezes , rales, or rhonchi. GASTROINTESTINAL: Abdomen firm, diffusely distended. Well healing mid abdominal incision. No guarding. MUSCULOSKELETAL: Extremities without clubbing, cyanosis, or edema. No calf tenderness. NEUROLOGICAL: Awake and alert. Motor grossly within normal limits. Normal speech. (Milena Quinteros MD R2) Imaging Last Impressions Abdomen/Pelvis CT 06/15/16 0000 Signed Impressions: Service Date/Time: Wednesday, June 15, 2016 06:25 - CONCLUSION: 1. Compared with May 24 there is interval placement of a gastrostomy tube, distal duodenal stent and a jejunostomy tube as well as a drain in the right upper quadrant. 2. Pancreatic mass in body of pancreas appears relatively stable in size. Stable biliary ductal dilatation and low-attenuation liver lesions. 3. There is a new mild left-sided hydronephrosis. No definite ureteral calculus is identified. 4. Mild constipation. Mild anasarca. Uriah Lepe MD (Milena Quinteros MD R2) Assessment and Plan Assessment and Plan 70-year-old female with history significant for pancreatic cancer and A. fib. Admitted due to dysfunction of J-tube. Code Status DNR, patient will like to go back to hospice care once discharged Discussed Condition With Dr. Mancia (Milena Quinteros MD R2) Attending Attestation Patient seen and examined. Case reviewed and discussed with the resident team. Agree with plan of care as discussed with me and documented in the resident note. (Silvia Lam MD) Problem List: (1) Malfunctioning jejunostomy tube Status: Acute Plan: History of metastatic pancreatic cancer that has been complicated by bowel obstructions requiring the placement of G and J-tube (By Dr. Alexander). J- tube dysfunction started today and patient is unable to take anything by mouth. Patient wants minimal intervention and wants to get home as soon as possible. -IR consulted * procedure to be performed 06/16/2016 -Declines NG tube -Monitor I&O -Hydration with D5 1/2 NS at 125 -Abdominal CT: Pancreatic mass and body of pancreas appears relatively stable in size. Stable biliary ductal dilation and low attenuation liver lesions. There is a new mild left-sided hydronephrosis. Mild constipation. Mild anasarca. (2) Pancreatic cancer Status: Acute Plan: Currently under hospice care due to extensive nature of pancreatic cancer. -Continue home fentanyl patches -Zofran and Reglan as needed for nausea/vomiting -See more detailed plan above. (3) Hydronephrosis Status: Acute Plan: New mild left sided hydronephrosis. -Continue with Villagomez placement -UA ordered (4) Constipation Status: Chronic Plan: Reports history of constipation. CT abdomen is also suggestive of mild constipation. Last bowel movement was on 06/13. -Enema as needed (5) History of atrial fibrillation Status: Acute Plan: History of atrial fibrillation that is currently being managed with metoprolol. -Since patient is unable to take PO and J tube is not functional, will give metoprolol IV PRN (6) DVT, acute, left common femoral vein Status: Acute Plan: Reports having a left DVT during last hospitalization which was a week ago. Being treated with Lovenox 100 g daily so that she does not have to give herself injections twice daily -Continue Lovenox 100 g. Okay to give today before her procedure tomorrow (7) Nutrition, metabolism, and development symptoms Status: Acute Plan: Diet: Clear, NPO after midnight Electrolytes: results pending Fluids: See rate above DVT prophylaxis: Lovenox as described above GI prophylaxis: None indicated Chronic conditions: * Hypothyroidism: Will hold levothyroxine as patient cannot taking anything PO or PEG., will likely be discharged tomorrow. If patient continues to stay, will order IV (Milena Quinteros MD R2) Problem Qualifiers (1) Pancreatic cancer: Qualified Code: C25.9 - Malignant neoplasm of pancreas, unspecified location of malignancy Milena Quinteros MD R2 Jun 15, 2016 09:58 Silvia Lam MD Jun 15, 2016 14:05
[2016-06-15] MEDS ORDERED: ONDANSETRON HCL 4 MG/2 ML VIAL IV PUSH STA (10:01)
--- NOTE | 2016-06-15 10:13 | PD ---
Physical Exam Narrative GENERAL: Well-nourished, well-developed patient. SKIN: Warm and dry. HEAD: Normocephalic EYES: No injection or drainage. ENT: No nasal drainage noted. NECK: Supple, trachea midline. CARDIOVASCULAR: Regular rate and rhythm RESPIRATORY: no increased effort. No accessory muscle use. NEUROLOGICAL: Awake and alert. Moves extremities. Normal speech. Data Data Last Documented VS Vital Signs Date Time Temp Pulse Resp B/P Pulse Ox O2 Delivery O2 Flow Rate FiO2 06/15/16 08:21 20 06/15/16 05:37 124 124/84 98 Room Air 06/15/16 05:09 97.5 Orders Sodium Chlor 0.9% 1000 Ml Inj (Ns 1000 M (06/15/16 05:45) Morphine Inj (Morphine Inj) (06/15/16 05:45) Ct Abd/Pel W/O Iv Contrast (06/15/16 ) Invasive Rad Dept Consult (06/15/16 ) Morphine Inj (Morphine Inj) (06/15/16 07:45) Sodium Chlor 0.9% 1000 Ml Inj (Ns 1000 M (06/15/16 07:45) Admit Order (Ed Use Only) (06/15/16 09:48) MDM Supervised Visit with MADDIE: No Interpretation(s) Last 24 hours Impressions Abdomen/Pelvis CT 06/15/16 0000 Signed Impressions: Service Date/Time: Wednesday, June 15, 2016 06:25 - CONCLUSION: 1. Compared with May 24 there is interval placement of a gastrostomy tube, distal duodenal stent and a jejunostomy tube as well as a drain in the right upper quadrant. 2. Pancreatic mass in body of pancreas appears relatively stable in size. Stable biliary ductal dilatation and low-attenuation liver lesions. 3. There is a new mild left-sided hydronephrosis. No definite ureteral calculus is identified. 4. Mild constipation. Mild anasarca. Uriah Lepe MD Narrative Course Signed over to me that patient will go home after IR clears J tube. When I called IR as they had not came to get patient after 2 hours they state that they will not be performing procedure today given it is not emergent. I will admit her to medicine for IV fluid hydration and she will have the procedure in the morning. Patient agrees to this Physician Communication Physician Communication Dr. Kowalski states that procedure will be performed on Thursday Dr. Stewart states that patient can be admitted to medicine and that he does not need to be consulted Resident team agrees to admission Diagnosis Primary Impression: Malfunctioning jejunostomy tube Additional Impression: Pancreatic cancer Qualified Code: C25.9 - Malignant neoplasm of pancreas, unspecified location of malignancy Admitting Information Admitting Physician Requests: Observation Shira Carter MD Jun 15, 2016 10:13
[2016-06-15] MEDS ORDERED: MORPHINE SULFATE 4 MG/ML INJ IV PUSH ONE (10:15)
[2016-06-15] MEDS ORDERED: SODIUM CHLORIDE 0.9% FLUSH 5 ML FLUSH FLUSH PRN (10:30)
[2016-06-15] MEDS ORDERED: NALOXONE HCL 0.4 MG/ML AMP IV PRN (10:30)
[2016-06-15] MEDS ORDERED: MORPHINE SULFATE 4 MG/ML INJ IV PRN (10:30)
[2016-06-15] MEDS ORDERED: PILL SPLITTER OTHER PRN (10:30)
[2016-06-15 10:48] LABS: AUTOMATED NEUTROPHIL # 9.2 TH/MM3 (1.8-7.7); BASOPHIL # 0.1 TH/MM3 (0-0.2); EOSINOPHIL # 0.1 TH/MM3 (0-0.4); EOSINOPHIL % 0.9 % (0.0-4.0); HEMATOCRIT 33.1 % (35.0-46.0); HEMO FLAGS DIFF FINAL; LYMPH % 12.1 % (9.0-44.0); LYMPHOCYTE # 1.5 TH/MM3 (1.0-4.8); MEAN CELL VOLUME 84.8 FL (80.0-100.0); MEAN CORPUSCULAR HEMOGLOBIN 27.4 PG (27.0-34.0); MEAN CORPUSCULAR HGB CONC 32.3 % (32.0-36.0); MONO % 8.7 % (0.0-8.0); NEUT % 77.3 % (16.0-70.0); PLATELET COUNT 310 TH/MM3 (150-450); RED CELL DISTRIBUTION WIDTH 14.6 % (11.6-17.2)
[2016-06-15] MEDS ORDERED: METOPROLOL TARTRATE 5 MG/5 ML VIAL IV PUSH ONE (11:00)
[2016-06-15] MEDS ORDERED: fentaNYL 100 MCG/HR PATCH TD SCH ×2 (11:00→12:00)
[2016-06-15 11:04] LABS: PROTHROMBIN TIME - PATIENT 11.5 SEC (9.8-11.6)
[2016-06-15 11:07] LABS: POTASSIUM 3.7 MEQ/L (3.5-5.1)
[2016-06-15] MEDS: DEXT 5%-NACL 0.45% 1000 ML INJ 1,000 ML IV SCH ×3 (11:14→20:10)
[2016-06-15] MEDS: ENOXAPARIN SODIUM 100 MG/ML SYRINGE SQ SCH (11:15)
[2016-06-15] MEDS ORDERED: ENALAPRILAT 1.25 MG/ML VIAL IV PRN (11:30)
[2016-06-15] MEDS ORDERED: fentaNYL 25 MCG/HR PATCH TD SCH (12:00)
[2016-06-15] MEDS: METOCLOPRAMIDE HCL 10 MG/2 ML VIAL IV PUSH PRN ×2 (12:48→20:32)
[2016-06-15] MEDS: HYDROmorphone HCL PF 1 MG/ML VIAL IV PUSH PRN ×4 (12:49→23:24)
--- NOTE | 2016-06-15 13:27 | HHI.FPPN ---
Subjective Remarks 70 yo female with known pancreatic CA who came in because her J-tube became clogged this a.m. around 0200. Her hospice nurse was not able to clear it despite using carbonated beverages and was able to withdraw thick secretions/ meds. Se was concerned for dehydration and presented for evaluation. She is a patient on [facility]. She had her J tube placed here by Dr. Alexander. She had 4 doses of chemo. See H&P for this observation admission for additional historical details. Son in the room with patient. She is taking clears but these drain out rapidly. Her only real nutrition is via J tube. She reports having received 2 liters of fluid initially which helped with her sense of dehydration. Her pain is lessening, now a 6:10. Her Fentanyl patch is due to be changed. Objective Vitals Vital Signs Date Time Temp Pulse Resp B/P Pulse Ox O2 Delivery O2 Flow Rate FiO2 06/15/16 12:04 97.8 125 18 129/73 93 06/15/16 10:39 97 21 06/15/16 10:36 20 06/15/16 10:13 114 16 146/80 95 Room Air 06/15/16 08:21 20 06/15/16 06:20 20 06/15/16 05:37 124 16 124/84 98 Room Air 06/15/16 05:09 97.5 124 16 116/82 98 Room Air I/O 06/14/16 06/14/16 06/14/16 06/15/16 06/15/16 06/15/16 07:00 15:00 23:00 07:00 15:00 23:00 Output Total 400 ml 1015 ml Balance -400 ml -1015 ml Output Gastric Drainage Total 525 ml Drainage Total 400 ml 490 ml Result Diagram: 06/15/16 1020 06/15/16 1020 Other Results Laboratory Tests Test 06/15/16 10:20 White Blood Count 12.0 TH/MM3 Red Blood Count 3.90 MIL/MM3 Hemoglobin 10.7 GM/DL Hematocrit 33.1 % Mean Corpuscular Volume 84.8 FL Mean Corpuscular Hemoglobin 27.4 PG Mean Corpuscular Hemoglobin 32.3 % Concent Red Cell Distribution Width 14.6 % Platelet Count 310 TH/MM3 Mean Platelet Volume 8.3 FL Neutrophils (%) (Auto) 77.3 % Lymphocytes (%) (Auto) 12.1 % Monocytes (%) (Auto) 8.7 % Eosinophils (%) (Auto) 0.9 % Basophils (%) (Auto) 1.0 % Neutrophils # (Auto) 9.2 TH/MM3 Lymphocytes # (Auto) 1.5 TH/MM3 Monocytes # (Auto) 1.0 TH/MM3 Eosinophils # (Auto) 0.1 TH/MM3 Basophils # (Auto) 0.1 TH/MM3 CBC Comment DIFF FINAL Differential Comment Prothrombin Time 11.5 SEC Prothromb Time International 1.0 RATIO Ratio Activated Partial 28.0 SEC Thromboplast Time Sodium Level 137 MEQ/L Potassium Level 3.7 MEQ/L Chloride Level 96 MEQ/L Carbon Dioxide Level 31.0 MEQ/L Anion Gap 10 MEQ/L Blood Urea Nitrogen 25 MG/DL Creatinine 0.91 MG/DL Estimat Glomerular Filtration 61 ML/MIN Rate Random Glucose 99 MG/DL Calcium Level 7.7 MG/DL Imaging Last Impressions Abdomen/Pelvis CT 06/15/16 0000 Signed Impressions: Service Date/Time: Wednesday, June 15, 2016 06:25 - CONCLUSION: 1. Compared with May 24 there is interval placement of a gastrostomy tube, distal duodenal stent and a jejunostomy tube as well as a drain in the right upper quadrant. 2. Pancreatic mass in body of pancreas appears relatively stable in size. Stable biliary ductal dilatation and low-attenuation liver lesions. 3. There is a new mild left-sided hydronephrosis. No definite ureteral calculus is identified. 4. Mild constipation. Mild anasarca. Uriah Lepe MD Objective Remarks O. CONSTITUTIONAL/GEN: normally nourished, in moderate distress. Pale. EYES: conjunctiva normal, PERRLA, EOMI. ENT: Mouth and pharynx normal. NECK: thyroid midline, no palpable lymphadenopathy. LUNGS: clear A-P, respiratory effort is normal. CARDIOVASCULAR: RR without murmur or gallop. No significant edema. GI/ABD: soft without masses, without organomegaly. Protuberant, scattered BS. NEURO: No focal deficits. SKIN: color pale, no rashes noted. HEME/LYMPH: no bruising, petechia or significant adenopathy MUSC: Extremities are normal in appearance. PSYCH/MENTAL STATUS: Alert and oriented x 3. A/P Assessment and Plan 70-year-old female with history significant for pancreatic cancer and A. fib. Admitted due to dysfunction of J-tube. Attending Attestation S: 70 year old female who is being seen today for ongoing evaluation and management of the medical problems noted on the current problem list. Since last visit no new problems have occurred. No significant pain has been noted. No SOB. No changes in level of function. No problems are noted with current medications. Problem List: (1) Malfunctioning jejunostomy tube Status: Acute Plan: History of metastatic pancreatic cancer that has been complicated by bowel obstructions requiring the placement of G and J-tube (By Dr. Alexander). J- tube dysfunction started today and patient is unable to take anything by mouth. Patient wants minimal intervention and wants to get home as soon as possible. -IR consulted * procedure to be performed 06/16/2016 -Declines NG tube -Monitor I&O -Hydration with D5 1/2 NS at 125 -Abdominal CT: Pancreatic mass and body of pancreas appears relatively stable in size. Stable biliary ductal dilation and low attenuation liver lesions. There is a new mild left-sided hydronephrosis. Mild constipation. Mild anasarca. (2) Pancreatic cancer Status: Acute Plan: Currently under hospice care due to extensive nature of pancreatic cancer. -Continue home fentanyl patches -Zofran and Reglan as needed for nausea/vomiting -See more detailed plan above. (3) Hydronephrosis Status: Acute Plan: New mild left sided hydronephrosis. -Continue with Villagomez placement -UA ordered (4) Constipation Status: Chronic Plan: Reports history of constipation. CT abdomen is also suggestive of mild constipation. Last bowel movement was on 06/13. -Enema as needed (5) History of atrial fibrillation Status: Acute Plan: History of atrial fibrillation that is currently being managed with metoprolol. -Since patient is unable to take PO and J tube is not functional, will give metoprolol IV PRN (6) DVT, acute, left common femoral vein Status: Acute Plan: Reports having a left DVT during last hospitalization which was a week ago. Being treated with Lovenox 100 g daily so that she does not have to give herself injections twice daily -Continue Lovenox 100 g. Okay to give today before her procedure tomorrow (7) Nutrition, metabolism, and development symptoms Status: Acute Plan: Diet: Clear, NPO after midnight Electrolytes: results pending Fluids: See rate above DVT prophylaxis: Lovenox as described above GI prophylaxis: None indicated Chronic conditions: * Hypothyroidism: Will hold levothyroxine as patient cannot taking anything PO or PEG., will likely be discharged tomorrow. If patient continues to stay, will order IV Problem Qualifiers (1) Pancreatic cancer: Qualified Code: C25.9 - Malignant neoplasm of pancreas, unspecified location of malignancy Silvia Lam MD Jun 15, 2016 13:27
[2016-06-15 14:31] LABS: BLOOD, URINE MOD (NEG); CALCIUM OXALATE CRYSTALS,URINE OCC /hpf; COMMENT (UR) CULTURE INDICATED; CULTURE IF INDICATED CULTURE INDICATED; GLUCOSE,URINE NEG (NEG); KETONE, URINE NEG (NEG); MUCUS URINE FEW /lpf (OCC); NITRITE,URINE NEG (NEG); PH, URINE 5.5 (5.0-8.5); SQUAMOUS EPITHELIAL CELL URINE <1 /hpf (0-5); URINE COLOR YELLOW (YELLW/STRAW)
[2016-06-15] MEDS: ONDANSETRON HCL 4 MG/2 ML VIAL IVP PRN ×2 (17:38→23:24)
[2016-06-15] MEDS: SODIUM CHLORIDE 0.9% FLUSH 5 ML FLUSH FLUSH SCH (20:08)
[2016-06-16] VITALS (7 sets, daily range): BP systolic 122–140; BP diastolic 74–87; PULSE 78–116; RESP 17–21; TEMP 97.5–99.3; O2SAT 92–98
[2016-06-16] MEDS: METOCLOPRAMIDE HCL 10 MG/2 ML VIAL IV PUSH PRN ×3 (02:17→14:16)
[2016-06-16] MEDS: HYDROmorphone HCL PF 1 MG/ML VIAL IV PUSH PRN ×7 (02:18→20:43)
[2016-06-16] MEDS: ONDANSETRON HCL 4 MG/2 ML VIAL IVP PRN ×3 (05:05→20:41)
[2016-06-16] MEDS: DEXT 5%-NACL 0.45% 1000 ML INJ 1,000 ML IV SCH ×2 (05:10→13:19)
[2016-06-16 05:27] LABS: AUTOMATED NEUTROPHIL # 9.5 TH/MM3 (1.8-7.7); BASOPHIL # 0.1 TH/MM3 (0-0.2); BASOPHIL % 0.7 % (0.0-2.0); EOSINOPHIL # 0.1 TH/MM3 (0-0.4); EOSINOPHIL % 1.2 % (0.0-4.0); HEMATOCRIT 27.6 % (35.0-46.0); HEMO FLAGS DIFF FINAL; LYMPH % 9.7 % (9.0-44.0); LYMPHOCYTE # 1.1 TH/MM3 (1.0-4.8); MEAN CELL VOLUME 84.3 FL (80.0-100.0); MEAN CORPUSCULAR HEMOGLOBIN 27.5 PG (27.0-34.0); MEAN CORPUSCULAR HGB CONC 32.6 % (32.0-36.0); MONO % 7.5 % (0.0-8.0); NEUT % 80.9 % (16.0-70.0); PLATELET COUNT 277 TH/MM3 (150-450); RED BLOOD COUNT 3.27 MIL/MM3 (4.00-5.30); RED CELL DISTRIBUTION WIDTH 14.6 % (11.6-17.2); WHITE BLOOD COUNT 11.8 TH/MM3 (4.0-11.0)
[2016-06-16 05:40] LABS: BICARBONATE 29.4 MEQ/L (21.0-32.0); POTASSIUM 3.5 MEQ/L (3.5-5.1)
[2016-06-16] MEDS ORDERED: LEVOTHYROXINE SODIUM 112 MCG TAB PO SCH (06:00)
[2016-06-16] MEDS: SODIUM CHLORIDE 0.9% FLUSH 5 ML FLUSH FLUSH SCH ×2 (07:50→22:57)
[2016-06-16] MEDS: FLUTICASONE PROPIONATE 50 MCG/ACT 16 GM NASAL SPRAY NASAL SCH (09:00)
[2016-06-16] MEDS ORDERED: METOPROLOL TARTRATE 25 MG TAB PEG SCH (09:00)
[2016-06-16] MEDS ORDERED: NUTR-189 J-TUBE (09:58)
--- NOTE | 2016-06-16 11:08 | HHI.DCPOC ---
Discharge Care Plan Diagnosis: (1) Malfunctioning jejunostomy tube (2) Pancreatic cancer Goals to Promote Your Health * To prevent worsening of your condition and complications * To maintain your health at the optimal level Directions to Meet Your Goals Take your medications as prescribed Follow your dietary instruction Follow activity as directed Keep your appointments as scheduled Take your immunizations and boosters as scheduled If your symptoms worsen call your PCP, if no PCP go to Urgent Care Center or Emergency Room Smoking is Dangerous to Your Health. Avoid second hand smoke Call the 24-hour hour crisis hotline for domestic abuse at Chaim Mancia MD R1 Jun 16, 2016 11:07
--- NOTE | 2016-06-16 11:16 | HHI.FPPN ---
Subjective Remarks Pt seen and examined this morning. Pt is concerned about the amount of fiber in her tube feeds. IR is scheduled to take her back later this morning. No other complaints/concerns. Will have a trial of her new tube feeds, per nutrition's recommendation, before going home. (Chaim Mancia MD R1) Objective Vitals Vital Signs Date Time Temp Pulse Resp B/P Pulse Ox O2 Delivery O2 Flow Rate FiO2 06/16/16 07:39 97.5 104 17 130/87 94 06/16/16 05:05 98.4 78 18 127/74 98 06/16/16 00:06 97.8 116 18 139/82 97 06/15/16 19:46 95 06/15/16 19:34 97.9 114 18 106/57 97 06/15/16 16:05 113 124/74 06/15/16 12:04 97.8 125 18 129/73 93 I/O 06/15/16 06/15/16 06/15/16 06/16/16 06/16/16 06/16/16 07:00 15:00 23:00 07:00 15:00 23:00 Intake Total 1230 ml Output Total 400 ml 1340 ml 535 ml 1860 ml Balance -400 ml -1340 ml -535 ml -630 ml Intake IV Total 1230 ml Output Urine Total 225 ml 250 ml Stool Total 350 ml Gastric Drainage Total 525 ml 1000 ml Drainage Total 400 ml 590 ml 185 ml 610 ml (Chaim Mancia MD R1) Result Diagram: 06/16/16 0500 06/16/16 0500 Objective Remarks CONSTITUTIONAL/GEN: normally nourished, no distress LUNGS: clear A-P, respiratory effort is normal. CARDIOVASCULAR: RR without murmur or gallop. No significant edema. GI/ABD: soft without masses, without organomegaly. Protuberant, scattered BS. J tube, G tube, AUTUMN drain in place. NEURO: No focal deficits. SKIN: color pale, no rashes noted. MUSC: Extremities are normal in appearance. PSYCH/MENTAL STATUS: Alert and oriented x 3. (Chaim Mancia MD R1) A/P Assessment and Plan 70-year-old female with history significant for pancreatic cancer and A. fib. Admitted due to dysfunction of J-tube. Discharge Planning Today after IR replacement of J tube and trial of new tube feeds (Chaim Mancia MD R1) Attending Attestation Patient seen and examined. Case reviewed and discussed with the resident team. Agree with plan of care as discussed with me and documented in the resident note. (Silvia Lam MD) Problem List: (1) Malfunctioning jejunostomy tube Status: Acute Plan: History of metastatic pancreatic cancer that has been complicated by bowel obstructions requiring the placement of G and J-tube (By Dr. Alexander). J- tube dysfunction started today and patient is unable to take anything by mouth. Patient wants minimal intervention and wants to get home as soon as possible. -IR consulted * procedure to be performed today -Nutrition consult -Recommended change to Vital 1.5 @ 55mls/hr with 1980 kcals, 89.1g protein, 1008mls free water -Water flushes 250mls q6H -Will start trial of new tube feed after replacement before discharge -Declines NG tube -Monitor I&O -Hydration with D5 1/2 NS at 125 -Abdominal CT: Pancreatic mass and body of pancreas appears relatively stable in size. Stable biliary ductal dilation and low attenuation liver lesions. There is a new mild left-sided hydronephrosis. Mild constipation. Mild anasarca. (2) Pancreatic cancer Status: Acute Plan: Currently under hospice care due to extensive nature of pancreatic cancer. -Continue home fentanyl patches -Zofran and Reglan as needed for nausea/vomiting -See more detailed plan above. (3) Hydronephrosis Status: Acute Plan: New mild left sided hydronephrosis. -Continue with Villagomez placement -UA ordered (4) Constipation Status: Chronic Plan: Reports history of constipation. CT abdomen is also suggestive of mild constipation. Last bowel movement was on 06/13. -Enema as needed (5) History of atrial fibrillation Status: Acute Plan: History of atrial fibrillation that is currently being managed with metoprolol. -Since patient is unable to take PO and J tube is not functional, will give metoprolol IV PRN (6) DVT, acute, left common femoral vein Status: Acute Plan: Reports having a left DVT during last hospitalization which was a week ago. Being treated with Lovenox 100 g daily so that she does not have to give herself injections twice daily -Continue Lovenox 100 g. Okay to give today before her procedure tomorrow (7) Nutrition, metabolism, and development symptoms Status: Acute Plan: Diet: Clear, NPO after midnight Electrolytes: results pending Fluids: See rate above DVT prophylaxis: Lovenox as described above GI prophylaxis: None indicated Chronic conditions: * Hypothyroidism: Will hold levothyroxine as patient cannot taking anything PO or PEG., will likely be discharged tomorrow. If patient continues to stay, will order IV (Chaim Mancia MD R1) Problem Qualifiers (1) Pancreatic cancer: Qualified Code: C25.9 - Malignant neoplasm of pancreas, unspecified location of malignancy (2) Hydronephrosis: Qualified Code: N13.30 - Hydronephrosis, unspecified hydronephrosis type (3) Constipation: Qualified Code: K59.04 - Chronic idiopathic constipation Chaim Mancia MD R1 Jun 16, 2016 11:16 Silvia Lam MD Jun 16, 2016 11:48
[2016-06-16] MEDS: METOPROLOL TARTRATE 25 MG TAB PEG SCH (20:42)
[2016-06-16] MEDS: ZOLPIDEM TARTRATE 5 MG TAB PO ONE ×2 (22:45→22:57)
[2016-06-17] VITALS (7 sets, daily range): BP systolic 111–134; BP diastolic 62–84; PULSE 59–121; RESP 17–18; TEMP 96.3–98.8; O2SAT 94–98
[2016-06-17] MEDS: METOCLOPRAMIDE HCL 10 MG/2 ML VIAL IV PUSH PRN ×4 (00:06→17:42)
[2016-06-17] MEDS: HYDROmorphone HCL PF 1 MG/ML VIAL IV PUSH PRN ×7 (00:07→17:43)
[2016-06-17] MEDS: ONDANSETRON HCL 4 MG/2 ML VIAL IVP PRN ×3 (03:17→14:54)
[2016-06-17] MEDS: DEXT 5%-NACL 0.45% 1000 ML INJ 1,000 ML IV SCH (03:18)
[2016-06-17] MEDS ORDERED: LEVOTHYROXINE SODIUM 112 MCG TAB J-TUBE SCH (06:15)
[2016-06-17] MEDS: SODIUM CHLORIDE 0.9% FLUSH 5 ML FLUSH FLUSH SCH (08:56)
[2016-06-17] MEDS ORDERED: NITROFURANTOIN MONOHYD MACROCR 100 MG CAP PO SCH (09:00)
[2016-06-17] MEDS: FLUTICASONE PROPIONATE 50 MCG/ACT 16 GM NASAL SPRAY NASAL SCH (09:00)
[2016-06-17] MEDS: METOPROLOL TARTRATE 25 MG TAB PEG SCH (09:01)
[2016-06-17] MEDS ORDERED: MORPHINE SULFATE ORAL SOLN 10 MG/0.5 ML SYRINGE J-TUBE PRN (09:15)
--- NOTE | 2016-06-17 09:32 | HHI.FPPN ---
Subjective Remarks No acute events overnight. Pulse remains elevated but vital signs otherwise are unremarkable. This morning she reports that her J-tube feedings are going well. She does complain of pain that is not being controlled with Dilaudid. IV medication is only lasting for about 90 minutes. Of note, patient reports symptoms of urinary retention about one week ago which prompted the Villagomez insertion. This is likely the onset of the current UTI. Patient willing to remove Villagomez either today in hospital or at home with hospice nurse. (Milena Cuello MD R2) Objective Vitals Vital Signs Date Time Temp Pulse Resp B/P Pulse Ox O2 Delivery O2 Flow Rate FiO2 06/17/16 08:27 96.3 110 18 134/84 94 06/17/16 08:15 97 21 06/17/16 06:59 20 06/17/16 05:07 98.8 59 18 115/62 97 06/17/16 05:02 97.8 107 18 123/76 95 06/16/16 23:44 99.0 84 18 122/77 98 06/16/16 18:57 115 21 138/79 92 06/16/16 15:30 99.3 106 18 140/80 92 06/16/16 11:52 98.8 113 18 138/80 95 I/O 06/16/16 06/16/16 06/16/16 06/17/16 06/17/16 06/17/16 07:00 15:00 23:00 07:00 15:00 23:00 Intake Total 1230 ml 60 ml 1730 ml Output Total 1860 ml 1800 ml 1100 ml Balance -630 ml -1740 ml 630 ml Intake IV Total 1230 ml 1250 ml Tube Feeding 60 ml 480 ml Output Urine Total 250 ml 500 ml 200 ml Gastric Drainage Total 1000 ml 800 ml 450 ml Drainage Total 610 ml 500 ml 450 ml # Bowel Movements 0 (Milena Quinteros MD R2) Result Diagram: 06/16/16 0500 06/16/16 0500 Objective Remarks GEN: Normally patient. No acute distress. CV: Regular rate and rhythm without obvious murmurs LUNGS: Clear to auscultation bilaterally. Normal respiratory effort. No wheezes , rales, rhonchi. GI: Soft, nontender, nondistended. No palpable masses. NEURO/PSYCH: Awake, alert. Appropriate insight and judgment. Normal speech ( Milena Quinteros MD R2) A/P Assessment and Plan 70-year-old female with history significant for pancreatic cancer and A. fib. Admitted due to dysfunction of J-tube. Discharge Planning Today after sensitivities of urine culture sdw Dr. Lam (Milena Quinteros MD R2) Attending Attestation Patient seen and examined. Case reviewed and discussed with the resident team. Agree with plan of care as discussed with me and documented in the resident note. (Silvia Lam MD) Problem List: (1) UTI (urinary tract infection) due to Enterococcus Status: Acute Plan: Symptoms likely develop about one week ago which prompted the initial Villagomez placement due to symptoms of urinary retention. -Urine culture positive for group D enterococcus -Initiate antibiotic treatment once sensitivities are back today * Likely discharged on Bactrim as this can be given via J-tube in liquid form. Plan to complete a 7 to 10 day course of antibiotics. (2) Malfunctioning jejunostomy tube Status: Resolved Plan: History of metastatic pancreatic cancer that has been complicated by bowel obstructions requiring the placement of G and J-tube (By Dr. Alexander). J- tube dysfunction started on day of admission patient is unable to take anything by mouth. Patient wants minimal intervention and wants to get home as soon as possible. J-tube dysfunction has now resolved and patient has resumed J-tube feedings and medication administration. -IR consulted * procedure to be performed 06/16 -Nutrition consult -Recommended change to Vital 1.5 @ 55mls/hr with 1980 kcals, 89.1g protein, 1008mls free water -Water flushes 250mls q6H -Tube feeds going well -Declines NG tube -Monitor I&O -Abdominal CT: Pancreatic mass and body of pancreas appears relatively stable in size. Stable biliary ductal dilation and low attenuation liver lesions. There is a new mild left-sided hydronephrosis. Mild constipation. Mild anasarca. (3) Pancreatic cancer Status: Chronic Plan: Currently under hospice care due to extensive nature of pancreatic cancer. -Continue home fentanyl patches -Zofran and Reglan as needed for nausea/vomiting -See more detailed plan above. (4) Hydronephrosis Status: Acute Plan: New mild left sided hydronephrosis. -see plan above under UTI (5) Constipation Status: Chronic Plan: Reports history of constipation. CT abdomen is also suggestive of mild constipation. -Enema as needed (6) History of atrial fibrillation Status: Chronic Plan: History of atrial fibrillation that is currently being managed with metoprolol. (7) DVT, acute, left common femoral vein Status: Acute Plan: Reports having a left DVT during last hospitalization which was a week ago. Being treated with Lovenox 100 g daily so that she does not have to give herself injections twice daily -Continue Lovenox 100 g. (8) Nutrition, metabolism, and development symptoms Status: Acute Plan: Diet: Tube feeds Electrolytes: results pending Fluids: none since Jtube is now functional DVT prophylaxis: Lovenox as described above GI prophylaxis: None indicated Chronic conditions: * Hypothyroidism: continue home levothyroxine (Milena Quinteros MD R2) Problem Qualifiers (1) Pancreatic cancer: Qualified Code: C25.9 - Malignant neoplasm of pancreas, unspecified location of malignancy (2) Hydronephrosis: Qualified Code: N13.30 - Hydronephrosis, unspecified hydronephrosis type (3) Constipation: Qualified Code: K59.04 - Chronic idiopathic constipation Milena Quinteros MD R2 Jun 17, 2016 09:32 Silvia Lam MD Jun 17, 2016 15:39
[2016-06-17] MEDS: ENOXAPARIN SODIUM 100 MG/ML SYRINGE SQ SCH (09:52)
[2016-06-17] MEDS ORDERED: SULF20OR2 PO (14:33)
[2016-06-17] MEDS ORDERED: SULF20OR2 G-TUBE (14:36)
--- NOTE | 2016-06-17 14:38 | HHI.DS ---
Discharge Summary Admission Date Jun 15, 2016 at 09:49 Discharge Date: Jun 17, 2016 Admitting Diagnosis clogged j tube (1) UTI (urinary tract infection) due to Enterococcus Diagnosis: Principal Plan: Symptoms likely develop about one week ago which prompted the initial Villagomez placement due to symptoms of urinary retention. -Urine culture positive for group D enterococcus -Initiate antibiotic treatment once sensitivities are back today * Likely discharged on Bactrim as this can be given via J-tube in liquid form. Plan to complete a 7 to 10 day course of antibiotics. (2) Malfunctioning jejunostomy tube Diagnosis: Principal Plan: History of metastatic pancreatic cancer that has been complicated by bowel obstructions requiring the placement of G and J-tube (By Dr. Alexander). J- tube dysfunction started on day of admission patient is unable to take anything by mouth. Patient wants minimal intervention and wants to get home as soon as possible. J-tube dysfunction has now resolved and patient has resumed J-tube feedings and medication administration. -IR consulted * procedure to be performed 06/16 -Nutrition consult -Recommended change to Vital 1.5 @ 55mls/hr with 1980 kcals, 89.1g protein, 1008mls free water -Water flushes 250mls q6H -Tube feeds going well -Declines NG tube -Monitor I&O -Abdominal CT: Pancreatic mass and body of pancreas appears relatively stable in size. Stable biliary ductal dilation and low attenuation liver lesions. There is a new mild left-sided hydronephrosis. Mild constipation. Mild anasarca. (3) Pancreatic cancer Diagnosis: Principal Plan: Currently under hospice care due to extensive nature of pancreatic cancer. -Continue home fentanyl patches -Zofran and Reglan as needed for nausea/vomiting -See more detailed plan above. (4) Hydronephrosis Diagnosis: Secondary Plan: New mild left sided hydronephrosis. -see plan above under UTI (5) Constipation Diagnosis: Secondary Plan: Reports history of constipation. CT abdomen is also suggestive of mild constipation. -Enema as needed (6) History of atrial fibrillation Diagnosis: Secondary Plan: History of atrial fibrillation that is currently being managed with metoprolol. (7) DVT, acute, left common femoral vein Diagnosis: Secondary Plan: Reports having a left DVT during last hospitalization which was a week ago. Being treated with Lovenox 100 g daily so that she does not have to give herself injections twice daily -Continue Lovenox 100 g. (8) Nutrition, metabolism, and development symptoms Diagnosis: Secondary Plan: Diet: Tube feeds Electrolytes: results pending Fluids: none since Jtube is now functional DVT prophylaxis: Lovenox as described above GI prophylaxis: None indicated Chronic conditions: * Hypothyroidism: continue home levothyroxine Consultants IR Procedures Replacement of J tube Brief History Patient is a 70-year-old female with history significant for pancreatic cancer ( diagnosed 2016), A. fib. Presented here today due to malfunction of her J- tube that started at 2:00 this morning. Patient is coming from hospice care but needs it fixed for her nutrition. She repeatedly states that she does not want much intervention and wants to get home as soon as possible. She is unable to take anything by mouth and she does not want an NG tube. Patient states that she is at her baseline which is chronic pain and nausea vomiting. She does not divulge very much details about her health but states that she only wants her J-tube fixed. This has limited history obtained. CBC/BMP: 06/16/16 0500 06/16/16 0500 Significant Findings Laboratory Tests Test 06/15/16 06/15/16 06/16/16 10:20 13:55 05:00 White Blood Count 12.0 TH/MM3 11.8 TH/MM3 (4.0-11.0) (4.0-11.0) Red Blood Count 3.90 MIL/MM3 3.27 MIL/MM3 (4.00-5.30) (4.00-5.30) Hemoglobin 10.7 GM/DL 9.0 GM/DL (11.6-15.3) (11.6-15.3) Hematocrit 33.1 % 27.6 % (35.0-46.0) (35.0-46.0) Neutrophils (%) (Auto) 77.3 % 80.9 % (16.0-70.0) (16.0-70.0) Monocytes (%) (Auto) 8.7 % (0.0-8.0) Neutrophils # (Auto) 9.2 TH/MM3 9.5 TH/MM3 (1.8-7.7) (1.8-7.7) Monocytes # (Auto) 1.0 TH/MM3 (0-0.9) Chloride Level 96 MEQ/L (98-107) Blood Urea Nitrogen 25 MG/DL (7-18) 19 MG/DL (7-18) Estimat Glomerular Filtration 61 ML/MIN (>89) 75 ML/MIN (>89) Rate Calcium Level 7.7 MG/DL 7.5 MG/DL (8.5-10.1) (8.5-10.1) Urine Turbidity HAZY (CLEAR) Urine Protein 30 mg/dL (NEG-TRACE) Urine Occult Blood MOD (NEG) Urine Leukocyte Esterase SMALL (NEG) Urine RBC 94 /hpf (0-3) Urine WBC 12 /hpf (0-5) Urine Calcium Oxalate Crystals OCC /hpf (NONE) Urine Mucus FEW /lpf (OCC) Random Glucose 132 MG/DL (74-106) Imaging Last Impressions Abdomen/Pelvis CT 06/15/16 0000 Signed Impressions: Service Date/Time: Wednesday, June 15, 2016 06:25 - CONCLUSION: 1. Compared with May 24 there is interval placement of a gastrostomy tube, distal duodenal stent and a jejunostomy tube as well as a drain in the right upper quadrant. 2. Pancreatic mass in body of pancreas appears relatively stable in size. Stable biliary ductal dilatation and low-attenuation liver lesions. 3. There is a new mild left-sided hydronephrosis. No definite ureteral calculus is identified. 4. Mild constipation. Mild anasarca. Uriah Lepe MD PE at Discharge GEN: Normally patient. No acute distress. CV: Regular rate and rhythm without obvious murmurs LUNGS: Clear to auscultation bilaterally. Normal respiratory effort. No wheezes , rales, rhonchi. GI: Soft, nontender, nondistended. No palpable masses. NEURO/PSYCH: Awake, alert. Appropriate insight and judgment. Normal speech Hospital Course 70 y/o female with history of pancreatic cancer, on hospice presents with clogged J-tube. IR was unable to replace on weekend. Pt admitted and monitored, replaced J tube by IR. Pt tolerated procedure well. Home meds were continued. Nutrition was consulted, regarding tube feeds, and new recommendations were placed. Pt started on Vital 1.5g with goal of 55mls/hr. Transitioned to new feed overnight. Found to have UTI, prescribed Bactrim suspension for treatment. Pt discharged back to hospice at home. Pt Condition on Discharge: Stable Discharge Disposition: Hospice/ Home Discharge Instructions DIET: Follow Instructions for: On Tube Feeding Activities you can perform: Regular-No Restrictions New Medications: Nutritional Supplements (Vital 1.5 Guillaume) 1 Liq Liq 1 BOTTLE J-TUBE CONTINUOUS #1 BOTTLE Sulfamethoxazole-Trimethoprim Liq (Sulfamethoxazole-Trimethoprim Liq) 200-40 Mg/ 5 Ml Susp 20 ML G-TUBE Q12H via G tube Infection #200 Ref 0 ML Continued Medications: 3-in-1 Bedside Toilet (3-in-1 Bedside Toilet) 1 Mis Mis 1 EA .ROUTE DIRECTED #1 EA Bisacodyl Supp (Dulcolax Supp) 10 Mg Supp 10 MG RECTAL DAILY PRN CONSTIPATION #12 Ref 0 SUPP Enoxaparin Inj (Lovenox Inj) 100 Mg/Ml Syr 100 MG SQ Q24H dvt Days 30 Ref 0 INJECTION Fentanyl Patch 72 HR (Duragesic Patch 72 HR) 100 Mcg/Hr Patch 1 PATCH TD Q3D Pain Management #2 Ref 0 PATCH Fentanyl Patch 72 HR (Fentanyl Patch 72 HR) 25 Mcg/Hr Patch 25 MCG T-DERMAL Q72H Pain Management #10 Ref 0 PATCH Fluticasone Nasal Sedan (Fluticasone Nasal Sedan) 50 Mcg/Act Naspr 50 MCG EACH NARE BID 50 mcg/spray PRN NASAL CONGESTION AND/OR COUGH #1 Ref 0 BOTTLE Guaifenesin (Tussin) 100 Mg/5 Ml Syp Unknown Dose PO DIRECTED PRN COUGH AND/OR COLD SYMPTOMS Kangaroo Sean Feeding Tube Pump Set (Kangaroo Sean Feeding Tube Pump Set) 1 Mis Mis 1 EA .ROUTE DIRECTED #1 EA Levothyroxine (Levothyroxine) 112 Mcg Tab 112 MCG PO DAILY Thyroid #30 Ref 0 TAB Metoprolol Tartrate (Metoprolol Tartrate) 25 Mg Tab 12.5 MG PEG DAILY tachycardia Days 30 Ref 0 TAB Morphine Liq (Morphine Liq) 20 Mg/Ml Liq 20-30 MG J-TUBE Q3HR PRN Pain 6-10;if unable to take PO Ref 0 ML Ondansetron Odt (Zofran Odt) 8 Mg Tab 8 MG SL Q8H PRN NAUSEA OR VOMITING #60 Ref 0 TAB Prochlorperazine Supp (Prochlorperazine Supp) 25 Mg Supp 25 MG RECTAL Q12HR Nausea/Vomiting Ref 0 SUPP Promethazine Supp (Phenergan Supp) 25 Mg Supp 25 MG RECTAL Q12HR PRN NAUSEA OR VOMITING Ref 0 SUPP Ranitidine Liq (Ranitidine Liq) 75 Mg/5 Ml Syp 150 MG PO DAILY Ref 0 ML Sennosides Liq (Sennazon Liq) 8.8 Mg/5 Ml Syp 8.8 MG PO HS Constipation Ref 0 ML Walker with Front Wheels (Walker with Front Wheels) 1 Mis Mis 1 EA .ROUTE DIRECTED #1 Ref 0 EA Discontinued Medications: Nutritional Supplements (Jevity 1.5 Guillaume) 1 Liq Liq 55 ML J-TUBE CONTINUOUS Chaim Mancia MD R1 Jun 17, 2016 14:38
[2016-06-17] MEDS ORDERED: NITR1SUS2 G-TUBE (15:33)
[2016-06-18] MEDS ORDERED: REMOVE OLD DURAGESIC (FENTANYL) PATCH TD SCH (11:00)
[2016-06-18] MEDS ORDERED: REMOVE OLD PATCH T-DERMAL SCH ×2 (12:00)
== END 2016-06-17 18:49 | disposition home or self-care (01) ==
LOC: NEPC 05:05 → NEDA 09:49 → NEPGCP 11:42
PROVIDERS: ADMIT Family Medicine; ATTEND Family Medicine
DX: K94.23 Gastrostomy malfunction (principal); C25.9 Malignant neoplasm of pancreas, unspecified; Z79.01 Long term (current) use of anticoagulants; I48.91 Unspecified atrial fibrillation; Z51.5 Encounter for palliative care; E78.00 Pure hypercholesterolemia, unspecified; Z86.73 Personal history of transient ischemic attack (TIA), and cerebral infarction without residual deficits; I60.9 Nontraumatic subarachnoid hemorrhage, unspecified; K21.9 Gastro-esophageal reflux disease without esophagitis; Z79.899 Other long term (current) drug therapy; G89.29 Other chronic pain; R11.2 Nausea with vomiting, unspecified; N13.30 Unspecified hydronephrosis; K59.04 Chronic idiopathic constipation; E03.9 Hypothyroidism, unspecified; B95.2 Enterococcus as the cause of diseases classified elsewhere; N39.0 Urinary tract infection, site not specified; Z46.59 Encounter for fitting and adjustment of other gastrointestinal appliance and device
CPT/HCPCS: 74176; 80048; 81001; 85025; 85610; 85730; 87077; 87086; 87186; 96361; 96374; 96376; 99285; G0378; J1170; J1650; J2270; J2405; J2765; J7030